=== PATIENT | female | born 1945 | race Caucasian/White ===

== ENCOUNTER 2017-02-26 14:11 | Inpatient (IN) | payer MEDICARE ==
[~2017-02-26] VITALS: Ht 154.9 cm; Wt 48.5 kg
[2017-02-26] VITALS (10 sets, daily range): BP systolic 117–144; BP diastolic 60–81; PULSE 62–88; RESP 14–18; TEMP 97.8–98.1; O2SAT 98–100
[~2017-02-26 14:11] MED LIST: ATOR80TA PO; KLOR20TA6 PO; LEVE500T10 PO; LISI-591 PO; MACR100C PO
--- NOTE | 2017-02-26 14:19 | PD ---
Physical Exam Date Seen by Provider: Feb 26, 2017 Time Seen by Provider: 14:16 Narrative 71-year-old white female patient of Dr. Villagran presents emergency department for evaluation of left-sided chest pain with radiation to her left shoulder. This is been present for the last several weeks. Patient also reports associated hiccups. Patient's having increasing frequency of her pain. Patient currently is pain-free. Patient has a history of non-Hodgkin's lymphoma. Still undergoing treatment. Vital signs reviewed. Awaiting bed placement. Data Data Last Documented VS Vital Signs Date Time Temp Pulse Resp B/P (MAP) Pulse Ox O2 Delivery O2 Flow Rate FiO2 02/26/17 14:14 98.1 77 14 144/68 (93) 99 Orders Orders Electrocardiogram (02/26/17 14:15) [facility] Medical Record Reviewed: No Supervised Visit with YANA: Ryan Enriquez Feb 26, 2017 14:19
--- NOTE | 2017-02-26 14:39 | PD ---
HPI Chief Complaint: Chest Pain Time Seen by Provider: 14:35 Travel History International Travel<30 days: No Contact w/Intl Traveler<30days: No Traveled to known affect area: No History of Present Illness HPI This is a 71-year-old female with history of NHL, COPD, TIA who presents for evaluation of chest pain. She's had intermittent generalized anterior chest pain which sometimes radiates into the left shoulder. This is been waxing and waning for the past few weeks. It seems to be somewhat worse with exertion. Sometimes it occurs spontaneously. She endorses occasional dyspnea as well as hiccups. She denies abdominal pain, nausea or vomiting, cough or congestion, recent travel, calf swelling. She was seen today by coroner Dr. Villagran and reportedly referred here. She is currently symptom-free. She has no other complaints at this time. PFSH Past Medical History Arthritis: Yes Asthma: No Blood Disorders: No Heart Rhythm Problems: Yes (HOLE IN HEART) Cancer: No Cardiovascular Problems: No High Cholesterol: No Chemotherapy: Yes ([id number]) Chest Pain: No Congestive Heart Failure: No COPD: Yes Cerebrovascular Accident: Yes Diabetes: No Diminished Hearing: No Endocrine: No Gastrointestinal Disorders: Yes GERD: No Genitourinary: Yes (BLADDER AND KIDNEY INFECTIONS) Headaches: Yes Hepatitis: No Hiatal Hernia: No Hypertension: Yes Immune Disorder: No Musculoskeletal: Yes (BACK SURGERY) Neurologic: Yes (CVA) Psychiatric: No Reproductive: No Respiratory: Yes (COPD) Integumentary: Yes (HX OF MRSA) Immunizations Current: No Migraines: No Myocardial Infarction: No Seizures: Yes Thyroid Disease: No Ulcer: No Menopausal: Yes Tubal Ligation: Yes (1971) Past Surgical History Abdominal Surgery: Yes (GALLBLADDER) AICD: No Appendectomy: No Cardiac Surgery: No Cholecystectomy: Yes ("") Ear Surgery: No Endocrine Surgery: No Eye Surgery: Yes (BILATERAL) Genitourinary Surgery: No Gynecologic Surgery: Yes (HYSTERECTOMY) Hysterectomy: Yes (1981--PARTIAL) Joint Replacement: No Oral Surgery: No Pacemaker: No Other Surgery: Yes Social History Alcohol Use: No Tobacco Use: No Substance Use: No Allergies-Medications (Allergen,Severity, Reaction): Coded Allergies: No Known Allergies (Verified , 02/26/17) Reported Meds & Prescriptions Reported Meds & Active Scripts Active Review of Systems Except as stated in HPI: all other systems reviewed are Neg Physical Exam Narrative GENERAL: Pleasant well-developed well-nourished female in no acute distress SKIN: Warm and dry. HEAD: Atraumatic. Normocephalic. EYES: Pupils equal and round. No scleral icterus. No injection or drainage. ENT: No nasal bleeding or discharge. Mucous membranes pink and moist. NECK: Trachea midline. No JVD. CARDIOVASCULAR: Regular rate and rhythm. No murmur appreciated. RESPIRATORY: No accessory muscle use. Clear to auscultation. Breath sounds equal bilaterally. No crackles no wheezing or rhonchi GASTROINTESTINAL: Abdomen soft, non-tender, nondistended. Hepatic and splenic margins not palpable. MUSCULOSKELETAL: No obvious deformities. No clubbing. No cyanosis. No edema. NEUROLOGICAL: Awake and alert. No obvious cranial nerve deficits. Motor grossly within normal limits. Normal speech. PSYCHIATRIC: Appropriate mood and affect; insight and judgment normal. Data Data Last Documented VS Vital Signs Date Time Temp Pulse Resp B/P (MAP) Pulse Ox O2 Delivery O2 Flow Rate FiO2 02/26/17 14:38 16 99 Room Air 02/26/17 14:37 70 02/26/17 14:14 98.1 Orders Orders Electrocardiogram (02/26/17 14:15) Electrocardiogram (02/26/17 14:33) Basic Metabolic Panel (Bmp) (02/26/17 14:33) Ckmb (Isoenzyme) Profile (02/26/17 14:33) Complete Blood Count With Diff (02/26/17 14:33) Magnesium (Mg) (02/26/17 14:33) Prothrombin Time / Inr (Pt) (02/26/17 14:33) Act Partial Throm Time (Ptt) (02/26/17 14:33) Troponin I (02/26/17 14:33) Chest, Single Ap (02/26/17 14:33) Ecg Monitoring (02/26/17 14:33) Bilateral Bp Monitoring (02/26/17 14:33) Iv Access Insert/Monitor (02/26/17 14:33) Oximetry (02/26/17 14:33) Oxygen Administration (02/26/17 14:33) Aspirin Chew (Aspirin Chew) (02/26/17 14:45) Sodium Chloride 0.9% Flush (Ns Flush) (02/26/17 14:45) Admit Order (Ed Use Only) (02/26/17 15:32) Labs Laboratory Tests Test 02/26/17 14:38 Prothrombin Time 11.6 SEC Prothromb Time International Ratio 1.0 RATIO Activated Partial Thromboplast Time 22.2 SEC Blood Urea Nitrogen 11 MG/DL Creatinine 0.84 MG/DL Random Glucose 94 MG/DL Calcium Level 8.5 MG/DL Magnesium Level 2.0 MG/DL Sodium Level 141 MEQ/L Potassium Level 4.7 MEQ/L Chloride Level 108 MEQ/L Carbon Dioxide Level 29.4 MEQ/L Anion Gap 4 MEQ/L Estimat Glomerular Filtration Rate 66 ML/MIN MDM Medical Decision Making Medical Screen Exam Complete: Yes Emergency Medical Condition: Yes Medical Record Reviewed: Yes Differential Diagnosis Pleurisy, pericarditis, myocarditis, acute coronary syndrome, pneumothorax, hemothorax, pulmonary embolism, aortic dissection Narrative Course 71-year-old female who has been experiencing intermittent chest pain radiating into the left arm for the past few weeks. She was sent here by coroner Dr. Villagran. Currently she is symptom free. The patient will be given an aspirin. The patient was placed on ECG monitoring pulse oximetry. Plan is for basic lab work, chest x-ray, EKG. I discussed the case with the patient's coroner Dr. Lara reports that the patient is going to be going for cardiac catheterization at 4:30 PM today performed by Dr. Beltran. The patient was admitted to Dr. Lester. Diagnosis Primary Impression: Chest pain Qualified Codes: R07.9 - Chest pain, unspecified Additional Impression: Abnormal EKG Admitting Information Admitting Physician Requests: Oliver Chapman Feb 26, 2017 14:38
[2017-02-26] MEDS ORDERED: ASPIRIN 81 MG CHEW TAB PO ONE (14:45)
[2017-02-26] MEDS ORDERED: SODIUM CHLORIDE 0.9% FLUSH 10 ML FLUSH IVF PRN (14:45)
[2017-02-26 15:18] LABS: PROTHROMBIN TIME - PATIENT 11.6 SEC (9.8-11.6)
[2017-02-26 15:19] LABS: ANION GAP 4 MEQ/L (5-15); APTT (PATIENT) 22.2 SEC (24.3-30.1); BICARBONATE 29.4 MEQ/L (21.0-32.0); BLOOD UREA NITROGEN 11 MG/DL (7-18); CHLORIDE 108 MEQ/L (98-107); GLOMERULAR FILTRATION RATE 66 ML/MIN (>89); POTASSIUM 4.7 MEQ/L (3.5-5.1); SODIUM (NA) 141 MEQ/L (136-145)
--- NOTE | 2017-02-26 15:23 | PD ---
Data Data Last Documented VS Vital Signs Date Time Temp Pulse Resp B/P (MAP) Pulse Ox O2 Delivery O2 Flow Rate FiO2 02/26/17 14:38 16 99 Room Air 02/26/17 14:37 70 02/26/17 14:14 98.1 Orders Orders Electrocardiogram (02/26/17 14:15) Electrocardiogram (02/26/17 14:33) Basic Metabolic Panel (Bmp) (02/26/17 14:33) Ckmb (Isoenzyme) Profile (02/26/17 14:33) Complete Blood Count With Diff (02/26/17 14:33) Magnesium (Mg) (02/26/17 14:33) Prothrombin Time / Inr (Pt) (02/26/17 14:33) Act Partial Throm Time (Ptt) (02/26/17 14:33) Troponin I (02/26/17 14:33) Chest, Single Ap (02/26/17 14:33) Ecg Monitoring (02/26/17 14:33) Bilateral Bp Monitoring (02/26/17 14:33) Iv Access Insert/Monitor (02/26/17 14:33) Oximetry (02/26/17 14:33) Oxygen Administration (02/26/17 14:33) Aspirin Chew (Aspirin Chew) (02/26/17 14:45) Sodium Chloride 0.9% Flush (Ns Flush) (02/26/17 14:45) Labs Laboratory Tests Test 02/26/17 14:38 Prothrombin Time 11.6 SEC Prothromb Time International Ratio 1.0 RATIO Activated Partial Thromboplast Time 22.2 SEC Blood Urea Nitrogen 11 MG/DL Creatinine 0.84 MG/DL Random Glucose 94 MG/DL Calcium Level 8.5 MG/DL Magnesium Level 2.0 MG/DL Sodium Level 141 MEQ/L Potassium Level 4.7 MEQ/L Chloride Level 108 MEQ/L Carbon Dioxide Level 29.4 MEQ/L Anion Gap 4 MEQ/L Estimat Glomerular Filtration Rate 66 ML/MIN MDM Supervised Visit with YANA: Yes Narrative Course The history, exam, and medical decision-making in the associated mid-level provider note were completed with my assistance. I reviewed and agree with the findings presented. I attest that I had a [id number] encounter with the patient on the same day, and personally performed and documented my assessment and findings in the medical record. *My assessment and Findings: 70 year-old woman referred to the emergency department for chest pain. History of CAD, previous stent. She's had an unstable angina-like pattern of chest pain over the past couple weeks. 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 Oliver spoke with Dr. Hull. Patient is scheduled for heart catheter this afternoon. Patient be admitted to medicine. Blair Wade MD Feb 26, 2017 15:23
[2017-02-26] MEDS ORDERED: IOHEXOL 350 MG/ML 100 ML BTL (for Cath Lab) OTHER ONE (15:34)
[2017-02-26] MEDS ORDERED: MIDAZOLAM HCL 2 MG/2 ML VIAL ONE (15:43)
[2017-02-26] MEDS ORDERED: VERAPAMIL HCL 5 MG/2 ML VIAL ONE (15:44)
[2017-02-26] MEDS ORDERED: HEPARIN SODIUM - IV 10,000 UNITS/10 ML VIAL ONE (15:44)
[2017-02-26] MEDS ORDERED: NITROGLYCERIN INJ 5 ML ONE (15:44)
[2017-02-26] MEDS ORDERED: SENNOSIDES 8.6 MG TAB PO PRN (15:45)
[2017-02-26] MEDS ORDERED: SODIUM CHLORID 0.9% 500 ML INJ 500 ML ONE (15:45)
[2017-02-26] MEDS ORDERED: BISACODYL 10 MG SUPP RECTAL PRN (15:45)
[2017-02-26] MEDS ORDERED: ACETAMINOPHEN 325 MG TAB PO PRN (15:45)
[2017-02-26] MEDS ORDERED: NALOXONE HCL 0.4 MG/ML AMP IV PUSH PRN (15:45)
[2017-02-26] MEDS ORDERED: MAGNESIUM HYDROXIDE SUSP 30 ML CUP PO PRN (15:45)
[2017-02-26] MEDS ORDERED: TEMAZEPAM 15 MG CAP PO PRN (15:45)
[2017-02-26] MEDS ORDERED: LACTULOSE SYRUP 20 GM/30 ML CUP PO PRN (15:45)
[2017-02-26] MEDS ORDERED: SODIUM CHLORIDE 0.9% FLUSH 10 ML FLUSH IV FLUSH PRN (15:45)
[2017-02-26] MEDS ORDERED: HEPARIN-NS/PF INJ 1,000 ML ONE (15:45)
[2017-02-26] MEDS ORDERED: ONDANSETRON HCL 4 MG/2 ML VIAL IVP PRN (15:45)
--- NOTE | 2017-02-26 15:46 | RADRPT ---
EXAM DATE/TIME: 02/26/2017 15:13 [place] COMPARISON: No previous studies available for comparison. INDICATIONS : Chest pain. MEDICAL HISTORY : Chronic obstructive pulmonary disease. Hypertension SURGICAL HISTORY : Mott eitan. Infusaport. ENCOUNTER: Initial ACUITY: 1 day PAIN SCORE: 2/10 LOCATION: Bilateral chest FINDINGS: A single view of the chest demonstrates the lungs to be symmetrically aerated without evidence of mas s, infiltrate or effusion. The cardiomediastinal contours are unremarkable. Osseous structures are intact. Scoliotic changes. Jowecv-k-Ugsk catheter with tip in the cavoatrial junction. CONCLUSION: No acute disease. Messi Fajardo MD on February 26, 2017 at 15:39 Board Certified Radiologist. This report was verified electronically.
[2017-02-26] MEDS ORDERED: LIPI80TA PO (15:51)
[2017-02-26] MEDS ORDERED: LEVE500 PO (15:51)
[2017-02-26] MEDS ORDERED: LISI10TA3 PO (15:51)
[2017-02-26] MEDS ORDERED: POTA-163 PO (15:51)
[2017-02-26] MEDS ORDERED: PROC10TA PO (15:51)
[2017-02-26] MEDS ORDERED: TOPR100T PO (15:51)
[2017-02-26] MEDS ORDERED: VITA100064 PO (15:51)
[2017-02-26 15:52] LABS: CREATINE KINASE 185 U/L (26-192)
[2017-02-26] MEDS: SODIUM CHLOR 0.45% 1000 ML INJ 1,000 ML IV SCH (16:00)
[2017-02-26 16:09] LABS: CKMB 2.5 NG/ML (0.5-3.6)
[2017-02-26 16:12] LABS: AUTOMATED NEUTROPHIL # 2.3 TH/MM3 (1.8-7.7); BASOPHIL % 0.8 % (0.0-2.0); EOSINOPHIL # 0.2 TH/MM3 (0-0.4); EOSINOPHIL % 6.2 % (0.0-4.0); HEMATOCRIT 34.3 % (35.0-46.0); LYMPH % 11.2 % (9.0-44.0); LYMPHOCYTE # 0.4 TH/MM3 (1.0-4.8); MEAN CELL VOLUME 97.8 FL (80.0-100.0); MEAN CORPUSCULAR HEMOGLOBIN 32.5 PG (27.0-34.0); MEAN CORPUSCULAR HGB CONC 33.2 % (32.0-36.0); MONO % 10.9 % (0.0-8.0); NEUT % 70.9 % (16.0-70.0); PLATELET COUNT 120 TH/MM3 (150-450); RED BLOOD COUNT 3.51 MIL/MM3 (4.00-5.30); RED CELL DISTRIBUTION WIDTH 13.2 % (11.6-17.2); WHITE BLOOD COUNT 3.2 TH/MM3 (4.0-11.0)
[2017-02-26 16:16] LABS: HEMO FLAGS AUTO DIFF
[2017-02-26] MEDS ORDERED: HEPARIN SODIUM - SQ 10,000 UNITS/ML VIAL SQ SCH (17:00)
[2017-02-26 17:19] LABS: BANDS 8 % (0-6); BASOPHILS 2 % (0-2); EOSINOPHILS 6 % (0-4); NEUTROPHIL # MANUAL DIFF 2.4 TH/MM3 (1.8-7.7); POLYS (SEG NEUTROPHILS) 66 % (16-70); WBC DIFF SAMPLE 100
[2017-02-26 17:20] LABS: OVALOCYTES 1+ (NORMAL); PLATELET ESTIMATE SMEAR LOW (NORMAL); PLATELET MORPHOLOGY NORMAL (NORMAL); SCAN/DIFF FINAL DIFF MANUAL
[2017-02-26 17:21] LABS: KERATOCYTES OCC (NORMAL)
[2017-02-26] MEDS ORDERED: HEPARIN-D5W 25,000 U/250 ML 250 ML ONE (17:48)
--- NOTE | 2017-02-26 18:05 | CATHPROC ---
[facility] HIS Report Study Information Study Number Admission Scheduled Start Study Start [id number] Feb 26 2017 2:11PM 02/26/2017 Feb 26 2017 4:04PM [place] Service Cardiac Catheterization Admit Source Facility Department Emergency department [facility] - Braid Pattern Setter Physician and Clinical Staff Initial Rigo De Guzman Tire Fabricator Anum Correia RN Tire Fabricator Elba Kerr BSRN Recorder Bernabe Ansari RCIS(BS) Scrub Eboni Juarez,RT(R) Procedures Performed Procedure Location (Site) Vessel Name Coronary Angiograms LCA Left Coronary Coronary Angiograms RCA Right Coronary IVUS LEFT MAIN ARTERY-(11 Left Coronary L Heart Cath Wire insertion Radial (right) Radial Art. Equipment Time Remote Mortgage Underwriter Description Size Mfg Part Number Used/Scraped WIRE, BALANCE MIDDLEWEIGHT [id number] 17:02 [employer] 190CM Used 190CM *[id number] *[id number] *[id number] 16:12 [employer] PACK, CCL CUSTOM * Used *[id number] 16:25 [employer] PACK, CCL CUSTOM * Used *[id number] 16:25 [employer] SUPPORT, ARTERIAL ADULT 33175 *[id number] Used [id number] 17:02 [employer]/AVE EBU 3.5 Z2 GUIDE CATHETER FR 6 Used *[id number] BAND, RADIAL COMPRESSION TR [id number] 17:33 [employer] MEDICAL 24CM Used SHORT 24 *[id number] 16:25 [employer] MEDICAL WIRE, EXCHANGE 260CM 3MMJ 260CM Used *[id number] 16:25 NAMIC MANIFOLD, 4 PORT * Used *[id number] 16:12 [employer] OMNIPAQUE, 350 MG, 150ML 150ML [id number] Used [id number] 16:25 BLOCK MEDICAL BLANKET,WARM AIR CCL * Used *[id number] SHEATH, FR6 TRANSRADIAL [id number] 16:27 [employer] MEDICAL FR 6 Used SLENDER 10CM *[id number] CATHETER, [employer] [id number] 17:05 [employer] Used IMAGING *[id number] Equipment Model, Serial, Lot Number and Expiration Data Description Model Number Serial Number Lot Number Expiration Date CATHETER, [employer] [id number] 12-06-2018 IMAGING History: Current Medications Medication Dosage/Unit Route Frequency Last Date/Time Taken ASA Statins (any) History: Allergies Allergy Reaction No Known Allergies History: Risk Factors Family History of Hypertension Dyslipidemia Previous IA Previous Heart Failure Premature CAD Yes Yes No No No Prior Valve Prior PCI Prior CABG Surgery No No No Cerebrovascular Peripheral Artery Chronic Lung On Dialysis Diabetes Disease Disease Disease No Yes Yes Yes Yes History: Stress Tests Stress or Imaging Studies Performed No History: Other Current Smoker No Labs Hgb (g/dl) Hct (%) WBC (l/cumm) Platelets (thousands) 11.60-17.00 35.00-51.00 4.00-11.00 150.00-450.00 11.4 34.3 3.2 120 Glucose (mg/dl) BUN (mg/dl) Creatinine (mg/dl) BUN:Creatinine (1:x) 74.00-106.00 7.00-18.00 0.50-1.30 10.00-20.00 94 11 0.8 13.8 Na (meq/l) K (meq/l) 136.00-145.00 3.50-5.10 141 4.7 INR (PTT:PT) 0.90-1.10 1 Troponin I (ng/ml) CPK (u/l) CPK-MB (ng/ML) 0.02-0.05 26.00-308.00 0.50-3.60 0.99 185 2.5 Medication Medication Total Dose (Bolus/Oral) Medication Total Dosage/Unit FENTANYL 25 mcg HEPARIN 2700 units RADIAL COCKTAIL 5 mL (Bolus) VERSED 0.5 mg Medications (Bolus/Oral) Medication Time Given Dosage/Unit Administered By Reason VERSED 02/26/2017 4:40:00 PM 0.5 mg Rittenour, Elba 0.5 mg VERSED given in lab by Elba Kerr BSRN via Central IV. Ordered by Rigo Beltran. FENTANYL 02/26/2017 4:41:30 PM 25 mcg Rittenour, Elba 25 mcg FENTANYL given in lab by Elba Kerr BSRN via Central IV. Ordered by Rigo Beltran. Ntg 200mcg Verapamil 2.5mg Heparin RADIAL COCKTAIL 02/26/2017 4:43:25 PM 5 mL (Bolus) Usha, Elba 2000U 5 mL (Bolus) RADIAL COCKTAIL given in lab by Elba Kerr BSRN via Radial. Using [Solution Name] . Ordered by Rigo Beltran. Reason: Ntg 200mcg Verapamil 2.5mg Heparin 1800U. HEPARIN 02/26/2017 5:03:09 PM 2700 units Elba Kerr 2700 units HEPARIN given in lab by Elba Kerr BSRN via Central IV. Ordered by Fredy Beltran Medication (Drip) Medication Time Given Dosage/Unit Concentration/Unit Diluent (ml) Solution HEPARIN DRIP 02/26/2017 5:38:41 PM 1000 units/hr 98854 units 250 D5W 1000 units/hr HEPARIN DRIP given in lab by Elba Kerr BSRN via Peripheral IV. Pump/Drip Flow = 10 ml/hr [place] D5[place] [address] units in 250 ml. Ordered by Rigo Beltran. IV Solutions 02/26/2017 4:26:51 PM 0 mL (IV) 500 NaCl .9 Patient arrived on IV Solutions via Central IV. Pump/Drip Flow = 20 ml/hr using NaCl .9. Initial Case Assessment Cardiovascular HR Rhythm NIBP Chest Pain 65 SR 151/77 0 Edema Present Skin color Skin None Normal Warm Dry Circulatory - Right Pulses Dorsalis Pedis Femoral Radial 2 2 2 Scale (0,1,2,3,4,d) Circulatory - Left Pulses Dorsalis Pedis Femoral Radial 2 2 Scale (0,1,2,3,4,d) Circulatory - Lower Extremities Color Lower Right Color Lower Left Normal Normal Neurological State Oriented to time-place- Alert Moves all extremities person Respiration - General Respiration Rate SpO2 (%) (B/min) 14 100 Final Case Assessment Cardiovascular HR Rhythm NIBP Chest Pain 65 SR 151/77 0 Edema Present Skin color Skin None Normal Warm Dry Circulatory - Right Pulses Dorsalis Pedis Femoral Radial 2 2 2 Scale (0,1,2,3,4,d) Circulatory - Left Pulses Dorsalis Pedis Femoral Radial 2 2 Scale (0,1,2,3,4,d) Circulatory - Lower Extremities Color Lower Right Color Lower Left Normal Normal Neurological State Oriented to time-place- Alert Moves all extremities person Respiration - General Respiration Rate SpO2 (%) (B/min) 14 100 Chronological Log Time Study Chronological Log 16:12:20 Patient arrived via Bed. 16:12:21 Patient Name, D.O.B, / Armband Verified By R.N. 16:12:22 Consent signed by the physician and the patient and verified by the Braid Pattern Setter staff. 16:12:23 Pre-op and post- op instructions given; patient acknowledges understanding of instructions. 16:12:25 Verbal Stimulation=2 Physical Stimulation=2 Airway=2 Respiration=2 TOTAL=8. (0=absent, 1=li mited, 2=present) 16:20:00 MD arrived. Vitals capture started with the following parameters, Patient=Adult, Interval=5 min, Initial Pr zsnenl=001 mmHg, 16:23:00 Deflation Rate=5 mmHg, Cuff placed on Left Ankle 16:23:35 HR=67 bpm, HDPA=370/73 mmhg, LtW1=482 %, Resp=17 B/min, Pain=0, Sherley=10, Kumar=2 16:26:41 Patient has been NPO for Less than 6Hrs. 16:26:46 Skin Breakdown- 16:26:48 Patient Warmer Placed on the Table. 16:26:50 A # ~SIZE~ IV was noted in the R Upper Chest. Grade = ~GRADE~ 16:26:51 Patient arrived on IV Solutions via Central IV. Pump/Drip Flow = 20 ml/hr using NaCl .9. 16:26:52 History and physical on the chart or being dictated. Assessment: Initial Case, HR=65 BPM, Rhythm=SR, QWWY=922/77 mmhg, Chest Pain=0, Edema=None, Col or=Normal, Skin = Warm, Dry Right Pulses: Gurdeep Ped=2, Femoral=2, Radial=2 Left Pulses: Gurdeep Ped=2, Femoral=2 16:26:56 Lower Right Extremities: Color=Normal Lower Left Extremities: Color=Normal Neurological: State=Alert, Ox3, NUNEZ Respiration: Resp=14 B/min, MtD3=797 % 16:27:08 Right Radial and groin(s) prepped with 2% chlorhexidine, and with a 3 min. waiting time. 16:28:16 Reference ECG taken 16:28:36 HR=67 bpm, MQDY=469/77 mmhg, ZrY0=461 %, Resp=16 B/min, Pain=0, Sherley=10, Kumar=2 16:33:32 Pressure channel 1 zeroed. 16:33:41 HR=66 bpm, KKZU=172/66 mmhg, SpO2=99.0 %, Resp=14 B/min, Pain=0, Sherley=10, Kumar=2 16:38:36 HR=64 bpm, LRGB=817/66 mmhg, SpO2=99.0 %, Resp=13 B/min, Pain=0, Sherley=10, Kumar=2 16:40:00 0.5 mg VERSED given in lab by Elba Kerr BSRN via Central IV. Ordered by Pepe Beltran. Time Out. Correct patient, correct procedure,correct physician, ,power injector loaded or not l oaded with contrast with 16:40:25 surgical team present. Time Out Concurred by MD, individual staff and MANAGER UROLOGY in procedure 16:40:32 Case Start 16:41:30 25 mcg FENTANYL given in lab by Elba Kerr BSRN via Central IV. Ordered by Rigo Beltran. 16:42:36 Access site was RIGHT Radial Artery. A SHEATH, FR6 TRANSRADIAL SLENDER 10CM FR 6 was advanced into the Radial (right) using the Perc utaneous 16:43:02 technique. 5 mL (Bolus) RADIAL COCKTAIL given in lab by Elba Kerr BSRN via Radial. Using [Solution Name]. Ordered by 16:43:25 Rigo Beltran. Reason: Ntg 200mcg Verapamil 2.5mg Heparin 1800U. 16:43:37 HR=68 bpm, LNNF=344/79 mmhg, SpO2=99.0 %, Resp=13 B/min, Pain=0, Sherley=10, Kumar=2 A JR 4.0 INFINITI CATHETER FR 5 was advanced over a wire. OMNIPAQUE, 350 MG, 150ML 150ML was us ed for 16:44:22 injections. Recorded Pressure: Ao, HR=68, Condition=Condition 1 16:46:22 (Aorta) Ao 104/51/73 Recorded Pressure: LV, HR=67, Condition=Condition 1 16:48:27 (Left Ventricle) LV 109/5/10 Recorded Pressure: LV, Ao, HR=67, Condition=Condition 1 16:48:34 (Left Ventricle) LV 108/5/10, (Aorta) Ao 106/53/75 16:48:40 HR=67 bpm, XGJV=535/63 mmhg, SpO2=97.0 %, Resp=11 B/min, Pain=0, Sherley=10, Kumar=2 16:49:49 The RCA was injected and visualized at various angles. OMNIPAQUE, 350 MG, 150ML 150ML used . After removing the current catheter a JL 3.5 INFINITI CATHETER FR 5 was advanced over a WIRE, E XCHANGE 260CM 16:52:30 3MMJ 260CM. 16:53:31 HR=67 bpm, BBWO=823/64 mmhg, SpO2=97.0 %, Resp=7 B/min, Pain=0, Sherley=10, Kumar=2 16:53:54 The LCA was injected and visualized at various angles. OMNIPAQUE, 350 MG, 150ML 150ML used . 16:58:34 HR=62 bpm, TTKL=919/63 mmhg, SpO2=96.0 %, Resp=11 B/min, Pain=0, Sherley=10, Kumar=2 17:03:09 2700 units HEPARIN given in lab by Elba Kerr BSRN via Central IV. Ordered by Rigo Barnes. 17:03:35 HR=66 bpm, YYSZ=470/62 mmhg, SpO2=98.0 %, Resp=13 B/min 17:08:36 HR=72 bpm, OYVL=933/63 mmhg, SpO2=99.0 %, Resp=16 B/min, Pain=0, Sherley=10, Kumar=2 After removing the current catheter a EBU 3.5 Z2 GUIDE CATHETER FR 6 was advanced over a WIRE, EXCHANGE 17:13:05 260CM 3MMJ 260CM. 17:13:19 A WIRE, BALANCE MIDDLEWEIGHT 190CM 190CM was inserted via Radial (right). 17:13:35 HR=65 bpm, GYLC=003/67 mmhg, SpO2=99.0 %, Resp=12 B/min, Pain=0, Sherley=10, Kumar=2 17:14:19 Interventional wire has crossed the lesion 17:15:21 An CATHETER, [employer] IMAGING was advanced through the lesion. Images saved on to IVUS hard drive 17:16:00 IVUS in progress using CATHETER, [employer] IMAGING 17:18:38 HR=71 bpm, DJRP=860/70 mmhg, ZtI5=452.0 %, Resp=0 B/min, Pain=0, Sherley=10, Kumar=2 17:20:20 IVUS catheter removed 17:23:37 HR=66 bpm, QJFR=285/70 mmhg, SpO2=99.0 %, Resp=10 B/min, Pain=0, Sherley=10, Kumar=2 17:28:41 HR=74 bpm, TPLM=351/71 mmhg, AlA2=384.0 %, Resp=14 B/min, Pain=0, Sherley=10, Kumar=2 17:29:42 Catheter was removed 17:31:55 Case End Assessment: Final Case, HR=65 BPM, Rhythm=SR, OGLM=601/77 mmhg, Chest Pain=0, Edema=None, Color =Normal, Skin = Warm, Dry Right Pulses: Gurdeep Ped=2, Femoral=2, Radial=2 Left Pulses: Gurdeep Ped=2, Femoral=2 17:32:40 Lower Right Extremities: Color=Normal Lower Left Extremities: Color=Normal Neurological: State=Alert, Ox3, NUNEZ Respiration: Resp=14 B/min, TqY7=776 % Radial Compression Device Used. 10 mLs of air placed in BAND, RADIAL COMPRESSION TR SHORT 24 24 CM. Affected 17:32:53 hand 99 % O2 saturation. 17:33:40 HR=75 bpm, UUHB=228/76 mmhg, TwJ8=150.0 %, Resp=6 B/min, Pain=0, Sherley=10, Kumar=2 17:34:14 Sterile dressing applied to site 17:34:15 No case complications noted. 17:34:16 Cine recording checked. 17:34:18 Bedside Report will be given. 17:34:19 Contrast Scanned 17:34:22 A Left Heart Cath was performed. 1000 units/hr HEPARIN DRIP given in lab by Elba Kerr BSRN via Peripheral IV. Pump/Drip Flow = 10 ml/hr 17:38:41 [place] [address] units in 250 ml. Ordered by Rigo Beltran. 17:38:43 HR=69 bpm, ROCF=882/71 mmhg, Resp=17 B/min, Pain=0, Sherley=10, Kumar=2 17:43:40 HR=71 bpm, HTAT=052/77 mmhg, Resp=18 B/min, Pain=0, Sherley=10, Kumar=2 17:46:47 Patient moved to stretcher 17:48:27 Vitals capture stopped. End Study - Contrast Media Used In Study Contrast Total Opened (mL) Total Used (mL) Total Wasted (mL) Omnipaque 60 60 0 End Study - Maximum Contrast Load Max Contrast Load (mL) 278.1 End Study - Radiation Exposure Fluoro Time (minutes) 10.3 End Study - Patient Disposition Complications Transferred To Telemetry Bed
[2017-02-26] MEDS ORDERED: HEPARIN-D5W 25,000 U/250 ML 250 ML IV PRN (18:15)
--- NOTE | 2017-02-26 18:48 | HP.UPD ---
H&P Update Note This is a 71-year-old female with a history of non-Hodgkin's lymphoma , COPD, TIA, "hole in the heart" She was admitted with chest pain with ischemic electrocardiographic changes She had an emergent catheterization showing multivessel coronary disease including significant left main disease Cardio vascular surgery was consulted for coronary bypass surgery Discussed with finisher denture Dr. Beltran Comprehensive history and physical to follow aYron White MD Feb 26, 2017 18:45
[2017-02-26] MEDS ORDERED: RESP: ALBUTEROL 2.5 MG/IPRATROPIUM 0.5 MG NEB (PRN) NEB (19:00)
[2017-02-26] MEDS ORDERED: NITROGLYCERIN 0.4 MG SL 25 TABS/BTL SL PRN (19:00)
--- NOTE | 2017-02-26 19:12 | HHI.HP ---
HPI Service [facility] Primary Care Physician Maxim Chanel MD Admission Diagnosis chest pain, abnormal EKG Diagnoses: Chief Complaint: chest pain Travel History International Travel<30 Days: No Contact w/Intl Traveler <30 Da: No Traveled to Known Affected Are: No History of Present Illness Mrs. Odom is a 71-year-old white female with significant past medical history of non-Hodgkin's B-cell lymphoma currently on maintenance Rituxan, epilepsy, COPD, previous TIAs, arthritis, hyperlipidemia, hypertension. Patient presented to the emergency room with complaints of left-sided chest wall pain that has been ongoing for the last couple weeks, it is waxing and waning. Pain is associated with shortness of breath and increased hiccups. Indicates that the pain increases with activity. She also complains of some tingling to her feet. Patient went to see her cloth folder machine Dr. Villagran who referred her to the hospital for evaluation and cardiac catheterization with Dr. Raygoza. Patient denies any prior history of coronary artery disease. Indicates she has history of a "hole" in her heart. Review of previous medical records shows that patient had a EVA back in 2008 that showed a stretched patent foramen ovale, had a bubble study that was negative. EF at that time was found at 55-60% with overall left ventricular systolic function that was normal. Pt. was evaluated in emergency room, laboratory workup was completed. BMP unremarkable. Troponin was not elevated, 0.99. EKG shows deep anterior precordial T wave inversions. CBC remarkable for pancytopenia, WBC 3.2, platelets 120, hemoglobin 11.4, hematocrit 34.3. Patient was evaluated by Dr. Raygoza, she underwent cardiac catheterization. Cardiac catheterization showed multivessel coronary artery disease. Cardiothoracic consultation has been recommended. Patient has been started on heparin drip. If necessary, IABP has been recommended if patient decompensates. A 2-D echo is currently pending. At This time, patient remains chest pain-free, no shortness of breath. Patient is admitted for further evaluation and treatment. Review of Systems Constitutional: DENIES: Diaphoretic episodes, Fatigue, Fever, Weight gain, Weight loss, Chills, Dizziness, Change in appetite, Night Sweats Endocrine: DENIES: Abnorml menstrual pattern, Heat/cold intolerance, Polydipsia , Polyuria, Polyphagia Eyes: DENIES: Blurred vision, Diplopia, Eye inflammation, Eye pain, Vision loss , Photosensitivity, Double Vision Ears, nose, mouth, throat: DENIES: Tinnitus, Hearing loss, Vertigo, Nasal discharge, Oral lesions, Throat pain, Hoarseness, Ear Pain, Running Nose, Epistaxis, Sinus Pain, Toothache, Odynophagia Respiratory: DENIES: Apneas, Cough, Snoring, Wheezing, Hemoptysis, Sputum production, Shortness of breath Cardiovascular: COMPLAINS OF: Chest pain, Dyspnea on Exertion, DENIES: Palpitations, Syncope, PND, Lower Extremity Edema, Orthopnea, Claudication Gastrointestinal: DENIES: Abdominal pain, Black stools, Bloody stools, Constipation, Diarrhea, Nausea, Vomiting, Difficulty Swallowing, Anorexia Genitourinary: DENIES: Abnormal vaginal bleeding, Dysmenorrhea, Dyspareunia, Sexual dysfunction, Urinary frequency, Urinary incontinence, Urgency, Hematuria , Dysuria, Nocturia, Vaginal discharge Musculoskeletal: DENIES: Joint pain, Muscle aches, Stiffness, Joint Swelling, Back pain, Neck pain Integumentary: DENIES: Abnormal pigmentation, Pruritus, Rash, Nail changes, Breast masses, Breast skin changes, Nipple discharge Hematologic/lymphatic: DENIES: Bruising, Lymphadenopathy Immunologic/allergic: DENIES: Eczema, Urticaria Neurologic: COMPLAINS OF: Paresthesias, DENIES: Abnormal gait, Headache, Localized weakness, Seizures, Speech Problems, Tremor, Poor Balance Psychiatric: DENIES: Anxiety, Confusion, Mood changes, Depression, Hallucinations, Agitation, Suicidal Ideation, Homicidal Ideation, Delusions Other hiccups Past Family Social History Past Medical History COPD Epilepsy Left breast benign nodule TIAs Non-Hodgkin's B-cell lymphoma, follicular lymphoma grade 1-. Has completed 5 cycles of Rituxan and bendamustine June 2016, she is on maintenance Rituxan. Last CT scan did not show any evidence of recurrent disease. Arthritis Heartburn "hole" in the heart, last echo at this facility 2008. EF 55-60%. Had EVA 2008, overall left ventricular systolic function was normal, negative bubble study, no definitive evidence of shunt. There was a stretched patent foramen ovale. Past Surgical History Port placement in 2016 Left lumpectomy Biopsy 2016 Cataract removal 2015 Cholecystectomy 1978 Hysterectomy 1976 Tubal ligation 1972 Reported Medications Reported Meds & Active Scripts Active Reported Lisinopril 10 Mg Tab 10 Mg PO DAILY Keppra (Levetiracetam) 500 Mg Tab 1,000 Mg PO BID Potassium Chloride ER (Potassium Chloride) 20 Meq Tab 20 Meq PO DAILY Vitamin D3 (Cholecalciferol) 1,000 Unit Tab 1,000 Units PO DAILY Prochlorperazine Maleate 10 Mg Tab 10 Mg PO Q6H PRN Lipitor (Atorvastatin Calcium) 80 Mg Tab 80 Mg PO HS Toprol XL (Metoprolol Succinate) 100 Mg Tab 100 Mg PO DAILY Allergies: Coded Allergies: No Known Allergies (Verified , 02/26/17) Active Ordered Medications Inpatient Medications Acetaminophen (Tylenol) 650 mg Q4H PRN PO TEMP > 100.4; Start 02/26/17 at 15:45 Aspirin (Aspirin Chew) 81 mg DAILY CHEW ; Start 02/27/17 at 09:00; Status UNV Atorvastatin Calcium (Lipitor) 80 mg HS PO ; Start 02/26/17 at 21:00; Status UNV Bisacodyl (Dulcolax Supp) 10 mg DAILY PRN RECTAL SEVERE CONSITIPATION; Start at 15:45 Heparin Sodium (Porcine) (Heparin Inj) 2,500 units UNSCH PRN IV APTT 25 TO 39; Start 02/27/17 at 00:15; Status UNV Heparin Sodium/ Dextrose 250 ml @ 5.34 mls/hr TITRATE PRN IV Coagulation management; Start 02/26/17 at 18:15; Status UNV Lactulose (Lactulose Liq) 30 ml DAILY PRN PO SEVERE CONSITIPATION; Start at 15:45 Magnesium Hydroxide (Milk Of Magnesia Liq) 30 ml Q12H PRN PO MILD - MODERATE CONSTIPATION; Start 02/26/17 at 15:45 Metoprolol Tartrate (Lopressor) 12.5 mg Q12HR PO ; Start 02/26/17 at 21:00; Status UNV Naloxone HCl (Narcan Inj) 0.4 mg UNSCH PRN IV PUSH SEE LABEL COMMENTS; Start at 15:45 Ondansetron HCl (Zofran Inj) 4 mg Q6H PRN IVP NAUSEA OR VOMITING; Start at 15:45 Senna/Docusate Sodium (Eleni-Colace) 1 tab BID PO ; Start 02/26/17 at 21:00 Sennosides (Senokot) 17.2 mg Q12H PRN PO MODERATE - SEVERE CONSTIPATION; Start 02/26/17 at 15:45 Sodium Chloride (NS Flush) 2 ml BID IV FLUSH ; Start 02/26/17 at 21:00 Temazepam (Restoril) 15 mg HS PRN PO INSOMNIA; Start 02/26/17 at 15:45 Family History Doesn't know much about her family's past medical history Social History Patient is , lives at home with . Has 4 children, one No alcohol No tobacco No illegal drug use Physical Exam Vital Signs Vital Signs Date Time Temp Pulse Resp B/P (MAP) Pulse Ox O2 Delivery O2 Flow Rate FiO2 02/26/17 15:50 97.8 74 17 117/60 (79) 98 Room Air 02/26/17 14:38 16 99 Room Air 02/26/17 14:38 99 Room Air 02/26/17 14:37 70 16 139/67 (91) 100 Room Air 134/67 (89) 02/26/17 14:35 70 16 99 Room Air 02/26/17 14:14 98.1 77 14 144/68 (93) 99 Physical Exam GENERAL: This is a well-nourished, well-developed patient, in no apparent distress. SKIN: No rashes, ecchymoses or lesions. Cool and dry. HEAD: Atraumatic. Normocephalic. No temporal or scalp tenderness. EYES: Pupils equal round and reactive. Extraocular motions intact. No scleral icterus. No injection or drainage. ENT: Nose without bleeding, purulent drainage or septal hematoma. Throat without erythema, tonsillar hypertrophy or exudate. Uvula midline. Airway patent. NECK: Trachea midline. No JVD or lymphadenopathy. Supple, nontender, no meningeal signs. CARDIOVASCULAR: Regular rate and rhythm without murmurs, gallops, or rubs. RESPIRATORY: Clear to auscultation. Breath sounds equal bilaterally. No wheezes , rales, or rhonchi. CHEST: Port right upper chest wall. GASTROINTESTINAL: Abdomen soft, non-tender, nondistended. No hepato-splenomegaly , or palpable masses. No guarding. MUSCULOSKELETAL: Extremities without clubbing, cyanosis, or edema. Bilateral pedal pulses 2+ bilaterally. No joint tenderness, effusion, or edema noted. No calf tenderness. Negative Homans sign bilaterally. Right wrist with pressure dressing in place. Right hand fingertips with capillary refill less than 3 seconds, skin warm and dry. NEUROLOGICAL: Awake, alert oriented 3. No focal deficit. Laboratory Laboratory Tests Test 02/26/17 14:38 02/26/17 15:40 Prothrombin Time 11.6 Prothromb Time International Ratio 1.0 Activated Partial Thromboplast Time 22.2 Blood Urea Nitrogen 11 Creatinine 0.84 Random Glucose 94 Calcium Level 8.5 Magnesium Level 2.0 Sodium Level 141 Potassium Level 4.7 Chloride Level 108 Carbon Dioxide Level 29.4 Anion Gap 4 Estimat Glomerular Filtration Rate 66 Total Creatine Kinase 185 Creatine Kinase MB 2.5 Troponin I 0.99 White Blood Count 3.2 Red Blood Count 3.51 Hemoglobin 11.4 Hematocrit 34.3 Mean Corpuscular Volume 97.8 Mean Corpuscular Hemoglobin 32.5 Mean Corpuscular Hemoglobin Concent 33.2 Red Cell Distribution Width 13.2 Platelet Count 120 Mean Platelet Volume 7.7 Neutrophils (%) (Auto) 70.9 Lymphocytes (%) (Auto) 11.2 Monocytes (%) (Auto) 10.9 Eosinophils (%) (Auto) 6.2 Basophils (%) (Auto) 0.8 Neutrophils # (Auto) 2.3 Lymphocytes # (Auto) 0.4 Monocytes # (Auto) 0.3 Eosinophils # (Auto) 0.2 Basophils # (Auto) 0.0 CBC Comment AUTO DIFF Differential Total Cells Counted 100 Neutrophils % (Manual) 66 Band Neutrophils % 8 Lymphocytes % 9 Monocytes % 9 Eosinophils % 6 Basophils % 2 Neutrophils # (Manual) 2.4 Differential Comment FINAL DIFF MANUAL Platelet Estimate LOW Platelet Morphology Comment NORMAL Ovalocytes 1+ Keratocytes OCC Result Diagram: 02/26/17 1540 02/26/17 1438 Imaging Last Impressions Chest X-Ray 02/26/17 1433 Signed Impressions: Service Date/Time: Sunday, February 26, 2017 15:13 - CONCLUSION: No acute disease. MD Rohit Elaine VTE Risk Assessment Rohit VTE Risk Assessment: Mod/High Risk (score >= 2) Caprini Risk Assessment Model Point Value = 1 Point Value = 2 Point Value = 3 Point Value = 5 Age 41-60 Minor surgery BMI > 25 kg/m2 Swollen legs Varicose veins or History of unexplained or recurrent spontaneous Oral contraceptives or hormone replacement Sepsis (< 1 month) Serious lung disease, including pneumonia (< 1 month) Abnormal pulmonary function Acute myocardial infarction Congestive heart failure (< 1 month) History of inflammatory bowel disease Medical patient at bed rest Age 61-74 Arthroscopic surgery Major open surgery (> 45 min) Laparoscopic surgery (> 45 min) Malignancy Confined to bed (> 72 hours) Immobilizing plaster cast Central venous access Age >= 75 History of VTE Family history of VTE Factor V Leiden Prothrombin [id number] Lupus anticoagulant Anticardiolipin antibodies Elevated serum homocysteine Heparin-induced thrombocytopenia Other congenital or acquired thrombophilia Stroke (< 1 month) Elective arthroplasty Hip, pelvis, or leg fracture Acute spinal cord injury (< 1 month) Prophylaxis Regimen Total Risk Factor Score Risk Level Prophylaxis Regimen 0-1 Low Early ambulation 2 Moderate Order ONE of the following: *Sequential Compression Device (SCD) *Heparin 5000 units SQ BID 3-4 Higher Order ONE of the following medications: *Heparin 5000 units SQ TID *Enoxaparin/Lovenox 40 mg SQ daily (WT < 150 kg, CrCl > 30 mL/min) *Enoxaparin/Lovenox 30 mg SQ daily (WT < 150 kg, CrCl > 10-29 mL/min) *Enoxaparin/Lovenox 30 mg SQ BID (WT < 150 kg, CrCl > 30 mL/min) AND/OR *Sequential Compression Device (SCD) 5 or more Highest Order ONE of the following medications: *Heparin 5000 units SQ TID (Preferred with Epidurals) *Enoxaparin/Lovenox 40 mg SQ daily (WT < 150 kg, CrCl > 30 mL/min) *Enoxaparin/Lovenox 30 mg SQ daily (WT < 150 kg, CrCl > 10-29 mL/min) *Enoxaparin/Lovenox 30 mg SQ BID (WT < 150 kg, CrCl > 30 mL/min) AND *Sequential Compression Device (SCD) Assessment and Plan Problem List: (1) NSTEMI (non-ST elevated myocardial infarction) ICD Codes: I21.4 - Non-ST elevation (NSTEMI) myocardial infarction Status: Acute (2) CAD (coronary artery disease) ICD Codes: I25.10 - Atherosclerotic heart disease of lime coronary artery without angina pectoris Status: Acute (3) Pancytopenia ICD Codes: D61.818 - Other pancytopenia Status: Chronic (4) Seizure disorder ICD Codes: G40.909 - Epilepsy, unspecified, not intractable, without status epilepticus Status: Chronic (5) Hx TIA/stroke w/o resid ICD Codes: Z86.73 - Personal history of transient ischemic attack (TIA), and cerebral infarction without residual deficits Status: Chronic (6) Hypertension ICD Codes: I10 - Essential (primary) hypertension Status: Chronic (7) Hyperlipidemia ICD Codes: E78.5 - Hyperlipidemia, unspecified Status: Chronic (8) Non-Hodgkin lymphoma ICD Codes: C85.90 - Non-Hodgkin lymphoma, unspecified, unspecified site Status: Chronic Assessment and Plan Admit to Dr. White 71-year-old white female presented to the emergency room with ongoing left- sided chest pain with radiation to the left shoulder associated with hiccups, shortness of breath. Non-STEMI Status post cardiac catheterization 02/26-multivessel disease -Appreciate cardiology input, patient underwent cardiac catheterization. Was found with multivessel disease. Heparin drip recommended as well as cardiothoracic evaluation -2-D echo has been ordered, pending -Continue with aspirin 81 mg by mouth daily, Lipitor 80 mg by mouth daily at bedtime, Toprol-XL 100 mg by mouth daily -If necessary, may need IABP support per cardiology recommendations. -Nitroglycerin sublingual as needed for chest pain Non-Hodgkin's B-cell lymphoma, follicular lymphoma grade 1-. Has completed 5 cycles of Rituxan and bendamustine June 2016, she is on maintenance Rituxan. Patient follows up regularly with Dr. Enriquez Pancytopenia -Monitor CBC Hypertension, stable -Continue with home medications Hyperlipidemia -Continue statins -Lipid profile in the morning History of TIA, no residual -Continue with aspirin History of epilepsy, last seizure June 2016 -Continue Keppra 1000 milligrams by mouth twice a day COPD, stable. -Duo nebs as needed for any wheezing Home medications reviewed, initiated as indicated For DVT prophylaxis, patient already on heparin drip Plan of care has been discussed with the patient and , RN and attending. Further management of the patient will be dependent on the hospital course This patient was seen by myself and Dr. White, this H&P is written on his behalf Physician Certification 2 Midnight Certification Type: Admission for Inpatient Services Order for Inpatient Services The services are ordered in accordance with Medicare regulations or non- Medicare payer requirements, as applicable. In the case of services not specified as inpatient-only, they are appropriately provided as inpatient services in accordance with the 2-midnight benchmark. Estimated LOS (days): 2 2 days is the estimated time the patient will need to remain in the hospital, assuming treatment plan goals are met and no additional complications. Post-Hospital Plan: Not yet determined Problem Qualifiers (1) CAD (coronary artery disease): Qualified Codes: I25.110 - Atherosclerotic heart disease of lime coronary artery with unstable angina pectoris (2) Hypertension: Qualified Codes: I10 - Essential (primary) hypertension (3) Hyperlipidemia: Qualified Codes: E78.5 - Hyperlipidemia, unspecified (4) Non-Hodgkin lymphoma: Qualified Codes: C82.00 - Follicular lymphoma grade I, unspecified site Loreto Murguia Feb 26, 2017 19:12
[2017-02-26 20:23] LABS: HEMATOCRIT 33.9 % (35.0-46.0); MEAN CELL VOLUME 98.5 FL (80.0-100.0); MEAN CORPUSCULAR HEMOGLOBIN 33.4 PG (27.0-34.0); MEAN CORPUSCULAR HGB CONC 33.9 % (32.0-36.0); PLATELET COUNT 105 TH/MM3 (150-450); RED BLOOD COUNT 3.44 MIL/MM3 (4.00-5.30); RED CELL DISTRIBUTION WIDTH 13.3 % (11.6-17.2); REVIEW FLAG FINAL; WHITE BLOOD COUNT 3.3 TH/MM3 (4.0-11.0)
[2017-02-26] MEDS: ATORVASTATIN 80 MG TAB PO SCH (20:54)
[2017-02-26] MEDS: DOCUSATE SODIUM 50 MG/SENNA 8.6 MG TAB PO SCH (20:54)
[2017-02-26] MEDS: levETIRAcetam 500 MG TAB PO SCH (20:54)
[2017-02-26] MEDS: SODIUM CHLORIDE 0.9% FLUSH 10 ML FLUSH IV FLUSH SCH (20:55)
[2017-02-26] MEDS ORDERED: METOPROLOL TARTRATE 25 MG TAB PO SCH (21:00)
[2017-02-26] MEDS ORDERED: ATORVASTATIN 80 MG TAB PO SCH (21:00)
[2017-02-26] MEDS: METOPROLOL TARTRATE 25 MG TAB PO SCH (22:45)
--- NOTE | 2017-02-26 23:27 | MB ---
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 Lara. Dr. Lara called me and said Ms. Odom was in his office having episodes of chest pain which were pressure like in nature that were waxing and waning over the past few weeks. EKG was done and it showed concerning signs of the anterior ischemia. It was felt that she should be seen urgently in the emergency room in consideration of cardiac catheterization. In seeing her she is currently hemodynamically stable but has had episodes on and off of chest pain. PAST MEDICAL HISTORY 1. COPD. 2. Epilepsy. 3. Left breast benign nodule. 4. History of TIA. 5. Non-Hodgkin's B-cell lymphoma, follicular lymphoma grade 1. Dictation ended. Rigo Crandall DO VGP/EO /10:26 PM /11:18 PM
--- NOTE | 2017-02-26 23:41 | EKG ---
Date Performed: 02/26/2017 Time Performed: 14:36:24 PTAGE: 71 years EKG: Sinus rhythm LEFT VENTRICULAR HYPERTROPHY AND ST-T CHANGE ANTERIOR T WAVE CHANGES, MOST LIKELY ISCHEMIC IN NATURE ABNORMAL ECG PREVIOUS TRACING : 06/11/2009 11.22 Compared to the previous tracing, ST/T wave changes are new DOCTOR: Rigo Beltran Interpretating Date/Time 02/26/2017 23:40:29
--- NOTE | 2017-02-26 23:43 | MB ---
cc: RIGO CRANDALL DO DATE OF CONSULTATION February 26, 2017 REASON FOR CONSULTATION Unstable angina with abnormal EKG. HISTORY OF PRESENT ILLNESS Racheal Odom is a pleasant 71-year-old female who presented to [facility] Emergency Room due to chest pain on February 26, 2017. She was seen in the office by my partner, Dr. Jameel Lara, and had episodes of chest pain on and off over the past few weeks. EKG done in the office showed deep T-wave inversions anteriorly concerning for ischemia. Dr. Lara called me and went over the case with me and I agree that the patient should be seen urgently in the emergency room with a consideration of cardiac catheterization. In seeing her in the emergency room she is currently hemodynamically stable without chest pain but has had multiple episodes which have been increasing in nature. PAST MEDICAL HISTORY 1. COPD. 2. Epilepsy. 3. Left breast benign nodule. 4. TIAs. 5. Non-Hodgkin's B-cell lymphoma, follicular, lymphoma grade 1. Has completed five cycles of Rituxan and Bendamustine in June 2016, she is on maintenance Rituxan. 6. Arthritis. 7. Possible PFO although EVA in 2008 was negative by bubble study. PAST SURGICAL HISTORY 1. Poor placement (2015) for her non-Hodgkin's B-cell lymphoma. 2. Left lumpectomy. 3. Cataract removal (2014). 4. Cholecystectomy (1977). 5. Hysterectomy (1975). 6. Tubal ligation (1971). ALLERGIES NO KNOWN DRUG ALLERGIES. MEDICATIONS 1. Lipitor 80 milligrams every night. 2. Toprol XL 100 milligrams daily. 3. Lisinopril 10 milligrams daily. 4. Keppra 1000 milligrams b.i.d. 5. Potassium 20 milliequivalents daily. 6. Prochlorperazine maleate 10 milligrams every 6 hours as needed for nausea. FAMILY HISTORY The patient is unsure of her full family history but denies sudden cardiac . SOCIAL HISTORY The patient lives at home with her . Denies alcohol, tobacco or drug abuse. REVIEW OF SYSTEMS 14-systems were reviewed including osteopathic pertinent positives and negatives above, otherwise negative. PHYSICAL EXAMINATION VITAL SIGNS: Temperature 98.1, heart rate 77, blood pressure 144/68, respirations 14, pulse ox 99% on room air. GENERAL: In general, the patient appears well in no acute distress, alert, awake and oriented x3. HEENT: Extraocular muscles intact. Mucous membranes moist. NECK: Supple. No JVD at 45 degrees. No carotid bruits heard bilaterally. Carotid upstroke is brisk in nature. HEART: Heart is regular rate and rhythm. Positive first and second heart sounds with a 1/6 crescendo-decrescendo murmur to the right sternal border. LUNGS: Clear to auscultation bilaterally. No wheezes, rales or rhonchi. ABDOMEN: Soft, nontender, nondistended, no organomegaly noted. EXTREMITIES: Show no clubbing, cyanosis or edema. Femoral and distal pulses intact bilaterally. NEUROLOGICALLY: No focal deficits. SKIN: Warm, dry and intact. OSTEOPATHIC: No kyphoscoliosis, lordosis or paraspinal tender points. LABORATORY FINDINGS Hemoglobin 11.4, hematocrit 34.3, platelets 120. Potassium 4.7, BUN 11, creatinine 0.84. Troponin 0.99. CARDIOLOGY STUDIES Electrocardiogram (February 26, 2017 at 14:36) sinus rhythm, possible LVH, T-wave inversions noted anteriorly concerning for ischemia. IMPRESSION 1. NSTEMI with chest pain concerning for unstable angina. 2. Pancytopenia. 3. History of seizures. 4. History of TIA without residual. 5. Hypertension. 6. Hyperlipidemia. 7. Non-Hodgkin's lymphoma. RECOMMENDATIONS 1. Mrs. Odom presented with chest pain, elevated troponin and an EKG concerning for anterior ischemia. Because of this she will be taken to the catheterization lab tonight. 2. We will check a 2-D echo to look her overall left ventricular function, cardiac structure and possible valvulopathies. 3. Risks, benefits and alternatives were explained to her and her and they consented as such. 4. Further recommendations will be made after coronary visualization. Thank you for allowing me to see Racheal Odom. If there are any questions please do not hesitate to call. Rigo Crandall DO VGP/EO /10:29 PM /11:24 PM
--- NOTE | 2017-02-26 23:59 | MA ---
cc: RIGO CRANDALL DO DATE: February 26, 2017 PROCEDURE Left heart catheterization, coronary angiogram, moderate sedation 50 minutes, IVUS left main. PREPROCEDURE DIAGNOSIS Unstable angina/NSTEMI, abnormal EKG. POSTPROCEDURE DIAGNOSIS Multivessel coronary artery disease with left main disease (4.0 mm squared by IVUS), NSTEMI. MEDICATIONS 1. Verapamil 2.5 mg. 2. Nitro 200 mcg. 3. Heparin 4500 units 4. Versed 0.5 mg. 5. Fentanyl 25 mcg. CONTRAST USED 60 cc FLUOROSCOPY 10.3 minutes MODERATE SEDATION 50 minutes ESTIMATED BLOOD LOSS 10 cc PROCEDURAL SUMMARY Racheal Odom is a pleasant 71-year-old female who was seen in the office by my partner Dr. Jameel Lara and had chest pain on and off for the past few weeks with an extremely abnormal EKG. Because of this she was recommended to be seen in the emergency room urgently and consideration of cardiac catheterization. Because of the elevated troponins, symptoms and abnormal EKG, it was felt that she needed to undergo cardiac catheterization. Risks, benefits and alternatives were explained to her and she consented as such. She was brought to the lab and prepped in the usual sterile fashion. Right radial artery was accessed using a modified Seldinger technique and placement of a 5-6 [place] sheath. This was easily aspirated and flushed. A JR-4 was advanced over a J-wire to the ascending aorta and across the aortic valve for measurement of left ventricular pressure. This was pulled back across the aortic valve showing no significant gradient of aortic stenosis. JR-4 was used for selective angiography of the right coronary artery. This was exchanged out for a JL-3.5 which was used for selective angiography of the left coronary artery. As there was concern for left main disease it was felt that this needed to be further investigated. The patient was given additional heparin as an anticoagulant. An EBU 3.5 was used to engage the left main. A BMW wire was selectively placed into the left circumflex artery to avoid the extensive disease in the LAD. IVUS catheter was then advanced but only could make it to the mid portion of the left main due to overall disease in the left main and calcification. IVUS recordings were reviewed on pullback showing a left main area of 4.0 mm squared. IVUS catheter and wire were removed. Final shots show no disruption of the coronary anatomy. The guide catheter was removed. Radial band was placed over the arteriotomy site for hemostasis. 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 FINDINGS Left main: Overall small vessel with calcification throughout. Distal portion of the left main appears to be at least 60% stenosed. IVUS showing area of the left main 4.0 millimeter squared. LAD: Proximal to midportion has 99% stenosis. The distal runoff of the LAD has diffuse 80 to 90% disease. It gives off one major diagonal which is overall larger than the LAD itself. Left circumflex: Overall small to moderate size vessel. In the mid portion of the left circumflex, there is a 50% lesion. It gives off two major obtuse marginals with the first one being a high obtuse marginal with 50-60% stenosis in the proximal portion. The second obtuse marginal has a 60% stenosis before having an upper and lower branch. RCA: Moderate size vessel with calcification throughout. There is diffuse 70% disease with an 80% focal lesion in the mid portion. It is a dominant vessel by nature with a PDA that shows mild luminal irregularities. LVEDP: 10. IMPRESSION 1. NSTEMI/unstable angina. 2. Multivessel coronary artery disease with left main disease (4.0 mm squared by IVUS). RECOMMENDATIONS 1. Ms. Odom presented with elevated troponin, episodes of chest pain concerning for coronary insufficiency as well as an abnormal EKG. 2. Overall she has multivessel coronary artery disease with left main disease and will be recommended cardiothoracic surgery. 3. She will be placed on heparin drip as well as aspirin, beta yan and statin therapy. 4. Consideration was made for intraaortic balloon pump placement, but at this time she was hemodynamically stable without chest pain and so this will be held off at this time. If at any time she has chest pain unrelenting to medications, hemodynamic or electrical instability this will be further considered. 5. Will check a 2-D echo to look at her overall left ventricular function, cardiac structure and possible valvulopathies. 6. Further recommendations will be made after reviewed with cardiothoracic surgery. Thank you for allowing me to see Racheal Odom. If there are any questions please do not hesitate to call. Rigo Crandall DO [facility] /10:42 PM /11:42 PM
[2017-02-27] VITALS (30 sets, daily range): BP systolic 113–165; BP diastolic 57–87; PULSE 52–86; RESP 16–18; TEMP 97.3–98.7; O2SAT 96–100
[2017-02-27] MEDS ORDERED: HEPARIN SODIUM - IV 10,000 UNITS/10 ML VIAL IV PRN ×2 (00:15)
[2017-02-27 02:56] LABS: APTT (PATIENT) 58.6 SEC (24.3-30.1)
[2017-02-27] MEDS: SODIUM CHLOR 0.45% 1000 ML INJ 1,000 ML IV SCH ×2 (05:20→18:40)
[2017-02-27 05:49] LABS: AUTOMATED NEUTROPHIL # 2.3 TH/MM3 (1.8-7.7); BASOPHIL % 0.6 % (0.0-2.0); EOSINOPHIL # 0.2 TH/MM3 (0-0.4); EOSINOPHIL % 7.2 % (0.0-4.0); HEMATOCRIT 33.1 % (35.0-46.0); LYMPH % 10.7 % (9.0-44.0); LYMPHOCYTE # 0.4 TH/MM3 (1.0-4.8); MEAN CELL VOLUME 97.6 FL (80.0-100.0); MEAN CORPUSCULAR HEMOGLOBIN 32.6 PG (27.0-34.0); MEAN CORPUSCULAR HGB CONC 33.4 % (32.0-36.0); MONO % 11.7 % (0.0-8.0); NEUT % 69.8 % (16.0-70.0); PLATELET COUNT 107 TH/MM3 (150-450); RED CELL DISTRIBUTION WIDTH 13.4 % (11.6-17.2); WHITE BLOOD COUNT 3.3 TH/MM3 (4.0-11.0)
[2017-02-27 05:50] LABS: HEMO FLAGS AUTO DIFF
[2017-02-27] MEDS: METOPROLOL TARTRATE 25 MG TAB PO SCH ×3 (06:00→22:08)
[2017-02-27 06:33] LABS: BICARBONATE 25.5 MEQ/L (21.0-32.0)
[2017-02-27 06:51] LABS: CALCIUM-PROTEIN CORRECTED 8.6 MG/DL (8.5-10.1); HDL CHOLESTEROL 53.5 MG/DL (40.0-60.0)
[2017-02-27 07:06] LABS: PLATELET ESTIMATE SMEAR LOW (NORMAL); PLATELET MORPHOLOGY NORMAL (NORMAL); SCAN/DIFF AUTO DIFF CONFIRMED
[2017-02-27] MEDS: CHOLECALCIFEROL (VIT D3) 1000 UNIT TAB PO SCH (08:45)
[2017-02-27] MEDS: SODIUM CHLORIDE 0.9% FLUSH 10 ML FLUSH IV FLUSH SCH ×2 (08:45→22:09)
[2017-02-27] MEDS: levETIRAcetam 500 MG TAB PO SCH ×2 (08:45→22:09)
[2017-02-27] MEDS: DOCUSATE SODIUM 50 MG/SENNA 8.6 MG TAB PO SCH ×2 (08:45→21:00)
[2017-02-27] MEDS ORDERED: ASPIRIN 81 MG CHEW TAB CHEW SCH (09:00)
[2017-02-27] MEDS ORDERED: POTASSIUM CHLORIDE 20 MEQ CONTROLLED RELEASE TAB PO SCH (09:00)
[2017-02-27] MEDS ORDERED: LISINOPRIL 10 MG TAB PO SCH (09:00)
[2017-02-27] MEDS ORDERED: METOPROLOL SUCCINATE 50 MG EXTENDED RELEASE TAB PO SCH (09:00)
[2017-02-27] MEDS ORDERED: PNEUMOCOCCAL POLYVALENT INJ 25 MCG/0.5 ML SYR IM ONE (10:00)
[2017-02-27] MEDS ORDERED: INFLUENZA VIRUS VACCINE (QUADRIVALENT) 0.5 ML SYR IM ONE (10:00)
[2017-02-27] MEDS ORDERED: PAPAVERINE INJ 60 MG, NITROGLYCERIN INJ 100 MCG, DILTIAZEM INJ 100 MG in SODIUM CHLORID... IRRIGATION SCH (10:15)
[2017-02-27] MEDS ORDERED: CHLORHEXIDINE GLUCONATE 4% SOLN 120 ML BTL TOPICAL SCH (10:15)
[2017-02-27] MEDS ORDERED: METOPROLOL TARTRATE 25 MG TAB PO SCH (10:15)
[2017-02-27] MEDS ORDERED: CEFAZOLIN INJ 500 MG in SODIUM CHLORIDE 0.9% IRR BTL 500 ML IRRIGATION SCH (10:15)
[2017-02-27] MEDS ORDERED: SODIUM CHLORIDE 0.9% FLUSH 10 ML FLUSH IV FLUSH PRN (10:15)
[2017-02-27] MEDS ORDERED: ceFAZolin 2 GM PREMIX 50 ML IV SCH (10:15)
--- NOTE | 2017-02-27 11:51 | MB ---
cc: DARYL HERNÁNDEZ MD DATE OF CONSULTATION 02/27/2017 DATE OF 1945 REASON FOR CONSULTATION This is a very pleasant 71-year-old patient of Dr. Maxim Chanel primary care and Dr. Lara of cardiology who presented to the emergency room complaining of left-sided chest pain that has been ongoing off and on for the last couple of weeks waxing and waiting. She says it normally occurs with exertion. It does radiate up to her left shoulder. The pain improves with rest after about 15 minutes. She has also been complaining of having some tingling and numbness in her lower extremities that she has had for quite some time which is not new for her. She was referred apparently at Dr. Lara's office when she complained about this and she was told to come into the emergency room. She has no prior history of coronary disease. She did, however, have a EVA back in 2008 where she thought she had a hole in her heart. It did show a stretched patent foramen ovale and had a bubble study which was negative. EF at that time was 55-60%, but overall left ventricular systolic function was normal. During her workup, her troponin initially was 0.99 and then went up to 1.71. She was ruled in for a non-STEMI. Her EKG showed normal sinus rhythm with some LVH, some ST depression in her lateral leads and T-wave inversion in her anterior leads. She underwent cardiac cath the last evening by Dr. Beltran which showed 60% distal portion of the left main stenosed. The IVUS showing an area of left main of 4.0 mm squared. The LAD had a proximal to midportion 99% stenosis, also diffuse 80-90% disease. The midportion of the left circ had a 50% lesion. The two obtuse marginalis, the first one high obtuse with 50-60, second OM is 60%. The RCA had diffuse 70-80% disease. We were consulted to evaluate for coronary artery bypass grafting. PAST MEDICAL HISTORY The patient's history includes: 1. Non-Hodgkin's B-type B-cell lymphoma currently in remission for the last three months on maintenance Rituxan. 2. Epilepsy with her last seizure back in August. 3. COPD 4. Previous TIAs about 10 years ago 5. Arthritis 6. Hyperlipidemia 7. Hypertension PAST SURGICAL HISTORY Surgeries include: 1. Favivp-J-Esfk placement 2016 right upper chest 2. Left breast lumpectomy 2016 which was negative 3. Cataract surgery 4. Cholecystectomy 5. Hysterectomy 6. Tubal ligation 7. She has had back surgery with pins and rods many years ago for scoliosis. ALLERGIES She has no known allergies. MEDICATIONS Her home meds include: 1. Lisinopril 10 p.o. daily 2. Keppra 500 b.i.d. 3. Potassium 4. vitamin D3 5. Lipitor 6. Toprol XL FAMILY HISTORY She does not know much about her past history. SOCIAL HISTORY She is , has three living children. Lives at home with her . She is retired. No tobacco or alcohol. REVIEW OF SYSTEMS GENERAL: No night sweats, fever, heat and cold intolerance. SKIN: No psoriasis, itching or hives. HEENT: No blurred vision or hearing loss. RESPIRATORY: Some mild shortness of breath. CARDIOVASCULAR: As above in the HPI. GASTROINTESTINAL: No diarrhea or vomiting. GENITOURINARY: No burning, frequency, urgency. 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 Also a history of seizure disorder. ENDOCRINE: No history of diabetes and/or hypothyroidism. PHYSICAL EXAM On exam, blood pressure 112/60, heart rate of 56, afebrile. GENERAL: Patient is awake, alert in no acute distress. HEAD: Normocephalic, atraumatic. EYES: Pupils equal and reactive. EARS, NOSE, AND THROAT: Oral mucosa pink and moist. She has her own teeth. She has some broken teeth, but none are loose and there are no appears to be no evidence of gum disease at this time. NECK: Supple. No JVD. HEART: S1-S2, regular rate and rhythm. No audible rubs, murmurs, or gallops. LUNGS: Clear to auscultation. No wheezes, rales or rhonchi. ABDOMEN: Soft and nontender. No masses or organomegaly. EXTREMITIES: No cyanosis, clubbing or edema. She does have +1 pulses in her feet. LABORATORY FINDINGS Shows hemoglobin 11, hematocrit 33, white cell count 3.3, platelet count of 107. Sodium 146, potassium 3.0, BUN of 8 with creatinine of 0.49, troponin as above. Triglycerides 35, cholesterol 79, LDL of 19, INR 1.0. Chest x-ray show was no acute disease. IMPRESSION This is a very pleasant 71-year-old patient who presented with a [id number] [place] with four-vessel disease. At this time, we are awaiting her echocardiogram to evaluate her ejection fraction. Her STS data will be documented in the electronic record after the EF has been obtained. In the meantime, she is maintained on a heparin drip. She is currently pain-free. Procedures, alternatives and risks have been discussed with the patient. She is agreeable to proceed and will proceed for coronary artery bypass grafting x4 in the a.m. In the meantime, she has history of epilepsy. She will need to be continued on her Keppra. She has a history of COPD which we will monitor closely, hyperlipidemia and hypertension. Further planning as per Dr. Daryl Hernández. Dictated by ELKE Francis Daryl CERVANTES /11:03 AM /11:45 AM
--- NOTE | 2017-02-27 12:21 | ECHRPT ---
Indication: CAD/NSTEMI CONCLUSIONS Anterior, apical, anteroseptal, and inferoseptal akinesis. The left ventricular systolic function is mildly reduced with an estimated ejection fraction in the range of 45- 50%. Normal left ventricular size. Wall thickness is normal. Hypokinetic apical cap wall motion. Hypokinetic mid-anterior wall motion. A possible atrial level shunt is demonstrated by color flow Doppler interrogation, clinical correlat ion recommended. Mitral annular calcification is present. Moderate aortic valve regurgitation. Aortic valve sclerosis is present. There is trace tricuspid valve regurgitation. The estimated pulmonary arterial pressure is 21.4 mmHg. Trivial pulmonary valve regurgitation. BP: 113 / 57 HR: 75 Rhythm: Sinus MEASUREMENTS (Male / Female) Normal Values Technical Quality:Fair 2D ECHO LV Diastolic Diameter PLAX 3.6 cm 4.2 - 5.9 / 3.9 - 5.3 cm LV Systolic Diameter PLAX 2.7 cm IVS Diastolic Thickness 1.0 cm 0.6 - 1.0 / 0.6 - 0.9 cm LVPW Diastolic Thickness 1.0 cm 0.6 - 1.0 / 0.6 - 0.9 cm LV Relative Wall Thickness 0.6 LVOT Diameter 1.8 cm LA Systolic Diameter LX 3.4 cm 3.0 - 4.0 / 2.7 - 3.8 cm LV Ejection Fraction MOD 4C 50.8 % LV Cardiac Index MOD 4C 1741.1 cm/minm LV Ejection Fraction 4C AL 51.1 % LV Cardiac Index 4C AL 1823.4 cm/minm M-MODE Aortic Root Diameter MM 3.0 cm AV Cusp Separation MM 1.7 cm DOPPLER AV Peak Velocity 140.0 cm/s AV Peak Gradient 7.8 mmHg AI Peak Velocity 392.5 cm/s AI Peak Gradient 61.6 mmHg AI Pressure Half Time 413.5 ms LVOT Peak Velocity 77.5 cm/s LVOT Peak Gradient 2.4 mmHg AV Area Cont Eq pk 1.4 cm MV Peak Velocity 83.7 cm/s MV Peak Gradient 2.8 mmHg MV Mean Velocity 48.7 cm/s MV Mean Gradient 1.0 mmHg MV Area PHT 3.8 cm Mitral E Point Velocity 62.2 cm/s Mitral A Point Velocity 67.6 cm/s Mitral E to A Ratio 0.9 LV E' Lateral Velocity 4.8 cm/s Mitral E to LV E' Lateral Ratio 13.0 LV E' Septal Velocity 4.3 cm/s Mitral E to LV E' Septal Ratio 14.5 TR Peak Velocity 169.0 cm/s TR Peak Gradient 11.4 mmHg Right Atrial Pressure 10.0 mmHg Pulmonary Artery Systolic Pressu 21.4 mmHg Right Ventricular Systolic Press 21.4 mmHg PV Peak Velocity 72.8 cm/s PV Peak Gradient 2.1 mmHg FINDINGS LEFT VENTRICLE The left ventricular systolic function is mildly reduced with an estimated ejection fraction in the range of 45- 50%. Anterior, apical, anteroseptal, and inferoseptal akinesis. Normal left ventricular size. Wall thickness is normal. Hypokinetic apical cap wall motion. Hypokinetic mid-anterior wall motion. RIGHT VENTRICLE Normal right ventricular size and systolic function. LEFT ATRIUM The left atrial size is normal. RIGHT ATRIUM The right atrial size is normal. ATRIAL SEPTUM A possible atrial level shunt is demonstrated by color flow Doppler interrogation, clinical correlat ion recommended. AORTA The aortic root and proximal ascending aorta are normal in size on limited imaging. MITRAL VALVE Mitral annular calcification is present. AORTIC VALVE Moderate aortic valve regurgitation. Aortic valve sclerosis is present. TRICUSPID VALVE There is trace tricuspid valve regurgitation. The estimated pulmonary arterial pressure is 21.4 mmHg. PULMONARY VALVE Trivial pulmonary valve regurgitation. VESSELS The inferior vena cava is normal in size. PERICARDIUM No pericardial effusion. Blair Harding MD, FACC (Electronically Signed) Final Date:27 February 2017 12:20
[2017-02-27 12:23] LABS: BACTERIA, URINE RARE /hpf; BLOOD, URINE NEG (NEG); COMMENT (UR) CULT NOT INDICATED; CULTURE IF INDICATED CULT NOT INDICATED; GLUCOSE,URINE NEG (NEG); KETONE, URINE NEG (NEG); MUCUS URINE FEW /lpf (OCC); NITRITE,URINE NEG (NEG); PH, URINE 5.5 (5.0-8.5); SQUAMOUS EPITHELIAL CELL URINE 1 /hpf (0-5); URINE COLOR LIGHT-YELLOW (YELLW/STRAW)
[2017-02-27] MEDS ORDERED: POTASSIUM CHLORIDE 25 MEQ EFFERVESCENT TAB PO ONE (12:30)
--- NOTE | 2017-02-27 12:36 | PD.CARD.PN ---
Subjective Subjective Remarks Pt had c/p while using bathroom last night, now chest pain free; plan is for CABG tomorrow. Objective Medications Administered Medications Medications (Trade) Dose Ordered Sig/Yue Route PRN Reason Start Time Stop Time Status Last Admin Dose Admin Sodium Chloride 1,000 ml @ 75 mls/hr [id number] IV 02/26/17 16:00 02/27/17 05:20 Senna/Docusate Sodium (Eleni-Colace) 1 tab BID PO 02/26/17 21:00 02/27/17 08:45 Aspirin (Aspirin Chew) 81 mg DAILY CHEW 02/27/17 09:00 02/27/17 08:44 Atorvastatin Calcium (Lipitor) 80 mg HS PO 02/26/17 21:00 02/26/17 20:54 Cholecalciferol (Vitamin D3) 1,000 units DAILY PO 02/27/17 09:00 02/27/17 08:45 Levetriacetam (Keppra) 1,000 mg BID PO 02/26/17 21:00 02/27/17 08:45 Potassium Chloride (KCl) 20 meq DAILY PO 02/27/17 09:00 02/27/17 08:45 Nitroglycerin (Nitrostat Sl) 0.4 mg Q5M PRN SL CHEST PAIN 02/26/17 19:00 02/26/17 20:59 Metoprolol Tartrate (Lopressor) 25 mg Q8HR PO 02/26/17 22:45 02/27/17 06:00 Vital Signs / I&O Vital Signs Date Time Temp Pulse Resp B/P (MAP) Pulse Ox O2 Delivery O2 Flow Rate FiO2 02/27/17 08:30 97.8 57 18 133/73 (93) 100 02/27/17 07:01 53 02/27/17 06:35 76 02/27/17 05:00 86 02/27/17 04:00 82 02/27/17 03:11 98.7 55 18 113/57 (75) 99 02/27/17 03:00 76 02/27/17 02:00 76 02/27/17 01:00 76 02/27/17 00:00 82 02/26/17 23:54 98.0 62 18 128/63 (84) 100 02/26/17 23:54 75 02/26/17 22:00 88 02/26/17 21:00 84 02/26/17 20:00 80 02/26/17 19:00 84 02/26/17 15:50 97.8 74 17 117/60 (79) 98 Room Air 02/26/17 15:00 97.8 68 17 122/81 (95) 100 02/26/17 14:38 16 99 Room Air 02/26/17 14:38 99 Room Air 02/26/17 14:37 70 16 139/67 (91) 100 Room Air 134/67 (89) 02/26/17 14:35 70 16 99 Room Air 02/26/17 14:14 98.1 77 14 144/68 (93) 99 I/O 02/26/17 02/26/17 02/26/17 02/27/17 02/27/17 02/27/17 07:00 15:00 23:00 07:00 15:00 23:00 Intake Total 600 ml Balance 600 ml Intake Oral 600 ml # Voids 3 # Bowel Movements 1 Physical Exam GENERAL: This is a well-nourished, well-developed patient, in no apparent distress. CARDIOVASCULAR: Regular rate and rhythm without murmurs, gallops, or rubs. RESPIRATORY: Clear to auscultation. Breath sounds equal bilaterally. No wheezes , rales, or rhonchi. GASTROINTESTINAL: Abdomen soft, non-tender, nondistended. Normal active bowel sounds MUSCULOSKELETAL: Extremities without clubbing, cyanosis, or edema. NEURO: Alert & Oriented x4 to person, place, time, situation. Moves all ext x4 Laboratory Laboratory Tests Test 02/26/17 14:38 02/26/17 15:40 02/26/17 19:50 02/27/17 02:30 Prothrombin Time 11.6 SEC Prothromb Time International Ratio 1.0 RATIO Activated Partial Thromboplast Time 22.2 SEC 58.6 SEC Blood Urea Nitrogen 11 MG/DL Creatinine 0.84 MG/DL Random Glucose 94 MG/DL Calcium Level 8.5 MG/DL Magnesium Level 2.0 MG/DL Sodium Level 141 MEQ/L Potassium Level 4.7 MEQ/L Chloride Level 108 MEQ/L Carbon Dioxide Level 29.4 MEQ/L Anion Gap 4 MEQ/L Estimat Glomerular Filtration Rate 66 ML/MIN Total Creatine Kinase 185 U/L 120 U/L 134 U/L Creatine Kinase MB 2.5 NG/ML Troponin I 0.99 NG/ML 1.18 NG/ML 1.71 NG/ML White Blood Count 3.2 TH/MM3 3.3 TH/MM3 Red Blood Count 3.51 MIL/MM3 3.44 MIL/MM3 Hemoglobin 11.4 GM/DL 11.5 GM/DL Hematocrit 34.3 % 33.9 % Mean Corpuscular Volume 97.8 FL 98.5 FL Mean Corpuscular Hemoglobin 32.5 PG 33.4 PG Mean Corpuscular Hemoglobin Concent 33.2 % 33.9 % Red Cell Distribution Width 13.2 % 13.3 % Platelet Count 120 TH/MM3 105 TH/MM3 Mean Platelet Volume 7.7 FL 8.1 FL Neutrophils (%) (Auto) 70.9 % Lymphocytes (%) (Auto) 11.2 % Monocytes (%) (Auto) 10.9 % Eosinophils (%) (Auto) 6.2 % Basophils (%) (Auto) 0.8 % Neutrophils # (Auto) 2.3 TH/MM3 Lymphocytes # (Auto) 0.4 TH/MM3 Monocytes # (Auto) 0.3 TH/MM3 Eosinophils # (Auto) 0.2 TH/MM3 Basophils # (Auto) 0.0 TH/MM3 CBC Comment AUTO DIFF Differential Total Cells Counted 100 Neutrophils % (Manual) 66 % Band Neutrophils % 8 % Lymphocytes % 9 % Monocytes % 9 % Eosinophils % 6 % Basophils % 2 % Neutrophils # (Manual) 2.4 TH/MM3 Differential Comment FINAL DIFF MANUAL Platelet Estimate LOW Platelet Morphology Comment NORMAL Ovalocytes 1+ Keratocytes OCC Test 02/27/17 05:30 02/27/17 08:07 White Blood Count 3.3 TH/MM3 Red Blood Count 3.40 MIL/MM3 Hemoglobin 11.1 GM/DL Hematocrit 33.1 % Mean Corpuscular Volume 97.6 FL Mean Corpuscular Hemoglobin 32.6 PG Mean Corpuscular Hemoglobin Concent 33.4 % Red Cell Distribution Width 13.4 % Platelet Count 107 TH/MM3 Mean Platelet Volume 7.2 FL Neutrophils (%) (Auto) 69.8 % Lymphocytes (%) (Auto) 10.7 % Monocytes (%) (Auto) 11.7 % Eosinophils (%) (Auto) 7.2 % Basophils (%) (Auto) 0.6 % Neutrophils # (Auto) 2.3 TH/MM3 Lymphocytes # (Auto) 0.4 TH/MM3 Monocytes # (Auto) 0.4 TH/MM3 Eosinophils # (Auto) 0.2 TH/MM3 Basophils # (Auto) 0.0 TH/MM3 CBC Comment AUTO DIFF Differential Comment AUTO DIFF CONFIRMED Platelet Estimate LOW Platelet Morphology Comment NORMAL Red Cell Morphology Comment NORMAL Blood Urea Nitrogen 8 MG/DL Creatinine 0.49 MG/DL Random Glucose 83 MG/DL Total Protein 4.9 GM/DL Calcium Level 7.4 MG/DL Sodium Level 146 MEQ/L Potassium Level 3.0 MEQ/L Chloride Level 113 MEQ/L Carbon Dioxide Level 25.5 MEQ/L Anion Gap 8 MEQ/L Estimat Glomerular Filtration Rate 124 ML/MIN Protein Corrected Calcium 8.6 MG/DL Triglycerides Level 35 MG/DL Cholesterol Level 79 MG/DL LDL Cholesterol 19 MG/DL HDL Cholesterol 53.5 MG/DL Cholesterol/HDL Ratio 1.47 RATIO Urine Color LIGHT-YELLOW Urine Turbidity CLEAR Urine pH 5.5 Urine Specific [place] 1.016 Urine Protein NEG mg/dL Urine Glucose (UA) NEG mg/dL Urine Ketones NEG mg/dL Urine Occult Blood NEG Urine Nitrite NEG Urine Bilirubin NEG Urine Urobilinogen LESS THAN 2.0 MG/DL Urine Leukocyte Esterase NEG Urine RBC 1 /hpf Urine WBC 1 /hpf Urine Squamous Epithelial Cells 1 /hpf Urine Bacteria RARE /hpf Urine Mucus FEW /lpf Microscopic Urinalysis Comment CULT NOT INDICATED Imaging Last Impressions Chest X-Ray 02/26/17 1433 Signed Impressions: Service Date/Time: Sunday, February 26, 2017 15:13 - CONCLUSION: No acute disease. Messi Fajardo MD Assessment and Plan Problem List: (1) NSTEMI (non-ST elevated myocardial infarction) ICD Codes: I21.4 - Non-ST elevation (NSTEMI) myocardial infarction Status: Acute Plan: continue heparin ggt and med mgt; see below (2) CAD (coronary artery disease) ICD Codes: I25.10 - Atherosclerotic heart disease of [place] coronary artery without angina pectoris Status: Acute Plan: Multi-vessel CAD; plan for CABG in the AM (3) Angina pectoris ICD Codes: I20.9 - Angina pectoris, unspecified Plan: will start nitro ggt. Assessment and Plan plan is for CABG tomorrow. Problem Qualifiers (1) CAD (coronary artery disease): Qualified Codes: I25.110 - Atherosclerotic heart disease of [place] coronary artery with unstable angina pectoris Pio Lara MD Feb 27, 2017 12:36
--- NOTE | 2017-02-27 12:41 | RADRPT ---
EXAM DATE/TIME: 02/27/2017 11:33 [facility] COMPARISON: No previous studies available for comparison. INDICATIONS : Preop cardiac surgery. MEDICAL HISTORY : CVA. Hypertension. SURGICAL HISTORY : Cholecystectomy. Hysterectomy. Tubal ligation. Back surgery. Non Hodgkins lymphoma. ENCOUNTER: Initial ACUITY: 1 day PAIN SCORE: 0/10 LOCATION: Bilateral leg. GREATER SAPHENOUS VEIN THIGH: PROXIMAL: Right 5 mm Left 6 mm MID: Right 1 mm Left 2 mm DISTAL: Right 1 mm Left 2 mm CALF: PROXIMAL: Right Non-visualized Left 2 mm MID: Right Non-visualized Left Non-visualized DISTAL: Right Non-visualized Left Non-visualized FINDINGS: The venous system of the lower extremities are patent by color Doppler imaging. Measurements of the leg veins (in mm) are listed above. CONCLUSION: 1. Venous mapping as above. 2. Nonvisualization of the greater saphenous below the knee on the right and peripheral to the proxim al below knee greater saphenous on the left. Tab Shearer MD on February 27, 2017 at 12:39 Board Certified Radiologist. This report was verified electronically.
--- NOTE | 2017-02-27 12:42 | RADRPT ---
EXAM DATE/TIME: 02/27/2017 11:34 [facility] COMPARISON: No previous studies available for comparison. INDICATIONS : Preop cardiac surgery. MEDICAL HISTORY : CVA. Hypertension. SURGICAL HISTORY : Cholecystectomy. Hysterectomy. Tubal ligation. Back surgery. Non Hodgkins lymphoma. ENCOUNTER: Initial ACUITY: 1 day PAIN SCORE: 0/10 LOCATION: Bilateral leg. TECHNIQUE: Venous ultrasound of the left and right leg was performed from the inguinal ligament to the proximal calf. Real-time, color Doppler and spectral tracing, compression and augmentation techniques were us ed. FINDINGS: RIGHT LEG: There is normal compressibility of the deep venous system from the inguinal region to the proximal ca lf. No echogenic clot is seen in the lumen of the common femoral, femoral, popliteal, and posterior tibial veins. There is a normal response of the venous system to proximal and distal augmentation an d respiration. LEFT LEG: There is normal compressibility of the deep venous system from the inguinal region to the proximal ca lf. No echogenic clot is seen in the lumen of the common femoral, femoral, popliteal, and posterior tibial veins. There is a normal response of the venous system to proximal and distal augmentation an d respiration. CONCLUSION: No deep venous thrombosis in either lower extremity. Tab Shearer MD on February 27, 2017 at 12:40 Board Certified Radiologist. This report was verified electronically.
--- NOTE | 2017-02-27 12:46 | RADRPT ---
EXAM DATE/TIME: 02/27/2017 12:00 [place] COMPARISON: No previous studies available for comparison. INDICATIONS : Preop cardiac surgery. MEDICAL HISTORY : Hypertension. CVA. SURGICAL HISTORY : Cholecystectomy. Hysterectomy. Tubal ligation. Back surgery. Non Hodgkins lymphoma. ENCOUNTER: Initial ACUITY: 1 day PAIN SCORE: 0/10 LOCATION: Bilateral neck PEAK SYSTOLIC VELOCITIES (cm/sec): ICA/CCA RATIO: Right: 1.5 Left: 1.4 ICA: Right: 72 Left: 79 CCA: Right: 48 Left: 58 ECA: Right: 35 Left: 48 VERTEBRAL: Right: 49 antegrade Left: 85 antegrade Elevated flow velocities and ICA/CCA ratios have been found to correlate with increased degrees of vessel stenosis, calculated as percentage of diameter relative to a normal segment of distal ICA/CCA FINDINGS: RIGHT CAROTID: Calcified plaquing in the carotid bulbs extending up into the bifurcation. The waveforms are within normal limits. LEFT CAROTID: Calcified plaquing in the carotid bulb extending up into the bifurcation. The waveforms are within n ormal limits. VERTEBRAL ARTERIES: Antegrade flow is seen in both vertebral arteries. MISCELLANEOUS: None. CONCLUSION: 1. Calcified plaquing in both carotid bulbs extending up into the bifurcations. 2. However, no sonographic or Doppler findings of a hemodynamically significant stenosis. Antegrade f low in both vertebral arteries. Tab Shearer MD on February 27, 2017 at 12:42 Board Certified Radiologist. This report was verified electronically.
[2017-02-27 13:12] LABS: APTT (PATIENT) 165.5 SEC (24.3-30.1)
[2017-02-27] MEDS ORDERED: NITROGLYCERIN-D5W 50 MG/250 ML 250 ML IV PRN (14:00)
--- NOTE | 2017-02-27 14:10 | PD.CAR.PN ---
CVT Progress Note Subjective/Hospital Course: sts data discussed with pt RISK SCORES About the STS Risk Calculator Procedure: CAB Only Risk of Mortality: 2.34% Morbidity or Mortality: 13.94% Long Length of Stay: 5.119% Short Length of Stay: 36.532% Permanent Stroke: 1.546% Prolonged Ventilation: 10.083% DSW Infection: 0.154% Renal Failure: 0.88% Reoperation: 6.238% Objective: Vital Signs Date Time Temp Pulse Resp B/P (MAP) Pulse Ox O2 Delivery O2 Flow Rate FiO2 02/27/17 13:01 54 02/27/17 12:01 97.7 63 18 148/78 (101) 100 02/27/17 12:00 52 02/27/17 11:00 59 02/27/17 10:00 58 02/27/17 09:00 56 02/27/17 08:30 97.8 57 18 133/73 (93) 100 02/27/17 08:00 68 02/27/17 07:01 53 02/27/17 07:00 53 02/27/17 06:35 76 02/27/17 05:00 86 02/27/17 04:00 82 02/27/17 03:11 98.7 55 18 113/57 (75) 99 02/27/17 03:00 76 02/27/17 02:00 76 02/27/17 01:00 76 02/27/17 00:00 82 02/26/17 23:54 98.0 62 18 128/63 (84) 100 02/26/17 23:54 75 02/26/17 22:00 88 02/26/17 21:00 84 02/26/17 20:00 80 02/26/17 19:00 84 02/26/17 15:50 97.8 74 17 117/60 (79) 98 Room Air 02/26/17 15:00 97.8 68 17 122/81 (95) 100 02/26/17 14:38 16 99 Room Air 02/26/17 14:38 99 Room Air 02/26/17 14:37 70 16 139/67 (91) 100 Room Air 134/67 (89) 02/26/17 14:35 70 16 99 Room Air 02/26/17 14:14 98.1 77 14 144/68 (93) 99 Labs: Laboratory Tests Test 02/27/17 02:30 02/27/17 05:30 02/27/17 08:07 02/27/17 11:00 Activated Partial Thromboplast Time 58.6 SEC (24.3-30.1) Total Creatine Kinase 134 U/L (26-192) Troponin I 1.71 NG/ML (0.02-0.05) White Blood Count 3.3 TH/MM3 (4.0-11.0) Red Blood Count 3.40 MIL/MM3 (4.00-5.30) Hemoglobin 11.1 GM/DL (11.6-15.3) Hematocrit 33.1 % (35.0-46.0) Mean Corpuscular Volume 97.6 FL (80.0-100.0) Mean Corpuscular Hemoglobin 32.6 PG (27.0-34.0) Mean Corpuscular Hemoglobin Concent 33.4 % (32.0-36.0) Red Cell Distribution Width 13.4 % (11.6-17.2) Platelet Count 107 TH/MM3 (150-450) Mean Platelet Volume 7.2 FL (7.0-11.0) Neutrophils (%) (Auto) 69.8 % (16.0-70.0) Lymphocytes (%) (Auto) 10.7 % (9.0-44.0) Monocytes (%) (Auto) 11.7 % (0.0-8.0) Eosinophils (%) (Auto) 7.2 % (0.0-4.0) Basophils (%) (Auto) 0.6 % (0.0-2.0) Neutrophils # (Auto) 2.3 TH/MM3 (1.8-7.7) Lymphocytes # (Auto) 0.4 TH/MM3 (1.0-4.8) Monocytes # (Auto) 0.4 TH/MM3 (0-0.9) Eosinophils # (Auto) 0.2 TH/MM3 (0-0.4) Basophils # (Auto) 0.0 TH/MM3 (0-0.2) CBC Comment AUTO DIFF Differential Comment AUTO DIFF CONFIRMED Platelet Estimate LOW (NORMAL) Platelet Morphology Comment NORMAL (NORMAL) Red Cell Morphology Comment NORMAL (NORMAL) Blood Urea Nitrogen 8 MG/DL (7-18) Creatinine 0.49 MG/DL (0.50-1.00) Random Glucose 83 MG/DL (74-106) Total Protein 4.9 GM/DL (6.4-8.2) Calcium Level 7.4 MG/DL (8.5-10.1) Sodium Level 146 MEQ/L (136-145) Potassium Level 3.0 MEQ/L (3.5-5.1) Chloride Level 113 MEQ/L (98-107) Carbon Dioxide Level 25.5 MEQ/L (21.0-32.0) Anion Gap 8 MEQ/L (5-15) Estimat Glomerular Filtration Rate 124 ML/MIN (>89) Protein Corrected Calcium 8.6 MG/DL (8.5-10.1) Triglycerides Level 35 MG/DL (42-150) Cholesterol Level 79 MG/DL (120-200) LDL Cholesterol 19 MG/DL (0-99) HDL Cholesterol 53.5 MG/DL (40.0-60.0) Cholesterol/HDL Ratio 1.47 RATIO Urine Color LIGHT-YELLOW (YELLW/STRAW) Urine Turbidity CLEAR (CLEAR) Urine pH 5.5 (5.0-8.5) Urine Specific [place] 1.016 (1.002-1.035) Urine Protein NEG mg/dL (NEG-TRACE) Urine Glucose (UA) NEG mg/dL (NEG) Urine Ketones NEG mg/dL (NEG) Urine Occult Blood NEG (NEG) Urine Nitrite NEG (NEG) Urine Bilirubin NEG (NEG) Urine Urobilinogen LESS THAN 2.0 MG/DL (LESS Urine Leukocyte Esterase NEG (NEG) Urine RBC 1 /hpf (0-3) Urine WBC 1 /hpf (0-5) Urine Squamous Epithelial Cells 1 /hpf (0-5) Urine Bacteria RARE /hpf (NONE) Urine Mucus FEW /lpf (OCC) Microscopic Urinalysis Comment CULT NOT INDICATED Test 02/27/17 12:10 Activated Partial Thromboplast Time 165.5 SEC (24.3-30.1) Result Diagram: 02/27/1752902/27/17529 Jessica Trotter Feb 27, 2017 14:10
--- NOTE | 2017-02-27 14:12 | HHI.PR ---
Subjective Subjective Remarks Chest pain last night, was put on nitro drip Short of breath with activity Chest pain-free at this time No fever No pain Asking multiple questions about discharge planning and when she will potentially go home Family at bedside Review of Systems Constitutional Constitutional Remarks 12 point ros completed, negative except as noted above Vitals/Results Vital Signs Vital Signs Date Time Temp Pulse Resp B/P (MAP) Pulse Ox O2 Delivery O2 Flow Rate FiO2 02/27/17 13:01 54 02/27/17 12:01 97.7 63 18 148/78 (101) 100 02/27/17 12:00 52 02/27/17 11:00 59 02/27/17 10:00 58 02/27/17 09:00 56 02/27/17 08:30 97.8 57 18 133/73 (93) 100 02/27/17 08:00 68 02/27/17 07:01 53 02/27/17 07:00 53 02/27/17 06:35 76 02/27/17 05:00 86 02/27/17 04:00 82 02/27/17 03:11 98.7 55 18 113/57 (75) 99 02/27/17 03:00 76 02/27/17 02:00 76 02/27/17 01:00 76 02/27/17 00:00 82 02/26/17 23:54 98.0 62 18 128/63 (84) 100 02/26/17 23:54 75 02/26/17 22:00 88 02/26/17 21:00 84 02/26/17 20:00 80 02/26/17 19:00 84 02/26/17 15:50 97.8 74 17 117/60 (79) 98 Room Air 02/26/17 15:00 97.8 68 17 122/81 (95) 100 02/26/17 14:38 16 99 Room Air 02/26/17 14:38 99 Room Air 02/26/17 14:37 70 16 139/67 (91) 100 Room Air 134/67 (89) 02/26/17 14:35 70 16 99 Room Air 02/26/17 14:14 98.1 77 14 144/68 (93) 99 CBC/BMP: 02/27/17 0530 02/27/17 0530 Lab Results Laboratory Tests Test 02/26/17 14:38 02/26/17 15:40 02/26/17 19:50 02/27/17 02:30 Prothrombin Time 11.6 SEC Prothromb Time International Ratio 1.0 RATIO Activated Partial Thromboplast Time 22.2 SEC 58.6 SEC Blood Urea Nitrogen 11 MG/DL Creatinine 0.84 MG/DL Random Glucose 94 MG/DL Calcium Level 8.5 MG/DL Magnesium Level 2.0 MG/DL Sodium Level 141 MEQ/L Potassium Level 4.7 MEQ/L Chloride Level 108 MEQ/L Carbon Dioxide Level 29.4 MEQ/L Anion Gap 4 MEQ/L Estimat Glomerular Filtration Rate 66 ML/MIN Total Creatine Kinase 185 U/L 120 U/L 134 U/L Creatine Kinase MB 2.5 NG/ML Troponin I 0.99 NG/ML 1.18 NG/ML 1.71 NG/ML White Blood Count 3.2 TH/MM3 3.3 TH/MM3 Red Blood Count 3.51 MIL/MM3 3.44 MIL/MM3 Hemoglobin 11.4 GM/DL 11.5 GM/DL Hematocrit 34.3 % 33.9 % Mean Corpuscular Volume 97.8 FL 98.5 FL Mean Corpuscular Hemoglobin 32.5 PG 33.4 PG Mean Corpuscular Hemoglobin Concent 33.2 % 33.9 % Red Cell Distribution Width 13.2 % 13.3 % Platelet Count 120 TH/MM3 105 TH/MM3 Mean Platelet Volume 7.7 FL 8.1 FL Neutrophils (%) (Auto) 70.9 % Lymphocytes (%) (Auto) 11.2 % Monocytes (%) (Auto) 10.9 % Eosinophils (%) (Auto) 6.2 % Basophils (%) (Auto) 0.8 % Neutrophils # (Auto) 2.3 TH/MM3 Lymphocytes # (Auto) 0.4 TH/MM3 Monocytes # (Auto) 0.3 TH/MM3 Eosinophils # (Auto) 0.2 TH/MM3 Basophils # (Auto) 0.0 TH/MM3 CBC Comment AUTO DIFF Differential Total Cells Counted 100 Neutrophils % (Manual) 66 % Band Neutrophils % 8 % Lymphocytes % 9 % Monocytes % 9 % Eosinophils % 6 % Basophils % 2 % Neutrophils # (Manual) 2.4 TH/MM3 Differential Comment FINAL DIFF MANUAL Platelet Estimate LOW Platelet Morphology Comment NORMAL Ovalocytes 1+ Keratocytes OCC Test 02/27/17 05:30 02/27/17 08:07 9/21/17 11:00 02/27/17 12:10 White Blood Count 3.3 TH/MM3 Red Blood Count 3.40 MIL/MM3 Hemoglobin 11.1 GM/DL Hematocrit 33.1 % Mean Corpuscular Volume 97.6 FL Mean Corpuscular Hemoglobin 32.6 PG Mean Corpuscular Hemoglobin Concent 33.4 % Red Cell Distribution Width 13.4 % Platelet Count 107 TH/MM3 Mean Platelet Volume 7.2 FL Neutrophils (%) (Auto) 69.8 % Lymphocytes (%) (Auto) 10.7 % Monocytes (%) (Auto) 11.7 % Eosinophils (%) (Auto) 7.2 % Basophils (%) (Auto) 0.6 % Neutrophils # (Auto) 2.3 TH/MM3 Lymphocytes # (Auto) 0.4 TH/MM3 Monocytes # (Auto) 0.4 TH/MM3 Eosinophils # (Auto) 0.2 TH/MM3 Basophils # (Auto) 0.0 TH/MM3 CBC Comment AUTO DIFF Differential Comment AUTO DIFF CONFIRMED Platelet Estimate LOW Platelet Morphology Comment NORMAL Red Cell Morphology Comment NORMAL Blood Urea Nitrogen 8 MG/DL Creatinine 0.49 MG/DL Random Glucose 83 MG/DL Total Protein 4.9 GM/DL Calcium Level 7.4 MG/DL Sodium Level 146 MEQ/L Potassium Level 3.0 MEQ/L Chloride Level 113 MEQ/L Carbon Dioxide Level 25.5 MEQ/L Anion Gap 8 MEQ/L Estimat Glomerular Filtration Rate 124 ML/MIN Protein Corrected Calcium 8.6 MG/DL Triglycerides Level 35 MG/DL Cholesterol Level 79 MG/DL LDL Cholesterol 19 MG/DL HDL Cholesterol 53.5 MG/DL Cholesterol/HDL Ratio 1.47 RATIO Urine Color LIGHT-YELLOW Urine Turbidity CLEAR Urine pH 5.5 Urine Specific [place] 1.016 Urine Protein NEG mg/dL Urine Glucose (UA) NEG mg/dL Urine Ketones NEG mg/dL Urine Occult Blood NEG Urine Nitrite NEG Urine Bilirubin NEG Urine Urobilinogen LESS THAN 2.0 MG/DL Urine Leukocyte Esterase NEG Urine RBC 1 /hpf Urine WBC 1 /hpf Urine Squamous Epithelial Cells 1 /hpf Urine Bacteria RARE /hpf Urine Mucus FEW /lpf Microscopic Urinalysis Comment CULT NOT INDICATED Activated Partial Thromboplast Time 165.5 SEC Physical Exam General General Appearance: Well Developed, Well Nourished, No Acute Distress, Comfortable Eyes Eye Exam: Pupils Equal, Pupils Reactive Ears & Nose Ears & Nose Exam: Nasal Mucosa [place] Throat Throat Exam: Oral Mucosa [place] & Moist Neck Neck Exam: Neck Supple, Trachea Midline Pulmonary Resp Exam: Clear Bilaterally Cardiology CV Exam: Regular, Good Perfusion, Murmur Gastrointestinal/Abdomen GI Exam: Soft, Non-Tender, Bowel Sounds Present, Non-Distended Musculoskeletal MS Exam: Joints Intact Integumentary Skin Exam: Warm, Dry Extremeties Extremities Exam: No Edema, Pedal Pulses Palpable Neurologic Neuro Exam: Alert, Awake, Oriented, Speech Clear, Moving All Extremities, No Focal Deficits Psychiatric Psych Exam: Appropriate Responses VTE Prophylaxis VTE Prophylaxis Meds: Heparin Assessment/Plan Problem List: (1) NSTEMI (non-ST elevated myocardial infarction) ICD Codes: I21.4 - Non-ST elevation (NSTEMI) myocardial infarction Status: Acute (2) Hyperlipidemia ICD Codes: E78.5 - Hyperlipidemia, unspecified Status: Chronic (3) CAD (coronary artery disease) ICD Codes: I25.10 - Atherosclerotic heart disease of [place] coronary artery without angina pectoris Status: Acute (4) Pancytopenia ICD Codes: D61.818 - Other pancytopenia Status: Chronic (5) Seizure disorder ICD Codes: G40.909 - Epilepsy, unspecified, not intractable, without status epilepticus Status: Chronic (6) Hypertension ICD Codes: I10 - Essential (primary) hypertension Status: Chronic (7) Hx TIA/stroke w/o resid ICD Codes: Z86.73 - Personal history of transient ischemic attack (TIA), and cerebral infarction without residual deficits Status: Chronic (8) Non-Hodgkin lymphoma ICD Codes: C85.90 - Non-Hodgkin lymphoma, unspecified, unspecified site Status: Chronic (9) Angina pectoris ICD Codes: I20.9 - Angina pectoris, unspecified Assessment/Plan 71-year-old white female presented to the emergency room with ongoing left- sided chest pain with radiation to the left shoulder associated with hiccups, shortness of breath. Non-STEMI Status post cardiac catheterization 02/26-multivessel disease -Appreciate cardiology input, patient underwent cardiac catheterization. Was found with multivessel disease. Continue with heparin drip. -2-D echo done, EF 45-50%. Left ventricular systolic function mildly reduced. Hypokinetic apical Motion, hypokinetic mid anterior wall motion. Possible atrial level shunt demonstrated by color Doppler. Moderate aortic valve regurgitation. Aortic valve sclerosis. Trace tricuspid regurgitation. -Continue with aspirin 81 mg by mouth daily, Lipitor 80 mg by mouth daily at bedtime, Toprol-XL 100 mg by mouth daily -Had chest pain and shortness of breath last night, cardiology has started nitro drip. -Has been evaluated by Dr. Mcnamara, schedule for CABG x 4 in am Carotid disease -carotid US noted, calcified plaquing, no significant stenosis. Non-Hodgkin's B-cell lymphoma, follicular lymphoma grade 1-. Has completed 5 cycles of Rituxan and bendamustine June 2016, she is on maintenance Rituxan. Patient follows up regularly with Dr. Enriquez Pancytopenia -CBC reviewed. -will have Dr. Enriquez evaluate preop. Hypertension, stable -Continue with home medications Hyperlipidemia -Continue statins -Lipid profile results noted. History of TIA, no residual -Continue with aspirin History of epilepsy, last seizure June 2016 -Continue Keppra 1000 milligrams by mouth twice a day COPD, stable. -Duo nebs as needed for any wheezing For DVT prophylaxis, patient already on heparin drip Replace K Labs in am Condition guarded D/W RN D/W Dr. White D/W pt. This patient was seen by myself and Dr. White, this note is written on his behalf Problem Qualifiers (1) Hyperlipidemia: Qualified Codes: E78.5 - Hyperlipidemia, unspecified (2) CAD (coronary artery disease): Qualified Codes: I25.110 - Atherosclerotic heart disease of [place] coronary artery with unstable angina pectoris (3) Hypertension: Qualified Codes: I10 - Essential (primary) hypertension (4) Non-Hodgkin lymphoma: Qualified Codes: C82.00 - Follicular lymphoma grade I, unspecified site Loreto Murguia Feb 27, 2017 14:12
[2017-02-27] MEDS: POTASSIUM CHLORIDE 20 MEQ CONTROLLED RELEASE TAB PO SCH (17:30)
[2017-02-27 17:44] LABS: HEMOGLOBIN A1a 1.3 %; HEMOGLOBIN A1b 0.6 %; HEMOGLOBIN F 1.1 %; HEMOGLOBIN LA1C 1.6 %; HEMOGLOBIN P3 3.4 %
--- NOTE | 2017-02-27 17:47 | PD.CARD.PN ---
Subjective Subjective Remarks Doing well, no current chest pain Last night, did have an episode of chest pain with getting out of bed Objective Medications Current Medications Medications (Trade) Dose Ordered Sig/Yue Route Start Time Stop Time Status Last Admin Sodium Chloride 1,000 ml @ 75 mls/hr [id number] IV 02/26/17 16:00 02/27/17 05:20 (Tylenol) 650 mg Q4H PRN PO 02/26/17 15:45 (Zofran Inj) 4 mg Q6H PRN IVP 02/26/17 15:45 (Restoril) 15 mg HS PRN PO 02/26/17 15:45 (Narcan Inj) 0.4 mg UNSCH PRN IV PUSH 02/26/17 15:45 (Eleni-Colace) 1 tab BID PO 02/26/17 21:00 02/27/17 08:45 (Milk Of Magnesia Liq) 30 ml Q12H PRN PO 02/26/17 15:45 (Senokot) 17.2 mg Q12H PRN PO 02/26/17 15:45 (Dulcolax Supp) 10 mg DAILY PRN RECTAL 02/26/17 15:45 (Lactulose Liq) 30 ml DAILY PRN PO 02/26/17 15:45 (Heparin Inj) 5,000 units UNSCH PRN IV 02/27/17 00:15 (Heparin Inj) 2,500 units UNSCH PRN IV 02/27/17 00:15 Heparin Sodium/ Dextrose 250 ml @ 5 mls/hr TITRATE PRN IV 02/26/17 18:15 (Aspirin Chew) 81 mg DAILY CHEW 02/27/17 09:00 02/27/17 08:44 (Lipitor) 80 mg HS PO 02/26/17 21:00 02/26/17 20:54 (Vitamin D3) 1,000 units DAILY PO 02/27/17 09:00 02/27/17 08:45 (Keppra) 1,000 mg BID PO 02/26/17 21:00 02/27/17 08:45 (Nitrostat Sl) 0.4 mg Q5M PRN SL 02/26/17 19:00 02/26/17 20:59 (Duoneb Neb) 1 ampule Q8HR NEB PRN NEB 02/26/17 19:00 (Lopressor) 25 mg Q8HR PO 02/26/17 22:45 02/27/17 13:46 (NS Flush) 2 ml BID IV FLUSH 02/27/17 21:00 (NS Flush) 2 ml UNSCH PRN IV FLUSH 02/27/17 10:15 Papaverine HCl 60 mg/Nitroglycerin 100 mcg/Diltiazem HCl 100 mg/Sodium Chloride 100 ml @ 0 mls/hr MOBILE ENGINEER IRRIGATION 02/27/17 10:15 03/06/17 10:14 Cefazolin Sodium 500 mg/Sodium Chloride 505 ml @ 0 mls/hr MOBILE ENGINEER IRRIGATION 02/27/17 10:15 03/06/17 10:14 Cefazolin Sodium/ Dextrose 50 ml @ 150 mls/hr MOBILE ENGINEER IV 02/27/17 10:15 03/06/17 10:14 (Lopressor) 12.5 mg MOBILE ENGINEER PO 02/27/17 10:15 03/06/17 10:14 (Hibiclens 4% Top Soln) 1 applic MOBILE ENGINEER TOPICAL 02/27/17 10:15 03/06/17 10:14 Insulin Human Regular 100 units/ Sodium Chloride 101 ml @ 0 mls/hr MOBILE ENGINEER IV 02/27/17 10:15 03/06/17 10:14 Nitroglycerin/ Dextrose 250 ml @ 1.5 mls/hr TITRATE PRN IV 02/27/17 14:00 02/27/17 15:35 (KCl) 40 meq DAILY PO 02/27/17 17:30 Vital Signs / I&O Vital Signs Date Time Temp Pulse Resp B/P (MAP) Pulse Ox O2 Delivery O2 Flow Rate FiO2 02/27/17 16:01 62 02/27/17 15:45 97.6 59 18 128/74 (92) 99 02/27/17 15:35 59 128/74 02/27/17 15:00 58 02/27/17 14:00 56 02/27/17 13:01 54 02/27/17 12:01 97.7 63 18 148/78 (101) 100 02/27/17 12:00 52 02/27/17 11:00 59 02/27/17 10:00 58 02/27/17 09:00 56 02/27/17 08:30 97.8 57 18 133/73 (93) 100 02/27/17 08:00 68 02/27/17 07:01 53 02/27/17 07:00 53 02/27/17 06:35 76 02/27/17 05:00 86 02/27/17 04:00 82 02/27/17 03:11 98.7 55 18 113/57 (75) 99 02/27/17 03:00 76 02/27/17 02:00 76 02/27/17 01:00 76 02/27/17 00:00 82 02/26/17 23:54 98.0 62 18 128/63 (84) 100 02/26/17 23:54 75 02/26/17 22:00 88 02/26/17 21:00 84 02/26/17 20:00 80 02/26/17 19:00 84 I/O 02/26/17 02/26/17 02/26/17 02/27/17 02/27/17 02/27/17 07:00 15:00 23:00 07:00 15:00 23:00 Intake Total 600 ml Balance 600 ml Intake Oral 600 ml # Voids 3 # Bowel Movements 1 Physical Exam GENERAL: NAD, AAOx3 SKIN: Warm and dry. HEAD: Atraumatic. Normocephalic. EYES: Pupils equal and round. No scleral icterus. No injection or drainage. ENT: No nasal bleeding or discharge. Mucous membranes pink and moist. NECK: Trachea midline. No JVD. CARDIOVASCULAR: Regular rate and rhythm. RESPIRATORY: No accessory muscle use. Clear to auscultation. Breath sounds equal bilaterally. GASTROINTESTINAL: Abdomen soft, non-tender, nondistended. Hepatic and splenic margins not palpable. MUSCULOSKELETAL: Extremities without clubbing, cyanosis, or edema. No obvious deformities. Right radial no hematoma, neurovascularly intact distally NEUROLOGICAL: Awake and alert. No obvious cranial nerve deficits. Motor grossly within normal limits. Five out of 5 muscle strength in the arms and legs. Normal speech. PSYCHIATRIC: Appropriate mood and affect; insight and judgment normal. Laboratory Laboratory Tests Test 02/26/17 19:50 02/27/17 02:30 02/27/17 05:30 02/27/17 08:07 White Blood Count 3.3 TH/MM3 3.3 TH/MM3 Red Blood Count 3.44 MIL/MM3 3.40 MIL/MM3 Hemoglobin 11.5 GM/DL 11.1 GM/DL Hematocrit 33.9 % 33.1 % Mean Corpuscular Volume 98.5 FL 97.6 FL Mean Corpuscular Hemoglobin 33.4 PG 32.6 PG Mean Corpuscular Hemoglobin Concent 33.9 % 33.4 % Red Cell Distribution Width 13.3 % 13.4 % Platelet Count 105 TH/MM3 107 TH/MM3 Mean Platelet Volume 8.1 FL 7.2 FL Total Creatine Kinase 120 U/L 134 U/L Troponin I 1.18 NG/ML 1.71 NG/ML Activated Partial Thromboplast Time 58.6 SEC Neutrophils (%) (Auto) 69.8 % Lymphocytes (%) (Auto) 10.7 % Monocytes (%) (Auto) 11.7 % Eosinophils (%) (Auto) 7.2 % Basophils (%) (Auto) 0.6 % Neutrophils # (Auto) 2.3 TH/MM3 Lymphocytes # (Auto) 0.4 TH/MM3 Monocytes # (Auto) 0.4 TH/MM3 Eosinophils # (Auto) 0.2 TH/MM3 Basophils # (Auto) 0.0 TH/MM3 CBC Comment AUTO DIFF Differential Comment AUTO DIFF CONFIRMED Platelet Estimate LOW Platelet Morphology Comment NORMAL Red Cell Morphology Comment NORMAL Blood Urea Nitrogen 8 MG/DL Creatinine 0.49 MG/DL Random Glucose 83 MG/DL Total Protein 4.9 GM/DL Calcium Level 7.4 MG/DL Sodium Level 146 MEQ/L Potassium Level 3.0 MEQ/L Chloride Level 113 MEQ/L Carbon Dioxide Level 25.5 MEQ/L Anion Gap 8 MEQ/L Estimat Glomerular Filtration Rate 124 ML/MIN Protein Corrected Calcium 8.6 MG/DL Triglycerides Level 35 MG/DL Cholesterol Level 79 MG/DL LDL Cholesterol 19 MG/DL HDL Cholesterol 53.5 MG/DL Cholesterol/HDL Ratio 1.47 RATIO Urine Color LIGHT-YELLOW Urine Turbidity CLEAR Urine pH 5.5 Urine Specific [place] 1.016 Urine Protein NEG mg/dL Urine Glucose (UA) NEG mg/dL Urine Ketones NEG mg/dL Urine Occult Blood NEG Urine Nitrite NEG Urine Bilirubin NEG Urine Urobilinogen LESS THAN 2.0 MG/DL Urine Leukocyte Esterase NEG Urine RBC 1 /hpf Urine WBC 1 /hpf Urine Squamous Epithelial Cells 1 /hpf Urine Bacteria RARE /hpf Urine Mucus FEW /lpf Microscopic Urinalysis Comment CULT NOT INDICATED Test 02/27/17 11:00 02/27/17 12:10 9/21/17 16:20 Nasal Screen MRSA (PCR) MRSA NOT DETECTED Activated Partial Thromboplast Time 165.5 SEC Assessment and Plan Problem List: (1) NSTEMI (non-ST elevated myocardial infarction) ICD Codes: I21.4 - Non-ST elevation (NSTEMI) myocardial infarction Status: Acute (2) CAD (coronary artery disease) ICD Codes: I25.10 - Atherosclerotic heart disease of [place] coronary artery without angina pectoris Status: Acute (3) Angina pectoris ICD Codes: I20.9 - Angina pectoris, unspecified (4) Multi-vessel coronary artery stenosis ICD Codes: I25.10 - Atherosclerotic heart disease of [place] coronary artery without angina pectoris Assessment and Plan 1) MVCAD including left main disease 2) Plan for potential CABG tomorrow 3) Con't heparin drip 4) Since CP last night with getting up to the bathroom, will plan for bedrest and nitro drip low dose 5) EF 45%, moderate AR Problem Qualifiers (1) CAD (coronary artery disease): Qualified Codes: I25.110 - Atherosclerotic heart disease of [place] coronary artery with unstable angina pectoris Rigo Beltran DO Feb 27, 2017 17:47
[2017-02-27 19:03] LABS: APTT (PATIENT) 58.3 SEC (24.3-30.1)
[2017-02-27] MEDS: ATORVASTATIN 80 MG TAB PO SCH (22:08)
[2017-02-28] VITALS (18 sets, daily range): BP systolic 86–137; BP diastolic 49–69; PULSE 48–84; RESP 10–18; TEMP 97.5–98.3; O2SAT 97–99
[2017-02-28] MEDS ORDERED: LACTATED RINGER'S 1000 ML IV PRN (05:15)
[2017-02-28] MEDS ORDERED: SODIUM CHLORID 0.9% 500 ML IV PRN (05:15)
[2017-02-28] MEDS ORDERED: METOPROLOL TARTRATE 25 MG TAB PO PRN (05:15)
[2017-02-28] MEDS ORDERED: CHLORHEXIDINE GLUCONATE 2 % 1 PACK (2 CLOTHS) TOPICAL PRN (05:15)
[2017-02-28] MEDS ORDERED: POVIDONE IODINE 5% (ANTISEPSIS KIT) 4 APPLICATIONS EACH NARE PRN (05:15)
[2017-02-28] MEDS: METOPROLOL TARTRATE 25 MG TAB PO SCH ×3 (05:27→22:36)
[2017-02-28] MEDS ORDERED: HEPARIN SODIUM - SQ 10,000 UNITS/ML VIAL ONE (06:31)
[2017-02-28] MEDS ORDERED: VANCOMYCIN HCL 1000 MG VIAL ONE (06:32)
[2017-02-28 06:51] LABS: POTASSIUM 4.6 MEQ/L (3.5-5.1)
[2017-02-28] MEDS ORDERED: CARDIOPLEGIC IRR 2,000 ML ONE (07:06)
[2017-02-28] MEDS ORDERED: POTASSIUM CHLORIDE 20 MEQ/10 ML VIAL ONE (07:06)
[2017-02-28] MEDS ORDERED: BUPIVACAINE LIPOSO PF 1.3% INJ 20 ML, DEXAMETHASONE INJ 4 MG, MORPHINE INJ 8 MG in SODI... IRRIGATION ONE (08:00)
--- NOTE | 2017-02-28 08:01 | MB ---
cc: WILFREDO MATHEW M.D., MAZHAR MD DATE OF CONSULTATION: 02/28/[address] White. REASON FOR CONSULTATION Oncology is consulted to render an opinion regarding patient with a history of lymphoma, admitted with chest pain. HISTORY OF PRESENT ILLNESS The patient is a very pleasant 71-year-old female with a history of non-Hodgkin's B-cell lymphoma currently on maintenance Rituxan, admitted to the hospital with chest pain and shortness of breath. The patient is not a very good historian, but according to the family the patient has been having left-sided chest pain and increased shortness of breath over the last 2-3 weeks. She went to see Dr. Lara and was told to come to the emergency room for cardiac catheterization. Cardiac catheterization showed multivessel coronary disease and the patient is going to have coronary bypass graft surgery today. She is in good spirits. She denies any significant shortness of breath this morning. She denies any headache. Denies nausea, vomiting or abdominal pain. Denies any bone pain. Her last Rituxan was February 20. PAST MEDICAL HISTORY 1. Non-Hodgkin's B-cell lymphoma. 2. Epilepsy. 3. Chronic obstructive pulmonary disease. 4. Transient ischemia attack next. 5. Osteoarthritis next. 6. Hypertension. 7. Hyperlipidemia. 8. Left breast benign nodule. PAST SURGICAL HISTORY 1. Port placement. 2. Left lumpectomy. 3. Cataract surgery. 4. Cholecystectomy. 5. Hysterectomy. 6. Bilateral tubal ligation. 7. Biopsy of lymphoma. FAMILY HISTORY Noncontributory. SOCIAL HISTORY No tobacco use or alcohol use. She lives with her . ALLERGIES No known drug allergies. MEDICATIONS Current medications: 1. Aspirin. 2. Vitamin-D3. 3. Eleni-Colace. 4. Lipitor. 5. Keppra. REVIEW OF SYSTEMS CONSTITUTIONAL: Negative. EYES: Negative. ENT: Negative. CARDIOVASCULAR: As above. RESPIRATORY: As above. GI: Denies nausea, vomiting, diarrhea or abdominal pain. : Denies dysuria or hematuria. MUSCULOSKELETAL: Negative. HEMATOLOGIC: As above. ENDOCRINE: Negative. DERMATOLOGIC: Negative. PSYCHIATRIC: Negative. NEUROLOGIC: Negative. PHYSICAL EXAMINATION VITAL SIGNS: Temperature 97.6, blood pressure 99/55, O2 saturation 98% on room air. GENERAL: She is alert and oriented x3, in no acute distress. HEENT: Atraumatic, normocephalic. Pupils equal, round and reactive to light. Extraocular muscles intact. No scleral icterus. Oropharynx dry mucosa, no lesion, thrush, no mucositis. NECK: No thyromegaly. No palpable masses. LYMPHATIC: No palpable cervical, clavicular, axillary or inguinal lymph nodes. CARDIOVASCULAR: Regular S1, S2. LUNGS: Clear to auscultation anteriorly. ABDOMEN: Soft, nontender. Could not palpate the liver or spleen. EXTREMITIES: No cyanosis, clubbing or edema. No calf tenderness. BACK: No paravertebral tenderness. SKIN: No rash or petechiae. NEUROLOGIC: Nonfocal. LABORATORY DATA Laboratory data reviewed. ASSESSMENT 1. Non-Hodgkin's B-cell lymphoma/follicular lymphoma, grade 1. She had hypermetabolic lymph nodes in the right axillary, inguinal and right pelvic area. She also had significant constitutional symptoms when she first presented. She completed 5 cycles of Rituxan and bendamustine in June 2016. She was then started on maintenance Rituxan. Her last dose of Rituxan was February 20. Recent CT scan did not show any evidence of recurrent disease. There is no oncologic intervention planned during this admission. 2. Pancytopenia. She has mild pancytopenia. Her baseline CBC is in the low normal range. During this hospital stay it was noted her blood count was slightly lower, however, she is not neutropenic. The slight drop in the blood count may be due to recent rituxan. There is no contraindication for her to have the coronary artery bypass graft surgery. Will continue to monitor her CBC. 3. Coronary artery disease. She has been having chest pain on and off for a few weeks. She was noted to have a [id number] myocardial infarction. Cardiac catheterization showed multivessel coronary artery disease. She is scheduled for coronary bypass graft surgery today. 4. History of seizure disorder. No recent recurrence. 5. History of transient ischemic attack. She has no symptoms. Carotid ultrasound did not show any hemodynamically significant stenosis. PLAN 1. Await coronary bypass graft surgery. 2. Monitor her CBC while she is in the hospital. She can have transfusion as needed. Thank you Dr. White for asking me to see this patient. MD JH Joshua /7:22 AM /7:35 AM MTDPrimitivo
[2017-02-28] MEDS: INSULIN REGULAR (IV INFUSION) 100 UNITS in SODIUM CHLORIDE 0.9% INJ 100 ML IV SCH ×2 (09:00→20:33)
[2017-02-28] MEDS: levETIRAcetam 500 MG TAB PO SCH ×3 (09:00→22:36)
[2017-02-28] MEDS: CHOLECALCIFEROL (VIT D3) 1000 UNIT TAB PO SCH (09:00)
[2017-02-28] MEDS: POTASSIUM CHLORIDE 20 MEQ CONTROLLED RELEASE TAB PO SCH (09:00)
[2017-02-28] MEDS: DOCUSATE SODIUM 50 MG/SENNA 8.6 MG TAB PO SCH ×2 (09:00→21:00)
[2017-02-28] MEDS ORDERED: SODIUM CHLOR 0.9% 1000 ML INJ 1,000 ML IV ONE (09:39)
[2017-02-28] MEDS ORDERED: MAGNESIUM SULFATE 1000 MG/2 ML VIAL (PED) IV ONE (09:39)
[2017-02-28] MEDS ORDERED: CALCIUM CHLORIDE 10% SOLN 1 GRAM/10 ML SYR IV ONE (09:39)
[2017-02-28] MEDS ORDERED: LACTATED RINGER'S 1000 ML INJ 1,000 ML IV ONE (09:39)
[2017-02-28] MEDS ORDERED: NORMOSOL R INJ 1,000 ML IV ONE (09:39)
[2017-02-28] MEDS ORDERED: PROTAMINE SULFATE 250 MG/25 ML VIAL IV ONE (09:39)
[2017-02-28] MEDS ORDERED: NITROGLYCERIN 50 MG/DEXTROSE 5% SOLN 250 ML BTL IV ONE (09:39)
[2017-02-28] MEDS ORDERED: HEPARIN SODIUM - IV 10,000 UNITS/10 ML VIAL IV ONE (09:39)
[2017-02-28] MEDS ORDERED: SODIUM CHLORIDE 0.9% 20 ML VIAL IV ONE (09:51)
[2017-02-28] MEDS ORDERED: VECURONIUM BROMIDE 20 MG VIAL IV ONE (09:51)
[2017-02-28] MEDS ORDERED: PROPOFOL 200 MG/20 ML AMP IV ONE (09:51)
[2017-02-28] MEDS ORDERED: ePHEDrine/NS 50 MG/5 ML SYR IV ONE (09:52)
[2017-02-28] MEDS ORDERED: LIDOCAINE HCL 1% PF 5 ML AMPULE OTHER ONE (09:52)
[2017-02-28] MEDS ORDERED: NEOSTIGMINE 3 MG/3 ML SYR IV ONE (09:52)
[2017-02-28] MEDS ORDERED: PHENYLEPHRINE HCL 10 MG/ML VIAL IV ONE (09:52)
[2017-02-28] MEDS ORDERED: GLYCOPYRROLATE 1 MG/5 ML SYRINGE IV PUSH ONE (09:52)
[2017-02-28] MEDS ORDERED: PHENYLEPH/NS 1000 MCG/10 ML SYR IV ONE (09:52)
[2017-02-28] MEDS ORDERED: ePHEDrine/NS 25 MG/5 ML SYR IV ONE (09:52)
[2017-02-28] MEDS ORDERED: ceFAZolin INJ 1,000 MG VIAL ONE (11:53)
[2017-02-28] MEDS ORDERED: SODIUM CHLORIDE 0.9% FLUSH 10 ML FLUSH IV FLUSH SCH (12:15)
[2017-02-28] MEDS ORDERED: RESP: ALBUTEROL 2.5 MG/IPRATROPIUM 0.5 MG NEB (PRN) NEB (12:15)
[2017-02-28] MEDS ORDERED: SODIUM CHLORIDE 0.9% FLUSH 10 ML FLUSH IV FLUSH PRN (12:15)
[2017-02-28] MEDS ORDERED: ONDANSETRON HCL 4 MG/2 ML VIAL IV PUSH PRN (12:15)
[2017-02-28] MEDS ORDERED: DOPamine INJ PREMIX 500 ML IV PRN (12:15)
[2017-02-28] MEDS ORDERED: CLEVIDIPINE INJ 50 ML IV PRN (12:15)
[2017-02-28] MEDS ORDERED: SODIUM BICARBONATE 8.4% SOLN 50 MEQ/50 ML VIAL IV PUSH PRN ×2 (12:15)
[2017-02-28] MEDS ORDERED: CALCIUM CHLORIDE INJ 1 GM in SODIUM CHLORIDE 0.9% INJ 100 ML IV PRN (12:15)
[2017-02-28] MEDS ORDERED: RESP: RACEPINEPHRINE 2.25% 0.5 ML NEB NEB PRN (12:15)
[2017-02-28] MEDS ORDERED: NITROGLYCERIN-D5W 50 MG/250 ML 250 ML IV PRN (12:15)
[2017-02-28] MEDS ORDERED: ACETAMINOPHEN 650 MG SUPP RECTAL PRN (12:15)
[2017-02-28] MEDS ORDERED: POTASSIUM CHLOR 20 MEQ PREMIX 100 ML IV PRN ×2 (12:15)
[2017-02-28] MEDS ORDERED: DEXMEDETOMIDINE INJ 200 MCG in SODIUM CHLORIDE 0.9% INJ 50 ML IV PRN (12:15)
[2017-02-28] MEDS ORDERED: MAGNESIUM SULFATE INJ 2 GM in SODIUM CHLORIDE 0.9% INJ 100 ML IV PRN ×4 (12:15)
[2017-02-28] MEDS ORDERED: ACETAMINOPHEN 325 MG TAB PO PRN (12:15)
[2017-02-28] MEDS ORDERED: METOPROLOL TARTRATE 5 MG/5 ML VIAL IV PUSH PRN (12:15)
[2017-02-28] MEDS ORDERED: Post-op Orders (for Pharmacy) MISC OTHER ONE (12:15)
[2017-02-28] MEDS ORDERED: CALCIUM CHLORIDE 10% 1 GRAM/10 ML VIAL IV PRN (12:15)
[2017-02-28] MEDS ORDERED: MORPHINE SULFATE 4 MG/ML INJ IV PRN (12:15)
[2017-02-28] MEDS ORDERED: PHENYLEPHRINE INJ 40 MG in DEXTROSE 5% IN WATE 500 ML INJ 496 ML IV PRN ×2 (12:15)
[2017-02-28] MEDS ORDERED: DEXTROSE 50% IN WATER 50 ML VIAL(D50) IV PUSH PRN (12:15)
[2017-02-28] MEDS ORDERED: POTASSIUM CHLORIDE 20 MEQ CONTROLLED RELEASE TAB PO PRN ×2 (12:15)
[2017-02-28] MEDS ORDERED: MEPERIDINE HCL 25 MG/ML VIAL IV PRN (12:15)
[2017-02-28] MEDS ORDERED: hydrALAZINE HCL 20 MG/ML VIAL IV PRN (12:15)
[2017-02-28] MEDS: LACTATED RINGER'S 1000 ML INJ 500 ML IV PRN ×2 (13:00→15:08)
[2017-02-28] MEDS ORDERED: fentaNYL CITRATE 1000 MCG/20 ML VIAL ONE (13:11)
[2017-02-28] MEDS ORDERED: MIDAZOLAM HCL 5 MG/5 ML VIAL ONE (13:11)
--- NOTE | 2017-02-28 13:25 | PD.CONS ---
[facility] Service Critical Care Medicine Consult Requested By Dr. Mcnamara Reason for Consult Post Op CABG management Primary Care Physician Maxim Chanel MD History of Present Illness This is a 71-year-old female. Date of admission 02/26/2017. Date of consultation 03/01/2017. Past medical history includes anxiety, seizure disorder last 07/26, history of TIA/CVA with left-sided hemiparesis resolving, non-Hodgkin's lymphoma B cell/follicular type in remission currently on maintenance Rituximab last dose 3 weeks ago, COPD/asthma, gastroesophageal reflux disease, osteoarthritis, hypertension, dyslipidemia left breast mass/ benign. Patient originally presented to [facility] 02/26 with left-sided chest pain. Cardiology was consulted troponin peaked at 1.71. Cardiac catheterization revealed left main distal 60%. IVUS 4 mm, LAD proximal 99%, diagonal 80-90%, left circumflex 50% mid, OM1 50%, OM2 60%, RCA 70% throughout with 80% mid stenosis. Recommended for CABG. Echocardiogram revealed EF 45%. Hypokinesis in the apical and mid anterior regions. Possible atrial shunt. Pulmonary arterial pressures 21.4 mmHg. Today, patient underwent CABG 4. No Intra-Op complications. 2500 crystalloid. 250 Cell Saver. 500 EBL. 1 cc urine output. Patient is currently off Precedex drip and on no further sedation or drips at the present time. Potassium has been replaced due to 3.7. We are asked to evaluate Review of Systems ROS Limitations: Intubated Past Family Social History Allergies: Coded Allergies: No Known Allergies (Verified , 02/26/17) Past Medical History Anxiety disorder Seizure disorder NOS History of TIA with left paresis 10 years ago Non-Hodgkin's lymphoma/B-cell follicular in remission. On maintenance rituximab COPD/asthma Gastroesophageal reflux disease Osteoarthritis Hypertension Dyslipidemia Left breast mass Past Surgical History Right Port-A-Cath 2016 Left breast lumpectomy 2016 Cholecystectomy 1978 Cataract 2015 Hysterectomy 1975 Tubal ligation 1972 Lymph node biopsy Tiera starkey Reported Medications Atorvastatin 80 mg by mouth daily Metoprolol 100 mg by mouth daily Levetiracetam 1000 mg by mouth twice a day Potassium chloride 20 mEq by mouth daily Cholecalciferol 1000 units daily Prochlorperazine 10 mg every 6 hours as needed nausea Active Ordered Medications Reviewed in EMR Family History No documented family history and reviewing records. Patient is currently intubated and unable to provide. She "does not know family history very well". Social History No documentation of tobacco, alcohol or IV drug use Physical Exam Vital Signs Vital Signs Date Time Temp Pulse Resp B/P (MAP) Pulse Ox O2 Delivery O2 Flow Rate FiO2 02/28/17 07:15 54 02/28/17 06:00 50 02/28/17 05:28 49 18 02/28/17 05:00 48 02/28/17 04:00 68 02/28/17 03:00 50 02/28/17 03:00 97.6 57 18 99/55 (70) 98 02/28/17 02:00 52 02/28/17 01:00 54 02/28/17 00:00 56 02/27/17 23:00 97.3 65 16 135/77 (96) 96 02/27/17 23:00 59 02/27/17 22:00 60 02/27/17 21:00 58 02/27/17 20:23 62 165/87 02/27/17 20:19 97.3 62 18 165/87 (113) 98 02/27/17 20:00 60 02/27/17 19:00 63 02/27/17 18:00 59 02/27/17 17:00 54 02/27/17 16:01 62 02/27/17 15:45 97.6 59 18 128/74 (92) 99 02/27/17 15:35 59 128/74 02/27/17 15:00 58 02/27/17 14:00 56 Physical Exam GENERAL: 71-year-old female, critically ill currently orotracheally intubated with OG tube in place SKIN: Warm and dry. HEAD: Atraumatic. Normocephalic. EYES: Pupils equal and round about 2 mm bilaterally and brisk. No scleral icterus. No injection or drainage. ENT: No nasal bleeding or discharge. Mucous membranes pink and moist. NECK: Trachea midline. No JVD. CARDIOVASCULAR: Regular rate and rhythm. S1, S2. No S4. Without murmur RESPIRATORY: Clear to auscultation. Breath sounds equal bilaterally. Patient has mediastinal/left-sided chest tube GASTROINTESTINAL: Abdomen soft, non-tender, scaphoid. Hypoactive bowel sounds MUSCULOSKELETAL: Extremities without significant peripheral edema. No obvious deformities. Left lower extremity wrapped in Alvino bandage NEUROLOGICAL: Arousable on the ventilator. Follows commands and moves all 4 extremity spontaneously. No focal neurological deficits. Laboratory Laboratory Tests Test 02/27/17 18:35 02/28/17 05:51 Activated Partial Thromboplast Time 58.3 Blood Urea Nitrogen 8 Creatinine 0.65 Random Glucose 75 Calcium Level 8.5 Sodium Level 139 Potassium Level 4.6 Chloride Level 110 Carbon Dioxide Level 24.0 Anion Gap 5 Estimat Glomerular Filtration Rate 89 Result Diagram: 02/27/17 0530 02/28/17 0551 Imaging Last Impressions Lower Extremity Ultrasound 02/27/17 0000 Signed Impressions: Service Date/Time: February 11:33 - CONCLUSION: 1. Venous mapping as above. 2. Nonvisualization of the greater saphenous below the knee on the right and peripheral to the proximal below knee greater saphenous on the left. Tab Shearer MD Carotid Artery Ultrasound 02/27/17 0000 Signed Impressions: Service Date/Time: February 12:00 - CONCLUSION: 1. Calcified plaquing in both carotid bulbs extending up into the bifurcations. 2. However, no sonographic or Doppler findings of a hemodynamically significant stenosis. Antegrade flow in both vertebral arteries. Tab Shearer MD Chest X-Ray 02/26/17 1433 Signed Impressions: Service Date/Time: Sunday, February 26, 2017 15:13 - CONCLUSION: No acute disease. Messi Fajardo MD Assessment and Plan Assessment and Plan Neuro/Psych: Seizure disorder NOS History of TIA with left-sided weakness Anxiety disorder NOS Resume levetiracetam 1000 mg twice a day for seizures. Currently on temazepam 15 mill grams at night when necessary insomnia Continue acetaminophen 650 mg by mouth every 4 hours when necessary fever Pain management per CT surgery. Orders currently pending Seizure precautions CV: Postoperative day #0 CABG 4 with left EVH Three-vessel coronary artery disease Hypertension Dyslipidemia Currently on one half normal saline with potassium chloride at 75 cc an hour Currently on metoprolol 25 mg by mouth every 8 hours. Home medications metoprolol 100 mg by mouth daily. Resume atorvastatin 80 mg by mouth daily On aspirin 81 mg by mouth daily Resp: History of asthma/COPD Currently a PSV trial 03/13 at 40%. Attempt to extubate today As needed albuterol/ipratropium aerosols every 8 hours when necessary dyspnea Chest tube -100 cc SS @ -20 cm H2O GI: Gastroesophageal reflux disease GI prophylaxis per CT surgery Eleni-Colace one tablet twice a day for bowel regimen Advance diet post extubation per CT surgery : Landin catheter for accurate I's and O's in a critically ill patient. Remove when clinically indicated Endo: Sliding-scale insulin/insulin drip per CT surgery to maintain strict euglycemia Renal: Creatinine currently within normal limits Monitor urine output Accurate I's and O's Heme: Leukopenia Normocytic anemia Thrombocytopenia History of non-Hodgkin's lymphoma/B-cell follicular type on maintenance rituximab Monitor CBC daily. Follow trends. ID: Monitor for infection Postoperative antibiotics with cefazolin per CT surgery FEN: Replace electrolytes as clinically indicated. On maintenance potassium chloride 20 mEq by mouth daily at home MSK: Osteoarthritis Continue cholecalciferol 1000 units by mouth daily Physical therapy evaluate and treat Access - Utilize left subclavian Cordis with dual-lumen catheter. Patient right Port- A-Cath catheter Prophylaxis - GI -per CT surgery. - DVT - SCD/SHIRLEY hose to right lower extremity. Pharmacological prophylaxis when okay with CT surgery Level II consult Code Status Full code Discussed Condition With ISC RN. Care plan discussed and all questions answered. Aguila Bryant MD Feb 28, 2017 13:25
--- NOTE | 2017-02-28 13:46 | PD.OP ---
cc: Steve Mcnamara MD; Rigo Beltran DO Operative Report Date of Surgery: Feb 28, 2017 Preoperative Diagnosis: Postoperative Diagnosis: Procedure: 1. Urgent Off-pump Coronary Artery Bypass Grafting x 4 with Left Internal Mammary Artery (WARNER) to Diagonal 1 (D1), reverse saphenous vein graft to the Left Anterior Descending (LAD), reverse saphenous vein graft to the RPDA, and reverse saphenous vein graft to the OM1 2. Left Leg Endoscopic Vein [place] 3. Intraoperative Vein Mapping 4. Multi-Level Intercostal Nerve Block. Surgeon: Steve Mcnamara Creative Services Specialist(s): Christiana Ernst Operation and Findings: PREPROCEDURE DIAGNOSES 1. Severe Multi Vessel Coronary Artery Disease. 2. Acute Myocardial Infarction (NSTEMI) 3. Moderate Left Ventricular Dysfunction 4. Breast Cancer POSTPROCEDURE DIAGNOSES Same SURGICAL PROCEDURE 1. Urgent Off-pump Coronary Artery Bypass Grafting x 4 with Left Internal Mammary Artery (WARNER) to Diagonal 1 (D1), reverse saphenous vein graft to the Left Anterior Descending (LAD), reverse saphenous vein graft to the RPDA, and reverse saphenous vein graft to the OM1 2. Left Leg Endoscopic Vein [place] 3. Intraoperative Vein Mapping 4. Multi-Level Intercostal Nerve Block. SURGEON Steve Mcnamara MD DEMAND INSPECTOR TACO Meeks ANESTHESIA General endotracheal LINE APPLIANCE ASSEMBLER JONY Loaiza MD PREPARATION ChloraPrep. COUNTS Needle, sponge, and instrument counts were correct. DRAINS Two 32-[place] mediastinal tubes. COMPLICATIONS None. INDICATIONS FOR PROCEDURE The patient is a 71-year-old presenting with chest pain. Patient was noted to have AMI and multi-vessel coronary artery disease. The patient is being brought to the operating room for surgical revascularization therapy. PROCEDURE Patient was brought to the operating room and placed supine on the OR table. Following the induction of adequate general endotracheal anesthesia and placement of appropriate monitoring devices, intraoperative vein mapping was performed which revealed suitable-caliber conduit in the left thigh with non- usable conduit in the right leg. The patient was then prepped and draped in standard sterile fashion. Next, 2500 units of intravenous heparin was given. The left greater saphenous vein was harvested endoscopically. This appeared to be a useable-caliber conduit. Simultaneously, a median sternotomy was performed and the left internal mammary artery dissected free off the posterior sternal table. The patient was systemically heparinized and anticoagulation monitored by serial ACT measurements. The internal mammary artery had good pulsatile flow in it and was a small-caliber conduit. The pericardium was then divided in the midline, the cradle created and targets analyzed. At this point, all anastomoses were performed in a beating-heart fashion using the Maquet stabilizing system. The left internal mammary artery was anastomosed to the diagonal (1.75 mm) in an end-to-side fashion using 7-0 Prolene. Segment of saphenous vein graft was then anastomosed to the LAD (1.5 mm) in an end-to-side fashion using 7-0 Prolene. The next segment was anastomosed to the OM1 (1.75 mm ) in an end-to-side fashion using a running 7-0 Prolene. The final segment was anastomosed to the RPDA (2 mm) in an end-to-side fashion using 7-0 Prolene. The proximal anastomoses were then constructed to the ascending aorta in a running manner using 6-0 Prolene. All anastomotic sites were inspected and appeared to be hemostatic and patent. Protamine solution was given. Strict hemostasis was assured. The closure was undertaken. 2 chest tubes were placed. The pericardium was reapproximated in the midline. Bilateral intercostal nerve block was performed using Exparel solution. The sternum was approximated using sternal wires. The muscular and fascial layer were then closed in 3 layers. The endoscopic vein harvest site was closed in 2 layers. The patient tolerated the procedure well and was transferred to CVICU in stable condition. Steve Mcnamara MD Feb 28, 2017 13:46
--- NOTE | 2017-02-28 13:55 | PD.ONC.PN ---
Subjective Subjective Remarks Afebrile overnight. Patient sedated, sleeping, just back from surgery. Objective Data Date Time Temp Pulse Resp B/P (MAP) Pulse Ox O2 Delivery O2 Flow Rate FiO2 02/28/17 12:45 99 50 02/28/17 07:15 54 02/28/17 06:00 50 02/28/17 05:28 49 18 02/28/17 05:00 48 02/28/17 04:00 68 02/28/17 03:00 50 02/28/17 03:00 97.6 57 18 99/55 (70) 98 02/28/17 02:00 52 02/28/17 01:00 54 02/28/17 00:00 56 02/27/17 23:00 97.3 65 16 135/77 (96) 96 02/27/17 23:00 59 02/27/17 22:00 60 02/27/17 21:00 58 02/27/17 20:23 62 165/87 02/27/17 20:19 97.3 62 18 165/87 (113) 98 02/27/17 20:00 60 02/27/17 19:00 63 02/27/17 18:00 59 02/27/17 17:00 54 02/27/17 16:01 62 02/27/17 15:45 97.6 59 18 128/74 (92) 99 02/27/17 15:35 59 128/74 02/27/17 15:00 58 02/27/17 14:00 56 02/28/17 02/28/17 02/28/17 07:00 15:00 23:00 Intake Total 1140 ml 2750 ml Output Total 1400 ml Balance 1140 ml 1350 ml Result Diagram: 02/27/17 0530 02/28/17 0551 Laboratory Results Laboratory Tests Test 02/27/17 18:35 02/28/17 05:51 Activated Partial Thromboplast Time 58.3 SEC Blood Urea Nitrogen 8 MG/DL Creatinine 0.65 MG/DL Random Glucose 75 MG/DL Calcium Level 8.5 MG/DL Sodium Level 139 MEQ/L Potassium Level 4.6 MEQ/L Chloride Level 110 MEQ/L Carbon Dioxide Level 24.0 MEQ/L Anion Gap 5 MEQ/L Estimat Glomerular Filtration Rate 89 ML/MIN Administered Medications Medications (Trade) Dose Ordered Sig/Yue Route PRN Reason Start Time Stop Time Status Last Admin Dose Admin Sodium Chloride 1,000 ml @ 75 mls/hr [id number] IV 02/26/17 16:00 02/27/17 18:40 Acetaminophen (Tylenol) 650 mg Q4H PRN PO TEMP > 100.4 02/26/17 15:45 02/27/17 22:08 Senna/Docusate Sodium (Eleni-Colace) 1 tab BID PO 02/26/17 21:00 02/27/17 08:45 Aspirin (Aspirin Chew) 81 mg DAILY CHEW 02/27/17 09:00 02/27/17 08:44 Atorvastatin Calcium (Lipitor) 80 mg HS PO 02/26/17 21:00 02/27/17 22:08 Cholecalciferol (Vitamin D3) 1,000 units DAILY PO 02/27/17 09:00 02/27/17 08:45 Levetriacetam (Keppra) 1,000 mg BID PO 02/26/17 21:00 02/27/17 22:09 Nitroglycerin (Nitrostat Sl) 0.4 mg Q5M PRN SL CHEST PAIN 02/26/17 19:00 02/26/17 20:59 Metoprolol Tartrate (Lopressor) 25 mg Q8HR PO 02/26/17 22:45 02/27/17 22:08 Sodium Chloride (NS Flush) 2 ml BID IV FLUSH 02/27/17 21:00 02/27/17 22:09 Papaverine HCl 60 mg/Nitroglycerin 100 mcg/Diltiazem HCl 100 mg/Sodium Chloride 100 ml @ 0 mls/hr ZINC FURNACE CHARGER IRRIGATION 02/27/17 10:15 03/06/17 10:14 02/28/17 09:18 Cefazolin Sodium 500 mg/Sodium Chloride 505 ml @ 0 mls/hr ZINC FURNACE CHARGER IRRIGATION 02/27/17 10:15 03/06/17 10:14 02/28/17 09:17 Cefazolin Sodium/ Dextrose 50 ml @ 150 mls/hr ZINC FURNACE CHARGER IV 02/27/17 10:15 03/06/17 10:14 02/28/17 08:24 Insulin Human Regular 100 units/ Sodium Chloride 101 ml @ 0 mls/hr ZINC FURNACE CHARGER IV 02/27/17 10:15 03/06/17 10:14 02/28/17 09:00 Nitroglycerin/ Dextrose 250 ml @ 1.5 mls/hr TITRATE PRN IV Chest pain relief 02/27/17 14:00 02/27/17 15:35 Potassium Chloride (KCl) 40 meq DAILY PO 02/27/17 17:30 02/27/17 17:30 Objective Remarks GENERAL: Elderly female supine in bed, sedated. SKIN: Warm and dry. HEAD: Normocephalic. EYES: No injection or drainage. NECK: Supple, trachea midline. CARDIOVASCULAR: +S1/S2 Chest wall: multiple bandages in place, chest wall drains in place. RESPIRATORY: anterior vance clear. GASTROINTESTINAL: Abdomen soft, non-tender, nondistended. EXTREMITIES: No cyanosis. bandage in place, LLE NEUROLOGICAL: sedated. Assessment/Plan Problem List: (1) Non-Hodgkin lymphoma ICD Codes: C85.90 - Non-Hodgkin lymphoma, unspecified, unspecified site Status: Chronic Plan: --Non-Hodgkin's B-cell lymphoma/follicular lymphoma, grade 1. --had hypermetabolic lymph nodes in the right axillary, inguinal and right pelvic area. --also had significant constitutional symptoms when she first presented. --completed 5 cycles of Rituxan and bendamustine in June 2016. was then started on maintenance Rituxan. --last dose of Rituxan was February 20. --Recent CT scan did not show any evidence of recurrent disease. --no oncologic intervention planned during this admission. (2) CAD (coronary artery disease) ICD Codes: I25.10 - Atherosclerotic heart disease of [place] coronary artery without angina pectoris Status: Acute Plan: --per cardiology/CTS --s/p CABG (3) Pancytopenia ICD Codes: D61.818 - Other pancytopenia Status: Chronic Plan: --has mild pancytopenia. --baseline CBC is in the low normal range. --monitor her CBC. Assessment 71y/o female admitted with chest pain, now s/p CABG. Oncology following for h/ o lymphoma. --h/o Non-Hodgkin's B-cell lymphoma. Epilepsy. Chronic obstructive pulmonary disease. Transient ischemia attack. Osteoarthritis Hypertension. Hyperlipidemia. Left breast benign nodule. Plan 1. monitor CBC 2. no oncology intervention during this admission Attending Statement The exam, history, and the medical decision-making described in the above note were completed with the assistance of the mid-level provider. I reviewed and agree with the findings presented. I attest that I had a [id number] encounter with the patient on the same day, and personally performed and documented my assessment and findings in the medical record. See consult note. Problem Qualifiers (1) Non-Hodgkin lymphoma: Qualified Codes: C82.00 - Follicular lymphoma grade I, unspecified site (2) CAD (coronary artery disease): Qualified Codes: I25.110 - Atherosclerotic heart disease of [place] coronary artery with unstable angina pectoris Irma Elmore Feb 28, 2017 13:55 Saeed Enriquez MD Feb 28, 2017 15:07
[2017-02-28] MEDS: DOBUTamine PREMIX DRIP 250 ML IV SCH (14:00)
[2017-02-28 14:06] LABS: AUTOMATED NEUTROPHIL # 3.7 TH/MM3 (1.8-7.7); BASOPHIL % 0.4 % (0.0-2.0); HEMATOCRIT 27.5 % (35.0-46.0); LYMPH % 9.5 % (9.0-44.0); LYMPHOCYTE # 0.4 TH/MM3 (1.0-4.8); MEAN CELL VOLUME 97.6 FL (80.0-100.0); MEAN CORPUSCULAR HEMOGLOBIN 32.7 PG (27.0-34.0); MEAN CORPUSCULAR HGB CONC 33.5 % (32.0-36.0); MONO % 8.1 % (0.0-8.0); PLATELET COUNT 126 TH/MM3 (150-450); RED BLOOD COUNT 2.81 MIL/MM3 (4.00-5.30); RED CELL DISTRIBUTION WIDTH 13.1 % (11.6-17.2); WHITE BLOOD COUNT 4.6 TH/MM3 (4.0-11.0)
[2017-02-28 14:08] LABS: HEMO FLAGS AUTO DIFF
--- NOTE | 2017-02-28 14:27 | RADRPT ---
EXAM DATE/TIME: 02/28/2017 13:24 [facility] COMPARISON: CHEST SINGLE AP, February 26, 2017, 15:13. INDICATIONS : Post op CABG. MEDICAL HISTORY : Hypertension. CVA. SURGICAL HISTORY : Cholecystectomy. Hysterectomy. Tubal ligation. Back surgery. Non Hodgkins lymphoma. ENCOUNTER: Subsequent ACUITY: 3 days PAIN SCORE: Non-responsive. LOCATION: Bilateral chest FINDINGS: A single view of the chest demonstrates postoperative changes with new median sternotomy wires, media stinal drain and a left-sided thoracostomy tube. No pneumothorax. There is a nasogastric tube with th e tip just past the GE junction. Side-port remains in the distal esophagus. Right IJ [id number] ca theter is unchanged in position. Endotracheal tube with tip above the maggie. Left subclavian central venous catheter with the tip projecting over the central venous system. Minimal left basilar consoli dation. Right lung is clear. CONCLUSION: 1. Postoperative changes characteristic of a reported history of CABG. 2. Left-sided thoracostomy tube without pneumothorax. 3. Nasogastric tube is somewhat shallow with the tip just past the GE junction. Side-port is in the d istal esophagus. It should probably be advanced approximately 10 cm. 4. Mild atelectatic changes in the left base. Tab Shearer MD on February 28, 2017 at 14:13 Board Certified Radiologist. This report was verified electronically.
[2017-02-28 14:44] LABS: BANDS 24 % (0-6); METAMYELOCYTES 6 % (0-1); NEUTROPHIL # MANUAL DIFF 4.2 TH/MM3 (1.8-7.7); OVALOCYTES 1+ (NORMAL); PLATELET ESTIMATE SMEAR LOW (NORMAL); POLYS (SEG NEUTROPHILS) 61 % (16-70); WBC DIFF SAMPLE 100
[2017-02-28 14:45] LABS: KERATOCYTES OCC (NORMAL); PLATELET MORPHOLOGY NORMAL (NORMAL); SCAN/DIFF FINAL DIFF MANUAL; TOXIC GRANULATION 2+ (NORMAL)
[2017-02-28] MEDS ORDERED: INSULIN REGULAR (IV INFUSION) 100 UNITS in SODIUM CHLORIDE 0.9% INJ 99 ML IV SCH (15:00)
[2017-02-28] MEDS: ALBUMIN HUMAN 5% 12.5 GM/250 ML BOTTLE IV PRN ×2 (15:01→15:42)
[2017-02-28] MEDS: POTASSIUM CHLOR 20 MEQ PREMIX 100 ML IV PRN (15:49)
[2017-02-28] MEDS: ACETAMINOPHEN 1000 MG/100 ML 100 ML IV SCH ×2 (15:51→21:24)
[2017-02-28] MEDS: KETOROLAC TROMETHAMINE 30 MG/ML (IVP) VIAL IV PUSH PRN (16:30)
--- NOTE | 2017-02-28 16:36 | HHI.PR ---
Subjective Interval History Lethargic, awake, seen postoperatively in the surgical intensive care unit in the presence of her family and her nurse, no specific complaints, able to follow simple commands, able to squeeze with both hands Review of Systems Constitutional Constitutional Remarks 10 systems reviewed and negative, however review of systems is Difficult to obtain with accuracy Vitals/Results Intake & Output 02/28/17 02/28/17 03/01/17 15:00 23:00 07:00 Intake Total 2750 ml 750 ml Output Total 1400 ml Balance 1350 ml 750 ml IV Total 750 ml Autotransfusion 250 ml Other 2500 ml Output Urine Total 900 ml Estimated Blood Loss 500 ml Vital Signs Vital Signs Date Time Temp Pulse Resp B/P (MAP) Pulse Ox O2 Delivery O2 Flow Rate FiO2 02/28/17 16:00 97.5 61 16 128/69 (88) 99 137/54 (81) 02/28/17 16:00 61 02/28/17 15:35 60 76/34 02/28/17 13:43 99 Nasal Cannula 3 02/28/17 12:45 97.6 51 10 86/49 (61) 99 110/55 (73) 02/28/17 12:45 51 02/28/17 12:45 99 50 02/28/17 07:15 54 02/28/17 06:00 50 02/28/17 05:28 49 18 02/28/17 05:00 48 02/28/17 04:00 68 02/28/17 03:00 50 02/28/17 03:00 97.6 57 18 99/55 (70) 98 02/28/17 02:00 52 02/28/17 01:00 54 02/28/17 00:00 56 02/27/17 23:00 97.3 65 16 135/77 (96) 96 02/27/17 23:00 59 02/27/17 22:00 60 02/27/17 21:00 58 02/27/17 20:23 62 165/87 02/27/17 20:19 97.3 62 18 165/87 (113) 98 02/27/17 20:00 60 02/27/17 19:00 63 02/27/17 18:00 59 02/27/17 17:00 54 CBC/BMP: 02/28/17 1400 02/28/17 0551 Lab Results Laboratory Tests Test 02/27/17 18:35 02/28/17 05:51 02/28/17 14:00 Activated Partial Thromboplast Time 58.3 SEC Blood Urea Nitrogen 8 MG/DL Creatinine 0.65 MG/DL Random Glucose 75 MG/DL Calcium Level 8.5 MG/DL Sodium Level 139 MEQ/L Potassium Level 4.6 MEQ/L Chloride Level 110 MEQ/L Carbon Dioxide Level 24.0 MEQ/L Anion Gap 5 MEQ/L Estimat Glomerular Filtration Rate 89 ML/MIN White Blood Count 4.6 TH/MM3 Red Blood Count 2.81 MIL/MM3 Hemoglobin 9.2 GM/DL Hematocrit 27.5 % Mean Corpuscular Volume 97.6 FL Mean Corpuscular Hemoglobin 32.7 PG Mean Corpuscular Hemoglobin Concent 33.5 % Red Cell Distribution Width 13.1 % Platelet Count 126 TH/MM3 Mean Platelet Volume 7.8 FL Neutrophils (%) (Auto) 81.0 % Lymphocytes (%) (Auto) 9.5 % Monocytes (%) (Auto) 8.1 % Eosinophils (%) (Auto) 1.0 % Basophils (%) (Auto) 0.4 % Neutrophils # (Auto) 3.7 TH/MM3 Lymphocytes # (Auto) 0.4 TH/MM3 Monocytes # (Auto) 0.4 TH/MM3 Eosinophils # (Auto) 0.0 TH/MM3 Basophils # (Auto) 0.0 TH/MM3 CBC Comment AUTO DIFF Differential Total Cells Counted 100 Neutrophils % (Manual) 61 % Band Neutrophils % 24 % Lymphocytes % 5 % Monocytes % 4 % Neutrophils # (Manual) 4.2 TH/MM3 Metamyelocytes 6 % Differential Comment FINAL DIFF MANUAL Toxic Granulation 2+ Platelet Estimate LOW Platelet Morphology Comment NORMAL Ovalocytes 1+ Keratocytes OCC Physical Exam General General Appearance: Well Developed, No Acute Distress Eyes Eye Exam: Pupils Equal, Pupils Reactive Ears & Nose Ears & Nose Exam: Nasal Mucosa [place] Throat Throat Exam: Oral Mucosa [place] & Moist Neck Neck Exam: Neck Supple, Trachea Midline Pulmonary Resp Exam: Clear Bilaterally, Decreased Bases, Diminished Breath Sounds Resp Remarks Sternotomy wound and multiple chest units in place Cardiology CV Exam: Regular, Good Perfusion, Murmur Gastrointestinal/Abdomen GI Exam: Soft, Non-Tender, Bowel Sounds Present, Non-Distended Integumentary Skin Exam: Warm, Dry Extremeties Extremities Exam: No Edema, Pedal Pulses Palpable Neurologic Neuro Exam: Awake, No Focal Deficits Psychiatric Psych Exam: Appropriate Responses VTE Prophylaxis VTE Prophylaxis Meds: Heparin Assessment/Plan Problem List: (1) NSTEMI (non-ST elevated myocardial infarction) ICD Codes: I21.4 - Non-ST elevation (NSTEMI) myocardial infarction Status: Acute (2) Hyperlipidemia ICD Codes: E78.5 - Hyperlipidemia, unspecified Status: Chronic (3) CAD (coronary artery disease) ICD Codes: I25.10 - Atherosclerotic heart disease of [place] coronary artery without angina pectoris Status: Acute (4) Pancytopenia ICD Codes: D61.818 - Other pancytopenia Status: Chronic (5) Seizure disorder ICD Codes: G40.909 - Epilepsy, unspecified, not intractable, without status epilepticus Status: Chronic (6) Hypertension ICD Codes: I10 - Essential (primary) hypertension Status: Chronic (7) Hx TIA/stroke w/o resid ICD Codes: Z86.73 - Personal history of transient ischemic attack (TIA), and cerebral infarction without residual deficits Status: Chronic (8) Non-Hodgkin lymphoma ICD Codes: C85.90 - Non-Hodgkin lymphoma, unspecified, unspecified site Status: Chronic (9) Angina pectoris ICD Codes: I20.9 - Angina pectoris, unspecified Assessment/Plan Assessment Non-ST elevation myocardial infarction Ejection fraction 45-50% Multi vessel critical coronary disease Status post CABG 4 on 02/28/17 Bilateral carotid disease, not hemodynamically significant Management Routine post open heart surgery management Pain control DVT prophylaxis Follow electrolytes and replace per protocol Follow hemoglobin and keep above 7.5 Discussed with family Discussed with nurse Problem Qualifiers (1) Hyperlipidemia: Qualified Codes: E78.5 - Hyperlipidemia, unspecified (2) CAD (coronary artery disease): Qualified Codes: I25.110 - Atherosclerotic heart disease of [place] coronary artery with unstable angina pectoris (3) Hypertension: Qualified Codes: I10 - Essential (primary) hypertension (4) Non-Hodgkin lymphoma: Qualified Codes: C82.00 - Follicular lymphoma grade I, unspecified site Yaron White MD Feb 28, 2017 16:36
[2017-02-28] MEDS: RESP: ALBUTEROL 2.5 MG/IPRATROPIUM 0.5 MG NEB (SCH) NEB ×2 (17:00→21:25)
[2017-02-28] MEDS: SODIUM CHLORIDE 0.9% FLUSH 10 ML FLUSH IV FLUSH SCH ×2 (17:42→22:38)
[2017-02-28] MEDS: ATORVASTATIN 80 MG TAB PO SCH ×2 (21:00→22:36)
[2017-02-28] MEDS: SODIUM CHLOR 0.45% 1000 ML INJ 1,000 ML IV SCH (21:20)
[2017-02-28] MEDS: AMIODARONE 200 MG TAB PO SCH (22:36)
--- NOTE | 2017-02-28 23:32 | PD.CARD.PN ---
Subjective Subjective Remarks Patient seen earlier Post-CABG, extubated but lethargic due to anesthesia Able to follow commands Objective Medications Current Medications Medications (Trade) Dose Ordered Sig/Yue Route Start Time Stop Time Status Last Admin Sodium Chloride 1,000 ml @ 75 mls/hr [id number] IV 02/26/17 16:00 02/27/17 18:40 (Zofran Inj) 4 mg Q6H PRN IVP 02/26/17 15:45 (Restoril) 15 mg HS PRN PO 02/26/17 15:45 (Narcan Inj) 0.4 mg UNSCH PRN IV PUSH 02/26/17 15:45 (Eleni-Colace) 1 tab BID PO 02/26/17 21:00 02/27/17 08:45 (Milk Of Magnesia Liq) 30 ml Q12H PRN PO 02/26/17 15:45 (Senokot) 17.2 mg Q12H PRN PO 02/26/17 15:45 (Dulcolax Supp) 10 mg DAILY PRN RECTAL 02/26/17 15:45 (Lactulose Liq) 30 ml DAILY PRN PO 02/26/17 15:45 (Heparin Inj) 5,000 units UNSCH PRN IV 02/27/17 00:15 (Heparin Inj) 2,500 units UNSCH PRN IV 02/27/17 00:15 Heparin Sodium/ Dextrose 250 ml @ 5 mls/hr TITRATE PRN IV 02/26/17 18:15 (Lipitor) 80 mg HS PO 02/26/17 21:00 02/27/17 22:08 (Vitamin D3) 1,000 units DAILY PO 02/27/17 09:00 02/27/17 08:45 (Keppra) 1,000 mg BID PO 02/26/17 21:00 02/27/17 22:09 (Nitrostat Sl) 0.4 mg Q5M PRN SL 02/26/17 19:00 02/26/17 20:59 (Lopressor) 25 mg Q8HR PO 02/26/17 22:45 02/28/17 22:36 (NS Flush) 2 ml BID IV FLUSH 02/27/17 21:00 02/28/17 22:38 (NS Flush) 2 ml UNSCH PRN IV FLUSH 02/27/17 10:15 Papaverine HCl 60 mg/Nitroglycerin 100 mcg/Diltiazem HCl 100 mg/Sodium Chloride 100 ml @ 0 mls/hr CARDBOARD INSERTER IRRIGATION 02/27/17 10:15 03/06/17 10:14 02/28/17 09:18 Cefazolin Sodium 500 mg/Sodium Chloride 505 ml @ 0 mls/hr CARDBOARD INSERTER IRRIGATION 02/27/17 10:15 03/06/17 10:14 02/28/17 09:17 Cefazolin Sodium/ Dextrose 50 ml @ 150 mls/hr CARDBOARD INSERTER IV 02/27/17 10:15 03/06/17 10:14 02/28/17 08:24 (Lopressor) 12.5 mg CARDBOARD INSERTER PO 02/27/17 10:15 03/06/17 10:14 (Hibiclens 4% Top Soln) 1 applic CARDBOARD INSERTER TOPICAL 02/27/17 10:15 03/06/17 10:14 Insulin Human Regular 100 units/ Sodium Chloride 101 ml @ 0 mls/hr CARDBOARD INSERTER IV 02/27/17 10:15 03/06/17 10:14 02/28/17 20:33 (KCl) 40 meq DAILY PO 02/27/17 17:30 02/27/17 17:30 Lactated Ringer's 1,000 ml @ 30 mls/hr Q24H PRN IV 02/28/17 05:15 03/03/17 05:14 Sodium Chloride 500 ml @ 30 mls/hr [id number] PRN IV 02/28/17 05:15 03/03/17 05:14 (Lopressor) 25 mg CARDBOARD INSERTER PRN PO 02/28/17 05:15 03/03/17 05:14 (Betadine 5% Antisepsis Kit) 1 applic CARDBOARD INSERTER PRN EACH NARE 02/28/17 05:15 03/03/17 05:14 (Chlorhexidine 2% Cloth) 3 pack CARDBOARD INSERTER PRN TOPICAL 02/28/17 05:15 03/03/17 05:14 Dexmedetomidine HCl 200 mcg/ Sodium Chloride 52 ml @ 2.36 mls/hr TITRATE PRN IV 02/28/17 12:15 Nitroglycerin/ Dextrose 250 ml @ 1.5 mls/hr TITRATE PRN IV 02/28/17 12:15 Dobutamine HCl/ Dextrose 250 ml @ 6.825 mls/ hr Q24H IV 02/28/17 14:00 Dopamine HCl/ Dextrose 500 ml @ 5.119 mls/ hr TITRATE PRN IV 02/28/17 12:15 Phenylephrine HCl 40 mg/Dextrose 500 ml @ 30 mls/hr TITRATE PRN IV 02/28/17 12:15 02/28/17 15:35 Clevidipine 50 ml @ 2 mls/hr TITRATE PRN IV 02/28/17 12:15 (Albumin 5% Inj) 12.5 gm UNSCH PRN IV 02/28/17 12:15 02/28/17 15:42 Lactated Ringer's 500 ml @ 500 mls/hr Q1H PRN IV 02/28/17 12:14 02/28/17 13:00 (Aspirin Chew) 81 mg DAILY PO 03/01/17 09:00 (Plavix) 75 mg DAILY PO 03/01/17 09:00 (Protonix) 40 mg DAILY@06 PO 03/01/17 06:00 (Cordarone) 200 mg Q12HR PO 02/28/17 21:00 02/28/17 22:36 (Tylenol) 650 mg Q4H PRN PO 02/28/17 12:15 (Tylenol Supp) 650 mg Q4H PRN RECTAL 02/28/17 12:15 Acetaminophen 100 ml @ 400 mls/hr Q6H IV 02/28/17 15:00 03/01/17 09:14 02/28/17 21:24 (Morphine Inj) 1 mg Q10M PRN IV 02/28/17 12:15 (Demerol Inj) 12.5 mg Q4H PRN IV 02/28/17 12:15 ([place] 5-325 Mg) 1 tab Q3H PRN PO 02/28/17 12:15 (Toradol Inj) 15 mg Q6H PRN IV PUSH 02/28/17 12:15 03/02/17 12:14 02/28/17 16:30 (fentaNYL INJ) 25 mcg Q1H PRN IV 02/28/17 12:15 (Apresoline Inj) 10 mg Q4H PRN IV 02/28/17 12:15 (Lopressor Inj) 2.5 mg Q1H PRN IV PUSH 02/28/17 12:15 Potassium Chloride 100 ml @ 50 mls/hr UNSCH PRN IV 02/28/17 12:15 02/28/17 15:49 Potassium Chloride 100 ml @ 50 mls/hr UNSCH PRN IV 02/28/17 12:15 (KCl) 20 meq UNSCH PRN PO 02/28/17 12:15 (KCl) 40 meq UNSCH PRN PO 02/28/17 12:15 Magnesium Sulfate 2 gm/Sodium Chloride 104 ml @ 100 mls/hr UNSCH PRN IV 02/28/17 12:15 Magnesium Sulfate 2 gm/Sodium Chloride 104 ml @ 50 mls/hr UNSCH PRN IV 02/28/17 12:15 Calcium Chloride 1 gm/Sodium Chloride 110 ml @ 100 mls/hr UNSCH PRN IV 02/28/17 12:15 (Calcium Chloride Inj) 0.5 gm UNSCH PRN IV 02/28/17 12:15 Insulin Human Regular 100 units/ Sodium Chloride 100 ml @ 3 mls/hr TITRATE IV 02/28/17 15:00 (D50w (Vial) Inj) 50 ml UNSCH PRN IV PUSH 02/28/17 12:15 (Sodium Bicarbonate 8.4% Inj) 50 meq UNSCH PRN IV PUSH 02/28/17 12:15 (Sodium Bicarbonate 8.4% Inj) 100 meq UNSCH PRN IV PUSH 02/28/17 12:15 (Duoneb Neb) 1 ampule Q6HR NEB NEB 02/28/17 16:00 02/28/17 21:25 (Duoneb Neb) 1 ampule Q2HR NEB PRN NEB 02/28/17 12:15 Cefazolin Sodium 1000 mg/Sodium Chloride 100 ml @ 200 mls/hr Q8H IV 02/28/17 20:00 03/02/17 04:29 02/28/17 20:19 Vital Signs / I&O Vital Signs Date Time Temp Pulse Resp B/P (MAP) Pulse Ox O2 Delivery O2 Flow Rate FiO2 02/28/17 23:00 71 02/28/17 22:37 18 02/28/17 22:00 98.3 02/28/17 21:43 99 Nasal Cannula 2.00 02/28/17 19:00 100 Nasal Cannula 2.00 02/28/17 19:00 97.6 84 16 114/63 (80) 97 129/54 (79) 02/28/17 19:00 63 02/28/17 18:33 97.6 02/28/17 18:00 83 119/49 02/28/17 17:30 75 139/53 02/28/17 17:25 15 02/28/17 16:30 61 137/54 02/28/17 16:00 97.5 61 16 128/69 (88) 99 137/54 (81) 02/28/17 16:00 61 02/28/17 16:00 99 Nasal Cannula 4.00 02/28/17 15:35 60 76/34 02/28/17 13:43 99 Nasal Cannula 3 02/28/17 12:57 97.6 02/28/17 12:45 97.6 51 10 86/49 (61) 99 110/55 (73) 02/28/17 12:45 51 02/28/17 12:45 99 Mechanical Ventilator 50 02/28/17 12:45 50 02/28/17 12:45 99 50 02/28/17 07:15 54 02/28/17 06:00 50 02/28/17 05:28 49 18 02/28/17 05:00 48 02/28/17 04:00 68 02/28/17 03:00 50 02/28/17 03:00 97.6 57 18 99/55 (70) 98 02/28/17 02:00 52 02/28/17 01:00 54 02/28/17 00:00 56 I/O 02/28/17 02/28/17 02/28/17 03/01/17 03/01/17 03/01/17 07:00 15:00 23:00 07:00 15:00 23:00 Intake Total 1140 ml 3500 ml 1150 ml Output Total 1400 ml 1325 ml Balance 1140 ml 2100 ml -175 ml Intake Oral 240 ml 0 ml IV Total 900 ml 750 ml 1150 ml Autotransfusion 250 ml Other 2500 ml Output Urine Total 900 ml 775 ml Stool Total 0 ml Gastric Drainage Total 0 ml Chest Tube Drainage Total 550 ml Estimated Blood Loss 500 ml # Voids 3 # Bowel Movements 0 Physical Exam GENERAL: NAD SKIN: Warm and dry. HEAD: Atraumatic. Normocephalic. EYES: Pupils equal and round. No scleral icterus. No injection or drainage. ENT: No nasal bleeding or discharge. Mucous membranes pink and moist. NECK: Trachea midline. No JVD. CARDIOVASCULAR: Regular rate and rhythm. RESPIRATORY: No accessory muscle use. Decreased breath sounds bilaterally GASTROINTESTINAL: Abdomen soft, non-tender, nondistended. Hepatic and splenic margins not palpable. MUSCULOSKELETAL: Extremities without clubbing, cyanosis, or edema. No obvious deformities. Right radial no hematoma, neurovascularly intact distally NEUROLOGICAL: Following commands, lethargic post-anesthesia Laboratory Laboratory Tests Test 02/28/17 05:51 02/28/17 14:00 Blood Urea Nitrogen 8 MG/DL Creatinine 0.65 MG/DL Random Glucose 75 MG/DL Calcium Level 8.5 MG/DL Sodium Level 139 MEQ/L Potassium Level 4.6 MEQ/L Chloride Level 110 MEQ/L Carbon Dioxide Level 24.0 MEQ/L Anion Gap 5 MEQ/L Estimat Glomerular Filtration Rate 89 ML/MIN White Blood Count 4.6 TH/MM3 Red Blood Count 2.81 MIL/MM3 Hemoglobin 9.2 GM/DL Hematocrit 27.5 % Mean Corpuscular Volume 97.6 FL Mean Corpuscular Hemoglobin 32.7 PG Mean Corpuscular Hemoglobin Concent 33.5 % Red Cell Distribution Width 13.1 % Platelet Count 126 TH/MM3 Mean Platelet Volume 7.8 FL Neutrophils (%) (Auto) 81.0 % Lymphocytes (%) (Auto) 9.5 % Monocytes (%) (Auto) 8.1 % Eosinophils (%) (Auto) 1.0 % Basophils (%) (Auto) 0.4 % Neutrophils # (Auto) 3.7 TH/MM3 Lymphocytes # (Auto) 0.4 TH/MM3 Monocytes # (Auto) 0.4 TH/MM3 Eosinophils # (Auto) 0.0 TH/MM3 Basophils # (Auto) 0.0 TH/MM3 CBC Comment AUTO DIFF Differential Total Cells Counted 100 Neutrophils % (Manual) 61 % Band Neutrophils % 24 % Lymphocytes % 5 % Monocytes % 4 % Neutrophils # (Manual) 4.2 TH/MM3 Metamyelocytes 6 % Differential Comment FINAL DIFF MANUAL Toxic Granulation 2+ Platelet Estimate LOW Platelet Morphology Comment NORMAL Ovalocytes 1+ Keratocytes OCC Assessment and Plan Problem List: (1) NSTEMI (non-ST elevated myocardial infarction) ICD Codes: I21.4 - Non-ST elevation (NSTEMI) myocardial infarction Status: Acute (2) CAD (coronary artery disease) ICD Codes: I25.10 - Atherosclerotic heart disease of [place] coronary artery without angina pectoris Status: Acute (3) Angina pectoris ICD Codes: I20.9 - Angina pectoris, unspecified (4) Multi-vessel coronary artery stenosis ICD Codes: I25.10 - Atherosclerotic heart disease of [place] coronary artery without angina pectoris (5) S/P CABG x 4 ICD Codes: Z95.1 - Presence of aortocoronary bypass graft Assessment and Plan 1) CABGx4 POD #0 WARNER to Diag SVG to LAD SVG to OM SVG to RPDA 2) EF 45%, moderate AR 3) Con't supportive care 4) ASA/Plavix/Statin/BB/Amio 5) Wean Edgar drip as possible Problem Qualifiers (1) CAD (coronary artery disease): Qualified Codes: I25.110 - Atherosclerotic heart disease of [place] coronary artery with unstable angina pectoris Rigo Beltran DO Feb 28, 2017 23:32
[2017-03-01] VITALS (10 sets, daily range): BP systolic 91–140; BP diastolic 40–67; PULSE 61–98; RESP 16–19; TEMP 97.5–99.1; O2SAT 95–99
[2017-03-01] MEDS: KETOROLAC TROMETHAMINE 30 MG/ML (IVP) VIAL IV PUSH PRN ×2 (01:01→15:47)
[2017-03-01 03:14] LABS: HEMATOCRIT 22.8 % (35.0-46.0); MEAN CORPUSCULAR HEMOGLOBIN 32.6 PG (27.0-34.0); MEAN CORPUSCULAR HGB CONC 33.9 % (32.0-36.0); PLATELET COUNT 115 TH/MM3 (150-450); RED BLOOD COUNT 2.37 MIL/MM3 (4.00-5.30); RED CELL DISTRIBUTION WIDTH 13.1 % (11.6-17.2); REVIEW FLAG FINAL; WHITE BLOOD COUNT 4.1 TH/MM3 (4.0-11.0)
[2017-03-01] MEDS ORDERED: CALCIUM CHLORIDE INJ 1 GM in SODIUM CHLORIDE 0.9% INJ 100 ML IV PRN (03:15)
[2017-03-01] MEDS: ACETAMINOPHEN 1000 MG/100 ML 100 ML IV SCH ×2 (03:24→08:43)
[2017-03-01 03:25] LABS: APTT (PATIENT) 30.5 SEC (24.3-30.1); INTERNATIONAL NORMALIZED RATIO 1.1 RATIO; PROTHROMBIN TIME - PATIENT 11.7 SEC (9.8-11.6)
[2017-03-01] MEDS: POTASSIUM CHLOR 20 MEQ PREMIX 100 ML IV PRN (04:01)
[2017-03-01 04:14] LABS: BICARBONATE 26.3 MEQ/L (21.0-32.0); POTASSIUM 4.5 MEQ/L (3.5-5.1)
[2017-03-01] MEDS: RESP: ALBUTEROL 2.5 MG/IPRATROPIUM 0.5 MG NEB (SCH) NEB ×3 (05:30→16:47)
[2017-03-01] MEDS: METOPROLOL TARTRATE 25 MG TAB PO SCH ×3 (06:00→20:25)
--- NOTE | 2017-03-01 06:24 | RADRPT ---
EXAM DATE/TIME: 03/01/2017 05:31 [facility] COMPARISON: CHEST SINGLE AP, February 28, 2017, 13:24. INDICATIONS : Shortness of breath, possible pulmonary disease. MEDICAL HISTORY : Hypertension. Lymphoma. CVA SURGICAL HISTORY : Cholecystectomy. Hysterectomy. Tubal ligation. CABG ENCOUNTER: Subsequent ACUITY: 4 - 6 days PAIN SCORE: Non-responsive. LOCATION: Bilateral chest FINDINGS: Interval extubation. Left chest drainage tube remains projected left apex. No evidence of pneumotho rax. Bilateral central line tips project at the cavoatrial junction. Persistent consolidation media l left lower lung. Unilateral posterior spinal eitan in place. The right lung is clear. CONCLUSION: Persistent left lower lung consolidation. Left chest tube in place; no pneumothorax seen. Giuseppe Lares MD on March 01, 2017 at 6:22 Board Certified Radiologist. This report was verified electronically.
[2017-03-01] MEDS: PANTOPRAZOLE SOD 40 MG DELAYED RELEASE TAB PO SCH (06:25)
--- NOTE | 2017-03-01 07:30 | HHI.CCPN ---
Subjective Remarks/Hospital Course This is a 71-year-old female. Date of admission 02/26/2017. Date of consultation 03/01/2017. Past medical history includes anxiety, seizure disorder last 07/26, history of TIA/CVA with left-sided hemiparesis resolving, non-Hodgkin's lymphoma B cell/follicular type in remission currently on maintenance Rituximab last dose 3 weeks ago, COPD/asthma, gastroesophageal reflux disease, osteoarthritis, hypertension, dyslipidemia left breast mass/ benign. Patient originally presented to [facility] 02/26 with left-sided chest pain. Cardiology was consulted troponin peaked at 1.71. Cardiac catheterization revealed left main distal 60%. IVUS 4 mm, LAD proximal 99%, diagonal 80-90%, left circumflex 50% mid, OM1 50%, OM2 60%, RCA 70% throughout with 80% mid stenosis. Recommended for CABG. Echocardiogram revealed EF 45%. Hypokinesis in the apical and mid anterior regions. Possible atrial shunt. Pulmonary arterial pressures 21.4 mmHg. Today, patient underwent CABG 4. No Intra-Op complications. 2500 crystalloid. 250 Cell Saver. 500 EBL. 1 cc urine output. Patient is currently off Precedex drip and on no further sedation or drips at the present time. Potassium has been replaced due to 3.7. We are asked to evaluate Subjective 03/01: Tmax 99.1. Chest tube -840. Currently on low-dose Edgar-Synephrine overnight. No blood transfusion. Awake alert and following commands. Objective Vital Signs Date Time Temp Pulse Resp B/P (MAP) Pulse Ox O2 Delivery O2 Flow Rate FiO2 03/01/17 06:40 98.3 03/01/17 04:09 16 03/01/17 03:00 83 111/63 (79) 98 119/47 (71) 03/01/17 03:00 Room Air 02/28/17 21:43 2.00 02/28/17 12:45 50 Intake and Output 03/01/17 03/01/17 03/02/17 08:00 16:00 00:00 Intake Total 1394 ml Output Total 1050 ml Balance 344 ml Result Diagram: 03/01/17 0250 03/01/17 0315 Imaging Last Impressions Chest X-Ray 03/01/17 0500 Signed Impressions: Service Date/Time: Wednesday, March 01, 2017 05:31 - CONCLUSION: Persistent left lower lung consolidation. Left chest tube in place; no pneumothorax seen. Giuseppe Laers MD Lower Extremity Ultrasound 02/27/17 0000 Signed Impressions: Service Date/Time: February 11:33 - CONCLUSION: 1. Venous mapping as above. 2. Nonvisualization of the greater saphenous below the knee on the right and peripheral to the proximal below knee greater saphenous on the left. Tab Shearer MD Carotid Artery Ultrasound 02/27/17 0000 Signed Impressions: Service Date/Time: February 12:00 - CONCLUSION: 1. Calcified plaquing in both carotid bulbs extending up into the bifurcations. 2. However, no sonographic or Doppler findings of a hemodynamically significant stenosis. Antegrade flow in both vertebral arteries. Tab Shearer MD Objective Remarks GENERAL: 71-year-old female, resting in bed in no acute distress SKIN: Warm and dry. HEAD: Atraumatic. Normocephalic. EYES: Pupils equal and round about 2 mm bilaterally and brisk. No scleral icterus. No injection or drainage. ENT: No nasal bleeding or discharge. Mucous membranes pink and moist. NECK: Trachea midline. No JVD. CARDIOVASCULAR: Regular rate and rhythm. S1, S2. No S4. Without murmur RESPIRATORY: Clear to auscultation. Breath sounds equal bilaterally. Patient has mediastinal/left-sided chest tube GASTROINTESTINAL: Abdomen soft, non-tender, scaphoid. Hypoactive bowel sounds are by [address] MUSCULOSKELETAL: Extremities without significant peripheral edema. No obvious deformities. Left lower extremity wrapped in Alvino bandage. Dopplerable pulses bilateral lower extremities DP/PT NEUROLOGICAL: Cranial nerves II through XII grossly intact. Strength is equal symmetric. Normal sensation. Urinary Catheter: Yes Assessment to: Remove Vascular Central Line Catheter: Yes Assessment to: Continue Date of Insertion: Feb 28, 2017 Line: Central Venous Catheter Side: Left Location: Subclavian A/P Assessment and Plan Neuro/Psych: Seizure disorder NOS History of TIA with left-sided weakness Anxiety disorder NOS Currently on schedule Ofirmev 1 g IV every 6 hours 4 dosages Continue levetiracetam 1000 mg twice a day for seizures. Currently on temazepam 15 mill grams at night when necessary insomnia Continue acetaminophen 650 mg by mouth every 4 hours when necessary fever Pain management per CT surgery. Currently on acetaminophen/hydrocodone 5/325-1 every 3 hours and morphine 1 mg every 10 minutes when necessary pain Orders currently pending Seizure precautions CV: Postoperative day #1 Urgent Off-pump Coronary Artery Bypass Grafting x 4 with Left Internal Mammary Artery (WARNER) to Diagonal 1 (D1), reverse saphenous vein graft to the Left Anterior Descending (LAD), reverse saphenous vein graft to the RPDA, and reverse saphenous vein graft to the OM1 with left EVH Three-vessel coronary artery disease Hypertension Dyslipidemia Currently on one half normal saline at 75 cc an hour Currently on metoprolol 25 mg by mouth every 8 hours. Home medications metoprolol 100 mg by mouth daily. Resume atorvastatin 80 mg by mouth daily for dyslipidemia On aspirin 81 mg by mouth daily and clopidogrel 75 mg by mouth daily Continue amiodarone 200 mg by mouth twice a day Etiology is following Resp: History of asthma/COPD Nasal cannula to maintain saturations greater than equal to 92% Incentive spirometry while awake Scheduled albuterol/ipratropium aerosols every 6 hours Chest tube -840 cc SS @ -20 cm H2O GI: Gastroesophageal reflux disease GI prophylaxis with pantoprazole Eleni-Colace one tablet twice a day for bowel regimen Advance diet per CT surgery : Landin catheter for accurate I's and O's in a critically ill patient. Remove when clinically indicated Endo: Sliding-scale insulin/insulin drip per CT surgery to maintain strict euglycemia Renal: Creatinine currently within normal limits Monitor urine output Accurate I's and O's Heme: Leukopenia Normocytic anemia Thrombocytopenia History of non-Hodgkin's lymphoma/B-cell follicular type on maintenance rituximab Monitor CBC daily. Follow trends. Hemoglobin currently 7.7 with fluids at 1:15 ID: Monitor for infection Postoperative antibiotics with cefazolin per CT surgery 1 g every 8 hours total of 5 dosages FEN: Replace electrolytes as clinically indicated. On maintenance potassium chloride 20 mEq by mouth daily at home. Currently scheduled for 40 mEq daily MSK: Osteoarthritis Continue cholecalciferol 1000 units by mouth daily Physical therapy evaluate and treat Access - Utilize left subclavian Cordis with dual-lumen catheter. Patient does have right Port-A-Cath catheter Prophylaxis - GI -per CT surgery. - DVT - SCD/SHIRLEY hose to right lower extremity. Pharmacological prophylaxis when okay with CT surgery Level II follow-up Aguila Bryant MD Mar 01, 2017 07:30
[2017-03-01 08:34] LABS: AUTOMATED NEUTROPHIL # 3.4 TH/MM3 (1.8-7.7); BASOPHIL % 0.7 % (0.0-2.0); EOSINOPHIL # 0.2 TH/MM3 (0-0.4); EOSINOPHIL % 3.9 % (0.0-4.0); HEMATOCRIT 24.3 % (35.0-46.0); LYMPHOCYTE # 0.3 TH/MM3 (1.0-4.8); MEAN CELL VOLUME 97.3 FL (80.0-100.0); MEAN CORPUSCULAR HEMOGLOBIN 33.6 PG (27.0-34.0); MEAN CORPUSCULAR HGB CONC 34.5 % (32.0-36.0); MONO % 11.6 % (0.0-8.0); NEUT % 77.8 % (16.0-70.0); PLATELET COUNT 142 TH/MM3 (150-450); RED CELL DISTRIBUTION WIDTH 13.7 % (11.6-17.2); WHITE BLOOD COUNT 4.4 TH/MM3 (4.0-11.0)
[2017-03-01 08:37] LABS: HEMO FLAGS AUTO DIFF
[2017-03-01] MEDS: CLOPIDOGREL 75 MG TAB PO SCH (08:38)
[2017-03-01] MEDS: ASPIRIN 81 MG CHEW TAB PO SCH (08:38)
[2017-03-01] MEDS: CHOLECALCIFEROL (VIT D3) 1000 UNIT TAB PO SCH (08:39)
[2017-03-01] MEDS: POTASSIUM CHLORIDE 20 MEQ CONTROLLED RELEASE TAB PO SCH (08:39)
[2017-03-01] MEDS: AMIODARONE 200 MG TAB PO SCH ×2 (08:42→20:25)
[2017-03-01] MEDS: DOCUSATE SODIUM 50 MG/SENNA 8.6 MG TAB PO SCH ×2 (08:45→20:23)
[2017-03-01] MEDS: levETIRAcetam 500 MG TAB PO SCH ×2 (08:45→20:23)
[2017-03-01] MEDS: SODIUM CHLORIDE 0.9% FLUSH 10 ML FLUSH IV FLUSH SCH ×2 (08:45→20:25)
[2017-03-01] MEDS ORDERED: MULTIVITAMIN INJ 10 ML, THIAMINE INJ 500 MG, FOLIC ACID INJ 1 MG in SODIUM CHLORID 0.9%... IV SCH (09:00)
[2017-03-01] MEDS: SODIUM CHLOR 0.45% 1000 ML INJ 1,000 ML IV SCH (10:40)
--- NOTE | 2017-03-01 10:57 | PD.CAR.PN ---
CVT Progress Note Subjective/Hospital Course: 71 yo presenting with recurrent CP and NSTEMI. 02/28 SURGICAL PROCEDURE 1. Urgent Off-pump Coronary Artery Bypass Grafting x 4 with Left Internal Mammary Artery (WARNER) to Diagonal 1 (D1), reverse saphenous vein graft to the Left Anterior Descending (LAD), reverse saphenous vein graft to the RPDA, and reverse saphenous vein graft to the OM1 2. Left Leg Endoscopic Vein [place] 3. Intraoperative Vein Mapping 4. Multi-Level Intercostal Nerve Block. 03/01 Doing well Extubated and tolerating well Wean Edgar as tolerated Maintain CT to drainage Pulmonary toiletry Objective: Vital Signs Date Time Temp Pulse Resp B/P (MAP) Pulse Ox O2 Delivery O2 Flow Rate FiO2 03/01/17 09:46 99 Nasal Cannula 2.00 03/01/17 07:00 99 Room Air 03/01/17 07:00 88 03/01/17 07:00 97.7 88 18 111/67 (82) 99 116/45 (68) 03/01/17 06:40 98.3 03/01/17 04:09 16 03/01/17 03:00 99.1 83 16 111/63 (79) 98 119/47 (71) 03/01/17 03:00 84 03/01/17 03:00 98 Room Air 03/01/17 02:20 18 03/01/17 02:10 98.3 03/01/17 01:00 80 125/46 02/28/17 23:15 70 108/40 02/28/17 23:00 98.3 73 16 86/52 (63) 97 102/59 (73) 02/28/17 23:00 97 Room Air 02/28/17 23:00 71 02/28/17 23:00 73 102/39 02/28/17 22:00 98.3 02/28/17 22:00 81 129/47 02/28/17 21:43 99 Nasal Cannula 2.00 02/28/17 19:00 100 Nasal Cannula 2.00 02/28/17 19:00 97.6 84 16 114/63 (80) 97 129/54 (79) 02/28/17 19:00 63 02/28/17 18:33 97.6 02/28/17 18:00 83 119/49 02/28/17 17:30 75 139/53 02/28/17 16:30 61 137/54 02/28/17 16:00 97.5 61 16 128/69 (88) 99 137/54 (81) 02/28/17 16:00 61 02/28/17 16:00 99 Nasal Cannula 4.00 02/28/17 15:35 60 76/34 02/28/17 13:43 99 Nasal Cannula 3 02/28/17 12:57 97.6 02/28/17 12:45 97.6 51 10 86/49 (61) 99 110/55 (73) 02/28/17 12:45 51 02/28/17 12:45 99 Mechanical Ventilator 50 02/28/17 12:45 50 02/28/17 12:45 99 50 Labs: Laboratory Tests Test 03/01/17 02:50 03/01/17 03:15 03/01/17 08:00 White Blood Count 4.1 TH/MM3 (4.0-11.0) 4.4 TH/MM3 (4.0-11.0) Red Blood Count 2.37 MIL/MM3 (4.00-5.30) 2.50 MIL/MM3 (4.00-5.30) Hemoglobin 7.7 GM/DL (11.6-15.3) 8.4 GM/DL (11.6-15.3) Hematocrit 22.8 % (35.0-46.0) 24.3 % (35.0-46.0) Mean Corpuscular Volume 96.0 FL (80.0-100.0) 97.3 FL (80.0-100.0) Mean Corpuscular Hemoglobin 32.6 PG (27.0-34.0) 33.6 PG (27.0-34.0) Mean Corpuscular Hemoglobin Concent 33.9 % (32.0-36.0) 34.5 % (32.0-36.0) Red Cell Distribution Width 13.1 % (11.6-17.2) 13.7 % (11.6-17.2) Platelet Count 115 TH/MM3 (150-450) 142 TH/MM3 (150-450) Mean Platelet Volume 7.9 FL (7.0-11.0) 8.5 FL (7.0-11.0) Prothrombin Time 11.7 SEC (9.8-11.6) Prothromb Time International Ratio 1.1 RATIO Activated Partial Thromboplast Time 30.5 SEC (24.3-30.1) Blood Urea Nitrogen 8 MG/DL (7-18) Creatinine 0.55 MG/DL (0.50-1.00) Random Glucose 101 MG/DL (74-106) Calcium Level 8.7 MG/DL (8.5-10.1) Magnesium Level 2.0 MG/DL (1.5-2.5) Sodium Level 137 MEQ/L (136-145) Potassium Level 4.5 MEQ/L (3.5-5.1) Chloride Level 106 MEQ/L (98-107) Carbon Dioxide Level 26.3 MEQ/L (21.0-32.0) Anion Gap 5 MEQ/L (5-15) Estimat Glomerular Filtration Rate 108 ML/MIN (>89) Neutrophils (%) (Auto) 77.8 % (16.0-70.0) Lymphocytes (%) (Auto) 6.0 % (9.0-44.0) Monocytes (%) (Auto) 11.6 % (0.0-8.0) Eosinophils (%) (Auto) 3.9 % (0.0-4.0) Basophils (%) (Auto) 0.7 % (0.0-2.0) Neutrophils # (Auto) 3.4 TH/MM3 (1.8-7.7) Lymphocytes # (Auto) 0.3 TH/MM3 (1.0-4.8) Monocytes # (Auto) 0.5 TH/MM3 (0-0.9) Eosinophils # (Auto) 0.2 TH/MM3 (0-0.4) Basophils # (Auto) 0.0 TH/MM3 (0-0.2) CBC Comment AUTO DIFF Result Diagram: 03/01/17 0800 03/01/17 0315 (1) NSTEMI (non-ST elevated myocardial infarction) (2) CAD (coronary artery disease) (3) Angina pectoris (4) Multi-vessel coronary artery stenosis (5) S/P CABG x 4 Problem Qualifiers (1) CAD (coronary artery disease): Qualified Codes: I25.110 - Atherosclerotic heart disease of [place] coronary artery with unstable angina pectoris Steve Mcnamara MD Mar 01, 2017 10:57
--- NOTE | 2017-03-01 11:16 | PD.ONC.PN ---
Subjective Subjective Remarks Afebrile overnight Patient sitting up in chair at bedside with chest tube in place Per RN, she is still on vasopressors Objective Data Date Time Temp Pulse Resp B/P (MAP) Pulse Ox O2 Delivery O2 Flow Rate FiO2 03/01/17 09:46 99 Nasal Cannula 2.00 03/01/17 07:00 99 Room Air 03/01/17 07:00 88 03/01/17 07:00 97.7 88 18 111/67 (82) 99 116/45 (68) 03/01/17 06:40 98.3 03/01/17 04:09 16 03/01/17 03:00 99.1 83 16 111/63 (79) 98 119/47 (71) 03/01/17 03:00 84 03/01/17 03:00 98 Room Air 03/01/17 02:20 18 03/01/17 02:10 98.3 03/01/17 01:00 80 125/46 02/28/17 23:15 70 108/40 02/28/17 23:00 98.3 73 16 86/52 (63) 97 102/59 (73) 02/28/17 23:00 97 Room Air 02/28/17 23:00 71 02/28/17 23:00 73 102/39 02/28/17 22:00 98.3 02/28/17 22:00 81 129/47 02/28/17 21:43 99 Nasal Cannula 2.00 02/28/17 19:00 100 Nasal Cannula 2.00 02/28/17 19:00 97.6 84 16 114/63 (80) 97 129/54 (79) 02/28/17 19:00 63 02/28/17 18:33 97.6 02/28/17 18:00 83 119/49 02/28/17 17:30 75 139/53 02/28/17 16:30 61 137/54 02/28/17 16:00 97.5 61 16 128/69 (88) 99 137/54 (81) 02/28/17 16:00 61 02/28/17 16:00 99 Nasal Cannula 4.00 02/28/17 15:35 60 76/34 02/28/17 13:43 99 Nasal Cannula 3 02/28/17 12:57 97.6 02/28/17 12:45 97.6 51 10 86/49 (61) 99 110/55 (73) 02/28/17 12:45 51 02/28/17 12:45 99 Mechanical Ventilator 50 02/28/17 12:45 50 02/28/17 12:45 99 50 03/01/17 03/01/17 03/01/17 07:00 15:00 23:00 Intake Total 1394 ml Output Total 1050 ml Balance 344 ml Result Diagram: 03/01/17 0800 03/01/17 0315 Laboratory Results Laboratory Tests Test 02/28/17 14:00 03/01/17 02:50 03/01/17 03:15 03/01/17 08:00 White Blood Count 4.6 TH/MM3 4.1 TH/MM3 4.4 TH/MM3 Red Blood Count 2.81 MIL/MM3 2.37 MIL/MM3 2.50 MIL/MM3 Hemoglobin 9.2 GM/DL 7.7 GM/DL 8.4 GM/DL Hematocrit 27.5 % 22.8 % 24.3 % Mean Corpuscular Volume 97.6 FL 96.0 FL 97.3 FL Mean Corpuscular Hemoglobin 32.7 PG 32.6 PG 33.6 PG Mean Corpuscular Hemoglobin Concent 33.5 % 33.9 % 34.5 % Red Cell Distribution Width 13.1 % 13.1 % 13.7 % Platelet Count 126 TH/MM3 115 TH/MM3 142 TH/MM3 Mean Platelet Volume 7.8 FL 7.9 FL 8.5 FL Neutrophils (%) (Auto) 81.0 % 77.8 % Lymphocytes (%) (Auto) 9.5 % 6.0 % Monocytes (%) (Auto) 8.1 % 11.6 % Eosinophils (%) (Auto) 1.0 % 3.9 % Basophils (%) (Auto) 0.4 % 0.7 % Neutrophils # (Auto) 3.7 TH/MM3 3.4 TH/MM3 Lymphocytes # (Auto) 0.4 TH/MM3 0.3 TH/MM3 Monocytes # (Auto) 0.4 TH/MM3 0.5 TH/MM3 Eosinophils # (Auto) 0.0 TH/MM3 0.2 TH/MM3 Basophils # (Auto) 0.0 TH/MM3 0.0 TH/MM3 CBC Comment AUTO DIFF AUTO DIFF Differential Total Cells Counted 100 Neutrophils % (Manual) 61 % Band Neutrophils % 24 % Lymphocytes % 5 % Monocytes % 4 % Neutrophils # (Manual) 4.2 TH/MM3 Metamyelocytes 6 % Differential Comment FINAL DIFF MANUAL Toxic Granulation 2+ Platelet Estimate LOW Platelet Morphology Comment NORMAL Ovalocytes 1+ Keratocytes OCC Prothrombin Time 11.7 SEC Prothromb Time International Ratio 1.1 RATIO Activated Partial Thromboplast Time 30.5 SEC Blood Urea Nitrogen 8 MG/DL Creatinine 0.55 MG/DL Random Glucose 101 MG/DL Calcium Level 8.7 MG/DL Magnesium Level 2.0 MG/DL Sodium Level 137 MEQ/L Potassium Level 4.5 MEQ/L Chloride Level 106 MEQ/L Carbon Dioxide Level 26.3 MEQ/L Anion Gap 5 MEQ/L Estimat Glomerular Filtration Rate 108 ML/MIN Imaging Studies Last 24 hours Impressions Chest X-Ray 03/01/17 0500 Signed Impressions: Service Date/Time: Wednesday, March 01, 2017 05:31 - CONCLUSION: Persistent left lower lung consolidation. Left chest tube in place; no pneumothorax seen. iGuseppe Lares MD Administered Medications Medications (Trade) Dose Ordered Sig/Yue Route PRN Reason Start Time Stop Time Status Last Admin Dose Admin Sodium Chloride 1,000 ml @ 75 mls/hr [id number] IV 02/26/17 16:00 02/27/17 18:40 Senna/Docusate Sodium (Eleni-Colace) 1 tab BID PO 02/26/17 21:00 03/01/17 08:45 Atorvastatin Calcium (Lipitor) 80 mg HS PO 02/26/17 21:00 02/27/17 22:08 Cholecalciferol (Vitamin D3) 1,000 units DAILY PO 02/27/17 09:00 03/01/17 08:39 Levetriacetam (Keppra) 1,000 mg BID PO 02/26/17 21:00 03/01/17 08:45 Nitroglycerin (Nitrostat Sl) 0.4 mg Q5M PRN SL CHEST PAIN 02/26/17 19:00 02/26/17 20:59 Metoprolol Tartrate (Lopressor) 25 mg Q8HR PO 02/26/17 22:45 02/28/17 22:36 Sodium Chloride (NS Flush) 2 ml BID IV FLUSH 02/27/17 21:00 03/01/17 08:45 Papaverine HCl 60 mg/Nitroglycerin 100 mcg/Diltiazem HCl 100 mg/Sodium Chloride 100 ml @ 0 mls/hr [employer] IRRIGATION 02/27/17 10:15 03/06/17 10:14 02/28/17 09:18 Cefazolin Sodium 500 mg/Sodium Chloride 505 ml @ 0 mls/hr [employer] IRRIGATION 02/27/17 10:15 03/06/17 10:14 02/28/17 09:17 Cefazolin Sodium/ Dextrose 50 ml @ 150 mls/hr [employer]UTE SU[employer] IV 02/27/17 10:15 03/06/17 10:14 02/28/17 08:24 Insulin Human Regular 100 units/ Sodium Chloride 101 ml @ 0 mls/hr [employer] IV 02/27/17 10:15 03/06/17 10:14 02/28/17 20:33 Potassium Chloride (KCl) 40 meq DAILY PO 02/27/17 17:30 03/01/17 08:39 Phenylephrine HCl 40 mg/Dextrose 500 ml @ 30 mls/hr TITRATE PRN IV Maintain MAP > 65 mmHg 02/28/17 12:15 02/28/17 15:35 Albumin Human (Albumin 5% Inj) 12.5 gm UNSCH PRN IV SEE LABEL COMMENTS 02/28/17 12:15 02/28/17 15:42 Lactated Ringer's 500 ml @ 500 mls/hr Q1H PRN IV SEE LABEL COMMENTS 02/28/17 12:14 02/28/17 13:00 Aspirin (Aspirin Chew) 81 mg DAILY PO 03/01/17 09:00 03/01/17 08:38 Clopidogrel Bisulfate (Plavix) 75 mg DAILY PO 03/01/17 09:00 03/01/17 08:38 Pantoprazole Sodium (Protonix) 40 mg DAILY@06 PO 03/01/17 06:00 03/01/17 06:25 Amiodarone HCl (Cordarone) 200 mg Q12HR PO 02/28/17 21:00 02/28/17 22:36 Ketorolac Tromethamine (Toradol Inj) 15 mg Q6H PRN IV PUSH SEE LABEL COMMENTS 02/28/17 12:15 03/02/17 12:14 03/01/17 01:01 Albuterol/ Ipratropium (Duoneb Neb) 1 ampule Q6HR NEB NEB 02/28/17 16:00 03/01/17 09:45 Cefazolin Sodium 1000 mg/Sodium Chloride 100 ml @ 200 mls/hr Q8H IV 02/28/17 20:00 03/02/17 04:29 03/01/17 03:59 Calcium Chloride 1 gm/Sodium Chloride 110 ml @ 110 mls/hr UNSCH PRN IV SEE COMMENTS 03/01/17 03:15 03/01/17 04:10 Objective Remarks GENERAL: Elderly female sitting up in chair at bedside in no acute distress SKIN: Warm and dry. HEAD: Normocephalic. EYES: No injection or drainage. NECK: Supple, trachea midline. CARDIOVASCULAR: +S1/S2 Chest wall: multiple bandages in place, chest wall drains in place. RESPIRATORY: Clear anteriorly. On 2 L nasal cannula. GASTROINTESTINAL: Abdomen soft, non-tender, nondistended. EXTREMITIES: No cyanosis. bandage in place, LLE NEUROLOGICAL: Normal speech. Moving all extremities. No obvious focal deficit. Assessment/Plan Problem List: (1) Non-Hodgkin lymphoma ICD Codes: C85.90 - Non-Hodgkin lymphoma, unspecified, unspecified site Status: Chronic Plan: --Non-Hodgkin's B-cell lymphoma/follicular lymphoma, grade 1. --had hypermetabolic lymph nodes in the right axillary, inguinal and right pelvic area. --also had significant constitutional symptoms when she first presented. --completed 5 cycles of Rituxan and bendamustine in June 2016. was then started on maintenance Rituxan. --last dose of Rituxan was February 20. --Recent CT scan did not show any evidence of recurrent disease. --no oncologic intervention planned during this admission. (2) CAD (coronary artery disease) ICD Codes: I25.10 - Atherosclerotic heart disease of [place] coronary artery without angina pectoris Status: Acute Plan: --per cardiology/CTS --s/p CABG (3) Pancytopenia ICD Codes: D61.818 - Other pancytopenia Status: Chronic Plan: --has mild pancytopenia. --baseline CBC is in the low normal range. --monitor her CBC. Assessment 71y/o female admitted with chest pain, now s/p CABG. Oncology following for h/ o lymphoma. --h/o Non-Hodgkin's B-cell lymphoma. Epilepsy. Chronic obstructive pulmonary disease. Transient ischemia attack. Osteoarthritis Hypertension. Hyperlipidemia. Left breast benign nodule. Plan 1. Thrombocytopenia recovering. 2. Pt doing well so far post-op from bypass. 3.Continue to monitor CBC 4. No oncologic plans this admission. Attending Statement The exam, history, and the medical decision-making described in the above note were completed with the assistance of the mid-level provider. I reviewed and agree with the findings presented. I attest that I had a [id number] encounter with the patient on the same day, and personally performed and documented my assessment and findings in the medical record. Pt seen and examined. Family at bedside. Discussed recovery anemia and thrombocytopenia. Mildly leukopenic because of Rituxan therapy. No infection. Continue to follow. Problem Qualifiers (1) Non-Hodgkin lymphoma: Qualified Codes: C82.00 - Follicular lymphoma grade I, unspecified site (2) CAD (coronary artery disease): Qualified Codes: I25.110 - Atherosclerotic heart disease of [place] coronary artery with unstable angina pectoris Melissa Walker Mar 01, 2017 11:16 Aparna Pollock MD Mar 01, 2017 12:32
--- NOTE | 2017-03-01 11:20 | PD.CARD.PN ---
Subjective Subjective Remarks Pt doing well post CABG, some mild confusion Objective Medications Administered Medications Medications (Trade) Dose Ordered Sig/Yue Route PRN Reason Start Time Stop Time Status Last Admin Dose Admin Sodium Chloride 1,000 ml @ 75 mls/hr [id number] IV 02/26/17 16:00 02/27/17 18:40 Senna/Docusate Sodium (Eleni-Colace) 1 tab BID PO 02/26/17 21:00 03/01/17 08:45 Atorvastatin Calcium (Lipitor) 80 mg HS PO 02/26/17 21:00 02/27/17 22:08 Cholecalciferol (Vitamin D3) 1,000 units DAILY PO 02/27/17 09:00 03/01/17 08:39 Levetriacetam (Keppra) 1,000 mg BID PO 02/26/17 21:00 03/01/17 08:45 Nitroglycerin (Nitrostat Sl) 0.4 mg Q5M PRN SL CHEST PAIN 02/26/17 19:00 02/26/17 20:59 Metoprolol Tartrate (Lopressor) 25 mg Q8HR PO 02/26/17 22:45 02/28/17 22:36 Sodium Chloride (NS Flush) 2 ml BID IV FLUSH 02/27/17 21:00 03/01/17 08:45 Papaverine HCl 60 mg/Nitroglycerin 100 mcg/Diltiazem HCl 100 mg/Sodium Chloride 100 ml @ 0 mls/hr [employer]ASS [employer] IRRIGATION 02/27/17 10:15 03/06/17 10:14 02/28/17 09:18 Cefazolin Sodium 500 mg/Sodium Chloride 505 ml @ 0 mls/hr [employer] IRRIGATION 02/27/17 10:15 03/06/17 10:14 02/28/17 09:17 Cefazolin Sodium/ Dextrose 50 ml @ 150 mls/hr BRASS PLATER IV 02/27/17 10:15 03/06/17 10:14 02/28/17 08:24 Insulin Human Regular 100 units/ Sodium Chloride 101 ml @ 0 mls/hr BRASS PLATER IV 02/27/17 10:15 03/06/17 10:14 02/28/17 20:33 Potassium Chloride (KCl) 40 meq DAILY PO 02/27/17 17:30 03/01/17 08:39 Phenylephrine HCl 40 mg/Dextrose 500 ml @ 30 mls/hr TITRATE PRN IV Maintain MAP > 65 mmHg 02/28/17 12:15 02/28/17 15:35 Albumin Human (Albumin 5% Inj) 12.5 gm UNSCH PRN IV SEE LABEL COMMENTS 02/28/17 12:15 02/28/17 15:42 Lactated Ringer's 500 ml @ 500 mls/hr Q1H PRN IV SEE LABEL COMMENTS 02/28/17 12:14 02/28/17 13:00 Aspirin (Aspirin Chew) 81 mg DAILY PO 03/01/17 09:00 03/01/17 08:38 Clopidogrel Bisulfate (Plavix) 75 mg DAILY PO 03/01/17 09:00 03/01/17 08:38 Pantoprazole Sodium (Protonix) 40 mg DAILY@06 PO 03/01/17 06:00 03/01/17 06:25 Amiodarone HCl (Cordarone) 200 mg Q12HR PO 02/28/17 21:00 02/28/17 22:36 Ketorolac Tromethamine (Toradol Inj) 15 mg Q6H PRN IV PUSH SEE LABEL COMMENTS 02/28/17 12:15 03/02/17 12:14 03/01/17 01:01 Albuterol/ Ipratropium (Duoneb Neb) 1 ampule Q6HR NEB NEB 02/28/17 16:00 03/01/17 09:45 Cefazolin Sodium 1000 mg/Sodium Chloride 100 ml @ 200 mls/hr Q8H IV 02/28/17 20:00 03/02/17 04:29 03/01/17 03:59 Calcium Chloride 1 gm/Sodium Chloride 110 ml @ 110 mls/hr UNSCH PRN IV SEE COMMENTS 03/01/17 03:15 03/01/17 04:10 Vital Signs / I&O Vital Signs Date Time Temp Pulse Resp B/P (MAP) Pulse Ox O2 Delivery O2 Flow Rate FiO2 03/01/17 11:00 98 Room Air 03/01/17 11:00 97.5 86 19 91/50 (64) 98 102/44 (63) 03/01/17 11:00 86 03/01/17 09:46 99 Nasal Cannula 2.00 03/01/17 07:00 99 Room Air 03/01/17 07:00 88 03/01/17 07:00 97.7 88 18 111/67 (82) 99 116/45 (68) 03/01/17 06:40 98.3 03/01/17 04:09 16 03/01/17 03:00 99.1 83 16 111/63 (79) 98 119/47 (71) 03/01/17 03:00 84 03/01/17 03:00 98 Room Air 03/01/17 02:20 18 03/01/17 02:10 98.3 03/01/17 01:00 80 125/46 02/28/17 23:15 70 108/40 02/28/17 23:00 98.3 73 16 86/52 (63) 97 102/59 (73) 02/28/17 23:00 97 Room Air 02/28/17 23:00 71 02/28/17 23:00 73 102/39 02/28/17 22:00 98.3 02/28/17 22:00 81 129/47 02/28/17 21:43 99 Nasal Cannula 2.00 02/28/17 19:00 100 Nasal Cannula 2.00 02/28/17 19:00 97.6 84 16 114/63 (80) 97 129/54 (79) 02/28/17 19:00 63 02/28/17 18:33 97.6 02/28/17 18:00 83 119/49 02/28/17 17:30 75 139/53 02/28/17 16:30 61 137/54 02/28/17 16:00 97.5 61 16 128/69 (88) 99 137/54 (81) 02/28/17 16:00 61 02/28/17 16:00 99 Nasal Cannula 4.00 02/28/17 15:35 60 76/34 02/28/17 13:43 99 Nasal Cannula 3 02/28/17 12:57 97.6 02/28/17 12:45 97.6 51 10 86/49 (61) 99 110/55 (73) 02/28/17 12:45 51 02/28/17 12:45 99 Mechanical Ventilator 50 02/28/17 12:45 50 02/28/17 12:45 99 50 I/O 02/28/17 02/28/17 02/28/17 03/01/17 03/01/17 9/23/17 07:00 15:00 23:00 07:00 15:00 23:00 Intake Total 1140 ml 3500 ml 1150 ml 1394 ml Output Total 1400 ml 1325 ml 1050 ml Balance 1140 ml 2100 ml -175 ml 344 ml Intake Oral 240 ml 0 ml 100 ml IV Total 900 ml 750 ml 1150 ml 1294 ml Autotransfusion 250 ml Other 2500 ml Output Urine Total 900 ml 775 ml 760 ml Stool Total 0 ml Gastric Drainage Total 0 ml Chest Tube Drainage Total 550 ml 290 ml Estimated Blood Loss 500 ml # Voids 3 # Bowel Movements 0 0 Physical Exam GENERAL: This is a well-nourished, well-developed patient, in no apparent distress. CARDIOVASCULAR: Regular rate and rhythm without murmurs, gallops, or rubs. RESPIRATORY: Clear to auscultation. Breath sounds equal bilaterally. No wheezes , rales, or rhonchi. GASTROINTESTINAL: Abdomen soft, non-tender, nondistended. Normal active bowel sounds MUSCULOSKELETAL: Extremities without clubbing, cyanosis, or edema. NEURO: Alert & Oriented x4 to person, place, time, situation. Moves all ext x4 Laboratory Laboratory Tests Test 02/28/17 14:00 03/01/17 02:50 03/01/17 03:15 03/01/17 08:00 White Blood Count 4.6 TH/MM3 4.1 TH/MM3 4.4 TH/MM3 Red Blood Count 2.81 MIL/MM3 2.37 MIL/MM3 2.50 MIL/MM3 Hemoglobin 9.2 GM/DL 7.7 GM/DL 8.4 GM/DL Hematocrit 27.5 % 22.8 % 24.3 % Mean Corpuscular Volume 97.6 FL 96.0 FL 97.3 FL Mean Corpuscular Hemoglobin 32.7 PG 32.6 PG 33.6 PG Mean Corpuscular Hemoglobin Concent 33.5 % 33.9 % 34.5 % Red Cell Distribution Width 13.1 % 13.1 % 13.7 % Platelet Count 126 TH/MM3 115 TH/MM3 142 TH/MM3 Mean Platelet Volume 7.8 FL 7.9 FL 8.5 FL Neutrophils (%) (Auto) 81.0 % 77.8 % Lymphocytes (%) (Auto) 9.5 % 6.0 % Monocytes (%) (Auto) 8.1 % 11.6 % Eosinophils (%) (Auto) 1.0 % 3.9 % Basophils (%) (Auto) 0.4 % 0.7 % Neutrophils # (Auto) 3.7 TH/MM3 3.4 TH/MM3 Lymphocytes # (Auto) 0.4 TH/MM3 0.3 TH/MM3 Monocytes # (Auto) 0.4 TH/MM3 0.5 TH/MM3 Eosinophils # (Auto) 0.0 TH/MM3 0.2 TH/MM3 Basophils # (Auto) 0.0 TH/MM3 0.0 TH/MM3 CBC Comment AUTO DIFF AUTO DIFF Differential Total Cells Counted 100 Neutrophils % (Manual) 61 % Band Neutrophils % 24 % Lymphocytes % 5 % Monocytes % 4 % Neutrophils # (Manual) 4.2 TH/MM3 Metamyelocytes 6 % Differential Comment FINAL DIFF MANUAL Toxic Granulation 2+ Platelet Estimate LOW Platelet Morphology Comment NORMAL Ovalocytes 1+ Keratocytes OCC Prothrombin Time 11.7 SEC Prothromb Time International Ratio 1.1 RATIO Activated Partial Thromboplast Time 30.5 SEC Blood Urea Nitrogen 8 MG/DL Creatinine 0.55 MG/DL Random Glucose 101 MG/DL Calcium Level 8.7 MG/DL Magnesium Level 2.0 MG/DL Sodium Level 137 MEQ/L Potassium Level 4.5 MEQ/L Chloride Level 106 MEQ/L Carbon Dioxide Level 26.3 MEQ/L Anion Gap 5 MEQ/L Estimat Glomerular Filtration Rate 108 ML/MIN Imaging Last Impressions Chest X-Ray 03/01/17 0500 Signed Impressions: Service Date/Time: Wednesday, March 01, 2017 05:31 - CONCLUSION: Persistent left lower lung consolidation. Left chest tube in place; no pneumothorax seen. Giuseppe Lares MD Lower Extremity Ultrasound 02/27/17 0000 Signed Impressions: Service Date/Time: February 11:33 - CONCLUSION: 1. Venous mapping as above. 2. Nonvisualization of the greater saphenous below the knee on the right and peripheral to the proximal below knee greater saphenous on the left. Tab Shearer MD Carotid Artery Ultrasound 02/27/17 0000 Signed Impressions: Service Date/Time: February 12:00 - CONCLUSION: 1. Calcified plaquing in both carotid bulbs extending up into the bifurcations. 2. However, no sonographic or Doppler findings of a hemodynamically significant stenosis. Antegrade flow in both vertebral arteries. Tab Shearer MD Assessment and Plan Problem List: (1) CAD (coronary artery disease) ICD Codes: I25.10 - Atherosclerotic heart disease of [place] coronary artery without angina pectoris Status: Acute Plan: now s/p CABG X 4; continue current mgt and post-op supportive care (2) NSTEMI (non-ST elevated myocardial infarction) ICD Codes: I21.4 - Non-ST elevation (NSTEMI) myocardial infarction Status: Acute (3) Angina pectoris ICD Codes: I20.9 - Angina pectoris, unspecified Plan: resolved post cabg (4) Multi-vessel coronary artery stenosis ICD Codes: I25.10 - Atherosclerotic heart disease of [place] coronary artery without angina pectoris (5) S/P CABG x 4 ICD Codes: Z95.1 - Presence of aortocoronary bypass graft Assessment and Plan Hopefully some of her confusion will clear but there were signs of at least mild dementia preop Problem Qualifiers (1) CAD (coronary artery disease): Qualified Codes: I25.110 - Atherosclerotic heart disease of [place] coronary artery with unstable angina pectoris Pio Lara MD Mar 01, 2017 11:20
--- NOTE | 2017-03-01 11:36 | HHI.PR ---
Subjective Subjective Remarks Sitting up in chair Visiting with and friend Pleasantly confused, does recognize her , but doesn't know where she is, time, or current situation Status post CABG, POD 1 Hand jig hand equal but weakened Review of Systems Constitutional Constitutional Remarks Unable to obtain review of systems, secondary to altered mental status, pleasant mild confusion Vitals/Results Vital Signs Vital Signs Date Time Temp Pulse Resp B/P (MAP) Pulse Ox O2 Delivery O2 Flow Rate FiO2 03/01/17 11:00 98 Room Air 03/01/17 11:00 97.5 86 19 91/50 (64) 98 102/44 (63) 03/01/17 11:00 86 03/01/17 09:46 99 Nasal Cannula 2.00 03/01/17 07:00 99 Room Air 03/01/17 07:00 88 03/01/17 07:00 97.7 88 18 111/67 (82) 99 116/45 (68) 03/01/17 06:40 98.3 03/01/17 04:09 16 03/01/17 03:00 99.1 83 16 111/63 (79) 98 119/47 (71) 03/01/17 03:00 84 03/01/17 03:00 98 Room Air 03/01/17 02:20 18 03/01/17 02:10 98.3 03/01/17 01:00 80 125/46 02/28/17 23:15 70 108/40 02/28/17 23:00 98.3 73 16 86/52 (63) 97 102/59 (73) 02/28/17 23:00 97 Room Air 02/28/17 23:00 71 02/28/17 23:00 73 102/39 02/28/17 22:00 98.3 02/28/17 22:00 81 129/47 02/28/17 21:43 99 Nasal Cannula 2.00 02/28/17 19:00 100 Nasal Cannula 2.00 02/28/17 19:00 97.6 84 16 114/63 (80) 97 129/54 (79) 02/28/17 19:00 63 02/28/17 18:33 97.6 02/28/17 18:00 83 119/49 02/28/17 17:30 75 139/53 9/22/17 16:30 61 137/54 02/28/17 16:00 97.5 61 16 128/69 (88) 99 137/54 (81) 02/28/17 16:00 61 02/28/17 16:00 99 Nasal Cannula 4.00 02/28/17 15:35 60 76/34 02/28/17 13:43 99 Nasal Cannula 3 02/28/17 12:57 97.6 02/28/17 12:45 97.6 51 10 86/49 (61) 99 110/55 (73) 02/28/17 12:45 51 02/28/17 12:45 99 Mechanical Ventilator 50 02/28/17 12:45 50 02/28/17 12:45 99 50 CBC/BMP: 03/01/17 0800 03/01/17 0315 Lab Results Laboratory Tests Test 02/28/17 14:00 03/01/17 02:50 03/01/17 03:15 03/01/17 08:00 White Blood Count 4.6 TH/MM3 4.1 TH/MM3 4.4 TH/MM3 Red Blood Count 2.81 MIL/MM3 2.37 MIL/MM3 2.50 MIL/MM3 Hemoglobin 9.2 GM/DL 7.7 GM/DL 8.4 GM/DL Hematocrit 27.5 % 22.8 % 24.3 % Mean Corpuscular Volume 97.6 FL 96.0 FL 97.3 FL Mean Corpuscular Hemoglobin 32.7 PG 32.6 PG 33.6 PG Mean Corpuscular Hemoglobin Concent 33.5 % 33.9 % 34.5 % Red Cell Distribution Width 13.1 % 13.1 % 13.7 % Platelet Count 126 TH/MM3 115 TH/MM3 142 TH/MM3 Mean Platelet Volume 7.8 FL 7.9 FL 8.5 FL Neutrophils (%) (Auto) 81.0 % 77.8 % Lymphocytes (%) (Auto) 9.5 % 6.0 % Monocytes (%) (Auto) 8.1 % 11.6 % Eosinophils (%) (Auto) 1.0 % 3.9 % Basophils (%) (Auto) 0.4 % 0.7 % Neutrophils # (Auto) 3.7 TH/MM3 3.4 TH/MM3 Lymphocytes # (Auto) 0.4 TH/MM3 0.3 TH/MM3 Monocytes # (Auto) 0.4 TH/MM3 0.5 TH/MM3 Eosinophils # (Auto) 0.0 TH/MM3 0.2 TH/MM3 Basophils # (Auto) 0.0 TH/MM3 0.0 TH/MM3 CBC Comment AUTO DIFF AUTO DIFF Differential Total Cells Counted 100 Neutrophils % (Manual) 61 % Band Neutrophils % 24 % Lymphocytes % 5 % Monocytes % 4 % Neutrophils # (Manual) 4.2 TH/MM3 Metamyelocytes 6 % Differential Comment FINAL DIFF MANUAL Toxic Granulation 2+ Platelet Estimate LOW Platelet Morphology Comment NORMAL Ovalocytes 1+ Keratocytes OCC Prothrombin Time 11.7 SEC Prothromb Time International Ratio 1.1 RATIO Activated Partial Thromboplast Time 30.5 SEC Blood Urea Nitrogen 8 MG/DL Creatinine 0.55 MG/DL Random Glucose 101 MG/DL Calcium Level 8.7 MG/DL Magnesium Level 2.0 MG/DL Sodium Level 137 MEQ/L Potassium Level 4.5 MEQ/L Chloride Level 106 MEQ/L Carbon Dioxide Level 26.3 MEQ/L Anion Gap 5 MEQ/L Estimat Glomerular Filtration Rate 108 ML/MIN Imaging Remarks Last Impressions Chest X-Ray 03/01/17 0500 Signed Impressions: Service Date/Time: Wednesday, March 01, 2017 05:31 - CONCLUSION: Persistent left lower lung consolidation. Left chest tube in place; no pneumothorax seen. Giuseppe Lares MD Lower Extremity Ultrasound 02/27/17 0000 Signed Impressions: Service Date/Time: February 11:33 - CONCLUSION: 1. Venous mapping as above. 2. Nonvisualization of the greater saphenous below the knee on the right and peripheral to the proximal below knee greater saphenous on the left. Tab Shearer MD Carotid Artery Ultrasound 02/27/17 0000 Signed Impressions: Service Date/Time: February 12:00 - CONCLUSION: 1. Calcified plaquing in both carotid bulbs extending up into the bifurcations. 2. However, no sonographic or Doppler findings of a hemodynamically significant stenosis. Antegrade flow in both vertebral arteries. Tab Shearer MD Current Medications Administered Medications Medications (Trade) Dose Ordered Sig/Yue Route PRN Reason Start Time Stop Time Status Last Admin Dose Admin Sodium Chloride 1,000 ml @ 75 mls/hr [id number] IV 02/26/17 16:00 02/27/17 18:40 Senna/Docusate Sodium (Eleni-Colace) 1 tab BID PO 02/26/17 21:00 03/01/17 08:45 Atorvastatin Calcium (Lipitor) 80 mg HS PO 02/26/17 21:00 02/27/17 22:08 Cholecalciferol (Vitamin D3) 1,000 units DAILY PO 02/27/17 09:00 03/01/17 08:39 Levetriacetam (Keppra) 1,000 mg BID PO 02/26/17 21:00 03/01/17 08:45 Nitroglycerin (Nitrostat Sl) 0.4 mg Q5M PRN SL CHEST PAIN 02/26/17 19:00 02/26/17 20:59 Metoprolol Tartrate (Lopressor) 25 mg Q8HR PO 02/26/17 22:45 02/28/17 22:36 Sodium Chloride (NS Flush) 2 ml BID IV FLUSH 02/27/17 21:00 03/01/17 08:45 Papaverine HCl 60 mg/Nitroglycerin 100 mcg/Diltiazem HCl 100 mg/Sodium Chloride 100 ml @ 0 mls/hr HORSE RIDING [employer]ACH OR INSTRUCTOR IRRIGATION 02/27/17 10:15 03/06/17 10:14 02/28/17 09:18 Cefazolin Sodium 500 mg/Sodium Chloride 505 ml @ 0 mls/hr HORSE RIDING COACH OR INSTRUCTOR IRRIGATION 02/27/17 10:15 03/06/17 10:14 02/28/17 09:17 Cefazolin Sodium/ Dextrose 50 ml @ 150 mls/hr HORSE RIDING COACH OR INSTRUCTOR IV 02/27/17 10:15 03/06/17 10:14 02/28/17 08:24 Insulin Human Regular 100 units/ Sodium Chloride 101 ml @ 0 mls/hr HORSE RIDING COACH OR INSTRUCTOR IV 02/27/17 10:15 03/06/17 10:14 02/28/17 20:33 Potassium Chloride (KCl) 40 meq DAILY PO 02/27/17 17:30 03/01/17 08:39 Phenylephrine HCl 40 mg/Dextrose 500 ml @ 30 mls/hr TITRATE PRN IV Maintain MAP > 65 mmHg 02/28/17 12:15 02/28/17 15:35 Albumin Human (Albumin 5% Inj) 12.5 gm UNSCH PRN IV SEE LABEL COMMENTS 02/28/17 12:15 02/28/17 15:42 Lactated Ringer's 500 ml @ 500 mls/hr Q1H PRN IV SEE LABEL COMMENTS 02/28/17 12:14 02/28/17 13:00 Aspirin (Aspirin Chew) 81 mg DAILY PO 03/01/17 09:00 03/01/17 08:38 Clopidogrel Bisulfate (Plavix) 75 mg DAILY PO 03/01/17 09:00 03/01/17 08:38 Pantoprazole Sodium (Protonix) 40 mg DAILY@06 PO 03/01/17 06:00 03/01/17 06:25 Amiodarone HCl (Cordarone) 200 mg Q12HR PO 02/28/17 21:00 02/28/17 22:36 Ketorolac Tromethamine (Toradol Inj) 15 mg Q6H PRN IV PUSH SEE LABEL COMMENTS 02/28/17 12:15 03/02/17 12:14 03/01/17 01:01 Albuterol/ Ipratropium (Duoneb Neb) 1 ampule Q6HR NEB NEB 02/28/17 16:00 03/01/17 09:45 Cefazolin Sodium 1000 mg/Sodium Chloride 100 ml @ 200 mls/hr Q8H IV 02/28/17 20:00 03/02/17 04:29 03/01/17 11:53 Calcium Chloride 1 gm/Sodium Chloride 110 ml @ 110 mls/hr UNSCH PRN IV SEE COMMENTS 03/01/17 03:15 03/01/17 04:10 Physical Exam General General Appearance: No Acute Distress Appearance Remarks Thin borderline frail Eyes Eye Exam: Pupils Equal, Pupils Reactive Ears & Nose Ears & Nose Exam: Nasal Mucosa Hooks (they'll) Throat Throat Exam: Oral Mucosa Hooks & Moist (pale) Neck Neck Exam: Neck Supple, Trachea Midline Pulmonary Resp Exam: Decreased Bases, Diminished Breath Sounds Resp Remarks Diminished left lower lobe, chest tube intact Cardiology CV Exam: Regular, Murmur (grade 1/6 mild,) Chest/Breast Chest/Breast Remarks Left-sided chest tube intact Gastrointestinal/Abdomen GI Exam: Soft, Non-Tender, Bowel Sounds Present, Non-Distended Genitourinary Remarks Voiding on her own Integumentary Skin Exam: Warm, Dry Extremeties Extremities Exam: No Edema, Pedal Pulses Palpable Neurologic Neuro Exam: Awake, Speech Clear (minimal conversation, but understandable), No Focal Deficits Psychiatric Psych Exam: Appropriate Responses VTE Prophylaxis VTE Prophylaxis Meds: Heparin Assessment/Plan Problem List: (1) NSTEMI (non-ST elevated myocardial infarction) ICD Codes: I21.4 - Non-ST elevation (NSTEMI) myocardial infarction Status: Acute (2) Hyperlipidemia ICD Codes: E78.5 - Hyperlipidemia, unspecified Status: Chronic (3) CAD (coronary artery disease) ICD Codes: I25.10 - Atherosclerotic heart disease of [place] coronary artery without angina pectoris Status: Acute (4) Pancytopenia ICD Codes: D61.818 - Other pancytopenia Status: Chronic (5) Seizure disorder ICD Codes: G40.909 - Epilepsy, unspecified, not intractable, without status epilepticus Status: Chronic (6) Hypertension ICD Codes: I10 - Essential (primary) hypertension Status: Chronic (7) Hx TIA/stroke w/o resid ICD Codes: Z86.73 - Personal history of transient ischemic attack (TIA), and cerebral infarction without residual deficits Status: Chronic (8) Non-Hodgkin lymphoma ICD Codes: C85.90 - Non-Hodgkin lymphoma, unspecified, unspecified site Status: Chronic (9) Angina pectoris ICD Codes: I20.9 - Angina pectoris, unspecified Assessment/Plan Non-STEMI on admission to the hospital Anemia, status post CABG blood loss, possible acute on chronic, tinea monitor CABG x 4, POD 1, left chest tube intact, patient sitting up in chair family present Mild pleasant confusion, encourage family to re-orient her to place and time and situation. Does recognize her Comorbidities of hyperlipidemia, hypertension, COPD, TIA 2-D echo EF 45-50%, Plavix , aspirin Carotid disease no significant stenosis Mild hypotension this morning requiring Edgar-Synephrine drip, appreciate multimedia producer monitor Non-Hodgkin's B-cell lymphoma, on maintenance Rituxan. Patient follows up regularly with Dr. Enriquez History of epilepsy, last seizure June 2016 -Continue Keppra 1000 milligrams by mouth twice a day Dementia, probable mild underlying disease, continue to reorient, nonhostile For DVT prophylaxis, patient on heparin drip Continue medical management monitoring, Discussed with nurse Discussed with Dr. White, seen on his behalf Discussed with patient, and her family Problem Qualifiers (1) Hyperlipidemia: Qualified Codes: E78.5 - Hyperlipidemia, unspecified (2) CAD (coronary artery disease): Qualified Codes: I25.110 - Atherosclerotic heart disease of [place] coronary artery with unstable angina pectoris (3) Hypertension: Qualified Codes: I10 - Essential (primary) hypertension (4) Non-Hodgkin lymphoma: Qualified Codes: C82.00 - Follicular lymphoma grade I, unspecified site Sofia Schwarz Mar 01, 2017 11:36
[2017-03-01 13:23] LABS: BANDS 34 % (0-6); EOSINOPHILS 5 % (0-4); NEUTROPHIL # MANUAL DIFF 3.5 TH/MM3 (1.8-7.7); OVALOCYTES 1+ (NORMAL); PLATELET ESTIMATE SMEAR NORMAL (NORMAL); PLATELET MORPHOLOGY NORMAL (NORMAL); POLYS (SEG NEUTROPHILS) 45 % (16-70); TOXIC GRANULATION 2+ (NORMAL); WBC DIFF SAMPLE 100
[2017-03-01 13:23] LABS: HEMATOCRIT 23.1 % (35.0-46.0); MEAN CORPUSCULAR HEMOGLOBIN 33.3 PG (27.0-34.0); MEAN CORPUSCULAR HGB CONC 34.4 % (32.0-36.0); PLATELET COUNT 144 TH/MM3 (150-450); RED BLOOD COUNT 2.39 MIL/MM3 (4.00-5.30); RED CELL DISTRIBUTION WIDTH 13.6 % (11.6-17.2); REVIEW FLAG FINAL; WHITE BLOOD COUNT 4.6 TH/MM3 (4.0-11.0)
[2017-03-01 13:24] LABS: SCAN/DIFF FINAL DIFF MANUAL
[2017-03-01] MEDS: DOBUTamine PREMIX DRIP 250 ML IV SCH (13:40)
[2017-03-01] MEDS: ACETAMINOPHEN/HYDROcodone 325 MG/5 MG TAB PO PRN ×2 (15:45→18:31)
--- NOTE | 2017-03-01 17:36 | EKG ---
Date Performed: 03/01/2017 Time Performed: 07:06:58 PTAGE: 71 years EKG: Sinus rhythm Diffused ST-T change with ST depression in leads V2 and V3 with T wave inversion in those leads as w ell as AVL. These changes are nonspecific which probable due to ischemia. Since previous tracing 02/08, there is improvement in the marked T wave inversion anteroseptaly. ST depression slightly les s in those leads as well. Clinical correlation is recommended Abnormal ECG PREVIOUS TRACING 02/26/2017 @14.36 DOCTOR: Jonatan Solares Interpretating Date/Time 03/01/2017 17:35:06
[2017-03-01] MEDS: ATORVASTATIN 80 MG TAB PO SCH (20:25)
[2017-03-02] VITALS (7 sets, daily range): BP systolic 83–127; BP diastolic 40–66; PULSE 61–136; RESP 18; TEMP 97.5–98.8; O2SAT 95–99
[2017-03-02] MEDS: RESP: ALBUTEROL 2.5 MG/IPRATROPIUM 0.5 MG NEB (SCH) NEB ×4 (03:24→22:14)
[2017-03-02] MEDS: KETOROLAC TROMETHAMINE 30 MG/ML (IVP) VIAL IV PUSH PRN (03:36)
[2017-03-02] MEDS ORDERED: AMIODARONE INJ 450 MG in D5W (EXCEL BAG) INJ 241 ML IV SCH (03:45)
[2017-03-02] MEDS ORDERED: AMIODARONE 150 MG/D5W 97 ML BOLUS 10 MINUTES IV ONE ×2 (03:45)
[2017-03-02 04:56] LABS: MEAN CELL VOLUME 97.3 FL (80.0-100.0); MEAN CORPUSCULAR HEMOGLOBIN 32.7 PG (27.0-34.0); MEAN CORPUSCULAR HGB CONC 33.6 % (32.0-36.0); PLATELET COUNT 95 TH/MM3 (150-450); RED BLOOD COUNT 2.16 MIL/MM3 (4.00-5.30); RED CELL DISTRIBUTION WIDTH 13.8 % (11.6-17.2); WHITE BLOOD COUNT 2.9 TH/MM3 (4.0-11.0)
[2017-03-02 05:06] LABS: REVIEW FLAG FINAL
[2017-03-02 05:19] LABS: BICARBONATE 25.1 MEQ/L (21.0-32.0); MAGNESIUM 1.8 MG/DL (1.5-2.5); POTASSIUM 4.2 MEQ/L (3.5-5.1)
[2017-03-02] MEDS: METOPROLOL TARTRATE 25 MG TAB PO SCH ×3 (06:00→21:37)
[2017-03-02] MEDS: PANTOPRAZOLE SOD 40 MG DELAYED RELEASE TAB PO SCH (06:00)
[2017-03-02] MEDS: ACETAMINOPHEN/HYDROcodone 325 MG/5 MG TAB PO PRN ×2 (06:27→21:37)
[2017-03-02] MEDS ORDERED: POTASSIUM CHLORIDE 10 MEQ CAP PO ONE (07:00)
[2017-03-02] MEDS: MAGNESIUM SULFATE 1 GM PREMIX 100 ML IV SCH ×3 (07:00→07:37)
--- NOTE | 2017-03-02 07:01 | HHI.CCPN ---
Subjective Remarks/Hospital Course This is a 71-year-old female. Date of admission 02/26/2017. Date of consultation 03/01/2017. Past medical history includes anxiety, seizure disorder last 07/26, history of TIA/CVA with left-sided hemiparesis resolving, non-Hodgkin's lymphoma B cell/follicular type in remission currently on maintenance Rituximab last dose 3 weeks ago, COPD/asthma, gastroesophageal reflux disease, osteoarthritis, hypertension, dyslipidemia left breast mass/ benign. Patient originally presented to [facility] 02/26 with left-sided chest pain. Cardiology was consulted troponin peaked at 1.71. Cardiac catheterization revealed left main distal 60%. IVUS 4 mm, LAD proximal 99%, diagonal 80-90%, left circumflex 50% mid, OM1 50%, OM2 60%, RCA 70% throughout with 80% mid stenosis. Recommended for CABG. Echocardiogram revealed EF 45%. Hypokinesis in the apical and mid anterior regions. Possible atrial shunt. Pulmonary arterial pressures 21.4 mmHg. Today, patient underwent CABG 4. No Intra-Op complications. 2500 crystalloid. 250 Cell Saver. 500 EBL. 1 cc urine output. Patient is currently off Precedex drip and on no further sedation or drips at the present time. Potassium has been replaced due to 3.7. We are asked to evaluate 03/01: Tmax 99.1. Chest tube -840. Currently on low-dose Edgar-Synephrine overnight. No blood transfusion. Awake alert and following commands. Subjective 03/02: Afebrile.. Chest tube -260 ss. Currently on amiodarone drip at 1 mg/mL due to atrial fibrillation currently normal sinus rhythm. Receiving 2 g mag sulfate IV 1 now. Potassium chloride 10 mEq to maintain potassium of 4.[address] surgery's recommendations. No BM Objective Vital Signs Date Time Temp Pulse Resp B/P (MAP) Pulse Ox O2 Delivery O2 Flow Rate FiO2 03/02/17 04:42 18 03/02/17 04:07 158 90/49 03/02/17 03:00 98.0 98 03/02/17 03:00 Room Air 03/01/17 09:46 2.00 02/28/17 12:45 50 Intake and Output 03/02/17 03/02/17 03/03/17 08:00 16:00 00:00 Intake Total 578 ml Output Total 1415 ml Balance -837 ml Result Diagram: 03/02/17 0420 03/02/17 0420 Imaging Last Impressions Chest X-Ray 03/01/17 0500 Signed Impressions: Service Date/Time: Wednesday, March 01, 2017 05:31 - CONCLUSION: Persistent left lower lung consolidation. Left chest tube in place; no pneumothorax seen. Giuseppe Lares MD Lower Extremity Ultrasound 02/27/17 0000 Signed Impressions: Service Date/Time: February 11:33 - CONCLUSION: 1. Venous mapping as above. 2. Nonvisualization of the greater saphenous below the knee on the right and peripheral to the proximal below knee greater saphenous on the left. Tab Shearer MD Carotid Artery Ultrasound 02/27/17 0000 Signed Impressions: Service Date/Time: February 12:00 - CONCLUSION: 1. Calcified plaquing in both carotid bulbs extending up into the bifurcations. 2. However, no sonographic or Doppler findings of a hemodynamically significant stenosis. Antegrade flow in both vertebral arteries. Tab Shearer MD Objective Remarks GENERAL: 71-year-old female, sitting in chair in no acute distress SKIN: Warm and dry. HEAD: Atraumatic. Normocephalic. EYES: Pupils equal and round about 2 mm bilaterally and brisk. No scleral icterus. No injection or drainage. ENT: No nasal bleeding or discharge. Mucous membranes pink and moist. NECK: Trachea midline. No JVD. CARDIOVASCULAR: Regular rate and rhythm. S1, S2. No S4. Without murmur. Mediastinal clean dry and intact RESPIRATORY: Clear to auscultation. Breath sounds equal bilaterally. Patient has mediastinal/left-sided chest tube GASTROINTESTINAL: Abdomen soft, non-tender, scaphoid. Hypoactive bowel sounds present MUSCULOSKELETAL: Extremities without significant peripheral edema. No obvious deformities. Left lower extremity wrapped in Alvino bandage. Dopplerable pulses bilateral lower extremities DP/PT NEUROLOGICAL: Cranial nerves II through XII grossly intact. Strength is equal symmetric. Normal sensation. Urinary Catheter: No Assessment to: Continue Vascular Central Line Catheter: Yes Assessment to: Continue Date of Insertion: Feb 28, 2017 Line: Central Venous Catheter Side: Left Location: Subclavian A/P Assessment and Plan Neuro/Psych: Seizure disorder NOS History of TIA with left-sided weakness Anxiety disorder NOS Continue levetiracetam 1000 mg twice a day for seizures. Currently on temazepam 15 mill grams at night when necessary insomnia Continue acetaminophen 650 mg by mouth every 4 hours when necessary fever Pain management per CT surgery. Currently on acetaminophen/hydrocodone 5/325-1 every 3 hours and morphine 1 mg every 10 minutes when necessary pain Orders currently pending Seizure precautions CV: Postoperative day #2 Urgent Off-pump Coronary Artery Bypass Grafting x 4 with Left Internal Mammary Artery (WARNER) to Diagonal 1 (D1), reverse saphenous vein graft to the Left Anterior Descending (LAD), reverse saphenous vein graft to the RPDA, and reverse saphenous vein graft to the OM1 with left EVH Three-vessel coronary artery disease Hypertension Dyslipidemia Currently on metoprolol 25 mg by mouth every 8 hours. Home medications metoprolol 100 mg by mouth daily. Resume atorvastatin 80 mg by mouth daily for dyslipidemia On aspirin 81 mg by mouth daily and clopidogrel 75 mg by mouth daily Currently on amiodarone drip at 1 mg per minute for the next [address] surgery. Electrolyte replacement Previously on amiodarone 200 mg by mouth twice a day Etiology is following Resp: History of asthma/COPD Nasal cannula to maintain saturations greater than equal to 92% Incentive spirometry while awake Scheduled albuterol/ipratropium aerosols every 6 hours Chest tube -260 cc SS @ -20 cm H2O GI: Gastroesophageal reflux disease GI prophylaxis with pantoprazole Eleni-Colace one tablet twice a day for bowel regimen Advance diet per CT surgery : Landin catheter can be removed Endo: Sliding-scale insulin/insulin drip per CT surgery to maintain strict euglycemia Renal: Creatinine currently within normal limits Monitor urine output Accurate I's and O's Heme: Leukopenia Normocytic anemia Thrombocytopenia History of non-Hodgkin's lymphoma/B-cell follicular type on maintenance rituximab Monitor CBC daily. Follow trends. Hemoglobin currently 7.1. Transfuse if less than 7.0 ID: Monitor for infection Postoperative antibiotics with cefazolin per CT surgery 1 g every 8 hours total of 5 dosages has been completed FEN: Replace electrolytes as clinically indicated. On maintenance potassium chloride 20 mEq by mouth daily at home. Currently scheduled for 40 mEq by mouth daily MSK: Osteoarthritis Continue cholecalciferol 1000 units by mouth daily Physical therapy evaluate and treat Access - Utilize left subclavian Cordis with dual-lumen catheter. Patient does have right Port-A-Cath catheter Prophylaxis - GI -pantoprazole - DVT - SCD/SHIRLEY hose to right lower extremity. Pharmacological prophylaxis when okay with CT surgery Level II follow-up Aguila Bryant MD Mar 02, 2017 07:00
[2017-03-02] MEDS: levETIRAcetam 500 MG TAB PO SCH ×2 (08:42→21:37)
[2017-03-02] MEDS: AMIODARONE 200 MG TAB PO SCH ×2 (08:42→21:36)
[2017-03-02] MEDS: CHOLECALCIFEROL (VIT D3) 1000 UNIT TAB PO SCH (08:42)
[2017-03-02] MEDS: SODIUM CHLORIDE 0.9% FLUSH 10 ML FLUSH IV FLUSH SCH ×2 (08:42→21:38)
[2017-03-02] MEDS: ASPIRIN 81 MG CHEW TAB PO SCH (08:43)
[2017-03-02] MEDS: POTASSIUM CHLORIDE 20 MEQ CONTROLLED RELEASE TAB PO SCH (08:43)
[2017-03-02] MEDS: CLOPIDOGREL 75 MG TAB PO SCH (08:43)
[2017-03-02] MEDS: DOCUSATE SODIUM 50 MG/SENNA 8.6 MG TAB PO SCH ×2 (08:44→21:37)
--- NOTE | 2017-03-02 09:26 | PD.CARD.PN ---
Subjective Subjective Remarks Doing well, no complaints, had several hours of rapid afib o/n, now sinus rhytm Objective Medications Administered Medications Medications (Trade) Dose Ordered Sig/Yue Route PRN Reason Start Time Stop Time Status Last Admin Dose Admin Sodium Chloride 1,000 ml @ 75 mls/hr [id number] IV 02/26/17 16:00 02/27/17 18:40 Senna/Docusate Sodium ([place]len[place]-Colace) 1 tab BID PO 02/26/17 21:00 03/02/17 08:44 Atorvastatin Calcium (Lipitor) 80 mg HS PO 02/26/17 21:00 03/01/17 20:25 Cholecalciferol (Vitamin D3) 1,000 units DAILY PO 02/27/17 09:00 03/02/17 08:42 Levetriacetam (Keppra) 1,000 mg BID PO 02/26/17 21:00 03/02/17 08:42 Nitroglycerin (Nitrostat Sl) 0.4 mg Q5M PRN SL CHEST PAIN 02/26/17 19:00 02/26/17 20:59 Metoprolol Tartrate (Lopressor) 25 mg Q8HR PO 02/26/17 22:45 03/01/17 20:25 Sodium Chloride (NS Flush) 2 ml BID IV FLUSH 02/27/17 21:00 03/02/17 08:42 Papaverine HCl 60 mg/Nitroglycerin 100 mcg/Diltiazem HCl 100 mg/Sodium Chloride 100 ml @ 0 mls/hr DIRECTOR EPIDEMIOLOGY IRRIGATION 02/27/17 10:15 03/06/17 10:14 02/28/17 09:18 Cefazolin Sodium 500 mg/Sodium Chloride 505 ml @ 0 mls/hr DIRECTOR EPIDEMIOLOGY IRRIGATION 02/27/17 10:15 03/06/17 10:14 02/28/17 09:17 Cefazolin Sodium/ Dextrose 50 ml @ 150 mls/hr DIRECTOR EPIDEMIOLOGY IV 02/27/17 10:15 03/06/17 10:14 02/28/17 08:24 Insulin Human Regular 100 units/ Sodium Chloride 101 ml @ 0 mls/hr DIRECTOR EPIDEMIOLOGY IV 02/27/17 10:15 03/06/17 10:14 02/28/17 20:33 Potassium Chloride (KCl) 40 meq DAILY PO 02/27/17 17:30 03/02/17 08:43 Phenylephrine HCl 40 mg/Dextrose 500 ml @ 30 mls/hr TITRATE PRN IV Maintain MAP > 65 mmHg 02/28/17 12:15 02/28/17 15:35 Albumin Human (Albumin 5% Inj) 12.5 gm UNSCH PRN IV SEE LABEL COMMENTS 02/28/17 12:15 02/28/17 15:42 Lactated Ringer's 500 ml @ 500 mls/hr Q1H PRN IV SEE LABEL COMMENTS 02/28/17 12:14 02/28/17 13:00 Aspirin (Aspirin Chew) 81 mg DAILY PO 03/01/17 09:00 03/01/17 08:38 Clopidogrel Bisulfate (Plavix) 75 mg DAILY PO 03/01/17 09:00 03/02/17 08:43 Pantoprazole Sodium (Protonix) 40 mg DAILY@06 PO 03/01/17 06:00 03/02/17 06:00 Amiodarone HCl (Cordarone) 200 mg Q12HR PO 02/28/17 21:00 03/02/17 08:42 Acetaminophen/ Hydrocodone Bitart ([place] 5-325 Mg) 1 tab Q3H PRN PO PAIN SCALE 1 TO 5 02/28/17 12:15 03/02/17 06:27 Ketorolac Tromethamine (Toradol Inj) 15 mg Q6H PRN IV PUSH SEE LABEL COMMENTS 02/28/17 12:15 03/02/17 12:14 03/02/17 03:36 Albuterol/ Ipratropium (Duoneb Neb) 1 ampule Q6HR NEB NEB 02/28/17 16:00 03/02/17 03:24 Calcium Chloride 1 gm/Sodium Chloride 110 ml @ 110 mls/hr UNSCH PRN IV SEE COMMENTS 03/01/17 03:15 03/01/17 04:10 Amiodarone HCl 450 mg/Dextrose 250 ml @ 33.33 mls/ hr Q7H31M IV 03/02/17 03:45 03/02/17 04:07 Vital Signs / I&O Vital Signs Date Time Temp Pulse Resp B/P (MAP) Pulse Ox O2 Delivery O2 Flow Rate FiO2 03/02/17 07:39 61 03/02/17 07:39 98.3 61 18 90/54 (66) 96 Arterial Line 03/02/17 07:38 96 Room Air 03/02/17 07:17 18 03/02/17 04:42 18 03/02/17 04:07 158 90/49 03/02/17 03:52 155 120/45 03/02/17 03:00 98.0 136 18 102/58 (73) 98 123/40 (67) 03/02/17 03:00 98 Room Air 03/02/17 03:00 122 03/01/17 23:00 95 Room Air 03/01/17 23:00 98.4 97 18 96/54 (68) 95 105/40 (61) 03/01/17 23:00 89 03/01/17 19:00 98.5 97 18 109/60 (76) 95 140/53 (82) 03/01/17 19:00 98 03/01/17 19:00 95 Room Air 03/01/17 15:11 98 Room Air 03/01/17 15:10 61 03/01/17 15:09 97.8 84 19 103/62 (76) 96 114/45 (68) 03/01/17 11:00 98 Room Air 03/01/17 11:00 97.5 86 19 91/50 (64) 98 102/44 (63) 03/01/17 11:00 86 03/01/17 09:46 99 Nasal Cannula 2.00 I/O 03/01/17 03/01/17 03/01/17 03/02/17 03/02/17 03/02/17 07:00 15:00 23:00 07:00 15:00 23:00 Intake Total 1394 ml 200 ml 500 ml 940 ml 200 ml Output Total 1050 ml 470 ml 1415 ml Balance 344 ml 200 ml 30 ml -475 ml 200 ml Intake Oral 100 ml 400 ml 220 ml IV Total 1294 ml 200 ml 100 ml 720 ml 200 ml Output Urine Total 760 ml 350 ml 1275 ml Chest Tube Drainage Total 290 ml 120 ml 140 ml # Voids 1 # Bowel Movements 0 0 0 Physical Exam GENERAL: This is a well-nourished, well-developed patient, in no apparent distress. CARDIOVASCULAR: Regular rate and rhythm without murmurs, gallops, or rubs. RESPIRATORY: Clear to auscultation. Breath sounds equal bilaterally. No wheezes , rales, or rhonchi. GASTROINTESTINAL: Abdomen soft, non-tender, nondistended. Normal active bowel sounds MUSCULOSKELETAL: Extremities without clubbing, cyanosis, or edema. NEURO: Alert & Oriented x4 to person, place, time, situation. Moves all ext x4 Laboratory Laboratory Tests Test 03/01/17 13:00 03/02/17 04:20 White Blood Count 4.6 TH/MM3 2.9 TH/MM3 Red Blood Count 2.39 MIL/MM3 2.16 MIL/MM3 Hemoglobin 8.0 GM/DL 7.1 GM/DL Hematocrit 23.1 % 21.0 % Mean Corpuscular Volume 97.0 FL 97.3 FL Mean Corpuscular Hemoglobin 33.3 PG 32.7 PG Mean Corpuscular Hemoglobin Concent 34.4 % 33.6 % Red Cell Distribution Width 13.6 % 13.8 % Platelet Count 144 TH/MM3 95 TH/MM3 Mean Platelet Volume 7.9 FL 8.4 FL Blood Urea Nitrogen 13 MG/DL Creatinine 0.70 MG/DL Random Glucose 125 MG/DL Calcium Level 8.1 MG/DL Magnesium Level 1.8 MG/DL Sodium Level 134 MEQ/L Potassium Level 4.2 MEQ/L Chloride Level 103 MEQ/L Carbon Dioxide Level 25.1 MEQ/L Anion Gap 6 MEQ/L Estimat Glomerular Filtration Rate 82 ML/MIN Imaging Last Impressions Chest X-Ray 03/01/17 0500 Signed Impressions: Service Date/Time: Wednesday, March 01, 2017 05:31 - CONCLUSION: Persistent left lower lung consolidation. Left chest tube in place; no pneumothorax seen. Giuseppe Lares MD Lower Extremity Ultrasound 02/27/17 0000 Signed Impressions: Service Date/Time: February 11:33 - CONCLUSION: 1. Venous mapping as above. 2. Nonvisualization of the greater saphenous below the knee on the right and peripheral to the proximal below knee greater saphenous on the left. Tab Shearer MD Carotid Artery Ultrasound 02/27/17 0000 Signed Impressions: Service Date/Time: February 12:00 - CONCLUSION: 1. Calcified plaquing in both carotid bulbs extending up into the bifurcations. 2. However, no sonographic or Doppler findings of a hemodynamically significant stenosis. Antegrade flow in both vertebral arteries. Tab Shearer MD Assessment and Plan Problem List: (1) CAD (coronary artery disease) ICD Codes: I25.10 - Atherosclerotic heart disease of [place] coronary artery without angina pectoris Status: Acute Plan: now s/p CABG X 4; continue current mgt and post-op supportive care (2) NSTEMI (non-ST elevated myocardial infarction) ICD Codes: I21.4 - Non-ST elevation (NSTEMI) myocardial infarction Status: Acute (3) Angina pectoris ICD Codes: I20.9 - Angina pectoris, unspecified Plan: resolved post cabg (4) Multi-vessel coronary artery stenosis ICD Codes: I25.10 - Atherosclerotic heart disease of [place] coronary artery without angina pectoris (5) S/P CABG x 4 ICD Codes: Z95.1 - Presence of aortocoronary bypass graft (6) Postoperative atrial fibrillation ICD Codes: I97.89 - Other postprocedural complications and disorders of the circulatory system, not elsewhere classified; I48.91 - Unspecified atrial fibrillation Plan: back in sr; now on PO amio Assessment and Plan Hopefully some of her confusion will clear but there were signs of at least mild dementia preop Continue current post-op mgt. Problem Qualifiers (1) CAD (coronary artery disease): Qualified Codes: I25.110 - Atherosclerotic heart disease of [place] coronary artery with unstable angina pectoris Pio Lara MD Mar 02, 2017 09:26
--- NOTE | 2017-03-02 09:37 | PD.CAR.PN ---
CVT Progress Note Subjective/Hospital Course: 71 yo presenting with recurrent CP and NSTEMI. 02/28 SURGICAL PROCEDURE 1. Urgent Off-pump Coronary Artery Bypass Grafting x 4 with Left Internal Mammary Artery (WARNER) to Diagonal 1 (D1), reverse saphenous vein graft to the Left Anterior Descending (LAD), reverse saphenous vein graft to the RPDA, and reverse saphenous vein graft to the OM1 2. Left Leg Endoscopic Vein [place] 3. Intraoperative Vein Mapping 4. Multi-Level Intercostal Nerve Block. 03/01 Doing well Extubated and tolerating well Wean Edgar as tolerated Maintain CT to drainage Pulmonary toiletry 03/[address] Transfer telemetry Ambulate Objective: Vital Signs Date Time Temp Pulse Resp B/P (MAP) Pulse Ox O2 Delivery O2 Flow Rate FiO2 03/02/17 07:39 61 03/02/17 07:39 98.3 61 18 90/54 (66) 96 Arterial Line 03/02/17 07:38 96 Room Air 03/02/17 07:17 18 03/02/17 04:42 18 03/02/17 04:07 158 90/49 03/02/17 03:52 155 120/45 03/02/17 03:00 98.0 136 18 102/58 (73) 98 123/40 (67) 03/02/17 03:00 98 Room Air 03/02/17 03:00 122 03/01/17 23:00 95 Room Air 03/01/17 23:00 98.4 97 18 96/54 (68) 95 105/40 (61) 03/01/17 23:00 89 03/01/17 19:00 98.5 97 18 109/60 (76) 95 140/53 (82) 03/01/17 19:00 98 03/01/17 19:00 95 Room Air 03/01/17 15:11 98 Room Air 03/01/17 15:10 61 03/01/17 15:09 97.8 84 19 103/62 (76) 96 114/45 (68) 03/01/17 11:00 98 Room Air 03/01/17 11:00 97.5 86 19 91/50 (64) 98 102/44 (63) 03/01/17 11:00 86 03/01/17 09:46 99 Nasal Cannula 2.00 Labs: Laboratory Tests Test 03/02/17 04:20 White Blood Count 2.9 TH/MM3 (4.0-11.0) Red Blood Count 2.16 MIL/MM3 (4.00-5.30) Hemoglobin 7.1 GM/DL (11.6-15.3) Hematocrit 21.0 % (35.0-46.0) Mean Corpuscular Volume 97.3 FL (80.0-100.0) Mean Corpuscular Hemoglobin 32.7 PG (27.0-34.0) Mean Corpuscular Hemoglobin Concent 33.6 % (32.0-36.0) Red Cell Distribution Width 13.8 % (11.6-17.2) Platelet Count 95 TH/MM3 (150-450) Mean Platelet Volume 8.4 FL (7.0-11.0) Blood Urea Nitrogen 13 MG/DL (7-18) Creatinine 0.70 MG/DL (0.50-1.00) Random Glucose 125 MG/DL (74-106) Calcium Level 8.1 MG/DL (8.5-10.1) Magnesium Level 1.8 MG/DL (1.5-2.5) Sodium Level 134 MEQ/L (136-145) Potassium Level 4.2 MEQ/L (3.5-5.1) Chloride Level 103 MEQ/L (98-107) Carbon Dioxide Level 25.1 MEQ/L (21.0-32.0) Anion Gap 6 MEQ/L (5-15) Estimat Glomerular Filtration Rate 82 ML/MIN (>89) Result Diagram: 03/02/1741903/02/170 (1) CAD (coronary artery disease) Plan: now s/p CABG X 4; continue current mgt and post-op supportive care (2) NSTEMI (non-ST elevated myocardial infarction) (3) Angina pectoris Plan: resolved post cabg (4) Multi-vessel coronary artery stenosis (5) S/P CABG x 4 (6) Postoperative atrial fibrillation Plan: back in sr; now on PO amio Problem Qualifiers (1) CAD (coronary artery disease): Qualified Codes: I25.110 - Atherosclerotic heart disease of [place] coronary artery with unstable angina pectoris Steve Mcnamara MD Mar 02, 2017 09:37
[2017-03-02] MEDS: SODIUM CHLOR 0.45% 1000 ML INJ 1,000 ML IV SCH ×2 (12:56)
--- NOTE | 2017-03-02 14:45 | HHI.PR ---
Subjective Subjective Remarks Resting in the bed, opens eyes to verbal stimuli Glad to get chest tube out states it feels much better Afebrile BP borderline low, Tanesha-Synephrine drip off Lopressor dose be inhaled and or decreased No family here for now Review of Systems Constitutional Constitutional Remarks ROS reviewed answering simple question, denies any current chest pain or shortness of breath Neurologic Neurologic: Lightheaded (occasional) Vitals/Results Intake & Output 03/02/17 03/02/17 03/03/17 15:00 23:00 07:00 Intake Total 200 ml Balance 200 ml IV Total 200 ml Vital Signs Vital Signs Date Time Temp Pulse Resp B/P (MAP) Pulse Ox O2 Delivery O2 Flow Rate FiO2 03/02/17 11:07 98.3 61 18 83/56 (65) 99 03/02/17 11:06 78 03/02/17 11:05 99 Room Air 03/02/17 07:39 61 03/02/17 07:39 98.3 61 18 90/54 (66) 96 Arterial Line 03/02/17 07:38 96 Room Air 03/02/17 07:17 18 03/02/17 04:42 18 03/02/17 04:07 158 90/49 03/02/17 03:52 155 120/45 03/02/17 03:00 98.0 136 18 102/58 (73) 98 123/40 (67) 03/02/17 03:00 98 Room Air 03/02/17 03:00 122 03/01/17 23:00 95 Room Air 03/01/17 23:00 98.4 97 18 96/54 (68) 95 105/40 (61) 03/01/17 23:00 89 03/01/17 19:00 98.5 97 18 109/60 (76) 95 140/53 (82) 03/01/17 19:00 98 03/01/17 19:00 95 Room Air 03/01/17 15:11 98 Room Air 03/01/17 15:10 61 03/01/17 15:09 97.8 84 19 103/62 (76) 96 114/45 (68) CBC/BMP: 03/02/17 0420 03/02/17 0420 Lab Results Laboratory Tests Test 03/02/17 04:20 White Blood Count 2.9 TH/MM3 Red Blood Count 2.16 MIL/MM3 Hemoglobin 7.1 GM/DL Hematocrit 21.0 % Mean Corpuscular Volume 97.3 FL Mean Corpuscular Hemoglobin 32.7 PG Mean Corpuscular Hemoglobin Concent 33.6 % Red Cell Distribution Width 13.8 % Platelet Count 95 TH/MM3 Mean Platelet Volume 8.4 FL Blood Urea Nitrogen 13 MG/DL Creatinine 0.70 MG/DL Random Glucose 125 MG/DL Calcium Level 8.1 MG/DL Magnesium Level 1.8 MG/DL Sodium Level 134 MEQ/L Potassium Level 4.2 MEQ/L Chloride Level 103 MEQ/L Carbon Dioxide Level 25.1 MEQ/L Anion Gap 6 MEQ/L Estimat Glomerular Filtration Rate 82 ML/MIN Imaging Remarks Last Impressions Chest X-Ray 03/01/17 0500 Signed Impressions: Service Date/Time: Wednesday, March 01, 2017 05:31 - CONCLUSION: Persistent left lower lung consolidation. Left chest tube in place; no pneumothorax seen. Giuseppe Lares MD Lower Extremity Ultrasound 02/27/17 0000 Signed Impressions: Service Date/Time: February 11:33 - CONCLUSION: 1. Venous mapping as above. 2. Nonvisualization of the greater saphenous below the knee on the right and peripheral to the proximal below knee greater saphenous on the left. Tab Shearer MD Carotid Artery Ultrasound 02/27/17 0000 Signed Impressions: Service Date/Time: February 12:00 - CONCLUSION: 1. Calcified plaquing in both carotid bulbs extending up into the bifurcations. 2. However, no sonographic or Doppler findings of a hemodynamically significant stenosis. Antegrade flow in both vertebral arteries. Tab Shearer MD Current Medications Administered Medications Medications (Trade) Dose Ordered Sig/Yue Route PRN Reason Start Time Stop Time Status Last Admin Dose Admin Sodium Chloride 1,000 ml @ 75 mls/hr [id number] IV 02/26/17 16:00 02/27/17 18:40 Senna/Docusate Sodium (Eleni-Colace) 1 tab BID PO 02/26/17 21:00 03/02/17 08:44 Atorvastatin Calcium (Lipitor) 80 mg HS PO 02/26/17 21:00 03/01/17 20:25 Cholecalciferol (Vitamin D3) 1,000 units DAILY PO 02/27/17 09:00 03/02/17 08:42 Levetriacetam (Keppra) 1,000 mg BID PO 02/26/17 21:00 03/02/17 08:42 Nitroglycerin (Nitrostat Sl) 0.4 mg Q5M PRN SL CHEST PAIN 02/26/17 19:00 02/26/17 20:59 Sodium Chloride (NS Flush) 2 ml BID IV FLUSH 02/27/17 21:00 03/02/17 08:42 Cefazolin Sodium/ Dextrose 50 ml @ 150 mls/hr COMPREHENSIVE OPHTHALMOLOGIST IV 02/27/17 10:15 03/06/17 10:14 02/28/17 08:24 Potassium Chloride (KCl) 40 meq DAILY PO 02/27/17 17:30 03/02/17 08:43 Phenylephrine HCl 40 mg/Dextrose 500 ml @ 30 mls/hr TITRATE PRN IV Maintain MAP > 65 mmHg 02/28/17 12:15 02/28/17 15:35 Albumin Human (Albumin 5% Inj) 12.5 gm UNSCH PRN IV SEE LABEL COMMENTS 02/28/17 12:15 02/28/17 15:42 Aspirin (Aspirin Chew) 81 mg DAILY PO 03/01/17 09:00 03/01/17 08:38 Clopidogrel Bisulfate (Plavix) 75 mg DAILY PO 03/01/17 09:00 03/02/17 08:43 Pantoprazole Sodium (Protonix) 40 mg DAILY@06 PO 03/01/17 06:00 03/02/17 06:00 Acetaminophen/ Hydrocodone Bitart ([place] 5-325 Mg) 1 tab Q3H PRN PO PAIN SCALE 1 TO 5 02/28/17 12:15 03/02/17 06:27 Albuterol/ Ipratropium (Duoneb Neb) 1 ampule Q6HR NEB NEB 02/28/17 16:00 03/02/17 11:02 Calcium Chloride 1 gm/Sodium Chloride 110 ml @ 110 mls/hr UNSCH PRN IV SEE COMMENTS 03/01/17 03:15 03/01/17 04:10 Physical Exam General General Appearance: No Acute Distress Appearance Remarks Thin borderline frail Eyes Eye Exam: Pupils Equal, Pupils Reactive Ears & Nose Ears & Nose Exam: Nasal Mucosa [place] (they'll) Throat Throat Exam: Oral Mucosa [place] & Moist (pale) Neck Neck Exam: Neck Supple, Trachea Midline Pulmonary Resp Exam: Decreased Bases, Diminished Breath Sounds Resp Remarks Diminished left lower lobe mild improvement, chest tube DC'd today Cardiology CV Exam: Regular, Murmur (grade 1/6 mild,) Chest/Breast Chest/Breast Remarks Left-sided chest tube intact Gastrointestinal/Abdomen GI Exam: Soft, Non-Tender, Bowel Sounds Present, Non-Distended Genitourinary Remarks Voiding on her own Integumentary Skin Exam: Warm, Dry Skin Remarks Turgor thin Extremeties Extremities Exam: No Edema, Pedal Pulses Palpable Neurologic Neuro Exam: Awake, Speech Clear (minimal conversation, but understandable), No Focal Deficits Psychiatric Psych Exam: Appropriate Responses VTE Prophylaxis VTE Prophylaxis Meds: Heparin Assessment/Plan Problem List: (1) NSTEMI (non-ST elevated myocardial infarction) ICD Codes: I21.4 - Non-ST elevation (NSTEMI) myocardial infarction Status: Acute (2) Hyperlipidemia ICD Codes: E78.5 - Hyperlipidemia, unspecified Status: Chronic (3) CAD (coronary artery disease) ICD Codes: I25.10 - Atherosclerotic heart disease of [place] coronary artery without angina pectoris Status: Acute (4) Pancytopenia ICD Codes: D61.818 - Other pancytopenia Status: Chronic (5) Seizure disorder ICD Codes: G40.909 - Epilepsy, unspecified, not intractable, without status epilepticus Status: Chronic (6) Hypertension ICD Codes: I10 - Essential (primary) hypertension Status: Chronic (7) Hx TIA/stroke w/o resid ICD Codes: Z86.73 - Personal history of transient ischemic attack (TIA), and cerebral infarction without residual deficits Status: Chronic (8) Non-Hodgkin lymphoma ICD Codes: C85.90 - Non-Hodgkin lymphoma, unspecified, unspecified site Status: Chronic (9) Angina pectoris ICD Codes: I20.9 - Angina pectoris, unspecified Assessment/Plan Non-STEMI on admission to the hospital Anemia, status post CABG blood loss, possible acute on chronic CABG x 4, POD 2, left chest tube remove, occlusive dressing clean dry and intact , pearly resting in the bed dozing but responds to verbal stimuli Mild pleasant confusion is resolving, patient understands that she is on the hospital and that she has had heart surgery. Asking appropriate questions. Comorbidities of hyperlipidemia, hypertension, COPD, TIA 2-D echo EF 45-50%, Plavix , aspirin Carotid disease no significant stenosis Mild hypotension, tanesha-drip DC'd, Lopressor dose held, dose decreased, patient having some mild symptoms of lightheadedness at times, activity is sitting up slowly before standing Receiving IV calcium chloride today History of Non-Hodgkin's B-cell lymphoma, on maintenance Rituxan. Patient follows up regularly with Dr. Enriquez History of epilepsy, last seizure June 2016 -Continue Keppra 1000 milligrams by mouth twice a day Dementia, probable mild underlying disease, much more alert and responsive today , altered mental status seems to be resolving For DVT prophylaxis Transition out of intensive care planned for tomorrow, telemetry Discussed with nurse Discussed with Dr. White, seen on his behalf Discussed with patient, Problem Qualifiers (1) Hyperlipidemia: Qualified Codes: E78.5 - Hyperlipidemia, unspecified (2) CAD (coronary artery disease): Qualified Codes: I25.110 - Atherosclerotic heart disease of [place] coronary artery with unstable angina pectoris (3) Hypertension: Qualified Codes: I10 - Essential (primary) hypertension (4) Non-Hodgkin lymphoma: Qualified Codes: C82.00 - Follicular lymphoma grade I, unspecified site Sofia Schwarz Mar 02, 2017 14:45
[2017-03-02] MEDS: ATORVASTATIN 80 MG TAB PO SCH (21:37)
[2017-03-03] VITALS (26 sets, daily range): BP systolic 102–148; BP diastolic 55–71; PULSE 68–97; RESP 16–19; TEMP 97.7–98.5; O2SAT 92–100
[2017-03-03] MEDS: SODIUM CHLOR 0.45% 1000 ML INJ 1,000 ML IV SCH (01:25)
[2017-03-03 05:21] LABS: MEAN CELL VOLUME 97.1 FL (80.0-100.0); PLATELET COUNT 97 TH/MM3 (150-450); RED BLOOD COUNT 1.95 MIL/MM3 (4.00-5.30); WHITE BLOOD COUNT 2.8 TH/MM3 (4.0-11.0)
[2017-03-03 05:28] LABS: REVIEW FLAG FINAL
[2017-03-03 05:31] LABS: HEMATOCRIT 18.9 % (35.0-46.0)
[2017-03-03] MEDS: RESP: ALBUTEROL 2.5 MG/IPRATROPIUM 0.5 MG NEB (SCH) NEB ×3 (05:33→22:00)
[2017-03-03 05:46] LABS: MAGNESIUM 2.2 MG/DL (1.5-2.5); POTASSIUM 4.3 MEQ/L (3.5-5.1)
[2017-03-03] MEDS: PANTOPRAZOLE SOD 40 MG DELAYED RELEASE TAB PO SCH (06:10)
[2017-03-03] MEDS: ACETAMINOPHEN/HYDROcodone 325 MG/5 MG TAB PO PRN ×2 (06:11→10:15)
[2017-03-03] MEDS ORDERED: FUROSEMIDE 20 MG/2 ML VIAL IV PUSH SCH (08:00)
--- NOTE | 2017-03-03 08:21 | PD.CARD.PN ---
Subjective Subjective Remarks Pt doing better, chest tubes out, SR; no complaints. Objective Medications Administered Medications Medications (Trade) Dose Ordered Sig/Yue Route PRN Reason Start Time Stop Time Status Last Admin Dose Admin Sodium Chloride 1,000 ml @ 75 mls/hr [id number] IV 02/26/17 16:00 02/27/17 18:40 Senna/Docusate Sodium (Eleni-Colace) 1 tab BID PO 02/26/17 21:00 03/02/17 21:37 Atorvastatin Calcium (Lipitor) 80 mg HS PO 02/26/17 21:00 03/02/17 21:37 Cholecalciferol (Vitamin D3) 1,000 units DAILY PO 02/27/17 09:00 03/02/17 08:42 Levetriacetam (Keppra) 1,000 mg BID PO 02/26/17 21:00 03/02/17 21:37 Nitroglycerin (Nitrostat Sl) 0.4 mg Q5M PRN SL CHEST PAIN 02/26/17 19:00 02/26/17 20:59 Sodium Chloride (NS Flush) 2 ml BID IV FLUSH 02/27/17 21:00 03/02/17 21:38 Cefazolin Sodium/ Dextrose 50 ml @ 150 mls/hr MANAGER BILINGUAL IV 02/27/17 10:15 03/06/17 10:14 02/28/17 08:24 Potassium Chloride (KCl) 40 meq DAILY PO 02/27/17 17:30 03/02/17 08:43 Phenylephrine HCl 40 mg/Dextrose 500 ml @ 30 mls/hr TITRATE PRN IV Maintain MAP > 65 mmHg 02/28/17 12:15 02/28/17 15:35 Albumin Human (Albumin 5% Inj) 12.5 gm UNSCH PRN IV SEE LABEL COMMENTS 02/28/17 12:15 02/28/17 15:42 Aspirin (Aspirin Chew) 81 mg DAILY PO 03/01/17 09:00 03/01/17 08:38 Clopidogrel Bisulfate (Plavix) 75 mg DAILY PO 03/01/17 09:00 03/02/17 08:43 Pantoprazole Sodium (Protonix) 40 mg DAILY@06 PO 03/01/17 06:00 03/03/17 06:10 Acetaminophen/ Hydrocodone Bitart ([place] 5-325 Mg) 1 tab Q3H PRN PO PAIN SCALE 1 TO 5 02/28/17 12:15 03/03/17 06:11 Albuterol/ Ipratropium (Duoneb Neb) 1 ampule Q6HR NEB NEB 02/28/17 16:00 03/03/17 05:33 Calcium Chloride 1 gm/Sodium Chloride 110 ml @ 110 mls/hr UNSCH PRN IV SEE COMMENTS 03/01/17 03:15 03/01/17 04:10 Metoprolol Tartrate (Lopressor) 12.5 mg BID PO 03/02/17 10:30 03/02/17 21:37 Amiodarone HCl (Cordarone) 400 mg Q12HR PO 03/02/17 21:00 03/02/17 21:36 Vital Signs / I&O Vital Signs Date Time Temp Pulse Resp B/P (MAP) Pulse Ox O2 Delivery O2 Flow Rate FiO2 03/03/17 08:00 Room Air 03/03/17 08:00 98.4 86 18 116/56 (76) 95 03/03/17 07:00 86 03/03/17 06:52 98.1 89 16 106/55 95 03/03/17 03:00 98.4 95 18 113/58 (76) 96 03/03/17 03:00 95 Room Air 03/03/17 03:00 97 03/02/17 23:00 99 Room Air 03/02/17 23:00 98.8 104 18 107/49 (68) 99 03/02/17 23:00 104 03/02/17 22:15 21 03/02/17 22:13 16 03/02/17 19:00 97.5 95 18 127/66 (86) 95 03/02/17 19:00 96 03/02/17 19:00 95 Room Air 03/02/17 15:05 78 03/02/17 15:05 97.7 78 18 94/60 (71) 99 03/02/17 15:05 99 Room Air 03/02/17 11:07 98.3 61 18 83/56 (65) 99 03/02/17 11:06 78 03/02/17 11:05 99 Room Air I/O 03/02/17 03/02/17 03/02/17 03/03/17 03/03/17 03/03/17 07:00 15:00 23:00 07:00 15:00 23:00 Intake Total 940 ml 200 ml 500 ml 242 ml Output Total 1415 ml 1100 ml 800 ml Balance -475 ml 200 ml -600 ml -558 ml Intake Oral 220 ml 500 ml 240 ml IV Total 720 ml 200 ml Blood Product IV Normal Saline Flush 2 ml Output Urine Total 1275 ml 1100 ml 800 ml Chest Tube Drainage Total 140 ml # Voids 3 # Bowel Movements 0 0 0 Physical Exam GENERAL: This is a well-nourished, well-developed patient, in no apparent distress. CARDIOVASCULAR: Regular rate and rhythm without murmurs, gallops, or rubs. RESPIRATORY: Clear to auscultation. Breath sounds equal bilaterally. No wheezes , rales, or rhonchi. GASTROINTESTINAL: Abdomen soft, non-tender, nondistended. Normal active bowel sounds MUSCULOSKELETAL: Extremities without clubbing, cyanosis, or edema. NEURO: Alert & Oriented x4 to person, place, time, situation. Moves all ext x4 Laboratory Laboratory Tests Test 03/03/17 05:00 White Blood Count 2.8 TH/MM3 Red Blood Count 1.95 MIL/MM3 Hemoglobin 6.4 GM/DL Hematocrit 18.9 % Mean Corpuscular Volume 97.1 FL Mean Corpuscular Hemoglobin 33.0 PG Mean Corpuscular Hemoglobin Concent 34.0 % Red Cell Distribution Width 14.0 % Platelet Count 97 TH/MM3 Mean Platelet Volume 7.6 FL Blood Urea Nitrogen 10 MG/DL Creatinine 0.69 MG/DL Random Glucose 95 MG/DL Calcium Level 8.0 MG/DL Magnesium Level 2.2 MG/DL Sodium Level 140 MEQ/L Potassium Level 4.3 MEQ/L Chloride Level 108 MEQ/L Carbon Dioxide Level 27.0 MEQ/L Anion Gap 5 MEQ/L Estimat Glomerular Filtration Rate 83 ML/MIN Imaging Last Impressions Chest X-Ray 03/01/17 0500 Signed Impressions: Service Date/Time: Wednesday, March 01, 2017 05:31 - CONCLUSION: Persistent left lower lung consolidation. Left chest tube in place; no pneumothorax seen. Giuseppe Lares MD Lower Extremity Ultrasound 02/27/17 0000 Signed Impressions: Service Date/Time: February 11:33 - CONCLUSION: 1. Venous mapping as above. 2. Nonvisualization of the greater saphenous below the knee on the right and peripheral to the proximal below knee greater saphenous on the left. Tab Shearer MD Carotid Artery Ultrasound 02/27/17 0000 Signed Impressions: Service Date/Time: February 12:00 - CONCLUSION: 1. Calcified plaquing in both carotid bulbs extending up into the bifurcations. 2. However, no sonographic or Doppler findings of a hemodynamically significant stenosis. Antegrade flow in both vertebral arteries. Tab Shearer MD Assessment and Plan Problem List: (1) CAD (coronary artery disease) ICD Codes: I25.10 - Atherosclerotic heart disease of [place] coronary artery without angina pectoris Status: Acute Plan: now s/p CABG X 4; continue current mgt and post-op supportive care (2) NSTEMI (non-ST elevated myocardial infarction) ICD Codes: I21.4 - Non-ST elevation (NSTEMI) myocardial infarction Status: Acute (3) Angina pectoris ICD Codes: I20.9 - Angina pectoris, unspecified Plan: resolved post cabg (4) Multi-vessel coronary artery stenosis ICD Codes: I25.10 - Atherosclerotic heart disease of [place] coronary artery without angina pectoris (5) S/P CABG x 4 ICD Codes: Z95.1 - Presence of aortocoronary bypass graft (6) Postoperative atrial fibrillation ICD Codes: I97.89 - Other postprocedural complications and disorders of the circulatory system, not elsewhere classified; I48.91 - Unspecified atrial fibrillation Plan: back in sr; now on PO amio; will perform outpatient monitoring to ensure continued SR Assessment and Plan Mentation seems more clear this AM, apparently transferring out of CVICU today Problem Qualifiers (1) CAD (coronary artery disease): Qualified Codes: I25.110 - Atherosclerotic heart disease of [place] coronary artery with unstable angina pectoris Pio Lara MD Mar 03, 2017 08:20
[2017-03-03] MEDS: DOCUSATE SODIUM 50 MG/SENNA 8.6 MG TAB PO SCH ×2 (08:33→21:32)
[2017-03-03] MEDS: CHOLECALCIFEROL (VIT D3) 1000 UNIT TAB PO SCH (08:33)
[2017-03-03] MEDS: AMIODARONE 200 MG TAB PO SCH ×2 (08:33→21:31)
[2017-03-03] MEDS: levETIRAcetam 500 MG TAB PO SCH ×2 (08:33→21:37)
[2017-03-03] MEDS: CLOPIDOGREL 75 MG TAB PO SCH (08:33)
[2017-03-03] MEDS: POTASSIUM CHLORIDE 20 MEQ CONTROLLED RELEASE TAB PO SCH (08:34)
[2017-03-03] MEDS: METOPROLOL TARTRATE 25 MG TAB PO SCH ×2 (08:34→21:32)
[2017-03-03] MEDS: SODIUM CHLORIDE 0.9% FLUSH 10 ML FLUSH IV FLUSH SCH ×2 (08:34→21:40)
[2017-03-03] MEDS: ASPIRIN 81 MG CHEW TAB PO SCH (08:51)
--- NOTE | 2017-03-03 11:49 | HHI.CCPN ---
Subjective Remarks/Hospital Course This is a 71-year-old female. Date of admission 02/26/2017. Date of consultation 03/01/2017. Past medical history includes anxiety, seizure disorder last 07/26, history of TIA/CVA with left-sided hemiparesis resolving, non-Hodgkin's lymphoma B cell/follicular type in remission currently on maintenance Rituximab last dose 3 weeks ago, COPD/asthma, gastroesophageal reflux disease, osteoarthritis, hypertension, dyslipidemia left breast mass/ benign. Patient originally presented to [facility] 02/26 with left-sided chest pain. Cardiology was consulted troponin peaked at 1.71. Cardiac catheterization revealed left main distal 60%. IVUS 4 mm, LAD proximal 99%, diagonal 80-90%, left circumflex 50% mid, OM1 50%, OM2 60%, RCA 70% throughout with 80% mid stenosis. Recommended for CABG. Echocardiogram revealed EF 45%. Hypokinesis in the apical and mid anterior regions. Possible atrial shunt. Pulmonary arterial pressures 21.4 mmHg. Today, patient underwent CABG 4. No Intra-Op complications. 2500 crystalloid. 250 Cell Saver. 500 EBL. 1 cc urine output. Patient is currently off Precedex drip and on no further sedation or drips at the present time. Potassium has been replaced due to 3.7. We are asked to evaluate 03/01: Tmax 99.1. Chest tube -840. Currently on low-dose Edgar-Synephrine overnight. No blood transfusion. Awake alert and following commands. Subjective 03/02: Afebrile.. Chest tube -260 ss. Currently on amiodarone drip at 1 mg/mL due to atrial fibrillation currently normal sinus rhythm. Receiving 2 g mag sulfate IV 1 now. Potassium chloride 10 mEq to maintain potassium of 4.[address] surgery's recommendations. No BM 03/03 No events overnight recieving 2units PRBC for Hgb 6.4. On room air oxygen. Chest tube is out. Objective Vital Signs Date Time Temp Pulse Resp B/P (MAP) Pulse Ox O2 Delivery O2 Flow Rate FiO2 03/03/17 11:24 100 Room Air 03/03/17 11:20 98.2 68 18 109/58 (75) 03/02/17 22:15 21 03/01/17 09:46 2.00 Intake and Output 9/03/03/17 03/04/17 08:00 16:00 00:00 Intake Total 242 ml 910 ml Output Total 800 ml 1100 ml Balance -558 ml -190 ml Result Diagram: 03/03/17 0500 03/03/17 0500 Other Results Laboratory Tests Test 03/03/17 05:00 White Blood Count 2.8 TH/MM3 Red Blood Count 1.95 MIL/MM3 Hemoglobin 6.4 GM/DL Hematocrit 18.9 % Mean Corpuscular Volume 97.1 FL Mean Corpuscular Hemoglobin 33.0 PG Mean Corpuscular Hemoglobin Concent 34.0 % Red Cell Distribution Width 14.0 % Platelet Count 97 TH/MM3 Mean Platelet Volume 7.6 FL Blood Urea Nitrogen 10 MG/DL Creatinine 0.69 MG/DL Random Glucose 95 MG/DL Calcium Level 8.0 MG/DL Magnesium Level 2.2 MG/DL Sodium Level 140 MEQ/L Potassium Level 4.3 MEQ/L Chloride Level 108 MEQ/L Carbon Dioxide Level 27.0 MEQ/L Anion Gap 5 MEQ/L Estimat Glomerular Filtration Rate 83 ML/MIN Imaging Last Impressions Chest X-Ray 03/01/17 0500 Signed Impressions: Service Date/Time: Wednesday, March 01, 2017 05:31 - CONCLUSION: Persistent left lower lung consolidation. Left chest tube in place; no pneumothorax seen. Giuseppe Lares MD Lower Extremity Ultrasound 02/27/17 0000 Signed Impressions: Service Date/Time: February 11:33 - CONCLUSION: 1. Venous mapping as above. 2. Nonvisualization of the greater saphenous below the knee on the right and peripheral to the proximal below knee greater saphenous on the left. Tab Shearer MD Carotid Artery Ultrasound 02/27/17 0000 Signed Impressions: Service Date/Time: February 12:00 - CONCLUSION: 1. Calcified plaquing in both carotid bulbs extending up into the bifurcations. 2. However, no sonographic or Doppler findings of a hemodynamically significant stenosis. Antegrade flow in both vertebral arteries. Tab Shearer MD Objective Remarks GENERAL: 71-year-old female, sitting in chair in no acute distress SKIN: Warm and dry. HEAD: Atraumatic. Normocephalic. EYES: Pupils equal and round about 2 mm bilaterally and brisk. No scleral icterus. No injection or drainage. ENT: No nasal bleeding or discharge. Mucous membranes pink and moist. NECK: Trachea midline. No JVD. CARDIOVASCULAR: Regular rate and rhythm. S1, S2. No S4. Without murmur. Mediastinal clean dry and intact RESPIRATORY: Clear to auscultation. Breath sounds equal bilaterally. Patient has mediastinal/left-sided chest tube GASTROINTESTINAL: Abdomen soft, non-tender, scaphoid. Hypoactive bowel sounds present MUSCULOSKELETAL: Extremities without significant peripheral edema. No obvious deformities. Left lower extremity wrapped in Alvino bandage. Dopplerable pulses bilateral lower extremities DP/PT NEUROLOGICAL: Cranial nerves II through XII grossly intact. Strength is equal symmetric. Normal sensation. Date of Insertion: Feb 28, 2017 Line: Central Venous Catheter Side: Left Location: Subclavian A/P Assessment and Plan Neuro/Psych: Seizure disorder NOS History of TIA with left-sided weakness Anxiety disorder NOS Continue levetiracetam 1000 mg twice a day for seizures. Currently on temazepam 15 mill grams at night when necessary insomnia Continue acetaminophen 650 mg by mouth every 4 hours when necessary fever Pain management per CT surgery. Currently on acetaminophen/hydrocodone 5/325-1 every 3 hours and morphine 1 mg every 10 minutes when necessary pain Orders currently pending Seizure precautions CV: Postoperative day #2 Urgent Off-pump Coronary Artery Bypass Grafting x 4 with Left Internal Mammary Artery (WARNER) to Diagonal 1 (D1), reverse saphenous vein graft to the Left Anterior Descending (LAD), reverse saphenous vein graft to the RPDA, and reverse saphenous vein graft to the OM1 with left EVH Three-vessel coronary artery disease Hypertension Dyslipidemia Currently on metoprolol 12.5 mg BID, Amiodarone 400mg Q12 Resume atorvastatin 80 mg by mouth daily for dyslipidemia On aspirin 81 mg by mouth daily and clopidogrel 75 mg by mouth daily Resp: History of asthma/COPD Oxygen PRN keep sat > 92% Incentive spirometry while awake Scheduled albuterol/ipratropium aerosols every 6 hours GI: Gastroesophageal reflux disease GI prophylaxis with pantoprazole Eleni-Colace one tablet twice a day for bowel regimen Advance diet if ok with CTS : Monitor renal function, electrolytes replacement per protocol. Endo: SSI if needed for glycemic control. Heme: Leukopenia Normocytic anemia Thrombocytopenia History of non-Hodgkin's lymphoma/B-cell follicular type on maintenance rituximab Monitor CBC daily. For transfusion 2units PRBC ID: Monitor for infection Postoperative antibiotics with cefazolin per CT surgery 1 g every 8 hours total of 5 dosages has been completed MSK: Osteoarthritis Continue cholecalciferol 1000 units by mouth daily Physical therapy evaluate and treat Access - Utilize left subclavian Cordis with dual-lumen catheter. Patient does have right Port-A-Cath catheter Prophylaxis - GI -pantoprazole - DVT - SCD/SHIRLEY hose to right lower extremity. Pharmacological prophylaxis when okay with CT surgery Will sign off. [facility] hospitalist is following for medical management. Level II Janusz Elise MD Mar 03, 2017 11:49
--- NOTE | 2017-03-03 12:21 | PD.CAR.PN ---
CVT Progress Note Subjective/Hospital Course: 71 yo presenting with recurrent CP and NSTEMI. EF 45-50% PMH: Non Hodgkins B-cell type Lymphoma , last chemo Jun 2016/ on Rituxan therapy , COPD, hx TIA 02/28 SURGICAL PROCEDURE 1. Urgent Off-pump Coronary Artery Bypass Grafting x 4 with Left Internal Mammary Artery (WARNER) to Diagonal 1 (D1), reverse saphenous vein graft to the Left Anterior Descending (LAD), reverse saphenous vein graft to the RPDA, and reverse saphenous vein graft to the OM1 2. Left Leg Endoscopic Vein [place] 3. Intraoperative Vein Mapping 4. Multi-Level Intercostal Nerve Block. 03/01 Doing well Extubated and tolerating well Wean Edgar as tolerated Maintain CT to drainage Pulmonary toiletry 03/[address] Transfer telemetry Ambulate 03/03 HGB 6.4/ for 2 units PRBC today BP stable on low dose BB statin ASA, amiodarone no further Afib/ will monitor continue PT/ OOB will need cvc line dc later today after blood infused Objective: GENERAL: SKIN: Warm and dry. prevena dressing to chest / incision left EVH site intact and well approximated , chest binder in place HEAD: Normocephalic. EYES: No scleral icterus. No injection or drainage. NECK: Supple, trachea midline. No JVD or lymphadenopathy. CARDIOVASCULAR: Regular rate and rhythm without murmurs, gallops, or rubs. RESPIRATORY: Breath sounds equal bilaterally. No accessory muscle use diminished in bases . GASTROINTESTINAL: Abdomen soft, non-tender, nondistended. MUSCULOSKELETAL: No cyanosis, mild edema. BACK: Nontender without obvious deformity. No CVA tenderness. Vital Signs Date Time Temp Pulse Resp B/P (MAP) Pulse Ox O2 Delivery O2 Flow Rate FiO2 03/03/17 11:24 100 Room Air 03/03/17 11:20 98.2 68 18 109/58 (75) 100 03/03/17 11:17 98.2 68 16 109/58 100 03/03/17 11:12 70 103/59 98 03/03/17 11:07 97.8 69 18 102/58 97 03/03/17 11:00 86 03/03/17 10:55 97.7 72 18 112/62 (79) 100 03/03/17 08:00 Room Air 03/03/17 08:00 98.4 86 18 116/56 (76) 95 03/03/17 07:00 86 03/03/17 06:52 98.1 89 16 106/55 95 03/03/17 03:00 98.4 95 18 113/58 (76) 96 03/03/17 03:00 95 Room Air 03/03/17 03:00 97 03/02/17 23:00 99 Room Air 03/02/17 23:00 98.8 104 18 107/49 (68) 99 03/02/17 23:00 104 03/02/17 22:15 21 03/02/17 22:13 16 03/02/17 19:00 97.5 95 18 127/66 (86) 95 03/02/17 19:00 96 03/02/17 19:00 95 Room Air 03/02/17 15:05 78 03/02/17 15:05 97.7 78 18 94/60 (71) 99 03/02/17 15:05 99 Room Air Labs: Laboratory Tests Test 03/03/17 05:00 White Blood Count 2.8 TH/MM3 (4.0-11.0) Red Blood Count 1.95 MIL/MM3 (4.00-5.30) Hemoglobin 6.4 GM/DL (11.6-15.3) Hematocrit 18.9 % (35.0-46.0) Mean Corpuscular Volume 97.1 FL (80.0-100.0) Mean Corpuscular Hemoglobin 33.0 PG (27.0-34.0) Mean Corpuscular Hemoglobin Concent 34.0 % (32.0-36.0) Red Cell Distribution Width 14.0 % (11.6-17.2) Platelet Count 97 TH/MM3 (150-450) Mean Platelet Volume 7.6 FL (7.0-11.0) Blood Urea Nitrogen 10 MG/DL (7-18) Creatinine 0.69 MG/DL (0.50-1.00) Random Glucose 95 MG/DL (74-106) Calcium Level 8.0 MG/DL (8.5-10.1) Magnesium Level 2.2 MG/DL (1.5-2.5) Sodium Level 140 MEQ/L (136-145) Potassium Level 4.3 MEQ/L (3.5-5.1) Chloride Level 108 MEQ/L (98-107) Carbon Dioxide Level 27.0 MEQ/L (21.0-32.0) Anion Gap 5 MEQ/L (5-15) Estimat Glomerular Filtration Rate 83 ML/MIN (>89) Result Diagram: 03/03/17 0500 03/03/17 0500 Telemetry: NSR (1) S/P CABG x 4 Plan: ASA, statin , BB , plavix pulm toileting nebs ezpap, remove chest binder OOB ambulate (2) CAD (coronary artery disease) Plan: now s/p CABG X 4; continue current mgt and post-op supportive care (3) NSTEMI (non-ST elevated myocardial infarction) (4) Postoperative atrial fibrillation Plan: back in sr; now on PO amio; (5) Non-Hodgkin lymphoma Plan: oncology following (6) Pancytopenia Plan: HGB 6.4 for 2 units PRBC today leukopenia 2/2 rituxan Problem Qualifiers (1) CAD (coronary artery disease): Qualified Codes: I25.110 - Atherosclerotic heart disease of [place] coronary artery with unstable angina pectoris (2) Non-Hodgkin lymphoma: Qualified Codes: C82.00 - Follicular lymphoma grade I, unspecified site Jessica Trotter Mar 03, 2017 12:21
--- NOTE | 2017-03-03 13:39 | HHI.PR ---
Subjective Subjective Remarks Glad to transition to private room Resting in the bed, arouses easily, does where she ist, hat she has had surgery Altered mental status is resolving Receiving packed RBCs Weakened, denies any chest pain Episode of A. fib with RVR yesterday, now on amiodarone PO Review of Systems Constitutional Constitutional Remarks ROS reviewed answering simple question, denies any current chest pain or shortness of breath Pulmonary Respiratory: Coughing (encouraged to turn cough deep breathe, cardiac heart pale at her chest) Cardiology CV Remarks Secured dressing on incision line with small drainage tube GI/Abdomen GI/Abdominal Exam: Constipation (M OM today if no results may need something stronger) Musculoskeletal MS: Weakness, Stiffness Integumentary Skin: Wounds (CABG) Neurologic Neurologic: Lightheaded (occasional) Psychiatric Psychiatric: Normal Mood Vitals/Results Intake & Output 03/03/17 03/03/17 03/04/17 15:00 23:00 07:00 Intake Total 1170 ml Output Total 1100 ml Balance 70 ml Intake Oral 480 ml Packed Cells 650 ml Blood Product IV Normal Saline Flush 40 ml Output Urine Total 1100 ml # Bowel Movements 0 Vital Signs Vital Signs Date Time Temp Pulse Resp B/P (MAP) Pulse Ox O2 Delivery O2 Flow Rate FiO2 03/03/17 12:15 77 16 118/67 92 03/03/17 12:00 76 03/03/17 12:00 72 119/63 99 03/03/17 11:45 73 18 114/60 96 03/03/17 11:30 68 16 108/59 98 03/03/17 11:24 100 Room Air 03/03/17 11:20 98.2 68 18 109/58 (75) 100 03/03/17 11:17 98.2 68 16 109/58 100 03/03/17 11:12 70 103/59 98 03/03/17 11:07 97.8 69 18 102/58 97 03/03/17 11:00 86 03/03/17 10:55 97.7 72 18 112/62 (79) 100 03/03/17 08:00 Room Air 03/03/17 08:00 98.4 86 18 116/56 (76) 95 03/03/17 07:00 86 03/03/17 06:52 98.1 89 16 106/55 95 03/03/17 03:00 98.4 95 18 113/58 (76) 96 03/03/17 03:00 95 Room Air 03/03/17 03:00 97 03/02/17 23:00 99 Room Air 03/02/17 23:00 98.8 104 18 107/49 (68) 99 03/02/17 23:00 104 03/02/17 22:15 21 03/02/17 22:13 16 03/02/17 19:00 97.5 95 18 127/66 (86) 95 03/02/17 19:00 96 03/02/17 19:00 95 Room Air 03/02/17 15:05 78 03/02/17 15:05 97.7 78 18 94/60 (71) 99 03/02/17 15:05 99 Room Air CBC/BMP: 03/03/17 0500 03/03/17 0500 Lab Results Laboratory Tests Test 03/03/17 05:00 White Blood Count 2.8 TH/MM3 Red Blood Count 1.95 MIL/MM3 Hemoglobin 6.4 GM/DL Hematocrit 18.9 % Mean Corpuscular Volume 97.1 FL Mean Corpuscular Hemoglobin 33.0 PG Mean Corpuscular Hemoglobin Concent 34.0 % Red Cell Distribution Width 14.0 % Platelet Count 97 TH/MM3 Mean Platelet Volume 7.6 FL Blood Urea Nitrogen 10 MG/DL Creatinine 0.69 MG/DL Random Glucose 95 MG/DL Calcium Level 8.0 MG/DL Magnesium Level 2.2 MG/DL Sodium Level 140 MEQ/L Potassium Level 4.3 MEQ/L Chloride Level 108 MEQ/L Carbon Dioxide Level 27.0 MEQ/L Anion Gap 5 MEQ/L Estimat Glomerular Filtration Rate 83 ML/MIN Imaging Remarks Last Impressions Chest X-Ray 03/01/17 0500 Signed Impressions: Service Date/Time: Wednesday, March 01, 2017 05:31 - CONCLUSION: Persistent left lower lung consolidation. Left chest tube in place; no pneumothorax seen. Giuseppe Lares MD Lower Extremity Ultrasound 02/27/17 0000 Signed Impressions: Service Date/Time: February 11:33 - CONCLUSION: 1. Venous mapping as above. 2. Nonvisualization of the greater saphenous below the knee on the right and peripheral to the proximal below knee greater saphenous on the left. Tab Shearer MD Carotid Artery Ultrasound 02/27/17 0000 Signed Impressions: Service Date/Time: February 12:00 - CONCLUSION: 1. Calcified plaquing in both carotid bulbs extending up into the bifurcations. 2. However, no sonographic or Doppler findings of a hemodynamically significant stenosis. Antegrade flow in both vertebral arteries. Tab Shearer MD Current Medications Administered Medications Medications (Trade) Dose Ordered Sig/Yue Route PRN Reason Start Time Stop Time Status Last Admin Dose Admin Senna/Docusate Sodium (Eleni-Colace) 1 tab BID PO 02/26/17 21:00 03/03/17 08:33 Magnesium Hydroxide (Milk Of Magnteagan Liq) 30 ml Q12H PRN PO MILD - MODERATE CONSTIPATION 02/26/17 15:45 03/03/17 10:00 Atorvastatin Calcium (Lipitor) 80 mg HS PO 02/26/17 21:00 03/02/17 21:37 Cholecalciferol (Vitamin D3) 1,000 units DAILY PO 02/27/17 09:00 03/03/17 08:33 Levetriacetam (Keppra) 1,000 mg BID PO 02/26/17 21:00 03/03/17 08:33 Sodium Chloride (NS Flush) 2 ml BID IV FLUSH 02/27/17 21:00 03/03/17 08:34 Aspirin (Aspirin Chew) 81 mg DAILY PO 03/01/17 09:00 03/01/17 08:38 Clopidogrel Bisulfate (Plavix) 75 mg DAILY PO 03/01/17 09:00 03/03/17 08:33 Pantoprazole Sodium (Protonix) 40 mg DAILY@06 PO 03/01/17 06:00 03/03/17 06:10 Acetaminophen/ Hydrocodone Bitart ([place] 5-325 Mg) 1 tab Q3H PRN PO PAIN SCALE 1 TO 5 02/28/17 12:15 03/03/17 10:15 Albuterol/ Ipratropium (Duoneb Neb) 1 ampule Q6HR NEB NEB 02/28/17 16:00 03/03/17 05:33 Metoprolol Tartrate (Lopressor) 12.5 mg BID PO 03/02/17 10:30 03/03/17 08:34 Amiodarone HCl (Cordarone) 400 mg Q12HR PO 03/02/17 21:00 03/03/17 08:33 Physical Exam General General Appearance: No Acute Distress, Pale Appearance Remarks Thin borderline frail Eyes Eye Exam: Pupils Equal, Pupils Reactive Ears & Nose Ears & Nose Exam: Nasal Mucosa Melvin (they'll) Throat Throat Exam: Oral Mucosa [place] & Moist (pale) Neck Neck Exam: Neck Supple, Trachea Midline Pulmonary Resp Exam: Decreased Bases, Diminished Breath Sounds Resp Remarks Mild diminished breath sounds, left greater than right Cardiology CV Exam: Regular, Arrhythmia (A. fib with RVR on 924, controlled now with by mouth amiodarone), Murmur (grade 1/6 mild,) Chest/Breast Chest/Breast Remarks Left-sided chest tube intact Gastrointestinal/Abdomen GI Exam: Soft, Non-Tender, Bowel Sounds Present, Non-Distended Genitourinary Remarks Voiding on her own Integumentary Skin Exam: Warm, Dry Skin Remarks Turgor thin Extremeties Extremities Exam: No Edema, Pedal Pulses Palpable Neurologic Neuro Exam: Awake, Speech Clear (minimal conversation, but understandable), No Focal Deficits Psychiatric Psych Exam: Appropriate Responses VTE Prophylaxis VTE Prophylaxis Meds: Heparin Assessment/Plan Problem List: (1) NSTEMI (non-ST elevated myocardial infarction) ICD Codes: I21.4 - Non-ST elevation (NSTEMI) myocardial infarction Status: Acute (2) Hyperlipidemia ICD Codes: E78.5 - Hyperlipidemia, unspecified Status: Chronic (3) CAD (coronary artery disease) ICD Codes: I25.10 - Atherosclerotic heart disease of [place] coronary artery without angina pectoris Status: Acute (4) Pancytopenia ICD Codes: D61.818 - Other pancytopenia Status: Chronic (5) Seizure disorder ICD Codes: G40.909 - Epilepsy, unspecified, not intractable, without status epilepticus Status: Chronic (6) Hypertension ICD Codes: I10 - Essential (primary) hypertension Status: Chronic (7) Hx TIA/stroke w/o resid ICD Codes: Z86.73 - Personal history of transient ischemic attack (TIA), and cerebral infarction without residual deficits Status: Chronic (8) Non-Hodgkin lymphoma ICD Codes: C85.90 - Non-Hodgkin lymphoma, unspecified, unspecified site Status: Chronic (9) Angina pectoris ICD Codes: I20.9 - Angina pectoris, unspecified Assessment/Plan Non-STEMI on admission to the hospital Anemia, status post CABG blood loss, possible acute on chronic CABG x 4, POD 2, left chest tube remove, occlusive dressing clean dry and intact , pearly resting in the bed dozing but responds to verbal stimuli Mild pleasant confusion is resolving, patient understands that she is on the hospital and that she has had heart surgery. Asking appropriate questions. Comorbidities of hyperlipidemia, hypertension, COPD, TIA 2-D echo EF 45-50%, Plavix , aspirin, statin, by mouth amiodarone Carotid disease no significant stenosis Mild hypotension, tanesha-drip DC'd, Lopressor dose held, dose decreased, patient having some mild symptoms of lightheadedness at times, activity is sitting up slowly before standing Episode of A. fib with RVR on 03-02, heart rate stabilized with by mouth amiodarone, monitor but no further atrial fib for now, hemoglobin 6.4 per a.m. labs, receiving 2 units packed RBCs Transition to private room stepdown unit today, telemetry, out of bed with physical therapy , History of Non-Hodgkin's B-cell lymphoma, on maintenance Rituxan. Patient follows up regularly with Dr. 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 White, seen on his behalf Discussed with patient, Problem Qualifiers (1) Hyperlipidemia: Qualified Codes: E78.5 - Hyperlipidemia, unspecified (2) CAD (coronary artery disease): Qualified Codes: I25.110 - Atherosclerotic heart disease of [place] coronary artery with unstable angina pectoris (3) Hypertension: Qualified Codes: I10 - Essential (primary) hypertension (4) Non-Hodgkin lymphoma: Qualified Codes: C82.00 - Follicular lymphoma grade I, unspecified site Sofia Schwarz Mar 03, 2017 13:39
--- NOTE | 2017-03-03 14:04 | PD.ONC.PN ---
Subjective Subjective Remarks Afebrile overnight. Patient resting in room. No complaints. Received 2 units pRBC this morning without difficulty. Objective Data Date Time Temp Pulse Resp B/P (MAP) Pulse Ox O2 Delivery O2 Flow Rate FiO2 03/03/17 13:00 81 03/03/17 12:15 77 16 118/67 92 03/03/17 12:00 76 03/03/17 12:00 72 119/63 99 03/03/17 11:45 73 18 114/60 96 03/03/17 11:30 68 16 108/59 98 03/03/17 11:24 100 Room Air 03/03/17 11:20 98.2 68 18 109/58 (75) 100 03/03/17 11:17 98.2 68 16 109/58 100 03/03/17 11:12 70 103/59 98 03/03/17 11:07 97.8 69 18 102/58 97 03/03/17 11:00 86 03/03/17 10:55 97.7 72 18 112/62 (79) 100 03/03/17 08:00 Room Air 03/03/17 08:00 98.4 86 18 116/56 (76) 95 03/03/17 07:00 86 03/03/17 06:52 98.1 89 16 106/55 95 03/03/17 03:00 98.4 95 18 113/58 (76) 96 03/03/17 03:00 95 Room Air 03/03/17 03:00 97 03/02/17 23:00 99 Room Air 03/02/17 23:00 98.8 104 18 107/49 (68) 99 03/02/17 23:00 104 03/02/17 22:15 21 03/02/17 22:13 16 03/02/17 19:00 97.5 95 18 127/66 (86) 95 03/02/17 19:00 96 03/02/17 19:00 95 Room Air 03/02/17 15:05 78 03/02/17 15:05 97.7 78 18 94/60 (71) 99 03/02/17 15:05 99 Room Air 03/03/17 03/03/17 03/03/17 07:00 15:00 23:00 Intake Total 242 ml 1170 ml Output Total 800 ml 1100 ml Balance -558 ml 70 ml Result Diagram: 03/03/17 0500 03/03/17 0500 Laboratory Results Laboratory Tests Test 03/03/17 05:00 White Blood Count 2.8 TH/MM3 Red Blood Count 1.95 MIL/MM3 Hemoglobin 6.4 GM/DL Hematocrit 18.9 % Mean Corpuscular Volume 97.1 FL Mean Corpuscular Hemoglobin 33.0 PG Mean Corpuscular Hemoglobin Concent 34.0 % Red Cell Distribution Width 14.0 % Platelet Count 97 TH/MM3 Mean Platelet Volume 7.6 FL Blood Urea Nitrogen 10 MG/DL Creatinine 0.69 MG/DL Random Glucose 95 MG/DL Calcium Level 8.0 MG/DL Magnesium Level 2.2 MG/DL Sodium Level 140 MEQ/L Potassium Level 4.3 MEQ/L Chloride Level 108 MEQ/L Carbon Dioxide Level 27.0 MEQ/L Anion Gap 5 MEQ/L Estimat Glomerular Filtration Rate 83 ML/MIN Administered Medications Medications (Trade) Dose Ordered Sig/Yue Route PRN Reason Start Time Stop Time Status Last Admin Dose Admin Senna/Docusate Sodium (Eleni-Colace) 1 tab BID PO 02/26/17 21:00 03/03/17 08:33 Magnesium Hydroxide (Milk Of Fidencio Liclemente) 30 ml Q12H PRN PO MILD - MODERATE CONSTIPATION 02/26/17 15:45 03/03/17 10:00 Atorvastatin Calcium (Lipitor) 80 mg HS PO 02/26/17 21:00 03/02/17 21:37 Cholecalciferol (Vitamin D3) 1,000 units DAILY PO 02/27/17 09:00 03/03/17 08:33 Levetriacetam (Keppra) 1,000 mg BID PO 02/26/17 21:00 03/03/17 08:33 Sodium Chloride (NS Flush) 2 ml BID IV FLUSH 02/27/17 21:00 03/03/17 08:34 Aspirin (Aspirin Chew) 81 mg DAILY PO 03/01/17 09:00 03/01/17 08:38 Clopidogrel Bisulfate (Plavix) 75 mg DAILY PO 03/01/17 09:00 03/03/17 08:33 Pantoprazole Sodium (Protonix) 40 mg DAILY@06 PO 03/01/17 06:00 03/03/17 06:10 Acetaminophen/ Hydrocodone Bitart ([place] 5-325 Mg) 1 tab Q3H PRN PO PAIN SCALE 1 TO 5 02/28/17 12:15 03/03/17 10:15 Albuterol/ Ipratropium (Duoneb Neb) 1 ampule Q6HR NEB NEB 02/28/17 16:00 03/03/17 05:33 Metoprolol Tartrate (Lopressor) 12.5 mg BID PO 03/02/17 10:30 03/03/17 08:34 Amiodarone HCl (Cordarone) 400 mg Q12HR PO 03/02/17 21:00 03/03/17 08:33 Objective Remarks GENERAL: Elderly female upright in chair next to bed in [facility]. SKIN: Warm and dry. chest wall bandage in place. HEAD: Normocephalic. EYES: No injection or drainage. NECK: Supple, trachea midline. CARDIOVASCULAR: +S1/S2 RESPIRATORY: Breath sounds equal bilaterally. No accessory muscle use. GASTROINTESTINAL: Abdomen soft, non-tender, nondistended. EXTREMITIES: No cyanosis NEUROLOGICAL: awake and alert, normal speech. moving all extremities. Assessment/Plan Problem List: (1) Non-Hodgkin lymphoma ICD Codes: C85.90 - Non-Hodgkin lymphoma, unspecified, unspecified site Status: Chronic Plan: --Non-Hodgkin's B-cell lymphoma/follicular lymphoma, grade 1. --had hypermetabolic lymph nodes in the right axillary, inguinal and right pelvic area. --also had significant constitutional symptoms when she first presented. --completed 5 cycles of Rituxan and bendamustine in June 2016. was then started on maintenance Rituxan. --last dose of Rituxan was February 20. --Recent CT scan did not show any evidence of recurrent disease. --no oncologic intervention planned during this admission. (2) CAD (coronary artery disease) ICD Codes: I25.10 - Atherosclerotic heart disease of [place] coronary artery without angina pectoris Status: Acute Plan: --per cardiology/CTS --s/p CABG (3) Pancytopenia ICD Codes: D61.818 - Other pancytopenia Status: Chronic Plan: --has mild pancytopenia. --baseline CBC is in the low normal range. --monitor her CBC. Assessment 71y/o female admitted with chest pain, now s/p CABG. Oncology following for h/ o lymphoma. --h/o Non-Hodgkin's B-cell lymphoma. Epilepsy. Chronic obstructive pulmonary disease. Transient ischemia attack. Osteoarthritis Hypertension. Hyperlipidemia. Left breast benign nodule. Plan 1. monitor CBC 2. agree with 2 units pRBC this AM Attending Statement The exam, history, and the medical decision-making described in the above note were completed with the assistance of the mid-level provider. I reviewed and agree with the findings presented. I attest that I had a [id number] encounter with the patient on the same day, and personally performed and documented my assessment and findings in the medical record. Feels weak. Drop in blood counts due to the surgery and consumptive process. Continue transfusion prn. Problem Qualifiers (1) Non-Hodgkin lymphoma: Qualified Codes: C82.00 - Follicular lymphoma grade I, unspecified site (2) CAD (coronary artery disease): Qualified Codes: I25.110 - Atherosclerotic heart disease of [place] coronary artery with unstable angina pectoris Irma Elmore Mar 03, 2017 14:04 Saeed Enriquez MD Mar 03, 2017 17:18
[2017-03-03 15:13] LABS: HEMATOCRIT 30.1 % (35.0-46.0); REVIEW FLAG FINAL
[2017-03-03] MEDS ORDERED: RESP: ALBUTEROL 2.5 MG/IPRATROPIUM 0.5 MG NEB (SCH) ONE (15:45)
[2017-03-03] MEDS ORDERED: AMIODARONE 200 MG TAB ONE (21:07)
[2017-03-03] MEDS ORDERED: ATORVASTATIN 80 MG TAB ONE (21:13)
[2017-03-03] MEDS ORDERED: METOPROLOL TARTRATE 25 MG TAB ONE (21:14)
[2017-03-03] MEDS ORDERED: DOCUSATE SODIUM 50 MG/SENNA 8.6 MG TAB ONE (21:14)
[2017-03-03] MEDS: ATORVASTATIN 80 MG TAB PO SCH (21:30)
[2017-03-04] VITALS (29 sets, daily range): BP systolic 103–155; BP diastolic 55–74; PULSE 62–93; RESP 16–19; TEMP 97.5–98.7; O2SAT 96–100
[2017-03-04] MEDS ORDERED: ACETAMINOPHEN/HYDROcodone 325 MG/5 MG TAB ONE (00:01)
[2017-03-04] MEDS: ACETAMINOPHEN/HYDROcodone 325 MG/5 MG TAB PO PRN ×3 (00:02→19:33)
[2017-03-04] MEDS: RESP: ALBUTEROL 2.5 MG/IPRATROPIUM 0.5 MG NEB (SCH) NEB ×3 (04:13→15:25)
[2017-03-04] MEDS: PANTOPRAZOLE SOD 40 MG DELAYED RELEASE TAB PO SCH (06:00)
[2017-03-04 06:09] LABS: HEMATOCRIT 28.9 % (35.0-46.0); MEAN CELL VOLUME 93.7 FL (80.0-100.0); MEAN CORPUSCULAR HEMOGLOBIN 33.2 PG (27.0-34.0); MEAN CORPUSCULAR HGB CONC 35.4 % (32.0-36.0); PLATELET COUNT 118 TH/MM3 (150-450); RED BLOOD COUNT 3.08 MIL/MM3 (4.00-5.30); RED CELL DISTRIBUTION WIDTH 15.1 % (11.6-17.2); REVIEW FLAG FINAL; WHITE BLOOD COUNT 4.1 TH/MM3 (4.0-11.0)
[2017-03-04] MEDS ORDERED: PANTOPRAZOLE SOD 40 MG DELAYED RELEASE TAB PO ONE (06:32)
[2017-03-04] MEDS: CHOLECALCIFEROL (VIT D3) 1000 UNIT TAB PO SCH (08:48)
[2017-03-04] MEDS: levETIRAcetam 500 MG TAB PO SCH ×2 (08:48→21:44)
[2017-03-04] MEDS: ASPIRIN 81 MG CHEW TAB PO SCH (08:49)
[2017-03-04] MEDS: METOPROLOL TARTRATE 25 MG TAB PO SCH ×2 (08:51→21:44)
[2017-03-04] MEDS: DOCUSATE SODIUM 50 MG/SENNA 8.6 MG TAB PO SCH ×2 (08:51→21:44)
[2017-03-04] MEDS: CLOPIDOGREL 75 MG TAB PO SCH (08:51)
[2017-03-04] MEDS: AMIODARONE 200 MG TAB PO SCH ×2 (08:51→21:44)
[2017-03-04] MEDS: SODIUM CHLORIDE 0.9% FLUSH 10 ML FLUSH IV FLUSH SCH ×2 (08:51→21:45)
--- NOTE | 2017-03-04 10:30 | HHI.PR ---
Subjective Subjective Remarks took a shower feels okay no sob no afib had bm yesterday no fever Review of Systems Constitutional Constitutional Remarks 12 point ros completed, negative except as noted above, unreliable Pulmonary Respiratory: Coughing (encouraged to turn cough deep breathe, cardiac heart pale at her chest) GI/Abdomen GI/Abdominal Exam: Constipation (M OM today if no results may need something stronger) Musculoskeletal MS: Weakness, Stiffness Integumentary Skin: Wounds (CABG) Neurologic Neurologic: Lightheaded (occasional) Psychiatric Psychiatric: Normal Mood Vitals/Results Vital Signs Vital Signs Date Time Temp Pulse Resp B/P (MAP) Pulse Ox O2 Delivery O2 Flow Rate FiO2 03/04/17 10:00 72 03/04/17 09:00 66 03/04/17 08:00 80 03/04/17 07:30 98 Room Air 03/04/17 07:30 98.2 76 16 139/71 (93) 98 03/04/17 07:00 71 03/04/17 06:04 77 03/04/17 05:13 77 03/04/17 04:16 99 03/04/17 04:00 75 03/04/17 03:26 98.7 75 18 139/67 (91) 96 03/04/17 03:03 96 Room Air 03/04/17 03:03 74 03/04/17 02:00 76 03/04/17 01:02 75 03/04/17 00:00 74 03/04/17 00:00 98.7 74 19 155/74 (101) 96 03/03/17 23:06 96 Room Air 03/03/17 23:00 82 03/03/17 22:00 84 03/03/17 21:00 82 03/03/17 20:00 96 Room Air 03/03/17 20:00 80 03/03/17 20:00 98.5 80 19 148/71 (96) 96 03/03/17 19:00 80 03/03/17 18:00 82 03/03/17 17:00 84 03/03/17 16:00 80 03/03/17 15:13 99 Room Air 03/03/17 15:09 97.7 77 18 138/65 (89) 99 03/03/17 15:00 80 03/03/17 14:00 73 03/03/17 13:00 81 03/03/17 12:15 77 16 118/67 92 03/03/17 12:00 76 03/03/17 12:00 72 119/63 99 03/03/17 11:45 73 18 114/60 96 03/03/17 11:30 68 16 108/59 98 03/03/17 11:24 100 Room Air 03/03/17 11:20 98.2 68 18 109/58 (75) 100 03/03/17 11:17 98.2 68 16 109/58 100 03/03/17 11:12 70 103/59 98 03/03/17 11:07 97.8 69 18 102/58 97 03/03/17 11:00 86 03/03/17 10:55 97.7 72 18 112/62 (79) 100 CBC/BMP: 03/04/17 0547 03/03/17 0500 Lab Results Laboratory Tests Test 03/03/17 14:55 03/04/17 05:47 Hemoglobin 10.4 GM/DL 10.2 GM/DL Hematocrit 30.1 % 28.9 % White Blood Count 4.1 TH/MM3 Red Blood Count 3.08 MIL/MM3 Mean Corpuscular Volume 93.7 FL Mean Corpuscular Hemoglobin 33.2 PG Mean Corpuscular Hemoglobin Concent 35.4 % Red Cell Distribution Width 15.1 % Platelet Count 118 TH/MM3 Mean Platelet Volume 8.0 FL Physical Exam General General Appearance: Well Developed, No Acute Distress, Pale Eyes Eye Exam: Pupils Equal, Pupils Reactive Ears & Nose Ears & Nose Exam: Nasal Mucosa [place] Throat Throat Exam: Oral Mucosa [place] & Moist Neck Neck Exam: Neck Supple, Trachea Midline Pulmonary Resp Exam: Decreased Bases, Diminished Breath Sounds Cardiology CV Exam: Regular, Murmur (grade 1/6 mild,) Chest/Breast Chest/Breast Remarks midsternum dressing intact Gastrointestinal/Abdomen GI Exam: Soft, Non-Tender, Bowel Sounds Present, Non-Distended Musculoskeletal MS Exam: Joints Intact Integumentary Skin Exam: Warm, Dry Extremeties Extremities Exam: No Edema, Pedal Pulses Palpable Neurologic Neuro Exam: Alert, Awake, Oriented, Speech Clear, Moving All Extremities, No Focal Deficits Psychiatric Psych Exam: Appropriate Responses VTE Prophylaxis VTE Prophylaxis Device: SCDs, TEDs Assessment/Plan Problem List: (1) NSTEMI (non-ST elevated myocardial infarction) ICD Codes: I21.4 - Non-ST elevation (NSTEMI) myocardial infarction Status: Acute (2) Hyperlipidemia ICD Codes: E78.5 - Hyperlipidemia, unspecified Status: Chronic (3) CAD (coronary artery disease) ICD Codes: I25.10 - Atherosclerotic heart disease of [place] coronary artery without angina pectoris Status: Acute (4) Pancytopenia ICD Codes: D61.818 - Other pancytopenia Status: Chronic (5) Seizure disorder ICD Codes: G40.909 - Epilepsy, unspecified, not intractable, without status epilepticus Status: Chronic (6) Hypertension ICD Codes: I10 - Essential (primary) hypertension Status: Chronic (7) Hx TIA/stroke w/o resid ICD Codes: Z86.73 - Personal history of transient ischemic attack (TIA), and cerebral infarction without residual deficits Status: Chronic (8) Non-Hodgkin lymphoma ICD Codes: C85.90 - Non-Hodgkin lymphoma, unspecified, unspecified site Status: Chronic (9) Angina pectoris ICD Codes: I20.9 - Angina pectoris, unspecified Assessment/Plan 71-year-old white female presented to the emergency room with ongoing left- sided chest pain with radiation to the left shoulder associated with hiccups, shortness of breath. Non-STEMI Status post cardiac catheterization 02/26-multivessel disease Status post 02/28 Urgent Off-pump Coronary Artery Bypass Grafting x 4 with Left Internal Mammary Artery (WARNER) to Diagonal 1 (D1), reverse saphenous vein graft to the Left Anterior Descending (LAD), reverse saphenous vein graft to the RPDA , and reverse saphenous vein graft to the OM1/ Left Leg Endoscopic Vein [place]/ Intraoperative Vein Mapping/ Multi-Level Intercostal Nerve Block. -Appreciate cardiology input, patient underwent cardiac catheterization. Was found with multivessel disease. -cardiology and cardiothoracic input appreciated. -2-D echo done, EF 45-50%. Left ventricular systolic function mildly reduced. Hypokinetic apical Motion, hypokinetic mid anterior wall motion. Possible atrial level shunt demonstrated by color Doppler. Moderate aortic valve regurgitation. Aortic valve sclerosis. Trace tricuspid regurgitation. -Continue with aspirin 81 mg by mouth daily, Lipitor 80 mg by mouth daily at bedtime, Toprol-XL 100 mg by mouth daily -HH stable, s/p PRBC x 2, Hgb 10 -continue with post op cabg care, doing well. Afib episode post CABG, 03/02, now resolved -continue Amiodarone -card following, needs to f/u as OP for continued monitoring Carotid disease -carotid US noted, calcified plaquing, no significant stenosis. Non-Hodgkin's B-cell lymphoma, follicular lymphoma grade 1-. Has completed 5 cycles of Rituxan and bendamustine June 2016, she is on maintenance Rituxan. Patient follows up regularly with Dr. Enriquez Pancytopenia -Dr. Enriquez following -CBC stable Hypertension, stable -Continue with home medications Hyperlipidemia -Continue statins -Lipid profile results noted. History of TIA, no residual -Continue with aspirin History of epilepsy, last seizure June 2016 -Continue Keppra 1000 milligrams by mouth twice a day COPD, stable. -Duo nebs as needed for any wheezing Continue with bowel regimen Reorient frequently, had some disorientation, but continues to improve PT daily, inc. activity IS q 2 CM for dc planning, to SNF when ok by CV team. Pt. doing well, currently in [facility]. Afebrile, pain well controlled Labs reviewed, stable D/W RN D/W Dr. White D/W pt. This patient was seen by myself and Dr. Whiet, this note is written on his behalf Problem Qualifiers (1) Hyperlipidemia: Qualified Codes: E78.5 - Hyperlipidemia, unspecified (2) CAD (coronary artery disease): Qualified Codes: I25.110 - Atherosclerotic heart disease of [place] coronary artery with unstable angina pectoris (3) Hypertension: Qualified Codes: I10 - Essential (primary) hypertension (4) Non-Hodgkin lymphoma: Qualified Codes: C82.00 - Follicular lymphoma grade I, unspecified site Loreto Murguia Mar 04, 2017 10:29
[2017-03-04] MEDS ORDERED: LISI-519 PO (10:49)
[2017-03-04] MEDS ORDERED: ASPI81CH25 PO (10:49)
[2017-03-04] MEDS ORDERED: HYDR-3516 PO (10:49)
[2017-03-04] MEDS ORDERED: AMIO200T PO ×2 (10:49→10:52)
[2017-03-04] MEDS ORDERED: PLAV75TA29 PO (10:49)
[2017-03-04] MEDS ORDERED: SENN1TAB PO (10:49)
[2017-03-04] MEDS ORDERED: METO25TA3 PO (10:49)
--- NOTE | 2017-03-04 11:38 | PD.ONC.PN ---
Subjective Subjective Remarks Afebrile overnight. patient resting in bed in nad. Very fatigued after activities this morning, showering, walking around floor. Objective Data Date Time Temp Pulse Resp B/P (MAP) Pulse Ox O2 Delivery O2 Flow Rate FiO2 03/04/17 11:31 97.5 62 16 103/55 (71) 98 03/04/17 10:00 72 03/04/17 09:00 66 03/04/17 08:00 80 03/04/17 07:30 98 Room Air 03/04/17 07:30 98.2 76 16 139/71 (93) 98 03/04/17 07:00 71 03/04/17 06:04 77 03/04/17 05:13 77 03/04/17 04:16 99 03/04/17 04:00 75 03/04/17 03:26 98.7 75 18 139/67 (91) 96 03/04/17 03:03 96 Room Air 03/04/17 03:03 74 03/04/17 02:00 76 03/04/17 01:02 75 03/04/17 00:00 74 03/04/17 00:00 98.7 74 19 155/74 (101) 96 03/03/17 23:06 96 Room Air 03/03/17 23:00 82 03/03/17 22:00 84 03/03/17 21:00 82 03/03/17 20:00 96 Room Air 03/03/17 20:00 80 03/03/17 20:00 98.5 80 19 148/71 (96) 96 03/03/17 19:00 80 03/03/17 18:00 82 03/03/17 17:00 84 03/03/17 16:00 80 03/03/17 15:13 99 Room Air 03/03/17 15:09 97.7 77 18 138/65 (89) 99 03/03/17 15:00 80 03/03/17 14:00 73 03/03/17 13:00 81 03/03/17 12:15 77 16 118/67 92 03/03/17 12:00 76 03/03/17 12:00 72 119/63 99 03/03/17 11:45 73 18 114/60 96 03/04/17 03/04/17 03/04/17 07:00 15:00 23:00 Intake Total 480 ml Output Total 700 ml Balance -220 ml Result Diagram: 03/04/17 0547 03/03/17 0500 Laboratory Results Laboratory Tests Test 03/03/17 14:55 03/04/17 05:47 Hemoglobin 10.4 GM/DL 10.2 GM/DL Hematocrit 30.1 % 28.9 % White Blood Count 4.1 TH/MM3 Red Blood Count 3.08 MIL/MM3 Mean Corpuscular Volume 93.7 FL Mean Corpuscular Hemoglobin 33.2 PG Mean Corpuscular Hemoglobin Concent 35.4 % Red Cell Distribution Width 15.1 % Platelet Count 118 TH/MM3 Mean Platelet Volume 8.0 FL Administered Medications Medications (Trade) Dose Ordered Sig/Yue Route PRN Reason Start Time Stop Time Status Last Admin Dose Admin Senna/Docusate Sodium (Eleni-Colace) 1 tab BID PO 02/26/17 21:00 03/04/17 08:51 Magnesium Hydroxide (Milk Of Fidencio Liclemente) 30 ml Q12H PRN PO MILD - MODERATE CONSTIPATION 02/26/17 15:45 03/03/17 10:00 Atorvastatin Calcium (Lipitor) 80 mg HS PO 02/26/17 21:00 03/03/17 21:30 Cholecalciferol (Vitamin D3) 1,000 units DAILY PO 02/27/17 09:00 03/04/17 08:48 Levetriacetam (Keppra) 1,000 mg BID PO 02/26/17 21:00 03/04/17 08:48 Sodium Chloride (NS Flush) 2 ml BID IV FLUSH 02/27/17 21:00 03/04/17 08:51 Aspirin (Aspirin Chew) 81 mg DAILY PO 03/01/17 09:00 03/04/17 08:49 Clopidogrel Bisulfate (Plavix) 75 mg DAILY PO 03/01/17 09:00 03/04/17 08:51 Pantoprazole Sodium (Protonix) 40 mg DAILY@06 PO 03/01/17 06:00 03/04/17 06:00 Acetaminophen/ Hydrocodone Bitart ([place] 5-325 Mg) 1 tab Q3H PRN PO PAIN SCALE 1 TO 5 02/28/17 12:15 03/04/17 08:53 Albuterol/ Ipratropium (Duoneb Neb) 1 ampule Q6HR NEB NEB 02/28/17 16:00 03/04/17 04:13 Metoprolol Tartrate (Lopressor) 12.5 mg BID PO 03/02/17 10:30 03/04/17 08:51 Amiodarone HCl (Cordarone) 400 mg Q12HR PO 03/02/17 21:00 03/04/17 08:51 Objective Remarks GENERAL: Elderly female lying in bed in nad. SKIN: Warm and dry. wound vac, chest wall. HEAD: Normocephalic. EYES: No injection or drainage. NECK: Supple, trachea midline. CARDIOVASCULAR: +S1/S2 RESPIRATORY: Breath sounds equal bilaterally. No accessory muscle use. GASTROINTESTINAL: Abdomen soft, non-tender, nondistended. EXTREMITIES: No cyanosis NEUROLOGICAL: awake and alert but fatigued. normal speech. Assessment/Plan Problem List: (1) Non-Hodgkin lymphoma ICD Codes: C85.90 - Non-Hodgkin lymphoma, unspecified, unspecified site Status: Chronic Plan: --Non-Hodgkin's B-cell lymphoma/follicular lymphoma, grade 1. --had hypermetabolic lymph nodes in the right axillary, inguinal and right pelvic area. --also had significant constitutional symptoms when she first presented. --completed 5 cycles of Rituxan and bendamustine in June 2016. was then started on maintenance Rituxan. --last dose of Rituxan was February 20. --Recent CT scan did not show any evidence of recurrent disease. --no oncologic intervention planned during this admission. (2) CAD (coronary artery disease) ICD Codes: I25.10 - Atherosclerotic heart disease of [place] coronary artery without angina pectoris Status: Acute Plan: --per cardiology/CTS --s/p CABG (3) Pancytopenia ICD Codes: D61.818 - Other pancytopenia Status: Chronic Plan: --has mild pancytopenia. --baseline CBC is in the low normal range. --monitor her CBC. Assessment 71y/o female admitted with chest pain, now s/p CABG. Oncology following for h/ o lymphoma. --h/o Non-Hodgkin's B-cell lymphoma. Epilepsy. Chronic obstructive pulmonary disease. Transient ischemia attack. Osteoarthritis Hypertension. Hyperlipidemia. Left breast benign nodule. Plan 1. monitor CBC 2. no transfusion needed at present 3. once discharged, follow up in clinic. Attending Statement The exam, history, and the medical decision-making described in the above note were completed with the assistance of the mid-level provider. I reviewed and agree with the findings presented. I attest that I had a [id number] encounter with the patient on the same day, and personally performed and documented my assessment and findings in the medical record. Hgb trended up with transfusion. No bleeding noted. Platelet trending up. Continue to monitor. Problem Qualifiers (1) Non-Hodgkin lymphoma: Qualified Codes: C82.00 - Follicular lymphoma grade I, unspecified site (2) CAD (coronary artery disease): Qualified Codes: I25.110 - Atherosclerotic heart disease of [place] coronary artery with unstable angina pectoris Irma Elmore Mar 04, 2017 11:38 Saeed Enriquez MD Mar 04, 2017 17:14
--- NOTE | 2017-03-04 14:44 | PD.CARD.PN ---
Subjective Subjective Remarks Feeling much better, will be going to rehab today or tomorrow Objective Medications Administered Medications Medications (Trade) Dose Ordered Sig/Yue Route PRN Reason Start Time Stop Time Status Last Admin Dose Admin Senna/Docusate Sodium (Eleni-Colace) 1 tab BID PO 02/26/17 21:00 03/04/17 08:51 Magnesium Hydroxide (Milk Of Magnteagan Liq) 30 ml Q12H PRN PO MILD - MODERATE CONSTIPATION 02/26/17 15:45 03/03/17 10:00 Atorvastatin Calcium (Lipitor) 80 mg HS PO 02/26/17 21:00 03/03/17 21:30 Cholecalciferol (Vitamin D3) 1,000 units DAILY PO 02/27/17 09:00 03/04/17 08:48 Levetriacetam (Keppra) 1,000 mg BID PO 02/26/17 21:00 03/04/17 08:48 Sodium Chloride (NS Flush) 2 ml BID IV FLUSH 02/27/17 21:00 03/04/17 08:51 Aspirin (Aspirin Chew) 81 mg DAILY PO 03/01/17 09:00 03/04/17 08:49 Clopidogrel Bisulfate (Plavix) 75 mg DAILY PO 03/01/17 09:00 03/04/17 08:51 Pantoprazole Sodium (Protonix) 40 mg DAILY@06 PO 03/01/17 06:00 03/04/17 06:00 Acetaminophen/ Hydrocodone Bitart ([place] 5-325 Mg) 1 tab Q3H PRN PO PAIN SCALE 1 TO 5 02/28/17 12:15 03/04/17 08:53 Albuterol/ Ipratropium (Duoneb Neb) 1 ampule Q6HR NEB NEB 02/28/17 16:00 03/04/17 04:13 Metoprolol Tartrate (Lopressor) 12.5 mg BID PO 03/02/17 10:30 03/04/17 08:51 Amiodarone HCl (Cordarone) 400 mg Q12HR PO 03/02/17 21:00 03/04/17 08:51 Vital Signs / I&O Vital Signs Date Time Temp Pulse Resp B/P (MAP) Pulse Ox O2 Delivery O2 Flow Rate FiO2 03/04/17 14:00 65 03/04/17 13:00 68 03/04/17 12:00 73 03/04/17 11:42 98 Room Air 03/04/17 11:31 97.5 62 16 103/55 (71) 98 03/04/17 11:00 66 03/04/17 10:00 72 03/04/17 09:00 66 03/04/17 08:00 80 03/04/17 07:30 98 Room Air 03/04/17 07:30 98.2 76 16 139/71 (93) 98 03/04/17 07:00 71 03/04/17 06:04 77 03/04/17 05:13 77 03/04/17 04:16 99 03/04/17 04:00 75 03/04/17 03:26 98.7 75 18 139/67 (91) 96 03/04/17 03:03 96 Room Air 03/04/17 03:03 74 03/04/17 02:00 76 03/04/17 01:02 75 03/04/17 00:00 74 03/04/17 00:00 98.7 74 19 155/74 (101) 96 03/03/17 23:06 96 Room Air 03/03/17 23:00 82 03/03/17 22:00 84 03/03/17 21:00 82 03/03/17 20:00 96 Room Air 03/03/17 20:00 80 03/03/17 20:00 98.5 80 19 148/71 (96) 96 03/03/17 19:00 80 03/03/17 18:00 82 03/03/17 17:00 84 03/03/17 16:00 80 03/03/17 15:13 99 Room Air 03/03/17 15:09 97.7 77 18 138/65 (89) 99 03/03/17 15:00 80 I/O 03/03/17 03/03/17 03/03/17 03/04/17 03/04/17 03/04/17 07:00 15:00 23:00 07:00 15:00 23:00 Intake Total 242 ml 1170 ml 840 ml 480 ml Output Total 800 ml 1100 ml 700 ml Balance -558 ml 70 ml 840 ml -220 ml Intake Oral 240 ml 480 ml 840 ml 480 ml Packed Cells 650 ml Blood Product IV Normal Saline Flush 2 ml 40 ml Output Urine Total 800 ml 1100 ml 700 ml # Voids 3 # Bowel Movements 0 0 1 Physical Exam GENERAL: This is a well-nourished, well-developed patient, in no apparent distress. CARDIOVASCULAR: Regular rate and rhythm without murmurs, gallops, or rubs. RESPIRATORY: Clear to auscultation. Breath sounds equal bilaterally. No wheezes , rales, or rhonchi. GASTROINTESTINAL: Abdomen soft, non-tender, nondistended. Normal active bowel sounds MUSCULOSKELETAL: Extremities without clubbing, cyanosis, or edema. NEURO: Alert & Oriented x4 to person, place, time, situation. Moves all ext x4 Laboratory Laboratory Tests Test 03/03/17 14:55 03/04/17 05:47 Hemoglobin 10.4 GM/DL 10.2 GM/DL Hematocrit 30.1 % 28.9 % White Blood Count 4.1 TH/MM3 Red Blood Count 3.08 MIL/MM3 Mean Corpuscular Volume 93.7 FL Mean Corpuscular Hemoglobin 33.2 PG Mean Corpuscular Hemoglobin Concent 35.4 % Red Cell Distribution Width 15.1 % Platelet Count 118 TH/MM3 Mean Platelet Volume 8.0 FL Imaging Last Impressions Chest X-Ray 03/01/17 0500 Signed Impressions: Service Date/Time: Wednesday, March 01, 2017 05:31 - CONCLUSION: Persistent left lower lung consolidation. Left chest tube in place; no pneumothorax seen. Giuseppe Lares MD Lower Extremity Ultrasound 02/27/17 0000 Signed Impressions: Service Date/Time: February 11:33 - CONCLUSION: 1. Venous mapping as above. 2. Nonvisualization of the greater saphenous below the knee on the right and peripheral to the proximal below knee greater saphenous on the left. Tab Shearer MD Carotid Artery Ultrasound 02/27/17 0000 Signed Impressions: Service Date/Time: February 12:00 - CONCLUSION: 1. Calcified plaquing in both carotid bulbs extending up into the bifurcations. 2. However, no sonographic or Doppler findings of a hemodynamically significant stenosis. Antegrade flow in both vertebral arteries. Tab Shearer MD Assessment and Plan Problem List: (1) S/P CABG x 4 ICD Codes: Z95.1 - Presence of aortocoronary bypass graft Plan: continue med mgt. (2) CAD (coronary artery disease) ICD Codes: I25.10 - Atherosclerotic heart disease of [place] coronary artery without angina pectoris Status: Acute Plan: now s/p CABG X 4; continue current mgt and post-op supportive care (3) NSTEMI (non-ST elevated myocardial infarction) ICD Codes: I21.4 - Non-ST elevation (NSTEMI) myocardial infarction Status: Acute (4) Postoperative atrial fibrillation ICD Codes: I97.89 - Other postprocedural complications and disorders of the circulatory system, not elsewhere classified; I48.91 - Unspecified atrial fibrillation Plan: back in sr; now on PO amio; (5) Non-Hodgkin lymphoma ICD Codes: C85.90 - Non-Hodgkin lymphoma, unspecified, unspecified site Status: Chronic (6) Pancytopenia ICD Codes: D61.818 - Other pancytopenia Status: Chronic Assessment and Plan Mentation seems more clear; getting discharged; will see in my office in 1-2 weeks Problem Qualifiers (1) CAD (coronary artery disease): Qualified Codes: I25.110 - Atherosclerotic heart disease of [place] coronary artery with unstable angina pectoris (2) Non-Hodgkin lymphoma: Qualified Codes: C82.00 - Follicular lymphoma grade I, unspecified site Pio Lara MD Mar 04, 2017 14:44
--- NOTE | 2017-03-04 15:30 | HHI.DS ---
Discharge Summary Admission Date Feb 26, 2017 at 15:34 Discharge Date: Mar 04, 2017 Admitting Diagnosis chest pain, abnormal EKG (1) NSTEMI (non-ST elevated myocardial infarction) Diagnosis: Principal ICD Codes: I21.4 - Non-ST elevation (NSTEMI) myocardial infarction Status: Acute (2) Hyperlipidemia Diagnosis: Principal ICD Codes: E78.5 - Hyperlipidemia, unspecified Status: Chronic (3) CAD (coronary artery disease) Diagnosis: Principal ICD Codes: I25.10 - Atherosclerotic heart disease of [place] coronary artery without angina pectoris Status: Acute (4) Pancytopenia Diagnosis: Secondary ICD Codes: D61.818 - Other pancytopenia Status: Chronic (5) Seizure disorder Diagnosis: Principal ICD Codes: G40.909 - Epilepsy, unspecified, not intractable, without status epilepticus Status: Chronic (6) Hypertension Diagnosis: Principal ICD Codes: I10 - Essential (primary) hypertension Status: Chronic (7) Hx TIA/stroke w/o resid Diagnosis: Principal ICD Codes: Z86.73 - Personal history of transient ischemic attack (TIA), and cerebral infarction without residual deficits Status: Chronic (8) Non-Hodgkin lymphoma ICD Codes: C85.90 - Non-Hodgkin lymphoma, unspecified, unspecified site Status: Chronic (9) Angina pectoris Diagnosis: Principal ICD Codes: I20.9 - Angina pectoris, unspecified (10) S/P CABG x 4 Diagnosis: Secondary ICD Codes: Z95.1 - Presence of aortocoronary bypass graft Status: Acute Procedures 02/28 1. Urgent Off-pump Coronary Artery Bypass Grafting x 4 with Left Internal Mammary Artery (WARNER) to Diagonal 1 (D1), reverse saphenous vein graft to the Left Anterior Descending (LAD), reverse saphenous vein graft to the RPDA, and reverse saphenous vein graft to the OM1 2. Left Leg Endoscopic Vein [place] 3. Intraoperative Vein Mapping Brief History 71 yo presenting with recurrent CP and NSTEMI. EF 45-50% PMH: Non Hodgkins B-cell type Lymphoma , last chemo Jun 2016/ on Rituxan therapy , COPD, hx TIA 02/28 SURGICAL PROCEDURE 1. Urgent Off-pump Coronary Artery Bypass Grafting x 4 with Left Internal Mammary Artery (WARNER) to Diagonal 1 (D1), reverse saphenous vein graft to the Left Anterior Descending (LAD), reverse saphenous vein graft to the RPDA, and reverse saphenous vein graft to the OM1 2. Left Leg Endoscopic Vein [place] 3. Intraoperative Vein Mapping CBC/BMP: 03/04/17 0547 03/03/17 0500 Significant Findings Laboratory Tests Test 03/02/17 04:20 03/03/17 05:00 03/03/17 14:55 03/04/17 05:47 White Blood Count 2.9 TH/MM3 (4.0-11.0) 2.8 TH/MM3 (4.0-11.0) Red Blood Count 2.16 MIL/MM3 (4.00-5.30) 1.95 MIL/MM3 (4.00-5.30) 3.08 MIL/MM3 (4.00-5.30) Hemoglobin 7.1 GM/DL (11.6-15.3) 6.4 GM/DL (11.6-15.3) 10.4 GM/DL (11.6-15.3) 10.2 GM/DL (11.6-15.3) Hematocrit 21.0 % (35.0-46.0) 18.9 % (35.0-46.0) 30.1 % (35.0-46.0) 28.9 % (35.0-46.0) Platelet Count 95 TH/MM3 (150-450) 97 TH/MM3 (150-450) 118 TH/MM3 (150-450) Random Glucose 125 MG/DL (74-106) Calcium Level 8.1 MG/DL (8.5-10.1) 8.0 MG/DL (8.5-10.1) Sodium Level 134 MEQ/L (136-145) Estimat Glomerular Filtration Rate 82 ML/MIN (>89) 83 ML/MIN (>89) Chloride Level 108 MEQ/L (98-107) Imaging Last Impressions Chest X-Ray 03/01/17 0500 Signed Impressions: Service Date/Time: Wednesday, March 01, 2017 05:31 - CONCLUSION: Persistent left lower lung consolidation. Left chest tube in place; no pneumothorax seen. Giuseppe Lares MD Lower Extremity Ultrasound 02/27/17 0000 Signed Impressions: Service Date/Time: February 11:33 - CONCLUSION: 1. Venous mapping as above. 2. Nonvisualization of the greater saphenous below the knee on the right and peripheral to the proximal below knee greater saphenous on the left. Tab Shearer MD Carotid Artery Ultrasound 02/27/17 0000 Signed Impressions: Service Date/Time: February 12:00 - CONCLUSION: 1. Calcified plaquing in both carotid bulbs extending up into the bifurcations. 2. However, no sonographic or Doppler findings of a hemodynamically significant stenosis. Antegrade flow in both vertebral arteries. Tab Shearer MD PE at Discharge GENERAL: SKIN: Warm and dry. prevena dressing to chest , incision intact to left leg HEAD: Normocephalic. EYES: No scleral icterus. No injection or drainage. NECK: Supple, trachea midline. No JVD or lymphadenopathy. CARDIOVASCULAR: Regular rate and rhythm without murmurs, gallops, or rubs. RESPIRATORY: Breath sounds equal bilaterally. No accessory muscle use. GASTROINTESTINAL: Abdomen soft, non-tender, nondistended. MUSCULOSKELETAL: No cyanosis, or edema. BACK: Nontender without obvious deformity. No CVA tenderness. Hospital Course 1. Urgent Off-pump Coronary Artery Bypass Grafting x 4 with Left Internal Mammary Artery (WARNER) to Diagonal 1 (D1), reverse saphenous vein graft to the Left Anterior Descending (LAD), reverse saphenous vein graft to the RPDA, and reverse saphenous vein graft to the OM1 2. Left Leg Endoscopic Vein [place] 3. Intraoperative Vein Mapping 4. Multi-Level Intercostal Nerve Block. 03/01 Doing well Extubated and tolerating well Wean Edgar as tolerated Maintain CT to drainage Pulmonary toiletry 03/[address] Transfer telemetry Ambulate 03/03 HGB 6.4/ for 2 units PRBC today BP stable on low dose BB statin ASA, amiodarone no further Afib/ will monitor continue PT/ OOB will need cvc line dc later today after blood infused 03/04 HGB stable 10.2 + BM, stable for dc to rehab when bed available will need f/u with Dr Saeed Enriquez continue po amiodarone x 14 days, no further afib on room air Pt Condition on Discharge: Good Discharge Disposition: Discharge to SNF Discharge Instructions DIET: Follow Instructions for: Heart Healthy Diet Activities you can perform: Full Weight Bearing, Shower Only-No Bath Activities to avoid: Strenuous Activity, Driving Additional Activity Instructio: no lifting > 8lbs or gallon of milk Follow up Referrals: Cardiology with Pio Lara MD Oncology with Saeed Enriquez MD [place] [facility] [address] [facility] PCP Follow-up with Maxim Chanel MD Surgical with Jessica Trotter New Medications: Amiodarone (Amiodarone) 200 Mg Tab 200 MG PO BID for Regulate Heart Beat, #28 TAB 0 Refills Lisinopril (Lisinopril) 5 Mg Tab 5 MG PO DAILY for Blood Pressure Management, #30 TAB 3 Refills Aspirin (Aspirin Low Strength) 81 Mg Chew 81 MG PO DAILY for Blood Clot Prevention, #100 EA 2 Refills Clopidogrel (Plavix) 75 Mg Tab 75 MG PO DAILY for Blood Clot Prevention, #30 TAB 3 Refills Hydrocodone-Acetaminophen (Hydrocodone-Acetaminophen) 5-325 mg Tab 1 TAB PO Q6HR PRN for PAIN SCALE 1 TO 5, #30 TAB 0 Refills Metoprolol Tartrate (Metoprolol Tartrate) 25 Mg Tab 25 MG PO BID for Blood Pressure Management, #60 TAB 3 Refills Hold SBP<100 HR<60 Sennosides-Docusate Sodium (Senna Plus 8.6-50 mg) 8.6 Mg-50 Mg Tab 1 TAB PO BID for Constipation, #60 TAB 0 Refills Continued Medications: Atorvastatin (Lipitor) 80 Mg Tab 80 MG PO HS for Cholesterol Management, #30 TAB 0 Refills Cholecalciferol (Vitamin D3) 1,000 Unit Tab 1000 UNITS PO DAILY for Nutritional Supplement, #1 BOTTLE 0 Refills Levetiracetam (Keppra) 500 Mg Tab 1000 MG PO BID for Control Seizures, #60 TAB 0 Refills Discontinued Medications: Lisinopril (Lisinopril) 10 Mg Tab 10 MG PO DAILY, #30 TAB 0 Refills Metoprolol Succinate ER 24 HR (Toprol XL) 100 Mg Tab 100 MG PO DAILY, #30 TAB 0 Refills Potassium Chloride ER (Potassium Chloride ER) 20 Meq Tab 20 MEQ PO DAILY for Electrolyte Replacement, #30 TAB 0 Refills Prochlorperazine Maleate (Prochlorperazine Maleate) 10 Mg Tab 10 MG PO Q6H PRN for NAUSEA OR VOMITING, TAB 0 Refills Jessica Trotter Mar 04, 2017 15:30
[2017-03-04] MEDS: ATORVASTATIN 80 MG TAB PO SCH (21:44)
[2017-03-05] VITALS (20 sets, daily range): BP systolic 118–155; BP diastolic 60–78; PULSE 62–80; RESP 16–18; TEMP 97.7–98.4; O2SAT 94–99
[2017-03-05] MEDS: PANTOPRAZOLE SOD 40 MG DELAYED RELEASE TAB PO SCH (06:00)
[2017-03-05 06:05] LABS: MEAN CORPUSCULAR HEMOGLOBIN 32.6 PG (27.0-34.0); MEAN CORPUSCULAR HGB CONC 34.3 % (32.0-36.0); PLATELET COUNT 160 TH/MM3 (150-450); RED BLOOD COUNT 3.37 MIL/MM3 (4.00-5.30); RED CELL DISTRIBUTION WIDTH 14.7 % (11.6-17.2); REVIEW FLAG FINAL
[2017-03-05 06:31] LABS: BICARBONATE 27.9 MEQ/L (21.0-32.0); POTASSIUM 3.9 MEQ/L (3.5-5.1)
[2017-03-05] MEDS: SODIUM CHLORIDE 0.9% FLUSH 10 ML FLUSH IV FLUSH SCH (09:00)
[2017-03-05] MEDS: DOCUSATE SODIUM 50 MG/SENNA 8.6 MG TAB PO SCH (09:00)
[2017-03-05] MEDS: ASPIRIN 81 MG CHEW TAB PO SCH (09:03)
[2017-03-05] MEDS: levETIRAcetam 500 MG TAB PO SCH (09:03)
[2017-03-05] MEDS: METOPROLOL TARTRATE 25 MG TAB PO SCH (09:04)
[2017-03-05] MEDS: AMIODARONE 200 MG TAB PO SCH (09:04)
[2017-03-05] MEDS: CHOLECALCIFEROL (VIT D3) 1000 UNIT TAB PO SCH (09:04)
[2017-03-05] MEDS: CLOPIDOGREL 75 MG TAB PO SCH (09:04)
--- NOTE | 2017-03-05 12:02 | PD.CAR.PN ---
CVT Progress Note Subjective/Hospital Course: 71 yo presenting with recurrent CP and NSTEMI. EF 45-50% PMH: Non Hodgkins B-cell type Lymphoma , last chemo Jun 2016/ on Rituxan therapy , COPD, hx TIA 02/28 SURGICAL PROCEDURE 1. Urgent Off-pump Coronary Artery Bypass Grafting x 4 with Left Internal Mammary Artery (WARNER) to Diagonal 1 (D1), reverse saphenous vein graft to the Left Anterior Descending (LAD), reverse saphenous vein graft to the RPDA, and reverse saphenous vein graft to the OM1 2. Left Leg Endoscopic Vein [place] 3. Intraoperative Vein Mapping 4. Multi-Level Intercostal Nerve Block. 03/01 Doing well Extubated and tolerating well Wean Edgar as tolerated Maintain CT to drainage Pulmonary toiletry 03/[address] Transfer telemetry Ambulate 03/03 HGB 6.4/ for 2 units PRBC today BP stable on low dose BB statin ASA, amiodarone no further Afib/ will monitor continue PT/ OOB will need cvc line dc later today after blood infused 03/05 waiting on SNF bed placement then ok to transfer on room air, remains in NSR continue amiodarone x 2 weeks continue ASA, plavix statin , BB Objective: GENERAL: SKIN: Warm and dry. prevena dressing to chest , incision intact Left EVH site planner: Normocephalic. EYES: No scleral icterus. No injection or drainage. NECK: Supple, trachea midline. No JVD or lymphadenopathy. CARDIOVASCULAR: Regular rate and rhythm without murmurs, gallops, or rubs. RESPIRATORY: Breath sounds equal bilaterally. No accessory muscle use. GASTROINTESTINAL: Abdomen soft, non-tender, nondistended. MUSCULOSKELETAL: No cyanosis, or edema. BACK: Nontender without obvious deformity. No CVA tenderness. Vital Signs Date Time Temp Pulse Resp B/P (MAP) Pulse Ox O2 Delivery O2 Flow Rate FiO2 03/05/17 09:00 72 03/05/17 08:05 Room Air 03/05/17 08:00 68 03/05/17 08:00 98.2 66 18 155/75 (101) 94 03/05/17 07:00 67 03/05/17 06:00 70 03/05/17 05:00 70 03/05/17 04:24 97.8 66 16 136/69 (91) 98 03/05/17 04:24 98 Room Air 03/05/17 04:00 66 03/05/17 03:00 67 03/05/17 02:00 67 03/05/17 01:00 66 03/05/17 00:00 98 Room Air 03/05/17 00:00 98.4 70 16 136/75 (95) 97 03/05/17 00:00 66 03/04/17 23:00 70 03/04/17 22:00 78 03/04/17 21:00 78 03/04/17 20:00 84 03/04/17 20:00 96 Room Air 03/04/17 20:00 98.0 93 18 135/62 (86) 96 03/04/17 19:00 80 03/04/17 18:00 80 03/04/17 17:00 70 03/04/17 16:00 73 03/04/17 15:40 100 Room Air 03/04/17 15:37 98.0 69 16 145/71 (95) 100 03/04/17 15:00 69 03/04/17 14:00 65 03/04/17 13:00 68 03/04/17 12:00 71 Labs: Laboratory Tests Test 03/05/17 05:25 White Blood Count 5.0 TH/MM3 (4.0-11.0) Red Blood Count 3.37 MIL/MM3 (4.00-5.30) Hemoglobin 11.0 GM/DL (11.6-15.3) Hematocrit 32.0 % (35.0-46.0) Mean Corpuscular Volume 95.0 FL (80.0-100.0) Mean Corpuscular Hemoglobin 32.6 PG (27.0-34.0) Mean Corpuscular Hemoglobin Concent 34.3 % (32.0-36.0) Red Cell Distribution Width 14.7 % (11.6-17.2) Platelet Count 160 TH/MM3 (150-450) Mean Platelet Volume 7.8 FL (7.0-11.0) Blood Urea Nitrogen 10 MG/DL (7-18) Creatinine 0.66 MG/DL (0.50-1.00) Random Glucose 84 MG/DL (74-106) Calcium Level 8.3 MG/DL (8.5-10.1) Sodium Level 140 MEQ/L (136-145) Potassium Level 3.9 MEQ/L (3.5-5.1) Chloride Level 105 MEQ/L (98-107) Carbon Dioxide Level 27.9 MEQ/L (21.0-32.0) Anion Gap 7 MEQ/L (5-15) Estimat Glomerular Filtration Rate 88 ML/MIN (>89) Result Diagram: 03/05/1752403/05/17524 Telemetry: NSR (1) S/P CABG x 4 Plan: continue med mgt. (2) CAD (coronary artery disease) Plan: now s/p CABG X 4; continue current mgt and post-op supportive care (3) NSTEMI (non-ST elevated myocardial infarction) (4) Postoperative atrial fibrillation Plan: remains in NSR continue PO amiodarone (5) Non-Hodgkin lymphoma Plan: will need f/u with Dr Saeed Enriquez (6) Pancytopenia Plan: stable Problem Qualifiers (1) CAD (coronary artery disease): Qualified Codes: I25.110 - Atherosclerotic heart disease of [place] coronary artery with unstable angina pectoris (2) Non-Hodgkin lymphoma: Qualified Codes: C82.00 - Follicular lymphoma grade I, unspecified site Jessica Trotter Mar 05, 2017 12:02
--- NOTE | 2017-03-05 12:52 | HHI.PR ---
Subjective Subjective Remarks awakes to voice, oriented x 3 doesn't want to eat much, poor appetite no cp no sob surgical pain stable no afib on tele, SR Review of Systems Constitutional Constitutional Remarks 12 point ros completed, negative except as noted above, unreliable Pulmonary Respiratory: Coughing (encouraged to turn cough deep breathe, cardiac heart pale at her chest) GI/Abdomen GI/Abdominal Exam: Constipation (M OM today if no results may need something stronger) Musculoskeletal MS: Weakness, Stiffness Integumentary Skin: Wounds (CABG) Neurologic Neurologic: Lightheaded (occasional) Psychiatric Psychiatric: Normal Mood Vitals/Results Vital Signs Vital Signs Date Time Temp Pulse Resp B/P (MAP) Pulse Ox O2 Delivery O2 Flow Rate FiO2 03/05/17 11:45 98 Room Air 03/05/17 11:45 98.1 70 18 121/60 (80) 98 03/05/17 09:00 72 03/05/17 08:05 Room Air 03/05/17 08:00 68 03/05/17 08:00 98.2 66 18 155/75 (101) 94 03/05/17 07:00 67 03/05/17 06:00 70 03/05/17 05:00 70 03/05/17 04:24 97.8 66 16 136/69 (91) 98 03/05/17 04:24 98 Room Air 03/05/17 04:00 66 03/05/17 03:00 67 03/05/17 02:00 67 03/05/17 01:00 66 03/05/17 00:00 98 Room Air 03/05/17 00:00 98.4 70 16 136/75 (95) 97 03/05/17 00:00 66 03/04/17 23:00 70 03/04/17 22:00 78 03/04/17 21:00 78 03/04/17 20:00 84 03/04/17 20:00 96 Room Air 03/04/17 20:00 98.0 93 18 135/62 (86) 96 03/04/17 19:00 80 03/04/17 18:00 80 03/04/17 17:00 70 03/04/17 16:00 73 03/04/17 15:40 100 Room Air 03/04/17 15:37 98.0 69 16 145/71 (95) 100 03/04/17 15:00 69 03/04/17 14:00 65 03/04/17 13:00 68 CBC/BMP: 03/05/17 0525 03/05/17 0525 Lab Results Laboratory Tests Test 03/05/17 05:25 White Blood Count 5.0 TH/MM3 Red Blood Count 3.37 MIL/MM3 Hemoglobin 11.0 GM/DL Hematocrit 32.0 % Mean Corpuscular Volume 95.0 FL Mean Corpuscular Hemoglobin 32.6 PG Mean Corpuscular Hemoglobin Concent 34.3 % Red Cell Distribution Width 14.7 % Platelet Count 160 TH/MM3 Mean Platelet Volume 7.8 FL Blood Urea Nitrogen 10 MG/DL Creatinine 0.66 MG/DL Random Glucose 84 MG/DL Calcium Level 8.3 MG/DL Sodium Level 140 MEQ/L Potassium Level 3.9 MEQ/L Chloride Level 105 MEQ/L Carbon Dioxide Level 27.9 MEQ/L Anion Gap 7 MEQ/L Estimat Glomerular Filtration Rate 88 ML/MIN Physical Exam General General Appearance: Well Developed, No Acute Distress, Pale Eyes Eye Exam: Pupils Equal, Pupils Reactive Ears & Nose Ears & Nose Exam: Nasal Mucosa [place] Throat Throat Exam: Oral Mucosa [place] & Moist Neck Neck Exam: Neck Supple, Trachea Midline Pulmonary Resp Exam: Decreased Bases, Diminished Breath Sounds Cardiology CV Exam: Regular, Murmur (grade 1/6 mild,) Chest/Breast Chest/Breast Remarks midsternum dressing intact Gastrointestinal/Abdomen GI Exam: Soft, Non-Tender, Bowel Sounds Present, Non-Distended Musculoskeletal MS Exam: Joints Intact Integumentary Skin Exam: Warm, Dry Extremeties Extremities Exam: No Edema, Pedal Pulses Palpable Neurologic Neuro Exam: Alert, Awake, Oriented, Speech Clear, Moving All Extremities, No Focal Deficits Psychiatric Psych Exam: Appropriate Responses VTE Prophylaxis VTE Prophylaxis Device: SCDs, TEDs Assessment/Plan Problem List: (1) NSTEMI (non-ST elevated myocardial infarction) ICD Codes: I21.4 - Non-ST elevation (NSTEMI) myocardial infarction Status: Acute (2) Hyperlipidemia ICD Codes: E78.5 - Hyperlipidemia, unspecified Status: Chronic (3) CAD (coronary artery disease) ICD Codes: I25.10 - Atherosclerotic heart disease of [place] coronary artery without angina pectoris Status: Acute (4) Pancytopenia ICD Codes: D61.818 - Other pancytopenia Status: Chronic (5) Seizure disorder ICD Codes: G40.909 - Epilepsy, unspecified, not intractable, without status epilepticus Status: Chronic (6) Hypertension ICD Codes: I10 - Essential (primary) hypertension Status: Chronic (7) Hx TIA/stroke w/o resid ICD Codes: Z86.73 - Personal history of transient ischemic attack (TIA), and cerebral infarction without residual deficits Status: Chronic (8) Non-Hodgkin lymphoma ICD Codes: C85.90 - Non-Hodgkin lymphoma, unspecified, unspecified site Status: Chronic (9) Angina pectoris ICD Codes: I20.9 - Angina pectoris, unspecified (10) S/P CABG x 4 ICD Codes: Z95.1 - Presence of aortocoronary bypass graft Status: Acute Assessment/Plan 71-year-old white female presented to the emergency room with ongoing left- sided chest pain with radiation to the left shoulder associated with hiccups, shortness of breath. Non-STEMI Status post cardiac catheterization 02/26-multivessel disease Status post 02/28 Urgent Off-pump Coronary Artery Bypass Grafting x 4 with Left Internal Mammary Artery (WARNER) to Diagonal 1 (D1), reverse saphenous vein graft to the Left Anterior Descending (LAD), reverse saphenous vein graft to the RPDA , and reverse saphenous vein graft to the OM1/ Left Leg Endoscopic Vein [place]/ Intraoperative Vein Mapping/ Multi-Level Intercostal Nerve Block. -Appreciate cardiology input, patient underwent cardiac catheterization. Was found with multivessel disease. -cardiology and cardiothoracic input appreciated. -2-D echo done, EF 45-50%. Left ventricular systolic function mildly reduced. Hypokinetic apical Motion, hypokinetic mid anterior wall motion. Possible atrial level shunt demonstrated by color Doppler. Moderate aortic valve regurgitation. Aortic valve sclerosis. Trace tricuspid regurgitation. -Continue with aspirin 81 mg by mouth daily, Lipitor 80 mg by mouth daily at bedtime, Toprol-XL 100 mg by mouth daily -HH stable, s/p PRBC x 2, Hgb 10 -continue with post op cabg care, doing well. Afib episode post CABG, 03/02, now resolved -continue Amiodarone, now at 200 mg PO BID, continue for 2 weeks per recommendations -card following, needs to f/u as OP for continued monitoring Carotid disease -carotid US noted, calcified plaquing, no significant stenosis. Non-Hodgkin's B-cell lymphoma, follicular lymphoma grade 1-. Has completed 5 cycles of Rituxan and bendamustine June 2016, she is on maintenance Rituxan. Patient follows up regularly with Dr. Enriquez Pancytopenia -Dr. Enriquez following -CBC stable Hypertension, stable -Continue with home medications Hyperlipidemia -Continue statins -Lipid profile results noted. History of TIA, no residual -Continue with aspirin History of epilepsy, last seizure June 2016 -Continue Keppra 1000 milligrams by mouth twice a day COPD, stable. -Duo nebs as needed for any wheezing Continue with bowel regimen Reorient frequently, had some disorientation, but continues to improve PT daily, inc. activity IS q 2 CM for dc planning,going to SNF waiting for authorization from insurance clear for dc by CT stable, continue with PT Discharge when arrangements made Diet-heart healthy Activity - as tolerated Wound care-has Provena dressing per CT instructions F/U CT surgery, cardiology D/W RN D/W Dr. White D/W pt. This patient was seen by myself and Dr. White, this note is written on his behalf Problem Qualifiers (1) Hyperlipidemia: Qualified Codes: E78.5 - Hyperlipidemia, unspecified (2) CAD (coronary artery disease): Qualified Codes: I25.110 - Atherosclerotic heart disease of [place] coronary artery with unstable angina pectoris (3) Hypertension: Qualified Codes: I10 - Essential (primary) hypertension (4) Non-Hodgkin lymphoma: Qualified Codes: C82.00 - Follicular lymphoma grade I, unspecified site Loreto Murguia Mar 05, 2017 12:52
--- NOTE | 2017-03-05 13:36 | PD.ONC.PN ---
Subjective Subjective Remarks Afebrile overnight Patient resting in bed in no acute distress She believes she is going home today Objective Data Date Time Temp Pulse Resp B/P (MAP) Pulse Ox O2 Delivery O2 Flow Rate FiO2 03/05/17 11:45 98 Room Air 03/05/17 11:45 98.1 70 18 121/60 (80) 98 03/05/17 09:00 72 03/05/17 08:05 Room Air 03/05/17 08:00 68 03/05/17 08:00 98.2 66 18 155/75 (101) 94 03/05/17 07:00 67 03/05/17 06:00 70 03/05/17 05:00 70 03/05/17 04:24 97.8 66 16 136/69 (91) 98 03/05/17 04:24 98 Room Air 03/05/17 04:00 66 03/05/17 03:00 67 03/05/17 02:00 67 03/05/17 01:00 66 03/05/17 00:00 98 Room Air 03/05/17 00:00 98.4 70 16 136/75 (95) 97 03/05/17 00:00 66 03/04/17 23:00 70 03/04/17 22:00 78 03/04/17 21:00 78 03/04/17 20:00 84 03/04/17 20:00 96 Room Air 03/04/17 20:00 98.0 93 18 135/62 (86) 96 03/04/17 19:00 80 03/04/17 18:00 80 03/04/17 17:00 70 03/04/17 16:00 73 03/04/17 15:40 100 Room Air 03/04/17 15:37 98.0 69 16 145/71 (95) 100 03/04/17 15:00 69 03/04/17 14:00 65 03/05/17 03/05/17 03/05/17 07:00 15:00 23:00 Intake Total 240 ml Output Total 600 ml Balance -360 ml Result Diagram: 03/05/17 0503/05/17 0525 Laboratory Results Laboratory Tests Test 03/05/17 05:25 White Blood Count 5.0 TH/MM3 Red Blood Count 3.37 MIL/MM3 Hemoglobin 11.0 GM/DL Hematocrit 32.0 % Mean Corpuscular Volume 95.0 FL Mean Corpuscular Hemoglobin 32.6 PG Mean Corpuscular Hemoglobin Concent 34.3 % Red Cell Distribution Width 14.7 % Platelet Count 160 TH/MM3 Mean Platelet Volume 7.8 FL Blood Urea Nitrogen 10 MG/DL Creatinine 0.66 MG/DL Random Glucose 84 MG/DL Calcium Level 8.3 MG/DL Sodium Level 140 MEQ/L Potassium Level 3.9 MEQ/L Chloride Level 105 MEQ/L Carbon Dioxide Level 27.9 MEQ/L Anion Gap 7 MEQ/L Estimat Glomerular Filtration Rate 88 ML/MIN Administered Medications Medications (Trade) Dose Ordered Sig/Yue Route PRN Reason Start Time Stop Time Status Last Admin Dose Admin Senna/Docusate Sodium (Eleni-Colace) 1 tab BID PO 02/26/17 21:00 03/04/17 21:44 Magnesium Hydroxide (Milk Of Fidencio Liq) 30 ml Q12H PRN PO MILD - MODERATE CONSTIPATION 02/26/17 15:45 03/03/17 10:00 Atorvastatin Calcium (Lipitor) 80 mg HS PO 02/26/17 21:00 03/04/17 21:44 Cholecalciferol (Vitamin D3) 1,000 units DAILY PO 02/27/17 09:00 03/05/17 09:04 Levetriacetam (Keppra) 1,000 mg BID PO 02/26/17 21:00 03/05/17 09:03 Sodium Chloride (NS Flush) 2 ml BID IV FLUSH 02/27/17 21:00 03/05/17 09:00 Aspirin (Aspirin Chew) 81 mg DAILY PO 03/01/17 09:00 03/05/17 09:03 Clopidogrel Bisulfate (Plavix) 75 mg DAILY PO 03/01/17 09:00 03/05/17 09:04 Pantoprazole Sodium (Protonix) 40 mg DAILY@06 PO 03/01/17 06:00 03/04/17 06:00 Acetaminophen (Tylenol) 650 mg Q4H PRN PO TEMPERATURE > 101 F 02/28/17 12:15 03/05/17 10:02 Acetaminophen/ Hydrocodone Bitart ([place] 5-325 Mg) 1 tab Q3H PRN PO PAIN SCALE 1 TO 5 02/28/17 12:15 03/04/17 19:33 Metoprolol Tartrate (Lopressor) 12.5 mg BID PO 03/02/17 10:30 03/05/17 09:04 Objective Remarks GENERAL: Elderly female lying in bed in no acute distress SKIN: Warm and dry. Large mediastinal dressing in place. HEAD: Normocephalic. EYES: No injection or drainage. NECK: Supple, trachea midline. CARDIOVASCULAR: +S1/S2 RESPIRATORY: Breath sounds equal bilaterally. No accessory muscle use. GASTROINTESTINAL: Abdomen soft, non-tender, nondistended. EXTREMITIES: No cyanosis NEUROLOGICAL: Moving all extremities. Normal speech. No obvious focal deficit. Assessment/Plan Problem List: (1) Non-Hodgkin lymphoma ICD Codes: C85.90 - Non-Hodgkin lymphoma, unspecified, unspecified site Status: Chronic Plan: --Non-Hodgkin's B-cell lymphoma/follicular lymphoma, grade 1. --had hypermetabolic lymph nodes in the right axillary, inguinal and right pelvic area. --also had significant constitutional symptoms when she first presented. --completed 5 cycles of Rituxan and bendamustine in June 2016. was then started on maintenance Rituxan. --last dose of Rituxan was February 20. --Recent CT scan did not show any evidence of recurrent disease. --no oncologic intervention planned during this admission. (2) CAD (coronary artery disease) ICD Codes: I25.10 - Atherosclerotic heart disease of [place] coronary artery without angina pectoris Status: Acute Plan: --per cardiology/CTS --s/p CABG (3) Pancytopenia ICD Codes: D61.818 - Other pancytopenia Status: Chronic Plan: --has mild pancytopenia. --baseline CBC is in the low normal range. --monitor her CBC. Assessment 71y/o female admitted with chest pain, now s/p CABG. Oncology following for h/ o lymphoma. --h/o Non-Hodgkin's B-cell lymphoma. Epilepsy. Chronic obstructive pulmonary disease. Transient ischemia attack. Osteoarthritis Hypertension. Hyperlipidemia. Left breast benign nodule. Plan 1. Patient not having any bleeding; platelets have now normalized 2. Okay for discharge from hematology standpoint 3. Follow-up in clinic once discharged Attending Statement The exam, history, and the medical decision-making described in the above note were completed with the assistance of the mid-level provider. I reviewed and agree with the findings presented. I attest that I had a [id number] encounter with the patient on the same day, and personally performed and documented my assessment and findings in the medical record. No bleeding noted. Blood counts improving. Can be d/c from hematology standpoint. Problem Qualifiers (1) Non-Hodgkin lymphoma: Qualified Codes: C82.00 - Follicular lymphoma grade I, unspecified site (2) CAD (coronary artery disease): Qualified Codes: I25.110 - Atherosclerotic heart disease of [place] coronary artery with unstable angina pectoris Melissa Walker Mar 05, 2017 13:36 Saeed Enriquez MD Mar 05, 2017 15:17
[2017-03-05] MEDS ORDERED: AMIODARONE 200 MG TAB PO SCH (21:00)
== END 2017-03-05 18:06 | DRG 234 ==
LOC: NEPE 14:11 → NEDA 15:33 → OBSVTOIN 15:34 → HCIS 17:16 → HCVR 02-28 12:47 → HCPC 03-03 08:41 → HCVI 03-03 08:44 → HCPC 03-03 10:30
PROVIDERS: ADMIT Thoracic Surgery (Cardiothoracic Vascular Surgery); ATTEND Thoracic Surgery (Cardiothoracic Vascular Surgery)
PROC: B2111ZZ Fluoroscopy of Multiple Coronary Arteries using Low Osmolar Contrast (ICD-10-PCS; 2017-02-26)
PROC: B2151ZZ Fluoroscopy of Left Heart using Low Osmolar Contrast (ICD-10-PCS; 2017-02-26)
PROC: B241ZZ3 Ultrasonography of Multiple Coronary Arteries, Intravascular (ICD-10-PCS; 2017-02-26)
PROC: 4A023N7 Measurement of Cardiac Sampling and Pressure, Left Heart, Percutaneous Approach (ICD-10-PCS; principal; 2017-02-26 17:15)
PROC: 021209W Bypass Coronary Artery, Three Arteries from Aorta with Autologous Venous Tissue, Open Approach (ICD-10-PCS; 2017-02-28)
PROC: 06BQ4ZZ Excision of Left Saphenous Vein, Percutaneous Endoscopic Approach (ICD-10-PCS; 2017-02-28)
PROC: 3E0T3BZ Introduction of Anesthetic Agent into Peripheral Nerves and Plexi, Percutaneous Approach (ICD-10-PCS; 2017-02-28)
PROC: 02100Z9 Bypass Coronary Artery, One Artery from Left Internal Mammary, Open Approach (ICD-10-PCS; 2017-02-28 07:20)
PROC: 30233N1 Transfusion of Nonautologous Red Blood Cells into Peripheral Vein, Percutaneous Approach (ICD-10-PCS; 2017-03-03)
DX: I21.4 Non-ST elevation (NSTEMI) myocardial infarction (principal); D61.818 Other pancytopenia; I69.854 Hemiplegia and hemiparesis following other cerebrovascular disease affecting left non-dominant side; I08.2 Rheumatic disorders of both aortic and tricuspid valves; J44.9 Chronic obstructive pulmonary disease, unspecified; G40.909 Epilepsy, unspecified, not intractable, without status epilepticus; I48.91 Unspecified atrial fibrillation; F03.90 Unspecified dementia, unspecified severity, without behavioral disturbance, psychotic disturbance, mood disturbance, and anxiety; I10 Essential (primary) hypertension; I97.89 Other postprocedural complications and disorders of the circulatory system, not elsewhere classified; E78.5 Hyperlipidemia, unspecified; I25.110 Atherosclerotic heart disease of native coronary artery with unstable angina pectoris; M19.90 Unspecified osteoarthritis, unspecified site; R06.6 Hiccough; R12 Heartburn; Z92.21 Personal history of antineoplastic chemotherapy; F41.9 Anxiety disorder, unspecified; K21.9 Gastro-esophageal reflux disease without esophagitis; G47.00 Insomnia, unspecified; Z85.71 Personal history of Hodgkin lymphoma; K59.00 Constipation, unspecified; Z23 Encounter for immunization
CPT/HCPCS: 36430; 71010; 76937; 80048; 80061; 81001; 82550; 82552; 82948; 83036; 83735; 84155; 84484; 85007; 85014; 85018; 85025; 85027; 85610; 85730; 86850; 86900; 86901; 86920; 87641; 90686; 90732; 92978; 93005; 93306; 93454; 93880; 93970; 93998; 94002; 94010; 94150; 94640; 94664; 96361; 96365; C1753; C1768; C1769; C1887; C1893; C9290; G0378; J0131; J0282; J0690; J1100; J1644; J1817; J1885; J1940; J2250; J2270; J2370; J2440; J2710; J2720; J3010; J3370; J3475; J3480; J7030; J7040; J7060; J7120; P9016; P9045; Q2038; Q9967

== ENCOUNTER 2017-12-19 12:22 | Observation (INO) ==
[2017-12-19] MEDS ORDERED: Sodium Chlor 0.9% Inj 500 ML IV.SIG ONE ×2 (12:50→15:40)
--- NOTE | 2017-12-19 13:04 | ED ---
HPI General Chief Complaint: Syncope Stated Complaint: Cardiac Time Seen by Provider: 12/19/17 12:41 Source: patient Mode of arrival: EMS Limitations: no limitations History of Present Illness HPI narrative: 72-year-old female came to the emergency room with history of sudden onset lightheadedness followed by syncopal episode today at around 11 AM. Patient says that she was not feeling too good. She has been stressed out lately. So she went to her porch and sat down. Soon after she started getting lightheaded. She also felt the urge to go to the bathroom and got up and started walking towards the house. Her lightheadedness worsened and she fell to the ground and after that she thinks she lost consciousness. She tried calling for her who was inside the house who eventually came in and call 911. By the time EMS arrived patient was awake. She says she started experiencing some chest pain midsternal that radiated to her left arm. Patient has history of coronary artery disease. She had a CABG quadruple vessel last year. Patient is not a smoker and does not have diabetes. Patient was slightly hypotensive on route. By the time she arrived in the room blood pressure had stabilized. She had received some fluid on route by EMS. Currently patient says that the pain has disappeared. She was not given aspirin since she cannot take aspirin. Patient is not sure exactly how long she was unconscious before but she said it could not have been more than 2 minutes. MD complaint: loss of consciousness Related Data Home Medications Medication Instructions Recorded Confirmed aspirin [Aspir-81] 81 mg PO DAILY 12/19/17 12/19/17 atorvastatin 80 mg PO DAILY 12/19/17 12/19/17 fluticasone [Flovent Diskus] 2 inh INHALATION BID 12/19/17 12/19/17 hydrochlorothiazide 25 mg PO DAILY 12/19/17 12/19/17 levetiracetam [Keppra] 1,000 mg PO Q12H 12/19/17 12/19/17 lisinopril 20 mg PO DAILY 12/19/17 12/19/17 naproxen 250 mg PO BID 12/19/17 12/19/17 Allergies Allergy/AdvReac Type Severity Reaction Status Date / Time No Known Allergies Allergy Uncoded 02/26/17 14:32 Review of Systems ROS Unobtainable All other systems reviewed negative except as stated in HPI Neurologic Reports syncope PMFSH History History Provided By: Patient Medical History Medical History ASD (atrial septal defect) (Acute) COPD (chronic obstructive pulmonary disease) (Acute) High cholesterol (Acute) Hypertension (Acute) Non-Hodgkin lymphoma (Acute) Scoliosis (Acute) Seizure disorder (Acute) TIA (transient ischemic attack) (Acute) Surgical History Surgical History History of D&C (Acute) History of breast biopsy (Acute) History of hysterectomy (Acute) Hx of cardiac cath (Acute) Hx of cholecystectomy (Acute) Port-A-Cath in place (Acute) Family History Family History Father Heart disease Mother Dementia Social History Social History Substance History: No History of Abuse Second Hand Smoke Exposure: No Smoking Status: Never smoker How Often Do You Have a Drink Containing Alcohol: Never Recent Travel in [facility] within the Last 8 Weeks: No Recent Out of Country Travel within the Last 8 Weeks: No Exam Narrative Exam Narrative: GENERAL: Awake, alert, elderly, anxious, no obvious distress SKIN: Focused skin assessment warm/dry. HEAD: Atraumatic. Normocephalic. EYES: Pupils equal and round. No scleral icterus. No injection or drainage. ENT: No nasal bleeding or discharge. Mucous membranes pink and moist. NECK: Trachea midline. No JVD. CARDIOVASCULAR: Regular rate and rhythm. No murmur appreciated. RESPIRATORY: No accessory muscle use. Clear to auscultation. Breath sounds equal bilaterally. GASTROINTESTINAL: Abdomen soft, non-tender, nondistended. Hepatic and splenic margins not palpable. MUSCULOSKELETAL: No obvious deformities. No clubbing. No cyanosis. No edema. NEUROLOGICAL: Awake and alert. No obvious cranial nerve deficits. Motor grossly within normal limits. Normal speech. PSYCHIATRIC: Appropriate mood and affect; insight and judgment normal. Course Reevaluation(s) Reevaluation #1: Blood test results are mostly back and within acceptable limits. Awaiting for the UA and the CT scan of her head and CTA pulmonary angiogram. Patient has history of lymphoma and hence is at a moderate risk for PE. Patient will eventually require admission at least for observation. Time: 14:26 Initial Documented Vital Signs Pulse Rate 65 12/19/17 13:00 Last Documented Vital Signs Temperature 98 F 12/23/17 04:00 Pulse Rate 59 L 12/23/17 04:00 Respiratory Rate 18 12/23/17 04:00 Blood Pressure 154/75 H 12/23/17 04:00 Pulse Oximetry 99 12/23/17 04:00 Medical Decision Making Lab Data Result diagrams: 12/23/17 05:38 12/23/17 05:38 Lab Results 12/19/17 12/19/17 12/19/17 Range/Units 13:50 13:50 13:50 WBC 5.5 (4.0-11.0) th/mm3 RBC 3.23 L (4.00-5.30) mil/mm3 Hgb 10.6 L (11.6-15.3) gm/dL Hct 31.4 L (35.0-46.0) % MCV 97.3 (80.0-100.0) fL MCH 33.0 (27.0-34.0) pg MCHC 33.9 (32.0-36.0) % RDW 14.4 (11.6-17.2) % Plt Count 150 (150-450) th/mm3 MPV 7.6 (7.0-11.0) fL Prelim Diff (Auto) Slide review pending Neut % (Auto) 79.7 H (16.0-70.0) % Lymph % (Auto) 7.9 L (9.0-44.0) % Baxter % (Auto) 8.3 H (0.0-8.0) % Eos % (Auto) 3.5 (0.0-4.0) % Baso % (Auto) 0.6 (0.0-2.0) % Neut # (Auto) 4.4 (1.8-7.7) th/mm3 Lymph # (Auto) 0.4 L (1.0-4.8) th/mm3 Baxter # (Auto) 0.5 (0.0-0.9) th/mm3 Eos # (Auto) 0.2 (0.0-0.4) th/mm3 Baso # (Auto) 0.0 (0.0-0.2) th/mm3 WBC Differential Manual diff final Seg Neuts % (Manual) 56 (16-70) % Band Neuts % (Manual) 29 H (0-6) % Lymphocytes % (Manual) 4 L (9-44) % Monocytes % (Manual) 8 (0-8) % Eosinophils % (Manual) 2 (0-4) % Basophils % (Manual) (0-2) % Metamyelocytes % (Man) 1 (0-1) % Abs Neuts (Manual) 4.7 (1.8-7.7) th/mm3 Differential Comment . Toxic Granulation 3+ H (None) Platelet Estimate Normal (Normal) Platelet Morphology Normal (Normal) Ovalocytes (None) Acanthocytes (Spur) (None) PT 10.7 (9.8-11.6) sec INR 1.1 Ratio Sodium 144 (136-145) meq/L Potassium 4.0 (3.5-5.1) meq/L Chloride 110 H (98-107) meq/L Carbon Dioxide 23.4 (21.0-32.0) meq/L Anion Gap 11 (5-15) meq/L BUN 20 H (7-18) mg/dL Creatinine 0.94 (0.50-1.00) mg/dL Estimated GFR 58 L (>89) mL/min POC Glucose (68-110) mg/dl Random Glucose 87 (74-106) mg/dL Hemoglobin A1c (4.3-6.0) % Lactic Acid (0.4-2.0) mmol/L Calcium 8.6 (8.5-10.1) mg/dL Phosphorus (2.5-4.9) mg/dL Magnesium (1.5-2.5) mg/dL Total Bilirubin 0.5 (0.2-1.0) mg/dL AST 38 H (15-37) U/L ALT 35 (10-53) U/L Alkaline Phosphatase 109 (45-117) U/L Troponin I Less than 0.02 L (0.02-0.05) ng/mL Total Protein 6.1 L (6.4-8.2) g/dL Albumin 3.6 (3.4-5.0) g/dL Triglycerides (42-150) mg/dL Cholesterol (120-200) mg/dL LDL Cholesterol, Calc (0-99) mg/dL HDL Cholesterol (40.0-60.0) mg/dL Cholesterol/HDL Ratio Ratio TSH (0.358-3.740) uIU/mL Free T4 (0.76-1.46) ng/dL Urine Color (Yellw/Straw) Urine Clarity (Clear) Urine pH (5.0-8.5) Ur Specific [place] (1.002-1.035) Urine Protein (Neg-Trace) mg/dL Urine Glucose (UA) (Negative) mg/dL Urine Ketones (Negative) mg/dL Urine Occult Blood (Negative) Urine Nitrate (Negative) Urine Bilirubin (Negative) Urine Urobilinogen (Less than 2) mg/dL Ur Leukocyte Esterase (Negative) Urine WBC (0-5) /hpf Ur Squamous Epith Cells (0-5) /hpf Hyaline Casts (0-3) /lpf Stl C.difficile Tox PCR (Negative) St C. diff Tox Epid 027 (Negative) 12/19/17 12/19/17 12/20/17 Range/Units 15:52 16:20 01:50 WBC 4.6 (4.0-11.0) th/mm3 RBC 3.09 L (4.00-5.30) mil/mm3 Hgb 10.4 L (11.6-15.3) gm/dL Hct 30.5 L (35.0-46.0) % MCV 98.4 (80.0-100.0) fL MCH 33.4 (27.0-34.0) pg MCHC 34.0 (32.0-36.0) % RDW 14.1 (11.6-17.2) % Plt Count 126 L (150-450) th/mm3 MPV 7.6 (7.0-11.0) fL Prelim Diff (Auto) Slide review pending Neut % (Auto) 77.7 H (16.0-70.0) % Lymph % (Auto) 8.6 L (9.0-44.0) % Baxter % (Auto) 8.0 (0.0-8.0) % Eos % (Auto) 5.3 H (0.0-4.0) % Baso % (Auto) 0.4 (0.0-2.0) % Neut # (Auto) 3.6 (1.8-7.7) th/mm3 Lymph # (Auto) 0.4 L (1.0-4.8) th/mm3 Baxter # (Auto) 0.4 (0.0-0.9) th/mm3 Eos # (Auto) 0.2 (0.0-0.4) th/mm3 Baso # (Auto) 0.0 (0.0-0.2) th/mm3 WBC Differential Manual diff final Seg Neuts % (Manual) 82 H (16-70) % Band Neuts % (Manual) 3 (0-6) % Lymphocytes % (Manual) 8 L (9-44) % Monocytes % (Manual) 5 (0-8) % Eosinophils % (Manual) 1 (0-4) % Basophils % (Manual) 1 (0-2) % Metamyelocytes % (Man) (0-1) % Abs Neuts (Manual) 3.9 (1.8-7.7) th/mm3 Differential Comment . Toxic Granulation 2+ H (None) Platelet Estimate Low L (Normal) Platelet Morphology Normal (Normal) Ovalocytes 1+ H (None) Acanthocytes (Spur) Occ H (None) PT (9.8-11.6) sec INR Ratio Sodium (136-145) meq/L Potassium (3.5-5.1) meq/L Chloride (98-107) meq/L Carbon Dioxide (21.0-32.0) meq/L Anion Gap (5-15) meq/L BUN (7-18) mg/dL Creatinine (0.50-1.00) mg/dL Estimated GFR (>89) mL/min POC Glucose (68-110) mg/dl Random Glucose (74-106) mg/dL Hemoglobin A1c (4.3-6.0) % Lactic Acid 0.5 (0.4-2.0) mmol/L Calcium (8.5-10.1) mg/dL Phosphorus (2.5-4.9) mg/dL Magnesium (1.5-2.5) mg/dL Total Bilirubin (0.2-1.0) mg/dL AST (15-37) U/L ALT (10-53) U/L Alkaline Phosphatase (45-117) U/L Troponin I (0.02-0.05) ng/mL Total Protein (6.4-8.2) g/dL Albumin (3.4-5.0) g/dL Triglycerides (42-150) mg/dL Cholesterol (120-200) mg/dL LDL Cholesterol, Calc (0-99) mg/dL HDL Cholesterol (40.0-60.0) mg/dL Cholesterol/HDL Ratio Ratio TSH (0.358-3.740) uIU/mL Free T4 (0.76-1.46) ng/dL Urine Color Yellow (Yellw/Straw) Urine Clarity Hazy H (Clear) Urine pH 5.0 (5.0-8.5) Ur Specific [place] 1.010 (1.002-1.035) Urine Protein Negative (Neg-Trace) mg/dL Urine Glucose (UA) Negative (Negative) mg/dL Urine Ketones Negative (Negative) mg/dL Urine Occult Blood Negative (Negative) Urine Nitrate Negative (Negative) Urine Bilirubin Negative (Negative) Urine Urobilinogen Less than 2 (Less than 2) mg/dL Ur Leukocyte Esterase Small H (Negative) Urine WBC 2 (0-5) /hpf Ur Squamous Epith Cells 4 (0-5) /hpf Hyaline Casts 4 (0-3) /lpf Stl C.difficile Tox PCR (Negative) St C. diff Tox Epid 027 (Negative) 12/20/17 12/20/17 12/20/17 Range/Units 01:50 01:50 01:50 WBC (4.0-11.0) th/mm3 RBC (4.00-5.30) mil/mm3 Hgb (11.6-15.3) gm/dL Hct (35.0-46.0) % MCV (80.0-100.0) fL MCH (27.0-34.0) pg MCHC (32.0-36.0) % RDW (11.6-17.2) % Plt Count (150-450) th/mm3 MPV (7.0-11.0) fL Prelim Diff (Auto) Neut % (Auto) (16.0-70.0) % Lymph % (Auto) (9.0-44.0) % Baxter % (Auto) (0.0-8.0) % Eos % (Auto) (0.0-4.0) % Baso % (Auto) (0.0-2.0) % Neut # (Auto) (1.8-7.7) th/mm3 Lymph # (Auto) (1.0-4.8) th/mm3 Baxter # (Auto) (0.0-0.9) th/mm3 Eos # (Auto) (0.0-0.4) th/mm3 Baso # (Auto) (0.0-0.2) th/mm3 WBC Differential Seg Neuts % (Manual) (16-70) % Band Neuts % (Manual) (0-6) % Lymphocytes % (Manual) (9-44) % Monocytes % (Manual) (0-8) % Eosinophils % (Manual) (0-4) % Basophils % (Manual) (0-2) % Metamyelocytes % (Man) (0-1) % Abs Neuts (Manual) (1.8-7.7) th/mm3 Differential Comment Toxic Granulation (None) Platelet Estimate (Normal) Platelet Morphology (Normal) Ovalocytes (None) Acanthocytes (Spur) (None) PT (9.8-11.6) sec INR Ratio Sodium 148 H (136-145) meq/L Potassium 3.7 (3.5-5.1) meq/L Chloride 114 H (98-107) meq/L Carbon Dioxide 23.6 (21.0-32.0) meq/L Anion Gap 10 (5-15) meq/L BUN 13 (7-18) mg/dL Creatinine 0.79 (0.50-1.00) mg/dL Estimated GFR 71 L (>89) mL/min POC Glucose (68-110) mg/dl Random Glucose 99 (74-106) mg/dL Hemoglobin A1c 4.8 (4.3-6.0) % Lactic Acid (0.4-2.0) mmol/L Calcium 8.7 (8.5-10.1) mg/dL Phosphorus (2.5-4.9) mg/dL Magnesium (1.5-2.5) mg/dL Total Bilirubin (0.2-1.0) mg/dL AST (15-37) U/L ALT (10-53) U/L Alkaline Phosphatase (45-117) U/L Troponin I Less than 0.02 L (0.02-0.05) ng/mL Total Protein (6.4-8.2) g/dL Albumin (3.4-5.0) g/dL Triglycerides 33 L (42-150) mg/dL Cholesterol 88 L (120-200) mg/dL LDL Cholesterol, Calc 22 (0-99) mg/dL HDL Cholesterol 59.8 (40.0-60.0) mg/dL Cholesterol/HDL Ratio 1.47 Ratio TSH (0.358-3.740) uIU/mL Free T4 (0.76-1.46) ng/dL Urine Color (Yellw/Straw) Urine Clarity (Clear) Urine pH (5.0-8.5) Ur Specific [place] (1.002-1.035) Urine Protein (Neg-Trace) mg/dL Urine Glucose (UA) (Negative) mg/dL Urine Ketones (Negative) mg/dL Urine Occult Blood (Negative) Urine Nitrate (Negative) Urine Bilirubin (Negative) Urine Urobilinogen (Less than 2) mg/dL Ur Leukocyte Esterase (Negative) Urine WBC (0-5) /hpf Ur Squamous Epith Cells (0-5) /hpf Hyaline Casts (0-3) /lpf Stl C.difficile Tox PCR (Negative) St C. diff Tox Epid 027 (Negative) 12/20/17 12/20/17 12/20/17 Range/Units 07:39 08:31 11:38 WBC (4.0-11.0) th/mm3 RBC (4.00-5.30) mil/mm3 Hgb (11.6-15.3) gm/dL Hct (35.0-46.0) % MCV (80.0-100.0) fL MCH (27.0-34.0) pg MCHC (32.0-36.0) % RDW (11.6-17.2) % Plt Count (150-450) th/mm3 MPV (7.0-11.0) fL Prelim Diff (Auto) Neut % (Auto) (16.0-70.0) % Lymph % (Auto) (9.0-44.0) % Baxter % (Auto) (0.0-8.0) % Eos % (Auto) (0.0-4.0) % Baso % (Auto) (0.0-2.0) % Neut # (Auto) (1.8-7.7) th/mm3 Lymph # (Auto) (1.0-4.8) th/mm3 Baxter # (Auto) (0.0-0.9) th/mm3 Eos # (Auto) (0.0-0.4) th/mm3 Baso # (Auto) (0.0-0.2) th/mm3 WBC Differential Seg Neuts % (Manual) (16-70) % Band Neuts % (Manual) (0-6) % Lymphocytes % (Manual) (9-44) % Monocytes % (Manual) (0-8) % Eosinophils % (Manual) (0-4) % Basophils % (Manual) (0-2) % Metamyelocytes % (Man) (0-1) % Abs Neuts (Manual) (1.8-7.7) th/mm3 Differential Comment Toxic Granulation (None) Platelet Estimate (Normal) Platelet Morphology (Normal) Ovalocytes (None) Acanthocytes (Spur) (None) PT (9.8-11.6) sec INR Ratio Sodium (136-145) meq/L Potassium (3.5-5.1) meq/L Chloride (98-107) meq/L Carbon Dioxide (21.0-32.0) meq/L Anion Gap (5-15) meq/L BUN (7-18) mg/dL Creatinine (0.50-1.00) mg/dL Estimated GFR (>89) mL/min POC Glucose 90 114 H (68-110) mg/dl Random Glucose (74-106) mg/dL Hemoglobin A1c (4.3-6.0) % Lactic Acid (0.4-2.0) mmol/L Calcium (8.5-10.1) mg/dL Phosphorus (2.5-4.9) mg/dL Magnesium (1.5-2.5) mg/dL Total Bilirubin (0.2-1.0) mg/dL AST (15-37) U/L ALT (10-53) U/L Alkaline Phosphatase (45-117) U/L Troponin I Less than 0.02 L (0.02-0.05) ng/mL Total Protein (6.4-8.2) g/dL Albumin (3.4-5.0) g/dL Triglycerides (42-150) mg/dL Cholesterol (120-200) mg/dL LDL Cholesterol, Calc (0-99) mg/dL HDL Cholesterol (40.0-60.0) mg/dL Cholesterol/HDL Ratio Ratio TSH (0.358-3.740) uIU/mL Free T4 (0.76-1.46) ng/dL Urine Color (Yellw/Straw) Urine Clarity (Clear) Urine pH (5.0-8.5) Ur Specific [place] (1.002-1.035) Urine Protein (Neg-Trace) mg/dL Urine Glucose (UA) (Negative) mg/dL Urine Ketones (Negative) mg/dL Urine Occult Blood (Negative) Urine Nitrate (Negative) Urine Bilirubin (Negative) Urine Urobilinogen (Less than 2) mg/dL Ur Leukocyte Esterase (Negative) Urine WBC (0-5) /hpf Ur Squamous Epith Cells (0-5) /hpf Hyaline Casts (0-3) /lpf Stl C.difficile Tox PCR (Negative) St C. diff Tox Epid 027 (Negative) 12/20/17 12/21/17 12/21/17 Range/Units 18:32 03:59 07:00 WBC 4.4 (4.0-11.0) th/mm3 RBC 3.09 L (4.00-5.30) mil/mm3 Hgb 10.4 L (11.6-15.3) gm/dL Hct 30.4 L (35.0-46.0) % MCV 98.3 (80.0-100.0) fL MCH 33.6 (27.0-34.0) pg MCHC 34.2 (32.0-36.0) % RDW 14.3 (11.6-17.2) % Plt Count 123 L (150-450) th/mm3 MPV 7.7 (7.0-11.0) fL Prelim Diff (Auto) Neut % (Auto) 73.0 H (16.0-70.0) % Lymph % (Auto) 10.8 (9.0-44.0) % Baxter % (Auto) 7.1 (0.0-8.0) % Eos % (Auto) 8.9 H (0.0-4.0) % Baso % (Auto) 0.2 (0.0-2.0) % Neut # (Auto) 3.2 (1.8-7.7) th/mm3 Lymph # (Auto) 0.5 L (1.0-4.8) th/mm3 Baxter # (Auto) 0.3 (0.0-0.9) th/mm3 Eos # (Auto) 0.4 (0.0-0.4) th/mm3 Baso # (Auto) 0.0 (0.0-0.2) th/mm3 WBC Differential . Seg Neuts % (Manual) (16-70) % Band Neuts % (Manual) (0-6) % Lymphocytes % (Manual) (9-44) % Monocytes % (Manual) (0-8) % Eosinophils % (Manual) (0-4) % Basophils % (Manual) (0-2) % Metamyelocytes % (Man) (0-1) % Abs Neuts (Manual) (1.8-7.7) th/mm3 Differential Comment Auto diff final Toxic Granulation (None) Platelet Estimate (Normal) Platelet Morphology (Normal) Ovalocytes (None) Acanthocytes (Spur) (None) PT (9.8-11.6) sec INR Ratio Sodium (136-145) meq/L Potassium (3.5-5.1) meq/L Chloride (98-107) meq/L Carbon Dioxide (21.0-32.0) meq/L Anion Gap (5-15) meq/L BUN (7-18) mg/dL Creatinine (0.50-1.00) mg/dL Estimated GFR (>89) mL/min POC Glucose 78 109 (68-110) mg/dl Random Glucose (74-106) mg/dL Hemoglobin A1c (4.3-6.0) % Lactic Acid (0.4-2.0) mmol/L Calcium (8.5-10.1) mg/dL Phosphorus (2.5-4.9) mg/dL Magnesium (1.5-2.5) mg/dL Total Bilirubin (0.2-1.0) mg/dL AST (15-37) U/L ALT (10-53) U/L Alkaline Phosphatase (45-117) U/L Troponin I (0.02-0.05) ng/mL Total Protein (6.4-8.2) g/dL Albumin (3.4-5.0) g/dL Triglycerides (42-150) mg/dL Cholesterol (120-200) mg/dL LDL Cholesterol, Calc (0-99) mg/dL HDL Cholesterol (40.0-60.0) mg/dL Cholesterol/HDL Ratio Ratio TSH (0.358-3.740) uIU/mL Free T4 (0.76-1.46) ng/dL Urine Color (Yellw/Straw) Urine Clarity (Clear) Urine pH (5.0-8.5) Ur Specific [place] (1.002-1.035) Urine Protein (Neg-Trace) mg/dL Urine Glucose (UA) (Negative) mg/dL Urine Ketones (Negative) mg/dL Urine Occult Blood (Negative) Urine Nitrate (Negative) Urine Bilirubin (Negative) Urine Urobilinogen (Less than 2) mg/dL Ur Leukocyte Esterase (Negative) Urine WBC (0-5) /hpf Ur Squamous Epith Cells (0-5) /hpf Hyaline Casts (0-3) /lpf Stl C.difficile Tox PCR (Negative) St C. diff Tox Epid 027 (Negative) 12/21/17 12/21/17 12/21/17 Range/Units 07:00 07:33 10:36 WBC (4.0-11.0) th/mm3 RBC (4.00-5.30) mil/mm3 Hgb (11.6-15.3) gm/dL Hct (35.0-46.0) % MCV (80.0-100.0) fL MCH (27.0-34.0) pg MCHC (32.0-36.0) % RDW (11.6-17.2) % Plt Count (150-450) th/mm3 MPV (7.0-11.0) fL Prelim Diff (Auto) Neut % (Auto) (16.0-70.0) % Lymph % (Auto) (9.0-44.0) % [place] % (Auto) (0.0-8.0) % Eos % (Auto) (0.0-4.0) % Baso % (Auto) (0.0-2.0) % Neut # (Auto) (1.8-7.7) th/mm3 Lymph # (Auto) (1.0-4.8) th/mm3 Baxter # (Auto) (0.0-0.9) th/mm3 Eos # (Auto) (0.0-0.4) th/mm3 Baso # (Auto) (0.0-0.2) th/mm3 WBC Differential Seg Neuts % (Manual) (16-70) % Band Neuts % (Manual) (0-6) % Lymphocytes % (Manual) (9-44) % Monocytes % (Manual) (0-8) % Eosinophils % (Manual) (0-4) % Basophils % (Manual) (0-2) % Metamyelocytes % (Man) (0-1) % Abs Neuts (Manual) (1.8-7.7) th/mm3 Differential Comment Toxic Granulation (None) Platelet Estimate (Normal) Platelet Morphology (Normal) Ovalocytes (None) Acanthocytes (Spur) (None) PT (9.8-11.6) sec INR Ratio Sodium 147 H (136-145) meq/L Potassium 4.1 (3.5-5.1) meq/L Chloride 113 H (98-107) meq/L Carbon Dioxide 25.1 (21.0-32.0) meq/L Anion Gap 9 (5-15) meq/L BUN 9 (7-18) mg/dL Creatinine 0.65 (0.50-1.00) mg/dL Estimated GFR 89 (>89) mL/min POC Glucose 89 (68-110) mg/dl Random Glucose 91 (74-106) mg/dL Hemoglobin A1c (4.3-6.0) % Lactic Acid (0.4-2.0) mmol/L Calcium 8.9 (8.5-10.1) mg/dL Phosphorus (2.5-4.9) mg/dL Magnesium (1.5-2.5) mg/dL Total Bilirubin 0.4 (0.2-1.0) mg/dL AST 28 (15-37) U/L ALT 30 (10-53) U/L Alkaline Phosphatase 97 (45-117) U/L Troponin I (0.02-0.05) ng/mL Total Protein 5.5 L D (6.4-8.2) g/dL Albumin 2.9 L D (3.4-5.0) g/dL Triglycerides (42-150) mg/dL Cholesterol (120-200) mg/dL LDL Cholesterol, Calc (0-99) mg/dL HDL Cholesterol (40.0-60.0) mg/dL Cholesterol/HDL Ratio Ratio TSH (0.358-3.740) uIU/mL Free T4 (0.76-1.46) ng/dL Urine Color (Yellw/Straw) Urine Clarity (Clear) Urine pH (5.0-8.5) Ur Specific [place] (1.002-1.035) Urine Protein (Neg-Trace) mg/dL Urine Glucose (UA) (Negative) mg/dL Urine Ketones (Negative) mg/dL Urine Occult Blood (Negative) Urine Nitrate (Negative) Urine Bilirubin (Negative) Urine Urobilinogen (Less than 2) mg/dL Ur Leukocyte Esterase (Negative) Urine WBC (0-5) /hpf Ur Squamous Epith Cells (0-5) /hpf Hyaline Casts (0-3) /lpf Stl C.difficile Tox PCR Negative (Negative) St C. diff Tox Epid 027 Negative (Negative) 12/21/17 12/21/17 12/21/17 Range/Units 11:39 15:41 21:01 WBC (4.0-11.0) th/mm3 RBC (4.00-5.30) mil/mm3 Hgb (11.6-15.3) gm/dL Hct (35.0-46.0) % MCV (80.0-100.0) fL MCH (27.0-34.0) pg MCHC (32.0-36.0) % RDW (11.6-17.2) % Plt Count (150-450) th/mm3 MPV (7.0-11.0) fL Prelim Diff (Auto) Neut % (Auto) (16.0-70.0) % Lymph % (Auto) (9.0-44.0) % [place] % (Auto) (0.0-8.0) % Eos % (Auto) (0.0-4.0) % Baso % (Auto) (0.0-2.0) % Neut # (Auto) (1.8-7.7) th/mm3 Lymph # (Auto) (1.0-4.8) th/mm3 Baxter # (Auto) (0.0-0.9) th/mm3 Eos # (Auto) (0.0-0.4) th/mm3 Baso # (Auto) (0.0-0.2) th/mm3 WBC Differential Seg Neuts % (Manual) (16-70) % Band Neuts % (Manual) (0-6) % Lymphocytes % (Manual) (9-44) % Monocytes % (Manual) (0-8) % Eosinophils % (Manual) (0-4) % Basophils % (Manual) (0-2) % Metamyelocytes % (Man) (0-1) % Abs Neuts (Manual) (1.8-7.7) th/mm3 Differential Comment Toxic Granulation (None) Platelet Estimate (Normal) Platelet Morphology (Normal) Ovalocytes (None) Acanthocytes (Spur) (None) PT (9.8-11.6) sec INR Ratio Sodium (136-145) meq/L Potassium (3.5-5.1) meq/L Chloride (98-107) meq/L Carbon Dioxide (21.0-32.0) meq/L Anion Gap (5-15) meq/L BUN (7-18) mg/dL Creatinine (0.50-1.00) mg/dL Estimated GFR (>89) mL/min POC Glucose 77 115 H 192 H (68-110) mg/dl Random Glucose (74-106) mg/dL Hemoglobin A1c (4.3-6.0) % Lactic Acid (0.4-2.0) mmol/L Calcium (8.5-10.1) mg/dL Phosphorus (2.5-4.9) mg/dL Magnesium (1.5-2.5) mg/dL Total Bilirubin (0.2-1.0) mg/dL AST (15-37) U/L ALT (10-53) U/L Alkaline Phosphatase (45-117) U/L Troponin I (0.02-0.05) ng/mL Total Protein (6.4-8.2) g/dL Albumin (3.4-5.0) g/dL Triglycerides (42-150) mg/dL Cholesterol (120-200) mg/dL LDL Cholesterol, Calc (0-99) mg/dL HDL Cholesterol (40.0-60.0) mg/dL Cholesterol/HDL Ratio Ratio TSH (0.358-3.740) uIU/mL Free T4 (0.76-1.46) ng/dL Urine Color (Yellw/Straw) Urine Clarity (Clear) Urine pH (5.0-8.5) Ur Specific [place] (1.002-1.035) Urine Protein (Neg-Trace) mg/dL Urine Glucose (UA) (Negative) mg/dL Urine Ketones (Negative) mg/dL Urine Occult Blood (Negative) Urine Nitrate (Negative) Urine Bilirubin (Negative) Urine Urobilinogen (Less than 2) mg/dL Ur Leukocyte Esterase (Negative) Urine WBC (0-5) /hpf Ur Squamous Epith Cells (0-5) /hpf Hyaline Casts (0-3) /lpf Stl C.difficile Tox PCR (Negative) St C. diff Tox Epid 027 (Negative) 12/22/17 12/22/17 12/22/17 Range/Units 06:37 06:37 07:59 WBC 4.3 (4.0-11.0) th/mm3 RBC 3.00 L (4.00-5.30) mil/mm3 Hgb 9.9 L (11.6-15.3) gm/dL Hct 29.2 L (35.0-46.0) % MCV 97.3 (80.0-100.0) fL MCH 33.2 (27.0-34.0) pg MCHC 34.1 (32.0-36.0) % RDW 14.3 (11.6-17.2) % Plt Count 114 L (150-450) th/mm3 MPV 8.0 (7.0-11.0) fL Prelim Diff (Auto) Slide review pending Neut % (Auto) 73.5 H (16.0-70.0) % Lymph % (Auto) 9.6 (9.0-44.0) % Baxter % (Auto) 7.1 (0.0-8.0) % Eos % (Auto) 9.4 H (0.0-4.0) % Baso % (Auto) 0.4 (0.0-2.0) % Neut # (Auto) 3.2 (1.8-7.7) th/mm3 Lymph # (Auto) 0.4 L (1.0-4.8) th/mm3 Baxter # (Auto) 0.3 (0.0-0.9) th/mm3 Eos # (Auto) 0.4 (0.0-0.4) th/mm3 Baso # (Auto) 0.0 (0.0-0.2) th/mm3 WBC Differential Manual diff final Seg Neuts % (Manual) 70 (16-70) % Band Neuts % (Manual) 6 (0-6) % Lymphocytes % (Manual) 11 (9-44) % Monocytes % (Manual) 5 (0-8) % Eosinophils % (Manual) 8 H (0-4) % Basophils % (Manual) (0-2) % Metamyelocytes % (Man) (0-1) % Abs Neuts (Manual) 3.3 (1.8-7.7) th/mm3 Differential Comment . Toxic Granulation (None) Platelet Estimate Low L (Normal) Platelet Morphology Normal (Normal) Ovalocytes 1+ H (None) Acanthocytes (Spur) (None) PT (9.8-11.6) sec INR Ratio Sodium 147 H (136-145) meq/L Potassium 4.0 (3.5-5.1) meq/L Chloride 114 H (98-107) meq/L Carbon Dioxide 26.0 (21.0-32.0) meq/L Anion Gap 7 (5-15) meq/L BUN 11 (7-18) mg/dL Creatinine 0.69 (0.50-1.00) mg/dL Estimated GFR 83 L (>89) mL/min POC Glucose 85 (68-110) mg/dl Random Glucose 92 (74-106) mg/dL Hemoglobin A1c (4.3-6.0) % Lactic Acid (0.4-2.0) mmol/L Calcium 8.0 L D (8.5-10.1) mg/dL Phosphorus (2.5-4.9) mg/dL Magnesium (1.5-2.5) mg/dL Total Bilirubin 0.3 (0.2-1.0) mg/dL AST 24 (15-37) U/L ALT 31 (10-53) U/L Alkaline Phosphatase 99 (45-117) U/L Troponin I (0.02-0.05) ng/mL Total Protein 5.3 L (6.4-8.2) g/dL Albumin 2.8 L (3.4-5.0) g/dL Triglycerides (42-150) mg/dL Cholesterol (120-200) mg/dL LDL Cholesterol, Calc (0-99) mg/dL HDL Cholesterol (40.0-60.0) mg/dL Cholesterol/HDL Ratio Ratio TSH (0.358-3.740) uIU/mL Free T4 (0.76-1.46) ng/dL Urine Color (Yellw/Straw) Urine Clarity (Clear) Urine pH (5.0-8.5) Ur Specific [place] (1.002-1.035) Urine Protein (Neg-Trace) mg/dL Urine Glucose (UA) (Negative) mg/dL Urine Ketones (Negative) mg/dL Urine Occult Blood (Negative) Urine Nitrate (Negative) Urine Bilirubin (Negative) Urine Urobilinogen (Less than 2) mg/dL Ur Leukocyte Esterase (Negative) Urine WBC (0-5) /hpf Ur Squamous Epith Cells (0-5) /hpf Hyaline Casts (0-3) /lpf Stl C.difficile Tox PCR (Negative) St C. diff Tox Epid 027 (Negative) 12/22/17 12/22/17 12/22/17 Range/Units 11:13 17:13 21:22 WBC (4.0-11.0) th/mm3 RBC (4.00-5.30) mil/mm3 Hgb (11.6-15.3) gm/dL Hct (35.0-46.0) % MCV (80.0-100.0) fL MCH (27.0-34.0) pg MCHC (32.0-36.0) % RDW (11.6-17.2) % Plt Count (150-450) th/mm3 MPV (7.0-11.0) fL Prelim Diff (Auto) Neut % (Auto) (16.0-70.0) % Lymph % (Auto) (9.0-44.0) % Baxter % (Auto) (0.0-8.0) % Eos % (Auto) (0.0-4.0) % Baso % (Auto) (0.0-2.0) % Neut # (Auto) (1.8-7.7) th/mm3 Lymph # (Auto) (1.0-4.8) th/mm3 Baxter # (Auto) (0.0-0.9) th/mm3 Eos # (Auto) (0.0-0.4) th/mm3 Baso # (Auto) (0.0-0.2) th/mm3 WBC Differential Seg Neuts % (Manual) (16-70) % Band Neuts % (Manual) (0-6) % Lymphocytes % (Manual) (9-44) % Monocytes % (Manual) (0-8) % Eosinophils % (Manual) (0-4) % Basophils % (Manual) (0-2) % Metamyelocytes % (Man) (0-1) % Abs Neuts (Manual) (1.8-7.7) th/mm3 Differential Comment Toxic Granulation (None) Platelet Estimate (Normal) Platelet Morphology (Normal) Ovalocytes (None) Acanthocytes (Spur) (None) PT (9.8-11.6) sec INR Ratio Sodium (136-145) meq/L Potassium (3.5-5.1) meq/L Chloride (98-107) meq/L Carbon Dioxide (21.0-32.0) meq/L Anion Gap (5-15) meq/L BUN (7-18) mg/dL Creatinine (0.50-1.00) mg/dL Estimated GFR (>89) mL/min POC Glucose 80 116 H 110 (68-110) mg/dl Random Glucose (74-106) mg/dL Hemoglobin A1c (4.3-6.0) % Lactic Acid (0.4-2.0) mmol/L Calcium (8.5-10.1) mg/dL Phosphorus (2.5-4.9) mg/dL Magnesium (1.5-2.5) mg/dL Total Bilirubin (0.2-1.0) mg/dL AST (15-37) U/L ALT (10-53) U/L Alkaline Phosphatase (45-117) U/L Troponin I (0.02-0.05) ng/mL Total Protein (6.4-8.2) g/dL Albumin (3.4-5.0) g/dL Triglycerides (42-150) mg/dL Cholesterol (120-200) mg/dL LDL Cholesterol, Calc (0-99) mg/dL HDL Cholesterol (40.0-60.0) mg/dL Cholesterol/HDL Ratio Ratio TSH (0.358-3.740) uIU/mL Free T4 (0.76-1.46) ng/dL Urine Color (Yellw/Straw) Urine Clarity (Clear) Urine pH (5.0-8.5) Ur Specific [place] (1.002-1.035) Urine Protein (Neg-Trace) mg/dL Urine Glucose (UA) (Negative) mg/dL Urine Ketones (Negative) mg/dL Urine Occult Blood (Negative) Urine Nitrate (Negative) Urine Bilirubin (Negative) Urine Urobilinogen (Less than 2) mg/dL Ur Leukocyte Esterase (Negative) Urine WBC (0-5) /hpf Ur Squamous Epith Cells (0-5) /hpf Hyaline Casts (0-3) /lpf Stl C.difficile Tox PCR (Negative) St C. diff Tox Epid 027 (Negative) 12/23/17 12/23/17 12/23/17 Range/Units 05:38 05:38 08:11 WBC 4.6 (4.0-11.0) th/mm3 RBC 2.93 L (4.00-5.30) mil/mm3 Hgb 9.9 L (11.6-15.3) gm/dL Hct 28.7 L (35.0-46.0) % MCV 98.1 (80.0-100.0) fL MCH 34.0 (27.0-34.0) pg MCHC 34.6 (32.0-36.0) % RDW 13.9 (11.6-17.2) % Plt Count 109 L (150-450) th/mm3 MPV 8.4 (7.0-11.0) fL Prelim Diff (Auto) Neut % (Auto) 73.8 H (16.0-70.0) % Lymph % (Auto) 9.6 (9.0-44.0) % Baxter % (Auto) 7.6 (0.0-8.0) % Eos % (Auto) 8.6 H (0.0-4.0) % Baso % (Auto) 0.4 (0.0-2.0) % Neut # (Auto) 3.4 (1.8-7.7) th/mm3 Lymph # (Auto) 0.4 L (1.0-4.8) th/mm3 Baxter # (Auto) 0.4 (0.0-0.9) th/mm3 Eos # (Auto) 0.4 (0.0-0.4) th/mm3 Baso # (Auto) 0.0 (0.0-0.2) th/mm3 WBC Differential . Seg Neuts % (Manual) (16-70) % Band Neuts % (Manual) (0-6) % Lymphocytes % (Manual) (9-44) % Monocytes % (Manual) (0-8) % Eosinophils % (Manual) (0-4) % Basophils % (Manual) (0-2) % Metamyelocytes % (Man) (0-1) % Abs Neuts (Manual) (1.8-7.7) th/mm3 Differential Comment Auto diff final Toxic Granulation (None) Platelet Estimate (Normal) Platelet Morphology (Normal) Ovalocytes (None) Acanthocytes (Spur) (None) PT (9.8-11.6) sec INR Ratio Sodium 145 (136-145) meq/L Potassium 4.2 (3.5-5.1) meq/L Chloride 111 H (98-107) meq/L Carbon Dioxide 25.1 (21.0-32.0) meq/L Anion Gap 9 (5-15) meq/L BUN 13 (7-18) mg/dL Creatinine 0.73 (0.50-1.00) mg/dL Estimated GFR 78 L (>89) mL/min POC Glucose 93 (68-110) mg/dl Random Glucose 90 (74-106) mg/dL Hemoglobin A1c (4.3-6.0) % Lactic Acid (0.4-2.0) mmol/L Calcium 8.7 (8.5-10.1) mg/dL Phosphorus 3.4 (2.5-4.9) mg/dL Magnesium 1.9 (1.5-2.5) mg/dL Total Bilirubin 0.3 (0.2-1.0) mg/dL AST 27 (15-37) U/L ALT 30 (10-53) U/L Alkaline Phosphatase 110 (45-117) U/L Troponin I (0.02-0.05) ng/mL Total Protein 5.3 L (6.4-8.2) g/dL Albumin 2.8 L (3.4-5.0) g/dL Triglycerides (42-150) mg/dL Cholesterol (120-200) mg/dL LDL Cholesterol, Calc (0-99) mg/dL HDL Cholesterol (40.0-60.0) mg/dL Cholesterol/HDL Ratio Ratio TSH 1.620 (0.358-3.740) uIU/mL Free T4 1.03 (0.76-1.46) ng/dL Urine Color (Yellw/Straw) Urine Clarity (Clear) Urine pH (5.0-8.5) Ur Specific [place] (1.002-1.035) Urine Protein (Neg-Trace) mg/dL Urine Glucose (UA) (Negative) mg/dL Urine Ketones (Negative) mg/dL Urine Occult Blood (Negative) Urine Nitrate (Negative) Urine Bilirubin (Negative) Urine Urobilinogen (Less than 2) mg/dL Ur Leukocyte Esterase (Negative) Urine WBC (0-5) /hpf Ur Squamous Epith Cells (0-5) /hpf Hyaline Casts (0-3) /lpf Stl C.difficile Tox PCR (Negative) St C. diff Tox Epid 027 (Negative) Imaging Data Radiologist's impression: Chest CTA 12/19/17 12:50 CONCLUSION: 1. No pulmonary embolus. 2. Posterior medial left lower lobe atelectasis or consolidation. Chest X-Ray 12/19/17 12:52 CONCLUSION: No evidence of acute cardiopulmonary process. Head CT 12/19/17 14:19 CONCLUSION: 1. Negative for acute process. Carotid Doppler Study 12/20/17 00:00 CONCLUSION: Right Internal Carotid Artery: No evidence of hemodynamically significant lesion with less than 50% stenosis. Left Internal Carotid Artery: No evidence of hemodynamically significant lesion with less than 50% stenosis. Head MRI 12/20/17 00:00 CONCLUSION: 1. Negative exam Head MRA 12/20/17 00:00 CONCLUSION: 1. Negative MRA [place] ([place]) non contrast. ECG Data EKG Prior to Arrival: Yes Attestation: I personally reviewed and interpreted this ECG as follows: Interpretation: Twelve-lead EKG was reviewed by me. Normal sinus rhythm, normal axis, nonspecific ST-T wave changes. Heart rate of 63 bpm. Discharge Plan Discharge Disposition Patient Disposition: 30 Still Patient Physicians Team ED Provider: Theodore Robertson Primary Care Provider: UNKNOWN, Attending Provider: Shin Peguero Other Providers: Iva Conway ; Kevin Conrad ; Messi Delgado Discharge Interventions Interventions: ED Discharge Assessment Last Done: 12/19/17 18:48 Vital Signs Last Done: 12/19/17 15:50 Status ED Status: Left Department Discharge Information Discharge Date/Time: 12/19/17 18:50
--- NOTE | 2017-12-19 13:17 | XR ---
EXAM DATE: 12/19/2017 1:05 PM EDT AGE/SEX: 72 years / Female INDICATIONS: Syncope and shortness of breath. CLINICAL DATA: This is the patient's initial encounter. Patient reports that signs and symptoms have been present for 1 day and indicates a pain score of 0/10. MEDICAL/SURGICAL HISTORY: Transient ischemic attack. Seizure. Myocardial infarction. CABG. COMPARISON: [facility] – [place]ING[place], 03/01/2017. . FINDINGS: Lungs are clear without evidence of acute airspace disease or congestion. Mediastinal structures are stable. There is evidence of previous median sternotomy. Right-sided Pahvrv-k-Oors and thoracic Mott eitan are in stable position. CONCLUSION: No evidence of acute cardiopulmonary process. Electronically signed by: Tam Silva MD 12/19/2017 1:16 PM EDT
[2017-12-19 14:02] LABS: Baso % (Auto) 0.6 % (0.0-2.0); Eos # (Auto) 0.2 th/mm3 (0.0-0.4); Eos % (Auto) 3.5 % (0.0-4.0); Hematocrit 31.4 % (35.0-46.0); Hemoglobin 10.6 gm/dL (11.6-15.3); Lymph # (Auto) 0.4 th/mm3 (1.0-4.8); Lymph % (Auto) 7.9 % (9.0-44.0); Mean Corpuscular HGB Conc 33.9 % (32.0-36.0); Mean Corpuscular Volume 97.3 fL (80.0-100.0); Mean Platelet Volume 7.6 fL (7.0-11.0); Mono # (Auto) 0.5 th/mm3 (0.0-0.9); Mono % (Auto) 8.3 % (0.0-8.0); Neut # (Auto) 4.4 th/mm3 (1.8-7.7); Neut % (Auto) 79.7 % (16.0-70.0); Platelet Count 150 th/mm3 (150-450); Red Blood Count 3.23 mil/mm3 (4.00-5.30); Red Cell Distribution Width 14.4 % (11.6-17.2); White Blood Count 5.5 th/mm3 (4.0-11.0)
[2017-12-19 14:15] LABS: INR 1.1 Ratio; Prothrombin Time 10.7 sec (9.8-11.6)
[2017-12-19 14:17] LABS: Alanine Aminotransferase 35 U/L (10-53); Albumin 3.6 g/dL (3.4-5.0); Anion Gap 11 meq/L (5-15); Aspartate Aminotransferase 38 U/L (15-37); Blood Urea Nitrogen 20 mg/dL (7-18); Calcium 8.6 mg/dL (8.5-10.1); Carbon Dioxide 23.4 meq/L (21.0-32.0); Chloride 110 meq/L (98-107); Glomerular Filtration Rate 58 mL/min (>89); Glucose,Random 87 mg/dL (74-106); Sodium 144 meq/L (136-145)
[2017-12-19 14:21] LABS: Alkaline Phosphatase 109 U/L (45-117); Total Protein 6.1 g/dL (6.4-8.2)
[2017-12-19 14:50] LABS: Eosinophils 2 % (0-4); Lymphocytes 4 % (9-44); Metamyelocytes 1 % (0-1); Monocytes 8 % (0-8)
[2017-12-19 14:51] LABS: Platelet Estimate Normal (Normal); Platelet Morphology Normal (Normal); Toxic Granulation 3+
[2017-12-19] MEDS ORDERED: Vancomycin Inj 1 GM/200 ML PIGGYBACK IV.SIG ONE (15:40)
[2017-12-19] MEDS ORDERED: Piperacil/Tazo 4.5 GM Premix 4.5 GM/100 ML BAG IV.SIG ONE (15:40)
[2017-12-19 16:17] LABS: Bilirubin,Urine Negative (Negative); Clarity,Urine Hazy (Clear); Color,Urine Yellow (Yellw/Straw); Glucose,Urine (UA) Negative (Negative); Hyaline Casts,Urine 4 /lpf (0-3); Leukocyte Esterase,Urine Small (Negative); Nitrite,Urine Negative (Negative); Squamous Epithelial Cell,Urine 4 /hpf (0-5)
--- NOTE | 2017-12-19 16:43 | CT ---
EXAM DATE: 12/19/2017 4:41 PM EDT AGE/SEX: 72 years / Female INDICATIONS: Possible pulmonary embolism. Syncope and chest today. CLINICAL DATA: This is the patient's initial encounter. Patient reports that signs and symptoms have been present for 1 day and indicates a pain score of 6/10. MEDICAL/SURGICAL HISTORY: Chronic obstructive pulmonary disease. Cardiovascular disease. Hyperten raman. Non-Hodgkin's lymphoma and seizures. Cholecystectomy. CABG. Cardiac catheter. RADIATION DOSE: 35.95 CTDI (mGy) COMPARISON: [facility] – [place], [place] BRAIN W/O CONTRAST, 03/16/2016. . TECHNIQUE: CT of the head without contrast. Using automated exposure control and adjustment of the mA and/or kV according to patient size, radiation dose was kept as low as reasonably achievable to ob tain optimal diagnostic quality images. DICOM format image data is available electronically for revi ew and comparison. FINDINGS: Cerebrum: The ventricles are normal for age. No evidence of midline shift, mass lesion, hemorrhage or acute infarction. No extraaxial fluid collections are seen. Posterior Fossa: The cerebellum and brainstem are intact. The 4th ventricle is midline. The cerebe llopontine angle is unremarkable. Extracranial: The visualized portion of the orbits is intact. Skull: The calvaria is intact. No evidence of skull fracture. CONCLUSION: 1. Negative for acute process. Electronically signed by: Shin Prasad MD 12/19/2017 4:42 PM EDT
[2017-12-19] MEDS ORDERED: Bisacodyl 10 MG Supp RECTAL PRN ×2 (17:40→18:56)
--- NOTE | 2017-12-19 18:09 | CT ---
EXAM DATE: 12/19/2017 5:53 PM EDT AGE/SEX: 72 years / Female INDICATIONS: Possible pulmonary embolism, along with syncope and chest pain today. CLINICAL DATA: This is the patient's initial encounter. Patient reports that signs and symptoms have been present for 1 day and indicates a pain score of 6/10. MEDICAL/SURGICAL HISTORY: Chronic obstructive pulmonary disease. Hypertension. Cardiovascular dis ease. Seizures. Non-Hodgkin's lymphoma. Cholecystectomy. CABG. Cardiac catheter. RADIATION DOSE: 9.42 CTDI (mGy) COMPARISON: [facility], CT CHEST W/ CONTRAST, 12/08/2017. . TECHNIQUE: Volumetric scanning was performed using a multi-row detector CT scanner during bolus infu raman of 71 ml Omnipaque 350 (iohexol) nonionic water-soluble contrast as a single exam dose. The dale a was post processed with a variety of visualization algorithms including full volume maximum intensi ty projection and sliding thin slab reformation. Using automated exposure control and adjustment of t he mA and/or kV according to patient size, radiation dose was kept as low as reasonably achievable to obtain optimal diagnostic quality images. DICOM format image data is available electronically for r eview and comparison. FINDINGS: Pulmonary Arteries: No filling defects are seen in the pulmonary arteries out to the subsegmental ve ssels. The left and right pulmonary arteries are normal in diameter. Lung: There is increased density at the posterior medial left lung base likely related to atelectasi s or consolidation. Effusion: None. Mediastinum: No evidence of mediastinal or hilar adenopathy. The patient is status post sternotomy. Other: The axilla is unremarkable. There is a right-sided [id number] in place. There is a dextros coliosis of the thoracic spine. The patient is a surgical eitan seen through the thoracic spine. CONCLUSION: 1. No pulmonary embolus. 2. Posterior medial left lower lobe atelectasis or consolidation. Electronically signed by: Олег Lambert MD 12/19/2017 6:08 PM EDT
[2017-12-19] MEDS ORDERED: Acetaminophen 325 MG Tablet PO PRN (18:56)
[2017-12-19] MEDS ORDERED: Temazepam 15 MG Capsule PO PRN (18:56)
[2017-12-19] MEDS ORDERED: Sod Chloride 0.9% Inj 1,000 ML IV.CONT SCH (20:00)
[2017-12-19] MEDS: Budesonide-Formoterol 80/4.5 MCG 6.9 GM Inhaler INH SCH (20:18)
[2017-12-19] MEDS: levETIRAcetam 500 MG Tablet PO SCH (20:22)
[2017-12-19] MEDS: Senna/Docusate Sodium 8.6/50 MG Tablet PO SCH (20:22)
--- NOTE | 2017-12-19 22:11 | P.HPIM ---
History of Present Illness Service: [facility] Primary Care Physician: Dr. Chanel Chief Complaint: Syncope, chest pain, and weakness History of Present Illness: Mrs. Odom is a 72 y/o female with a history of COPD/chronic bronchitis, TIAs , hypertension, hyperlipidemia, dementia, non-Hodgkin's lymphoma, scoliosis, and seizure disorder who presented to the emergency room on 12/19/2017 following a syncopal episode with l generalized weakness worse on the left side followed by chest pain. Patient was brought to the emergency room and was found to have a left lower lobe pneumonia on CT pulmonary angiogram which was negative for pulmonary embolism. She was admitted to the hospitalist service for further evaluation and management. The patient is seen in her hospital room with her daughter at the bedside. She reports a very difficult social situation in which she is caring for her ailing and an 83-year-old woman with dementia. She states she was under a lot of stress yesterday and when out on her porch to sit down. While she was sitting outside, she developed severe dizziness and decided to try to get up and go inside to the cold air. When she got to the front door of her home, she noticed that her vision had gone dark and she began to feel abruptly weak and fell down. She reports brief loss of consciousness but denies hitting her head. She states she began to experience severe left-sided chest pain as she came out of the syncopal episode and stated it radiated down her left arm. Chest pain was accompanied by nausea, diaphoresis, palpitations, and shortness of breath. The patient reports that the chest pain is now gone. She still feels residual weakness in all extremities though continues to state it is worse on the left. She reports some difficulty with speech during the episode. - Diagnosis (1) TIA (transient ischemic attack) (2) Syncope (3) Chest pain Inpatient Certification: I certify that the inpatient services were ordered in accordance with Medicare regulations governing the order. This includes certification that hospital inpatient services are reasonable and necessary and in the case of services not specified as inpatient-only under 42 CFR 419.22(n), that they are appropriately provided as inpatient services in accordance to with the 2-midnight benchmark under 43 CFR 412.3(e) Estimated Total Length of Stay (Days): 3 Plans for Post Hospital Care: Home Review of Systems All other systems reviewed negative except as stated in HPI [facility] - History History Provided By: Patient - Medical History Medical History: Medical History (Last Updated 12/20/17 @ 03:01 by ELKE Shaffer) ASD (atrial septal defect) COPD (chronic obstructive pulmonary disease) High cholesterol Hypertension Non-Hodgkin lymphoma Scoliosis Seizure disorder TIA (transient ischemic attack) - Surgical History Surgical History: Surgical History (Last Updated 12/20/17 @ 03:02 by ELKE Shaffer) History of D&C History of breast biopsy History of hysterectomy Hx of cardiac cath Hx of cholecystectomy Port-A-Cath in place - Family History Family History: Family History (Last Updated 12/20/17 @ 02:58 by ELKE Shaffer) Father Heart disease Mother Dementia - Tobacco History Second Hand Smoke Exposure: No Tobacco Use In Past 30 Days: No Smoking Status: Never smoker - Alcohol History How Often Do You Have a Drink Containing Alcohol: Never - Substance Use History Substance History: No History of Abuse - Travel History Recent Travel in the [place] Within the Last 8 Weeks: No Recent Travel Out of the Country Within the Last 8 Weeks: No - Immunization History Tetanus Immunization: Unsure Medications and Allergies Active Medications: Active Medications Acetaminophen (Tylenol) 650 mg PO Q4H PRN PRN Reason: Temp > 100.4 Al Hydroxide/Mg Hydroxide (Milk Of Magnesia Liq) 30 ml PO Q12H PRN PRN Reason: Mild Constipation Aspirin (Ecotrin) 81 mg PO DAILY CRUZ Atorvastatin Calcium (Lipitor) 80 mg PO DAILY CRUZ Bisacodyl (Dulcolax Supp) 10 mg RECTAL DAILY PRN PRN Reason: SEVERE CONSITIPATION Budesonide/Formoterol Fumarate (Symbicort 80/4.5 Mcg Inh) 2 puff INH BID [facility] Last Admin: 12/19/17 20:18 Dose: 2 puff Sodium Chloride (Ns Inj) 1,000 mls @ 100 mls/hr IV.CONT .Q10H CRUZ Last Admin: 12/19/17 20:19 Dose: 100 mls/hr Azithromycin 500 mg/ Sodium (Chloride) 250 mls @ 250 mls/hr IV.SIG Q24H CRUZ Ceftriaxone Sodium 1,000 mg/ (Sodium Chloride) 100 mls @ 200 mls/hr IV.SIG Q24H CRUZ Lactulose (Lactulose Liq) 30 ml PO DAILY PRN PRN Reason: SEVERE CONSITIPATION Levetiracetam (Keppra) 1,000 mg PO BID [facility] Last Admin: 12/19/17 20:22 Dose: 1,000 mg Lisinopril (Prinivil) 20 mg PO DAILY [facility] Senna/Docusate Sodium (Eleni-Colace) 1 tab PO BID [facility] Last Admin: 12/19/17 20:22 Dose: 1 tab Sennosides (Senokot) 17.2 mg PO Q12H PRN PRN Reason: Moderate Constipation Temazepam (Restoril) 15 mg PO HS PRN PRN Reason: INSOMNIA Last Admin: 12/19/17 20:22 Dose: 15 mg Trimethobenzamide HCl (Tigan Ing) 200 mg IM Q6H PRN PRN Reason: NAUSEA OR VOMITING Allergies Allergy/AdvReac Type Severity Reaction Status Date / Time No Known Allergies Allergy Uncoded 02/26/17 14:32 Home Medications Medication Instructions Recorded Confirmed Type aspirin [Aspir-81] 81 mg PO DAILY 12/19/17 12/19/17 History atorvastatin 80 mg PO DAILY 12/19/17 12/19/17 History fluticasone [Flovent Diskus] 2 inh INHALATION BID 12/19/17 12/19/17 History hydrochlorothiazide 25 mg PO DAILY 12/19/17 12/19/17 History levetiracetam [Keppra] 1,000 mg PO Q12H 12/19/17 12/19/17 History lisinopril 20 mg PO DAILY 12/19/17 12/19/17 History naproxen 250 mg PO BID 12/19/17 12/19/17 History Exam Vital signs: Vital Signs 12/19/17 13:42 12/19/17 15:50 12/19/17 15:54 Temperature 97.7 F 97.7 F Pulse Rate 58 L 75 Respiratory Rate 16 16 Blood Pressure 148/68 H 139/69 Pulse Oximetry 98 100 100 12/19/17 16:01 12/19/17 18:05 12/19/17 18:32 Temperature 97.7 F 97.6 F 98.8 F Pulse Rate 62 58 L 71 Respiratory Rate 18 18 18 Blood Pressure 139/69 145/72 H 116/56 L Pulse Oximetry 100 96 Intake & Output 12/19/17 12/19/17 12/20/17 06:59 18:59 06:59 Weight 111 kg - Constitutional no acute distress, average body habitus - Routine HEENT Exam Head: Present: normocephalic, atraumatic ENT: Present: mucous membranes moist - Routine Neck Exam Absent: JVD, carotid bruit - Routine Respiratory Exam Present: CTA bilaterally. Absent: respiratory distress, wheezes, crackles - Routine Cardiovascular Exam Present: RRR, S1, S2. Absent: murmur, gallop, rubs - Routine Abdominal Exam Present: soft, normoactive bowel sounds. Absent: tenderness, distended - Routine Extremities Exam Absent: edema, calf tenderness - Routine Skin Exam Present: dry, warm - Routine Neurological Exam Present: alert, oriented X3, motor deficit (4/4 generalized muscle strength), normal speech. Absent: hemineglect, facial asymmetry Results - Labs CBC & Chem 7: 12/20/17 01:50 12/20/17 01:50 Labs: Short CBC 12/19/17 Range/Units 13:50 WBC 5.5 (4.0-11.0) th/mm3 Hgb 10.6 L (11.6-15.3) gm/dL Hct 31.4 L (35.0-46.0) % Plt Count 150 (150-450) th/mm3 BMP 12/19/17 13:50 Sodium 144 Potassium 4.0 Chloride 110 H Carbon Dioxide 23.4 BUN 20 H Creatinine 0.94 Calcium 8.6 Cardiac Enzymes 12/19/17 Range/Units 13:50 Troponin I Less than 0.02 L (0.02-0.05) ng/mL Liver Function 12/19/17 Range/Units 13:50 Total Bilirubin 0.5 (0.2-1.0) mg/dL AST 38 H (15-37) U/L ALT 35 (10-53) U/L Alkaline Phosphatase 109 (45-117) U/L Albumin 3.6 (3.4-5.0) g/dL Urine 12/19/17 Range/Units 15:52 Urine Color Yellow (Yellw/Straw) Urine Clarity Hazy H (Clear) Urine pH 5.0 (5.0-8.5) Ur Specific [place] 1.010 (1.002-1.035) Urine Protein Negative (Neg-Trace) mg/dL Urine Glucose (UA) Negative (Negative) mg/dL - Imaging Impressions Chest CTA 12/19/17 12:50 CONCLUSION: 1. No pulmonary embolus. 2. Posterior medial left lower lobe atelectasis or consolidation. Chest X-Ray 12/19/17 12:52 CONCLUSION: No evidence of acute cardiopulmonary process. Head CT 12/19/17 14:19 CONCLUSION: 1. Negative for acute process. Caprini VTE Risk Assessment Caprini VTE Risk Assessment: Moderate/High Risk (score >= 2) Caprini Risk Assessment Model: Point Value = 1 Point Value = 2 Point Value = 3 Point Value = 5 Age 41-60 Minor surgery BMI > 25 kg/m2 Swollen legs Varicose veins or History of unexplained or recurrent spontaneous Oral contraceptives or hormone replacement Sepsis (< 1 month) Serious lung disease, including pneumonia (< 1 month) Abnormal pulmonary function Acute myocardial infarction Congestive heart failure (< 1 month) History of inflammatory bowel disease Medical patient at bed rest Age 61-74 Arthroscopic surgery Major open surgery (> 45 min) Laparoscopic surgery (> 45 min) Malignancy Confined to bed (> 72 hours) Immobilizing plaster cast Central venous access Age >= 75 History of VTE Family history of VTE Factor V Leiden Prothrombin [id number] Lupus anticoagulant Anticardiolipin antibodies Elevated serum homocysteine Heparin-induced thrombocytopenia Other congenital or acquired thrombophilia Stroke (< 1 month) Elective arthroplasty Hip, pelvis, or leg fracture Acute spinal cord injury (< 1 month) Prophylaxis Regimen: Total Risk Factor Score Risk Level Prophylaxis Regimen 0-1 Low Early ambulation 2 Moderate Order ONE of the following: *Sequential Compression Device (SCD) *Heparin 5000 units SQ BID 3-4 Higher Order ONE of the following medications: *Heparin 5000 units SQ TID *Enoxaparin/Lovenox 40 mg SQ daily (WT < 150 kg, CrCl > 30 mL/min) *Enoxaparin/Lovenox 30 mg SQ daily (WT < 150 kg, CrCl > 10-29 mL/min) *Enoxaparin/Lovenox 30 mg SQ BID (WT < 150 kg, CrCl > 30 mL/min) AND/OR *Sequential Compression Device (SCD) 5 or more Highest Order ONE of the following medications: *Heparin 5000 units SQ TID (Preferred with Epidurals) *Enoxaparin/Lovenox 40 mg SQ daily (WT < 150 kg, CrCl > 30 mL/min) *Enoxaparin/Lovenox 30 mg SQ daily (WT < 150 kg, CrCl > 10-29 mL/min) *Enoxaparin/Lovenox 30 mg SQ BID (WT < 150 kg, CrCl > 30 mL/min) AND *Sequential Compression Device (SCD) Assessment and Plan - Assessment (1) TIA (transient ischemic attack) Code(s): G45.9 - Transient cerebral ischemic attack, unspecified Status: Acute (2) Syncope Code(s): R55 - Syncope and collapse Status: Acute (3) Chest pain Code(s): R07.9 - Chest pain, unspecified Status: Acute - Plan Mrs. Odom is a 72 y/o female with a history of COPD/chronic bronchitis, TIAs , hypertension, hyperlipidemia, dementia, non-Hodgkin's lymphoma, scoliosis, and seizure disorder who presented to the emergency room on 12/19/2017 following a syncopal episode with l generalized weakness worse on the left side followed by chest pain. Patient was brought to the emergency room and was found to have a left lower lobe pneumonia on CT pulmonary angiogram which was negative for pulmonary embolism. She was admitted to the hospitalist service for further evaluation and management. Syncope TIA vs CVA vs seizure - consult neurology (sees Dr. Bush as an outpatient) - seizure precautions - resume home Keppra - Ativan PRN seizures - HOB flat x 12 hours - closely monitor neuro checks and VS - check EEG and 2 D echocardiogram - gentle IVF hydration with LR at 75 cc/hr - Consult OT, PT, and CT - case management consult to assist with discharge planning - difficult home situation - Check lipid profile and hemoglobin A1c - MRI and MRA of head - Carotid Doppler ultrasound to evaluate for carotid artery disease Chest pain CAD s/p CABG x 10 February 2017 - obtain serial EKGs - EKGs personally reviewed and no ischemic changes were noted on first two - first two troponins are < 0.02 - continue to follow serial EKGs and troponin measurements - consult cardiology if needed Left lower lobe pneumonia with left shift noted on CBC differential - Antibiotics: IV ceftriaxone and azithromycin - Duo nebulizers every 2 hours as needed for shortness of breath or wheezing - monitor CBC and for fevers Nonhodgkins Lymphoma - on maintenance chemotherapy with Rituxin - last dose last week - blue glove precautions Chronic anxiety - Requesting anxiety lytic - hold off pending neurology evaluation DVT prophylaxis - Heparin 5000 units subq Discussed Condition With: Patient, patient's daughter, charge nurse, and Dr. Mccartney
[2017-12-20 02:12] LABS: Baso % (Auto) 0.4 % (0.0-2.0); Eos # (Auto) 0.2 th/mm3 (0.0-0.4); Eos % (Auto) 5.3 % (0.0-4.0); Hematocrit 30.5 % (35.0-46.0); Hemoglobin 10.4 gm/dL (11.6-15.3); Lymph # (Auto) 0.4 th/mm3 (1.0-4.8); Lymph % (Auto) 8.6 % (9.0-44.0); Mean Corpuscular Hemoglobin 33.4 pg (27.0-34.0); Mean Corpuscular Volume 98.4 fL (80.0-100.0); Mean Platelet Volume 7.6 fL (7.0-11.0); Mono # (Auto) 0.4 th/mm3 (0.0-0.9); Neut # (Auto) 3.6 th/mm3 (1.8-7.7); Neut % (Auto) 77.7 % (16.0-70.0); Platelet Count 126 th/mm3 (150-450); Red Blood Count 3.09 mil/mm3 (4.00-5.30); Red Cell Distribution Width 14.1 % (11.6-17.2); White Blood Count 4.6 th/mm3 (4.0-11.0)
[2017-12-20 02:39] LABS: Calcium 8.7 mg/dL (8.5-10.1); Carbon Dioxide 23.6 meq/L (21.0-32.0); Potassium 3.7 meq/L (3.5-5.1)
[2017-12-20 02:41] LABS: Chol/HDL Ratio 1.47 Ratio; Eosinophils 1 % (0-4); HDL Cholesterol 59.8 mg/dL (40.0-60.0); Lymphocytes 8 % (9-44); Monocytes 5 % (0-8)
[2017-12-20 02:42] LABS: Ovalocytes 1+; Platelet Morphology Normal (Normal); Toxic Granulation 2+
[2017-12-20 02:43] LABS: Acanthocytes Occ
[2017-12-20] MEDS: Heparin - SQ 10,000 UNITS/ML Vial SQ SCH ×3 (07:38→21:16)
--- NOTE | 2017-12-20 08:19 | ECG ---
Date Performed: 12/19/2017 Time Performed: 21:32:49 PTAGE: 72 years EKG: Sinus rhythm NORMAL ECG PREVIOUS TRACING : 12/19/2017 12.51 DOCTOR: Cassidy Leong Interpretating Date/Time 12/20/2017 08:16:47
--- NOTE | 2017-12-20 08:28 | ECG ---
Date Performed: 12/19/2017 Time Performed: 12:51:33 PTAGE: 72 years EKG: Sinus rhythm NORMAL ECG PREVIOUS TRACING : 03/01/2017 07.06 DOCTOR: Cassidy Leong Interpretating Date/Time 12/20/2017 08:22:39
[2017-12-20] MEDS: Azithromycin Inj 500 MG in Sodium Chlor 0.9% Inj 250 ML IV.SIG SCH (08:33)
[2017-12-20] MEDS: levETIRAcetam 500 MG Tablet PO SCH ×2 (08:38→20:40)
[2017-12-20] MEDS: Senna/Docusate Sodium 8.6/50 MG Tablet PO SCH (08:39)
[2017-12-20] MEDS: Lisinopril 20 MG Tablet PO SCH (08:40)
[2017-12-20] MEDS: Budesonide-Formoterol 80/4.5 MCG 6.9 GM Inhaler INH SCH ×2 (08:40→20:41)
--- NOTE | 2017-12-20 10:33 | MR ---
EXAM DATE: 12/20/2017 10:24 AM EDT AGE/SEX: 72 years / Female INDICATIONS: TIA. Generalized weakness. CLINICAL DATA: This is the patient's initial encounter. Patient reports that signs and symptoms have been present for 1 day and indicates a pain score of 0/10. MEDICAL/SURGICAL HISTORY: Chronic obstructive pulmonary disease. Seizures. Non-Hodgkin's lymph wilian. Hypertension. Cholecystectomy. CABG. Hysterectomy. COMPARISON: [facility] – [place], MRA HEAD W/O CONTRAST, 12/20/2017. [facility] [place], CT HEAD W/O CONTRAST, 12/19/2017. . TECHNIQUE: Multiplanar, multisequence examination of the brain was performed without contrast. FINDINGS: The florence-white matter demonstrates normal morphology and signal. No intra-axial or extra-axial fluid collection or mass. No midline shift. Ventricles are normal in size. No evidence of hemorrhage or restricted diffusion. The orbits and sinuses are unremarkable. CONCLUSION: 1. Negative exam Electronically signed by: Jessica Hess MD 12/20/2017 10:31 AM EDT
--- NOTE | 2017-12-20 10:41 | MR ---
EXAM DATE: 12/20/2017 10:24 AM EDT AGE/SEX: 72 years / Female INDICATIONS: TIA. Generalized weakness. CLINICAL DATA: This is the patient's initial encounter. Patient reports that signs and symptoms have been present for 1 day and indicates a pain score of 0/10. MEDICAL/SURGICAL HISTORY: Chronic obstructive pulmonary disease. Seizures. Non-Hodgkin's lymph wilian. Hypertension. CABG. Cholecystectomy. Hysterectomy. COMPARISON: [facility] – [place], MR HEAD W/O CONTRAST, 12/20/2017. [facility] – [place], CT HEAD W/O CONTRAST, 12/19/2017. . TECHNIQUE: 3D [id number] MRA was performed. Source images, multiplanar STS MIP, and 3D volum e MIP reconstructions were reviewed. FINDINGS: There is excellent visualization of the major intracranial arteries out to the second-order branch ve ssels. There is no evidence for aneurysm, vessel truncation or stenosis, and no evidence for vascula r malformation. CONCLUSION: 1. Negative MRA Cow ([place]) non contrast. Electronically signed by: Jessica Hess MD 12/20/2017 10:39 AM EDT
--- NOTE | 2017-12-20 11:12 | MB ---
cc: Iva Conway MD DATE: 12/20/2017 REASON FOR CONSULTATION: Possible stroke, possible seizure. HISTORY OF PRESENT ILLNESS: The patient is a 72-year-old woman with a history of TIAs, hypertension, hyperlipidemia, dementia, non-Hodgkin's lymphoma and seizures, who apparently was sitting on the porch yesterday and when she got up, she became severely dizzy, went inside and fell down, had some brief loss of consciousness. She states everything went black. She denies biting her tongue or losing her urine. She has some chest pain noted. She had a negative CTA of the chest for PE. CT of the brain was unremarkable. She feels weak all over, predominantly in the legs and the right side. Her speech is normal. PAST MEDICAL HISTORY: As stated. PAST SURGICAL HISTORY: D and C, breast biopsy, hysterectomy, cardiac catheterization, cholecystectomy and Port-A-Cath. FAMILY HISTORY: Heart disease and dementia. HOME MEDICATIONS: Keppra 1000 mg twice a day, lisinopril, budesonide and baby aspirin. PHYSICAL EXAMINATION: VITAL SIGNS: Temperature is 98, pulse 56, respiratory rate 18, blood pressure 137/64, satting at 99% on room air. NECK: Supple. I do not appreciate any carotid bruits. HEART: Regular. LUNGS: Clear. NEUROLOGIC: She is awake and alert. Her speech is normal. Pupils reactive. Face is symmetrical. Tongue is midline. Motor mir, she lifts her left arm, but has trouble lifting the right arm. Twisting Frame Changer is weak on the right. She states she has trouble lifting both legs up. DTRs are 1+. Sensory is intact. Toes are downgoing bilaterally. Gait is withheld. LABORATORY DATA: Reviewed. Hemoglobin 10.4; platelets 126,000. Coag panel normal. Chemistries: Sodium 148, GFR 71. Two sets of troponins are negative. Cholesterol 88, LDL 22, HDL 59.8, triglycerides 33. Urine has small leukocyte esterase. Microbiology is pending. IMAGING STUDIES: MRI/MRA unremarkable for any intracranial disease or acute infarct. EEG is still pending. IMPRESSION AND RECOMMENDATIONS: Questionable syncope, etiology questionable seizure. She may have a Jaron's paralysis. Difficult to test at this time. Continue Keppra 1000 mg twice a day. Get a Keppra level. Check an echo and an EEG. Out of bed with physical therapy, speech therapy assessment and further recommendations will be made accordingly. Maintain her on telemetry. MD AMAEDO Joseph/YULIA , 10:47 AM , 11:10 AM
--- NOTE | 2017-12-20 16:43 | US ---
EXAM DATE: 12/20/2017 4:28 PM EDT AGE/SEX: 72 years / Female INDICATIONS: Left sided weakness. CLINICAL DATA: This is the patient's initial encounter. Patient reports that signs and symptoms have been present for 2 days and indicates a pain score of 1/10. MEDICAL/SURGICAL HISTORY: Hypertension. Hypercholesterolemia. Lymphoma. Seizure disorder. A trial Septal Defect. COPD. Hysterectomy. Cholecystectomy. Port-A-Cath placement. Cardiac Catheter ization. D&C. [place] [facility] [place]. . VELOCITY PARAMETERS: ICA/CCA Ratio: Right 1.1 , Left 0.98 ICA: Right 84 cm/sec, Left 90 cm/sec CCA: Right 76 cm/sec, Left 83 cm/sec ECA: Right 76 cm/sec, Left 66 cm/sec Vertebral: Right 55 cm/sec antegrade, Left 92 cm/sec antegrade FINDINGS: Right Carotid: Mild arteriosclerotic plaque is visualized.The waveforms are within normal limits. Left Carotid: Mild arteriosclerotic plaque is visualized. The waveforms are within normal limits. Other: None. CONCLUSION: Right Internal Carotid Artery: No evidence of hemodynamically significant lesion with less than 50% s tenosis. Left Internal Carotid Artery: No evidence of hemodynamically significant lesion with less than 50% st enosis. Electronically signed by: Joce Newell MD 12/20/2017 4:42 PM EDT
--- NOTE | 2017-12-20 16:59 | P.PN ---
Subjective Interval history: 72 years old female- right handed states ff by Dr rivera as OP denies any ehadaches, oriented x w 3- but rambling , difficult to get her to focus to answsers possible syncopal episode complaisn of right sided weakness ? patrick- was noted by friend to bes staring blankly Physical Exam Vital signs: Vital Signs 12/19/17 18:05 12/19/17 18:32 12/19/17 19:15 Temperature 97.6 F 98.8 F Pulse Rate 58 L 71 71 Respiratory Rate 18 18 Blood Pressure 145/72 H 116/56 L Pulse Oximetry 100 96 12/19/17 20:00 12/19/17 22:00 12/20/17 00:00 Temperature 97.6 F 97.6 F Pulse Rate 58 L 65 61 Respiratory Rate 18 18 Blood Pressure 147/66 H 109/53 L Pulse Oximetry 98 93 L 12/20/17 00:09 12/20/17 04:00 12/20/17 07:09 Temperature 97.3 F L Pulse Rate 80 82 60 Respiratory Rate 16 Blood Pressure 132/63 Pulse Oximetry 97 12/20/17 08:00 12/20/17 09:00 12/20/17 12:00 Temperature 98.0 F 97.5 F L Pulse Rate 50 L 56 L 60 Respiratory Rate 18 18 Blood Pressure 137/64 122/61 Pulse Oximetry 99 99 Intake & Output 12/19/17 12/20/17 12/20/17 18:59 06:59 18:59 Intake Total 250 / 250 Balance 250 / 250 Weight 111 kg 54.6 kg Intake: IV 250 / 250 Azithromycin Inj 500 MG In NS 250 / 250 Inj 250 ML @ 250 mls/hr IV.SIG Q24H [facility] Rx#:[id number] Other: Weight On Admission 54.9 kg Narrative: patient is awake and aalert,oriented x 3,speech clear but not directly answering questions.not focused anciteric'pupils equally reactive no facial asymemtry tongue midline, good gag no bruil lungs- clear egular rhythjm abdomenosft, nontender extremities no edema grossly- decrease sensation both LE decrease motor strength both lower extremies - right > L- able to raise both legs bbut just barely gait testing deferred Results - Labs CBC & Chem 7: 12/21/17 07:00 12/21/17 07:00 Laboratory Results - last 24 hr 12/20/17 12/20/17 12/20/17 01:50 01:50 01:50 WBC 4.6 RBC 3.09 L Hgb 10.4 L Hct 30.5 L MCV 98.4 MCH 33.4 MCHC 34.0 RDW 14.1 Plt Count 126 L MPV 7.6 Prelim Diff (Auto) Slide review pending Neut % (Auto) 77.7 H Lymph % (Auto) 8.6 L [place] % (Auto) 8.0 Eos % (Auto) 5.3 H Baso % (Auto) 0.4 Neut # (Auto) 3.6 Lymph # (Auto) 0.4 L [place] # (Auto) 0.4 Eos # (Auto) 0.2 Baso # (Auto) 0.0 WBC Differential Manual diff final Seg Neuts % (Manual) 82 H Band Neuts % (Manual) 3 Lymphocytes % (Manual) 8 L Monocytes % (Manual) 5 Eosinophils % (Manual) 1 Basophils % (Manual) 1 Abs Neuts (Manual) 3.9 Differential Comment . Toxic Granulation 2+ H Platelet Estimate Low L Platelet Morphology Normal Ovalocytes 1+ H Acanthocytes (Spur) Occ H Sodium 148 H Potassium 3.7 Chloride 114 H Carbon Dioxide 23.6 Anion Gap 10 BUN 13 Creatinine 0.79 Estimated GFR 71 L POC Glucose Random Glucose 99 Calcium 8.7 Troponin I Less than 0.02 L Triglycerides 33 L Cholesterol 88 L LDL Cholesterol, Calc 22 HDL Cholesterol 59.8 Cholesterol/HDL Ratio 1.47 12/20/17 12/20/17 12/20/17 07:39 08:31 11:38 WBC RBC Hgb Hct MCV MCH MCHC RDW Plt Count MPV Prelim Diff (Auto) Neut % (Auto) Lymph % (Auto) [place] % (Auto) Eos % (Auto) Baso % (Auto) Neut # (Auto) Lymph # (Auto) [place] # (Auto) Eos # (Auto) Baso # (Auto) WBC Differential Seg Neuts % (Manual) Band Neuts % (Manual) Lymphocytes % (Manual) Monocytes % (Manual) Eosinophils % (Manual) Basophils % (Manual) Abs Neuts (Manual) Differential Comment Toxic Granulation Platelet Estimate Platelet Morphology Ovalocytes Acanthocytes ([place]) Sodium Potassium Chloride Carbon Dioxide Anion Gap BUN Creatinine Estimated GFR POC Glucose 90 114 H Random Glucose Calcium Troponin I Less than 0.02 L Triglycerides Cholesterol LDL Cholesterol, Calc HDL Cholesterol Cholesterol/HDL Ratio Microbiology 12/19/17 16:21 Blood - Peripheral Aerobic Blood Culture - Preliminary No growth in 1 day 12/19/17 16:21 Blood - Peripheral Anaerobic Blood Culture - Preliminary No growth in 1 day 12/19/17 16:15 Blood - Peripheral Aerobic Blood Culture - Preliminary No growth in 1 day 12/19/17 16:15 Blood - Peripheral Anaerobic Blood Culture - Preliminary No growth in 1 day - Imaging Impressions Chest CTA 12/19/17 12:50 CONCLUSION: 1. No pulmonary embolus. 2. Posterior medial left lower lobe atelectasis or consolidation. Carotid Doppler Study 12/20/17 00:00 CONCLUSION: Right Internal Carotid Artery: No evidence of hemodynamically significant lesion with less than 50% stenosis. Left Internal Carotid Artery: No evidence of hemodynamically significant lesion with less than 50% stenosis. Head MRI 12/20/17 00:00 CONCLUSION: 1. Negative exam Head MRA 12/20/17 00:00 CONCLUSION: 1. Negative MRA Cow ([place] [facility] [place]) non contrast. Assessment and Plan - Plan Mrs. Odom is a 72 y/o female with a history of COPD/chronic bronchitis, TIAs , hypertension, hyperlipidemia, dementia, non-Hodgkin's lymphoma, scoliosis, and seizure disorder who presented to the emergency room on 12/19/2017 following a syncopal episode with l generalized weakness worse on the left side followed by chest pain. Patient was brought to the emergency room and was found to have a left lower lobe pneumonia on CT pulmonary angiogram which was negative for pulmonary embolism. She was admitted to the hospitalist service for further evaluation and management. ? psy componenet - states LE weakness right more than left - decrease sensation , feels legs went under her ?syncopal episode - states was noted to stare blankly -hstates hsitory of frequent TIAs in the past history fo SZ last time x mas [place] Syncope TIA vs CVA vs seizure- exam with decrease sensory and motor exam both LE r> l -neurology ff- work up in progress- MRI brain,carotids negative - seizure precautions - continue Keppra - Ativan PRN seizures - HOB flat x 12 hours - closely monitor neuro checks and VS - check EEG pending - Echo pending - gentle IVF hydration with LR at 75 cc/hr - Consult OT, PT, speech therapy- cognitive evaluation - case management consult to assist with discharge planning - difficult home situation - Check lipid profile and hemoglobin A1c - if no improement by tomorrow- get CT of the spines Neurology consulted Chest pain CAD s/p CABG x 10 February 2017 - obtain serial EKGs - EKGs personally reviewed and no ischemic changes , troponins negative - continue to follow serial EKGs and troponin measurements - continue meds - get Lexiscan - CTA negative for PE Chronic diarrhea- per patient- worse specially after getting chemo- had recently Nonhodgkins Lymphoma - on maintenance chemotherapy with Rituxin - last dose last week - blue glove precautions -check stools - continue fluids - check c diff DC senna. DC Lactulose Left lower lobe pneumonia with left shift noted on CBC differential - Antibiotics: IV ceftriaxone and azithromycin - Duo nebulizers every 2 hours as needed for shortness of breath or wheezing - monitor CBC and for fevers Chronic anxiety - Requesting anxiety lytic - hold off pending neurology evaluation - consider psychiatry consult DVT prophylaxis - Heparin 5000 units subq Discussed Condition With: Patient
[2017-12-20] MEDS: KCL 10 mEq/D5W/NaCl 0.45% Inj 1,000 ML IV.CONT SCH (18:24)
--- NOTE | 2017-12-21 07:33 | MG ---
cc: Iva Conway MD EEG NUMBER: [id number] PATIENT INFORMATION: Nurse practitioner Ronel referring, in room 14[address] negative. EEG back in 2008 showed some theta frequency and temporal epileptiform discharges more left temporal region. A 72-year-old woman who felt dizzy. The patient went dark, fell to the ground and had syncope. Has a history of Hodgkin lymphoma, seizure, cardiac catheterization. On heparin, aspirin, Lipitor and azithromycin. DESCRIPTION OF RECORD: The patient has a normal background alpha of 9 Hz, 20 microvolts. Symmetrical background overall. There is an isolated sharp at epoch 46. This is seen bilaterally, not localized to one hemisphere, then it reappears at epoch 50, not continuous but paroxysmal. Photic stimulation elicited a posterior driving response. IMPRESSION: Abnormal electroencephalogram due to some isolated sharps seen. May be potential for epileptogenicity, but no active seizure-like events. Clinical correlation. Iva Conway MD DF/YULIA , 07:19 AM , 07:32 AM
[2017-12-21 07:36] LABS: Baso % (Auto) 0.2 % (0.0-2.0); Eos # (Auto) 0.4 th/mm3 (0.0-0.4); Eos % (Auto) 8.9 % (0.0-4.0); Hematocrit 30.4 % (35.0-46.0); Hemoglobin 10.4 gm/dL (11.6-15.3); Lymph # (Auto) 0.5 th/mm3 (1.0-4.8); Lymph % (Auto) 10.8 % (9.0-44.0); Mean Corpuscular HGB Conc 34.2 % (32.0-36.0); Mean Corpuscular Hemoglobin 33.6 pg (27.0-34.0); Mean Corpuscular Volume 98.3 fL (80.0-100.0); Mean Platelet Volume 7.7 fL (7.0-11.0); Mono # (Auto) 0.3 th/mm3 (0.0-0.9); Mono % (Auto) 7.1 % (0.0-8.0); Neut # (Auto) 3.2 th/mm3 (1.8-7.7); Platelet Count 123 th/mm3 (150-450); Red Blood Count 3.09 mil/mm3 (4.00-5.30); Red Cell Distribution Width 14.3 % (11.6-17.2); White Blood Count 4.4 th/mm3 (4.0-11.0)
[2017-12-21] MEDS: levETIRAcetam 500 MG Tablet PO SCH ×2 (08:01→21:04)
[2017-12-21] MEDS: Lisinopril 20 MG Tablet PO SCH (08:02)
[2017-12-21] MEDS: Azithromycin Inj 500 MG in Sodium Chlor 0.9% Inj 250 ML IV.SIG SCH (08:02)
[2017-12-21] MEDS: Heparin - SQ 10,000 UNITS/ML Vial SQ SCH ×3 (08:04→21:04)
[2017-12-21] MEDS: Budesonide-Formoterol 80/4.5 MCG 6.9 GM Inhaler INH SCH ×2 (08:06→21:03)
[2017-12-21 08:11] LABS: Albumin 2.9 g/dL (3.4-5.0); Anion Gap 9 meq/L (5-15); Blood Urea Nitrogen 9 mg/dL (7-18); Calcium 8.9 mg/dL (8.5-10.1); Carbon Dioxide 25.1 meq/L (21.0-32.0); Chloride 113 meq/L (98-107); Glomerular Filtration Rate 89 mL/min (>89); Glucose,Random 91 mg/dL (74-106); Potassium 4.1 meq/L (3.5-5.1); Sodium 147 meq/L (136-145)
[2017-12-21 08:12] LABS: Alanine Aminotransferase 30 U/L (10-53); Aspartate Aminotransferase 28 U/L (15-37)
[2017-12-21 08:14] LABS: Alkaline Phosphatase 97 U/L (45-117); Total Protein 5.5 g/dL (6.4-8.2)
[2017-12-21 11:37] LABS: Hemoglobin A1c 4.8 % (4.3-6.0)
[2017-12-21] MEDS: KCL 10 mEq/D5W/NaCl 0.45% Inj 1,000 ML IV.CONT SCH ×2 (12:07→22:36)
--- NOTE | 2017-12-21 15:16 | ECHRPT ---
Indication: CONCLUSIONS Normal left ventricular size. Wall thickness is normal. The left ventricular systolic function is low normal with an estimated ejection fraction in the rang e of 50- 55%. Aortic valve sclerosis is present. Mild aortic valve regurgitation. There is trace tricuspid valve regurgitation. BP: / HR: Rhythm: MEASUREMENTS (Male / Female) Normal Values Technical Quality: 2D ECHO LV Diastolic Diameter PLAX 4.1 cm 4.2 - 5.9 / 3.9 - 5.3 cm LV Systolic Diameter PLAX 3.1 cm IVS Diastolic Thickness 0.7 cm 0.6 - 1.0 / 0.6 - 0.9 cm LVPW Diastolic Thickness 0.7 cm 0.6 - 1.0 / 0.6 - 0.9 cm LV Relative Wall Thickness 0.3 RV Internal Dim ED PLAX 1.9 cm LA Systolic Diameter LX 3.8 cm 3.0 - 4.0 / 2.7 - 3.8 cm M-MODE AV Cusp Separation MM 1.4 cm DOPPLER AI Peak Velocity 362.0 cm/s AI Peak Gradient 52.4 mmHg AI Pressure Half Time 638.0 ms Mitral E Point Velocity 102.0 cm/s Mitral A Point Velocity 64.2 cm/s Mitral E to A Ratio 1.6 TR Peak Velocity 270.0 cm/s TR Peak Gradient 29.2 mmHg Right Atrial Pressure 10.0 mmHg Pulmonary Artery Systolic Pressu 39.2 mmHg Right Ventricular Systolic Press 39.2 mmHg FINDINGS LEFT VENTRICLE Normal left ventricular size. Wall thickness is normal. The left ventricular systolic function is low normal with an estimated ejection fraction in the rang e of 50- 55%. RIGHT VENTRICLE Normal right ventricular size and systolic function. LEFT ATRIUM The left atrial size is normal. RIGHT ATRIUM The right atrial size is normal. ATRIAL SEPTUM Normal atrial septal thickness without atrial level shunting by limited color doppler interrogation. AORTA The aortic root and proximal ascending aorta are normal in size on limited imaging. MITRAL VALVE Structurally normal mitral valve. No mitral valve stenosis or regurgitation. AORTIC VALVE Aortic valve sclerosis is present. Mild aortic valve regurgitation. TRICUSPID VALVE There is trace tricuspid valve regurgitation. PULMONARY VALVE No pulmonary valve regurgitation or stenosis. VESSELS The inferior vena cava is normal in size. PERICARDIUM No pericardial effusion. Cassidy eLong MD (Electronically Signed) Final Date:21 December 2017 15:15
--- NOTE | 2017-12-21 17:29 | P.PN ---
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 awake and alert while discussing with them- patient became tearful- states forgetting things a lot, very anxious no nausea or vomiting no ehadaches, abdominal pain experience- frequest dizziness Physical Exam Vital signs: Vital Signs 12/20/17 20:00 12/20/17 20:02 12/20/17 23:09 Temperature 97.8 F Pulse Rate 58 L 68 69 Respiratory Rate 18 Blood Pressure 128/62 Pulse Oximetry 97 12/21/17 00:00 12/21/17 03:45 12/21/17 04:00 Temperature 97.6 F 97.5 F L Pulse Rate 64 62 58 L Respiratory Rate 18 18 Blood Pressure 118/56 L 128/63 Pulse Oximetry 98 97 12/21/17 08:00 12/21/17 09:00 12/21/17 12:00 Temperature 97.4 F L Pulse Rate 64 57 L 68 Respiratory Rate 18 Blood Pressure 162/72 H Pulse Oximetry 100 Intake & Output 12/20/17 12/21/17 12/21/17 18:59 06:59 18:59 Intake Total 250 / 250 120 / 120 1350 / 1350 Output Total 800 / 800 Balance 250 / 250 -680 / -680 1350 / 1350 Weight 54.9 kg Intake: IV 250 / 250 1350 / 1350 D5W/1/2NS + KCL 10 mEq Inj 1, 1000 / 1000 000 ML @ 70 mls/hr IV.CONT . [id number] [facility] Rx#:[id number] Azithromycin Inj 500 MG In NS 250 / 250 250 / 250 Inj 250 ML @ 250 mls/hr IV.SIG Q24H [facility] Rx#:[id number] Rocephin Inj 1,000 MG In NS Inj 100 / 100 100 ML @ 200 mls/hr IV.SIG Q24H [facility] Rx#:[id number] Oral 0 / 0 120 / 120 Output: Urine 800 / 800 Other: # Voids 1 # Bowel Movements 1 Narrative: patient is awake and aalert,oriented x 3,speech clear emotionally labile- crying at one time then giggling and laughing anciteric 'pupils equally reactive no facial asymemtry tongue midline, good gag no bruil lungs- clear regular rhythjm abdomen soft, nontender extremities no edema motor moves all extremities spontaneously - but exam-inconsistent when observed- she can raise and make hands movements spontaneously but when examine- seem limited able to raise both LE spontaneously no edmea, ++ pusles grossly no deficit Results - Labs CBC & Chem 7: 12/21/17 07:00 12/21/17 07:00 Laboratory Results - last 24 hr 12/20/17 12/20/17 12/21/17 01:50 18:32 03:59 WBC RBC Hgb Hct MCV MCH MCHC RDW Plt Count MPV Neut % (Auto) Lymph % (Auto) [place] % (Auto) Eos % (Auto) Baso % (Auto) Neut # (Auto) Lymph # (Auto) [place] # (Auto) Eos # (Auto) Baso # (Auto) WBC Differential Differential Comment Sodium Potassium Chloride Carbon Dioxide Anion Gap BUN Creatinine Estimated GFR POC Glucose 78 109 Random Glucose Hemoglobin A1c 4.8 Calcium Total Bilirubin AST ALT Alkaline Phosphatase Total Protein Albumin Stl C.difficile Tox PCR St C. diff Tox Epid 027 12/21/17 12/21/17 12/21/17 07:00 07:00 07:33 WBC 4.4 RBC 3.09 L Hgb 10.4 L Hct 30.4 L MCV 98.3 MCH 33.6 MCHC 34.2 RDW 14.3 Plt Count 123 L MPV 7.7 Neut % (Auto) 73.0 H Lymph % (Auto) 10.8 [place] % (Auto) 7.1 Eos % (Auto) 8.9 H Baso % (Auto) 0.2 Neut # (Auto) 3.2 Lymph # (Auto) 0.5 L [place] # (Auto) 0.3 Eos # (Auto) 0.4 Baso # (Auto) 0.0 WBC Differential . Differential Comment Auto diff final Sodium 147 H Potassium 4.1 Chloride 113 H Carbon Dioxide 25.1 Anion Gap 9 BUN 9 Creatinine 0.65 Estimated GFR 89 POC Glucose 89 Random Glucose 91 Hemoglobin A1c Calcium 8.9 Total Bilirubin 0.4 AST 28 ALT 30 Alkaline Phosphatase 97 Total Protein 5.5 L D Albumin 2.9 L D Stl C.difficile Tox PCR St C. diff Tox Epid 027 12/21/17 12/21/17 12/21/17 10:36 11:39 15:41 WBC RBC Hgb Hct MCV MCH MCHC RDW Plt Count MPV Neut % (Auto) Lymph % (Auto) [place] % (Auto) Eos % (Auto) Baso % (Auto) Neut # (Auto) Lymph # (Auto) [place] # (Auto) Eos # (Auto) Baso # (Auto) WBC Differential Differential Comment Sodium Potassium Chloride Carbon Dioxide Anion Gap BUN Creatinine Estimated GFR POC Glucose 77 115 H Random Glucose Hemoglobin A1c Calcium Total Bilirubin AST ALT Alkaline Phosphatase Total Protein Albumin Stl C.difficile Tox PCR Negative St C. diff Tox Epid 027 Negative Microbiology 12/19/17 16:21 Blood - Peripheral Aerobic Blood Culture - Preliminary No growth in 2 days 12/19/17 16:21 Blood - Peripheral Anaerobic Blood Culture - Preliminary No growth in 2 days 12/19/17 16:15 Blood - Peripheral Aerobic Blood Culture - Preliminary No growth in 2 days 12/19/17 16:15 Blood - Peripheral Anaerobic Blood Culture - Preliminary No growth in 2 days Assessment and Plan - Plan Mrs. Odom is a 72 y/o female with a history of COPD/chronic bronchitis, TIAs , hypertension, hyperlipidemia, dementia, non-Hodgkin's lymphoma, scoliosis, and seizure disorder who presented to the emergency room on 12/19/2017 following a syncopal episode with l generalized weakness worse on the left side followed by chest pain. Patient was brought to the emergency room and was found to have a left lower lobe pneumonia on CT pulmonary angiogram which was negative for pulmonary embolism. She was admitted to the hospitalist service for further evaluation and management. Generalized weakness - states LE weakness right more than left - decrease sensation , feels legs went under her ?syncopal episode - states was noted to stare blankly -hstates hsitory of frequent TIAs in the past history fo SZ last time x mas [place] - MRI brain negative - ASA daily Syncope TIA vs CVA vs seizure- exam with decrease sensory and motor exam both LE r> l Hx of Sz disorder -neurology ff- work up in progress- MRI brain,carotids negative - EEG- ? possible epileptiform activity - continue Keppra 1 gm bid - Neurology consulted - will defer to them regarding any further additional meds - Ativan PRN seizures - Echo unremarkable - Consult OT, PT, speech therapy- cognitive evaluation - case management consult to assist with discharge planning - difficult home situation - Neurology consulted - get formal PT consult /cognitive and speech therapy Underlying Starting Dementia- Anxious appearing - will get neurospychology consult - patient states increasing forgetfullness- I dont recall anything - emotoinally - started laughing and then became tearful out of maybe frustrated - 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 - had recent chemotherapy - speech/cognitive therapy - start Ativan 0,5 mg po q 8 prn for anxiety Left lower lobe pneumonia with left shift noted on CBC differential - Antibiotics: IV ceftriaxone and azithromycin - Duo nebulizers every 2 hours as needed for shortness of breath or wheezing - monitor CBC and for fevers Chest pain - no complains CAD s/p CABG x 10 February 2017 HYpertension - obtain serial EKGs - EKGs personally reviewed and no ischemic changes , troponins negative - continue to follow serial EKGs and troponin measurements - continue meds- ASA, Lisinorpil, add low dose LOpressor for BP control if needed - Ativan started for anxiety componenet - CTA negative for PE Chronic diarrhea- per patient- worse specially after getting chemo- had recently Nonhodgkins Lymphoma - on maintenance chemotherapy with Rituxin - last dose last week - blue glove precautions - ff by Mina Chase as OP - check c diff- negative - DC senna. DC Lactulose - dietitian consult - poor po sp. after chemo sessions- jsut finished about few days ago Chronic anxiety ? Depression ? starting Dementia - psychiatry consult - start low dose Ativan 0,.5 mg po q 8 prn DVT prophylaxis - Heparin 5000 units subq PT daily Discussed Condition With: Patient and family- daughter and at bedside
[2017-12-21] MEDS ORDERED: LORazepam 0.5 MG Tablet PO PRN (17:40)
[2017-12-22] MEDS: Heparin - SQ 10,000 UNITS/ML Vial SQ SCH ×3 (06:31→21:57)
[2017-12-22 07:12] LABS: Baso % (Auto) 0.4 % (0.0-2.0); Eos # (Auto) 0.4 th/mm3 (0.0-0.4); Eos % (Auto) 9.4 % (0.0-4.0); Hematocrit 29.2 % (35.0-46.0); Hemoglobin 9.9 gm/dL (11.6-15.3); Lymph # (Auto) 0.4 th/mm3 (1.0-4.8); Lymph % (Auto) 9.6 % (9.0-44.0); Mean Corpuscular HGB Conc 34.1 % (32.0-36.0); Mean Corpuscular Hemoglobin 33.2 pg (27.0-34.0); Mean Corpuscular Volume 97.3 fL (80.0-100.0); Mono # (Auto) 0.3 th/mm3 (0.0-0.9); Mono % (Auto) 7.1 % (0.0-8.0); Neut # (Auto) 3.2 th/mm3 (1.8-7.7); Neut % (Auto) 73.5 % (16.0-70.0); Platelet Count 114 th/mm3 (150-450); Red Cell Distribution Width 14.3 % (11.6-17.2); White Blood Count 4.3 th/mm3 (4.0-11.0)
[2017-12-22 07:53] LABS: Alanine Aminotransferase 31 U/L (10-53); Albumin 2.8 g/dL (3.4-5.0); Alkaline Phosphatase 99 U/L (45-117); Anion Gap 7 meq/L (5-15); Aspartate Aminotransferase 24 U/L (15-37); Blood Urea Nitrogen 11 mg/dL (7-18); Chloride 114 meq/L (98-107); Glomerular Filtration Rate 83 mL/min (>89); Glucose,Random 92 mg/dL (74-106); Sodium 147 meq/L (136-145); Total Protein 5.3 g/dL (6.4-8.2)
[2017-12-22 08:43] LABS: Eosinophils 8 % (0-4); Lymphocytes 11 % (9-44); Monocytes 5 % (0-8)
[2017-12-22 08:44] LABS: Ovalocytes 1+; Platelet Morphology Normal (Normal)
[2017-12-22] MEDS: Azithromycin Inj 500 MG in Sodium Chlor 0.9% Inj 250 ML IV.SIG SCH (09:36)
[2017-12-22] MEDS: levETIRAcetam 500 MG Tablet PO SCH ×2 (09:36→21:56)
[2017-12-22] MEDS: Budesonide-Formoterol 80/4.5 MCG 6.9 GM Inhaler INH SCH ×2 (09:37→21:58)
[2017-12-22] MEDS: Lisinopril 20 MG Tablet PO SCH (09:37)
--- NOTE | 2017-12-22 11:23 | P.PN ---
Subjective Interval history: no new events pt is a poor historian not sure if she had a sz may have missed a dose of keppra either had a syncope or sz? Physical Exam Vital signs: Vital Signs 12/21/17 12:00 12/21/17 16:00 12/21/17 19:41 Temperature 97.5 F L 97.9 F Pulse Rate 66 57 L 60 Respiratory Rate 18 18 Blood Pressure 148/70 H 143/65 H Pulse Oximetry 100 98 12/21/17 20:00 12/21/17 23:40 12/22/17 00:00 Temperature 98.4 F 97.7 F Pulse Rate 61 58 L 58 L Respiratory Rate 18 18 Blood Pressure 124/62 102/54 L Pulse Oximetry 98 97 12/22/17 03:59 12/22/17 04:00 12/22/17 08:00 Temperature 97.5 F L 97.4 F L Pulse Rate 55 L 55 L 53 L Respiratory Rate 16 20 Blood Pressure 105/66 127/65 Pulse Oximetry 99 98 Intake & Output 12/21/17 12/22/17 12/22/17 18:59 06:59 18:59 Intake Total 1590 / 1590 100 / 100 Balance 1590 / 1590 100 / 100 Weight 55.2 kg Intake: IV 1350 / 1350 100 / 100 D5W/1/2NS + KCL 10 mEq Inj 1, 1000 / 1000 000 ML @ 70 mls/hr IV.CONT . [id number] [facility] Rx#:[id number] Azithromycin Inj 500 MG In NS 250 / 250 Inj 250 ML @ 250 mls/hr IV.SIG Q24H [facility] Rx#:[id number] Rocephin Inj 1,000 MG In NS Inj 100 / 100 100 / 100 100 ML @ 200 mls/hr IV.SIG Q24H [facility] Rx#:[id number] Oral 240 / 240 Other: # Voids 2 # Bowel Movements 1 Narrative: awake and alert nad perrla eomi motor moves all extremities but feels weak all over. speech hypophonic not slurred. Results - Labs CBC & Chem 7: 12/22/17 06:37 12/22/17 06:37 Laboratory Results - last 24 hr 12/20/17 12/21/17 12/21/17 01:50 10:36 11:39 WBC RBC Hgb Hct MCV MCH MCHC RDW Plt Count MPV Prelim Diff (Auto) Neut % (Auto) Lymph % (Auto) Jennings % (Auto) Eos % (Auto) Baso % (Auto) Neut # (Auto) Lymph # (Auto) Jennings # (Auto) Eos # (Auto) Baso # (Auto) WBC Differential Seg Neuts % (Manual) Band Neuts % (Manual) Lymphocytes % (Manual) Monocytes % (Manual) Eosinophils % (Manual) Abs Neuts (Manual) Differential Comment Platelet Estimate Platelet Morphology Ovalocytes Sodium Potassium Chloride Carbon Dioxide Anion Gap BUN Creatinine Estimated GFR POC Glucose 77 Random Glucose Hemoglobin A1c 4.8 Calcium Total Bilirubin AST ALT Alkaline Phosphatase Total Protein Albumin Stl C.difficile Tox PCR Negative St C. diff Tox Epid 027 Negative 12/21/17 12/21/17 12/22/17 15:41 21:01 06:37 WBC 4.3 RBC 3.00 L Hgb 9.9 L Hct 29.2 L MCV 97.3 MCH 33.2 MCHC 34.1 RDW 14.3 Plt Count 114 L MPV 8.0 Prelim Diff (Auto) Slide review pending Neut % (Auto) 73.5 H Lymph % (Auto) 9.6 Jennings % (Auto) 7.1 Eos % (Auto) 9.4 H Baso % (Auto) 0.4 Neut # (Auto) 3.2 Lymph # (Auto) 0.4 L Jennings # (Auto) 0.3 Eos # (Auto) 0.4 Baso # (Auto) 0.0 WBC Differential Manual diff final Seg Neuts % (Manual) 70 Band Neuts % (Manual) 6 Lymphocytes % (Manual) 11 Monocytes % (Manual) 5 Eosinophils % (Manual) 8 H Abs Neuts (Manual) 3.3 Differential Comment . Platelet Estimate Low L Platelet Morphology Normal Ovalocytes 1+ H Sodium Potassium Chloride Carbon Dioxide Anion Gap BUN Creatinine Estimated GFR POC Glucose 115 H 192 H Random Glucose Hemoglobin A1c Calcium Total Bilirubin AST ALT Alkaline Phosphatase Total Protein Albumin Stl C.difficile Tox PCR St C. diff Tox Epid 027 12/22/17 12/22/17 12/22/17 06:37 07:59 11:13 WBC RBC Hgb Hct MCV MCH MCHC RDW Plt Count MPV Prelim Diff (Auto) Neut % (Auto) Lymph % (Auto) Jennings % (Auto) Eos % (Auto) Baso % (Auto) Neut # (Auto) Lymph # (Auto) Jennings # (Auto) Eos # (Auto) Baso # (Auto) WBC Differential Seg Neuts % (Manual) Band Neuts % (Manual) Lymphocytes % (Manual) Monocytes % (Manual) Eosinophils % (Manual) Abs Neuts (Manual) Differential Comment Platelet Estimate Platelet Morphology Ovalocytes Sodium 147 H Potassium 4.0 Chloride 114 H Carbon Dioxide 26.0 Anion Gap 7 BUN 11 Creatinine 0.69 Estimated GFR 83 L POC Glucose 85 80 Random Glucose 92 Hemoglobin A1c Calcium 8.0 L D Total Bilirubin 0.3 AST 24 ALT 31 Alkaline Phosphatase 99 Total Protein 5.3 L Albumin 2.8 L Stl C.difficile Tox PCR St C. diff Tox Epid 027 Microbiology 12/19/17 16:21 Blood - Peripheral Aerobic Blood Culture - Preliminary No growth in 3 days 12/19/17 16:21 Blood - Peripheral Anaerobic Blood Culture - Preliminary No growth in 3 days 12/19/17 16:15 Blood - Peripheral Aerobic Blood Culture - Preliminary No growth in 3 days 12/19/17 16:15 Blood - Peripheral Anaerobic Blood Culture - Preliminary No growth in 3 days Assessment and Plan - Assessment (1) Seizure Code(s): R56.9 - Unspecified convulsions Status: Acute (2) Syncope Code(s): R55 - Syncope and collapse Status: Acute - Plan cont keppra 1000mg bid level pending repeat eeg today can alway go to keppra 1000mg in amd 1500mg hs w/u reviewed last eeg some occasional sharps repeat study to be done today. mri/a neg.cus <50%b/l.echo ef 50-55%. if repeat eeg abnl can dc on higher dose keppra.
[2017-12-22] MEDS ORDERED: Dextrose 50% in Water 50 ML Vial IV.PUSH PRN (11:54)
--- NOTE | 2017-12-22 12:04 | P.PNIM ---
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 while discussing with them- patient became tearful- states forgetting things a lot, very anxious no nausea or vomiting no ehadaches, abdominal pain experience- frequest dizziness 12-[address] DAVILA OF NEUROLOGY- KEPPRA ADJUSTED BY HER- TO HAVE REPEAT EEG START LOW DOSE SLIDING SCALE COVERAGE CONTINUE PT AND OT LIVES WITH HER WHO WAS JUST IN THE HOSPITAL HIMSELF AM LABS HOPEFULLY TO HOME VS SNF OR [facility] Physical Exam Vital signs: Vital Signs 12/21/17 12:00 12/21/17 16:00 12/21/17 19:41 Temperature 97.5 F L 97.9 F Pulse Rate 66 57 L 60 Respiratory Rate 18 18 Blood Pressure 148/70 H 143/65 H Pulse Oximetry 100 98 12/21/17 20:00 12/21/17 23:40 12/22/17 00:00 Temperature 98.4 F 97.7 F Pulse Rate 61 58 L 58 L Respiratory Rate 18 18 Blood Pressure 124/62 102/54 L Pulse Oximetry 98 97 12/22/17 03:59 12/22/17 04:00 12/22/17 08:00 Temperature 97.5 F L 97.4 F L Pulse Rate 55 L 55 L 53 L Respiratory Rate 16 20 Blood Pressure 105/66 127/65 Pulse Oximetry 99 98 Intake & Output 12/21/17 12/22/17 12/22/17 18:59 06:59 18:59 Intake Total 1590 / 1590 100 / 100 Balance 1590 / 1590 100 / 100 Weight 55.2 kg Intake: IV 1350 / 1350 100 / 100 D5W/1/2NS + KCL 10 mEq Inj 1, 1000 / 1000 000 ML @ 70 mls/hr IV.CONT . [id number] CRUZ Rx#:[id number] Azithromycin Inj 500 MG In NS 250 / 250 Inj 250 ML @ 250 mls/hr IV.SIG Q24H [facility] Rx#:[id number] Rocephin Inj 1,000 MG In NS Inj 100 / 100 100 / 100 100 ML @ 200 mls/hr IV.SIG Q24H [facility] Rx#:[id number] Oral 240 / 240 Other: # Voids 2 # Bowel Movements 1 Narrative: GENERAL: AWAKE AND ALERT AND ORIENTED X3 TALKATIVE AND COOPERATIVE AT THIS TIME SKIN: Warm and dry. HEAD: Atraumatic. Normocephalic. EYES: Pupils equal and round. No scleral icterus. No injection or drainage. WEARS GLASSES ENT: No nasal bleeding or discharge. Mucous membranes pink and moist. NECK: Trachea midline. No JVD. SUPPLE CARDIOVASCULAR: Regular rate and rhythm. S1, S2 NO S3 OR S4 RESPIRATORY: No accessory muscle use. COARSE BREATH SOUNDS BILATERALLY. Breath sounds equal bilaterally. GASTROINTESTINAL: Abdomen soft, non-tender, nondistended. Hepatic and splenic margins not palpable. MUSCULOSKELETAL: Extremities without clubbing, cyanosis, or edema. No obvious deformities. NEUROLOGICAL: Awake and alert. No obvious cranial nerve deficits. Motor grossly within normal limits. 3.5 TO 4 out of 5 muscle strength in the arms and legs. Normal speech. PSYCHIATRIC: Appropriate mood and affect; insight and judgment ABnormal. Results - Labs CBC & Chem 7: 12/22/17 06:37 12/22/17 06:37 Laboratory Results - last 24 hr 12/21/17 12/21/17 12/21/17 10:36 15:41 21:01 WBC RBC Hgb Hct MCV MCH MCHC RDW Plt Count MPV Prelim Diff (Auto) Neut % (Auto) Lymph % (Auto) Bonner % (Auto) Eos % (Auto) Baso % (Auto) Neut # (Auto) Lymph # (Auto) Bonner # (Auto) Eos # (Auto) Baso # (Auto) WBC Differential Seg Neuts % (Manual) Band Neuts % (Manual) Lymphocytes % (Manual) Monocytes % (Manual) Eosinophils % (Manual) Abs Neuts (Manual) Differential Comment Platelet Estimate Platelet Morphology Ovalocytes Sodium Potassium Chloride Carbon Dioxide Anion Gap BUN Creatinine Estimated GFR POC Glucose 115 H 192 H Random Glucose Calcium Total Bilirubin AST ALT Alkaline Phosphatase Total Protein Albumin Stl C.difficile Tox PCR Negative St C. diff Tox Epid 027 Negative 12/22/17 12/22/17 12/22/17 06:37 06:37 07:59 WBC 4.3 RBC 3.00 L Hgb 9.9 L Hct 29.2 L MCV 97.3 MCH 33.2 MCHC 34.1 RDW 14.3 Plt Count 114 L MPV 8.0 Prelim Diff (Auto) Slide review pending Neut % (Auto) 73.5 H Lymph % (Auto) 9.6 Bonner % (Auto) 7.1 Eos % (Auto) 9.4 H Baso % (Auto) 0.4 Neut # (Auto) 3.2 Lymph # (Auto) 0.4 L Bonner # (Auto) 0.3 Eos # (Auto) 0.4 Baso # (Auto) 0.0 WBC Differential Manual diff final Seg Neuts % (Manual) 70 Band Neuts % (Manual) 6 Lymphocytes % (Manual) 11 Monocytes % (Manual) 5 Eosinophils % (Manual) 8 H Abs Neuts (Manual) 3.3 Differential Comment . Platelet Estimate Low L Platelet Morphology Normal Ovalocytes 1+ H Sodium 147 H Potassium 4.0 Chloride 114 H Carbon Dioxide 26.0 Anion Gap 7 BUN 11 Creatinine 0.69 Estimated GFR 83 L POC Glucose 85 Random Glucose 92 Calcium 8.0 L D Total Bilirubin 0.3 AST 24 ALT 31 Alkaline Phosphatase 99 Total Protein 5.3 L Albumin 2.8 L Stl C.difficile Tox PCR St C. diff Tox Epid 027 12/22/17 11:13 WBC RBC Hgb Hct MCV MCH MCHC RDW Plt Count MPV Prelim Diff (Auto) Neut % (Auto) Lymph % (Auto) Bonner % (Auto) Eos % (Auto) Baso % (Auto) Neut # (Auto) Lymph # (Auto) Bonner # (Auto) Eos # (Auto) Baso # (Auto) WBC Differential Seg Neuts % (Manual) Band Neuts % (Manual) Lymphocytes % (Manual) Monocytes % (Manual) Eosinophils % (Manual) Abs Neuts (Manual) Differential Comment Platelet Estimate Platelet Morphology Ovalocytes Sodium Potassium Chloride Carbon Dioxide Anion Gap BUN Creatinine Estimated GFR POC Glucose 80 Random Glucose Calcium Total Bilirubin AST ALT Alkaline Phosphatase Total Protein Albumin Stl C.difficile Tox PCR St C. diff Tox Epid 027 Microbiology 12/19/17 16:21 Blood - Peripheral Aerobic Blood Culture - Preliminary No growth in 3 days 12/19/17 16:21 Blood - Peripheral Anaerobic Blood Culture - Preliminary No growth in 3 days 12/19/17 16:15 Blood - Peripheral Aerobic Blood Culture - Preliminary No growth in 3 days 12/19/17 16:15 Blood - Peripheral Anaerobic Blood Culture - Preliminary No growth in 3 days Assessment and Plan - Plan Mrs. Odom is a 72 y/o female with a history of COPD/chronic bronchitis, TIAs , hypertension, hyperlipidemia, dementia, non-Hodgkin's lymphoma, scoliosis, and seizure disorder who presented to the emergency room on 12/19/2017 following a syncopal episode with l generalized weakness worse on the left side followed by chest pain. Patient was brought to the emergency room and was found to have a left lower lobe pneumonia on CT pulmonary angiogram which was negative for pulmonary embolism. She was admitted to the hospitalist service for further evaluation and management. Generalized weakness - states LE weakness right more than left - decrease sensation , feels legs went under her ?syncopal episode - states was noted to stare blankly -She states history of frequent TIAs in the past history fo SZ last time x mas [place] - MRI brain negative - ASA daily Syncope TIA vs CVA vs seizure- exam with decrease sensory and motor exam both LE r> l Hx of Sz disorder -neurology ff- work up in progress- MRI brain,carotids negative - EEG- ? possible epileptiform activity--NEUROLOGY INCREASED KEPPRA- WANTS REPEAT EEG TODAY - continue Keppra 1 gm bid - Neurology consulted - will defer to them regarding any further additional meds - Ativan PRN seizures - Echo unremarkable - Consult OT, PT, speech therapy- cognitive evaluation - case management consult to assist with discharge planning - difficult home situation - Neurology consulted - get formal PT consult /cognitive and speech therapy Underlying Starting Dementia- Anxious appearing - will get neuropsychology consult - patient states increasing forgetfulness- I don't recall anything - emotionally - started laughing and then became tearful out of maybe frustrated - 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 - had recent chemotherapy - speech/cognitive therapy - start Ativan 0,5 mg po q 8 prn for anxiety Left lower lobe pneumonia with left shift noted on CBC differential - Antibiotics: IV ceftriaxone and azithromycin - Duo nebulizers every 2 hours as needed for shortness of breath or wheezing - monitor CBC and for fevers Chest pain - no complains CAD s/p CABG x 10 February 2017 Hypertension - obtain serial EKGs - EKGs personally reviewed and no ischemic changes , troponins negative - continue to follow serial EKGs and troponin measurements - continue meds- ASA, Lisinopril, add low dose Lopressor for BP control if needed - Ativan started for anxiety component - CTA negative for PE Chronic diarrhea- per patient- worse specially after getting chemo- had recently Non-hodgkins Lymphoma - on maintenance chemotherapy with Rituxan - last dose last week - blue glove precautions - ff by Mina Chase as OP - check c diff- negative - DC senna. DC Lactulose - dietitian consult - poor po sp. after chemo sessions- just finished about few days ago Chronic anxiety ? Depression ? starting Dementia - psychiatry consult - start low dose Ativan 0,.5 mg po q 8 prn DVT prophylaxis - Heparin 5000 units subq NEEDS PT AND OT EVALS PT daily Discussed Condition With: RN AND PT AND CM Discharge Planning: SNF VS [facility]
[2017-12-22] MEDS: Insulin NovoLOG Aspart Correctional Sugar Inj SQ SCH ×3 (12:18→21:57)
--- NOTE | 2017-12-22 15:31 | P.CONPSY ---
Provisional Diagnosis Admission Date: December 19, 2017 17:39 Elrod I.: Adjustment disorder with depressed mood History of Present Illness Service: Psychiatry Consult date: 12/22/17 Requesting Physician: Avery Gracia Reason for Consult: depressed, anxious, ?dementia Primary Care Provider: UNKNOWN Family Provider: Maxim Chanel MD Chief Complaint: Syncope, chest pain, and weakness History of Present Illness: Patient is a 72-year-old woman, , domiciled with and friend, with no formal past psychiatric history, no previous psychiatric diagnoses, no previous hospitalizations, no previous suicide attempt or self interest behavior with a past medical history significant for COPD, chronic bronchitis, TIAs, HTN, HLD, non-Hodgkin's lymphoma, seizure disorder was admitted to the medical service after recent syncope and was found also to have left lower lobe pneumonia, recent chest pain and chronic diarrhea and currently undergoing evaluation of TIA versus CVA versus seizure which patient was noted to be depressed and anxious which psychiatry was consulted for evaluation. Discussion with nursing staff reported the patient has been eating and drinking well, sleeping well, has not noted patient to be crying today is alert and oriented 3. Patient was found lying hospital bed with at bedside noted to be calm and cooperative. Patient reports that she had been feeling down for some time but also recalls having frequent crying spells recently especially after her recent fall and weakness which had brought her to the hospital. Patient reports that she had also been feeling very anxious due to her diagnosis of cancer as well as also recently diagnosed with cancer. Patient states that she had been feeling depressed for months and anxious feeling anxious as well but denies any changes sleep, appetite but noted having decrease in energy and concentration as well as feeling confused at times. Patient reports having had difficulty with memory for the past couple of years being forgetful at times. Patient mentions having had thoughts of not wanting to be alive but states she would never do anything to end her life but has had fleeting thoughts. Patient denies any suicide ideation today, denies any perceptional services or delusions. Patient denies any manic or psychotic symptoms. Rest of psychiatric review of systems negative. Patient this time continues report feeling depressed and anxious but denies any SI, HI, AVH or delusions. Family psychiatric history: Mother wit Alzheimer's no suicides in the family. Substance use history: Denies, Past psychiatric history: No previous psychiatric diagnoses, no previous suicide attempt or self interest behavior, no psychiatric hospitalizations. No outpatient mental health follow-up, no previous psychiatric medication trials. Patient reports being on Aricept started by her neurologist. 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 [facility] - History History Provided By: Patient - Medical History Medical History: Medical History (Last Updated 12/20/17 @ 03:01 by ELKE Shaffer) ASD (atrial septal defect) COPD (chronic obstructive pulmonary disease) High cholesterol Hypertension Non-Hodgkin lymphoma Scoliosis Seizure disorder TIA (transient ischemic attack) - Surgical History Surgical History: Surgical History (Last Updated 12/20/17 @ 03:02 by ELKE Shaffer) History of D&C History of breast biopsy History of hysterectomy Hx of cardiac cath Hx of cholecystectomy Port-A-Cath in place - Family History Family History: Family History (Last Updated 12/20/17 @ 02:58 by ELKE Shaffer) Father Heart disease Mother Dementia - Tobacco History Second Hand Smoke Exposure: No Tobacco Use In Past 30 Days: No Smoking Status: Never smoker - Alcohol History How Often Do You Have a Drink Containing Alcohol: Never - Substance Use History Substance History: No History of Abuse - Travel History Recent Travel in the [place] Within the Last 8 Weeks: No Recent Travel Out of the Country Within the Last 8 Weeks: No - Immunization History Tetanus Immunization: Unsure Hx Influenza Vaccine This Season: No Medications and Allergies Active Medications: Active Medications Acetaminophen (Tylenol) 650 mg PO Q4H PRN PRN Reason: Temp > 100.4 Al Hydroxide/Mg Hydroxide (Milk Of Fidencio Liq) 30 ml PO Q12H PRN PRN Reason: Mild Constipation Albuterol (Duoneb Neb (Prn)) 1 ampul NEB Q2HR NEB PRN PRN Reason: SHORTNESS OF BREATH/WHEEZING Aspirin (Ecotrin) 81 mg PO DAILY [facility] Last Admin: 12/22/17 09:36 Dose: 81 mg Atorvastatin Calcium (Lipitor) 80 mg PO DAILY [facility] Last Admin: 12/22/17 09:37 Dose: 80 mg Bisacodyl (Dulcolax Supp) 10 mg RECTAL DAILY PRN PRN Reason: SEVERE CONSITIPATION Budesonide/Formoterol Fumarate (Symbicort 80/4.5 Mcg Inh) 2 puff INH BID [facility] Last Admin: 12/22/17 09:37 Dose: 2 puff Clonidine HCl (Catapres) 0.1 mg PO Q6H PRN PRN Reason: SYS BP GREATER THAN 170 [facility] Last Admin: 12/21/17 18:42 Dose: 0.1 mg Dextrose (D50w Vial) 50 ml IV.PUSH UNSCH PRN PRN Reason: PER HYPOGLYCEMIA PROTOCOL Glucagon (Glucagon Inj) 1 mg OTHER PRN PRN PRN Reason: for Hypoglycemia Protocol Guaifenesin (Mucinex Er) 600 mg PO BID [facility] Heparin Sodium (Porcine) (Heparin Inj) 5,000 units SQ Q8HR [facility] Last Admin: 12/22/17 06:31 Dose: 5,000 units Azithromycin 500 mg/ Sodium (Chloride) 250 mls @ 250 mls/hr IV.SIG Q24H [facility] Last Admin: 12/22/17 09:36 Dose: 250 mls/hr Ceftriaxone Sodium 1,000 mg/ (Sodium Chloride) 100 mls @ 200 mls/hr IV.SIG Q24H [facility] Last Infusion: 12/21/17 23:30 Dose: Infused Potassium Chloride/Dextrose/Sod Cl (D5w/1/2ns + Kcl 10 Meq Inj) 1,000 mls @ 70 mls/hr IV.CONT .[id number] [facility] Last Admin: 12/21/17 22:36 Dose: 70 mls/hr Insulin Aspart (Novolog Insulin Suppl Scale Inj) 0 unit SQ ACHS [facility]; Protocol Last Admin: 12/22/17 12:18 Dose: Not Given Levetiracetam (Keppra) 1,000 mg PO BID [facility] Last Admin: 12/22/17 09:36 Dose: 1,000 mg Lisinopril (Prinivil) 20 mg PO DAILY [facility] Last Admin: 12/22/17 09:37 Dose: 20 mg Lorazepam (Ativan Inj) 2 mg IV.PUSH Q10M PRN PRN Reason: SEE LABEL COMMENTS Lorazepam (Ativan) 0.5 mg PO Q8H PRN PRN Reason: anxiety Last Admin: 12/21/17 18:43 Dose: 0.5 mg Sennosides (Senokot) 17.2 mg PO Q12H PRN PRN Reason: Moderate Constipation Temazepam (Restoril) 15 mg PO HS PRN PRN Reason: INSOMNIA Last Admin: 12/19/17 20:22 Dose: 15 mg Trimethobenzamide HCl (Tigan Ing) 200 mg IM Q6H PRN PRN Reason: NAUSEA OR VOMITING Allergies Allergy/AdvReac Type Severity Reaction Status Date / Time No Known Allergies Allergy Uncoded 02/26/17 14:32 Home Medications Medication Instructions Recorded Confirmed Type aspirin [Aspir-81] 81 mg PO DAILY 12/19/17 12/19/17 History atorvastatin 80 mg PO DAILY 12/19/17 12/19/17 History fluticasone [Flovent Diskus] 2 inh INHALATION BID 12/19/17 12/19/17 History hydrochlorothiazide 25 mg PO DAILY 12/19/17 12/19/17 History levetiracetam [Keppra] 1,000 mg PO Q12H 12/19/17 12/19/17 History lisinopril 20 mg PO DAILY 12/19/17 12/19/17 History naproxen 250 mg PO BID 12/19/17 12/19/17 History Exam Vital signs: Vital Signs 12/21/17 16:00 12/21/17 19:41 12/21/17 20:00 Temperature 97.9 F 98.4 F Pulse Rate 57 L 60 61 Respiratory Rate 18 18 Blood Pressure 143/65 H 124/62 Pulse Oximetry 98 98 12/21/17 23:40 12/22/17 00:00 12/22/17 03:59 Temperature 97.7 F Pulse Rate 58 L 58 L 55 L Respiratory Rate 18 Blood Pressure 102/54 L Pulse Oximetry 97 12/22/17 04:00 12/22/17 08:00 Temperature 97.5 F L 97.4 F L Pulse Rate 55 L 53 L Respiratory Rate 16 20 Blood Pressure 105/66 127/65 Pulse Oximetry 99 98 Intake & Output 12/21/17 12/22/17 12/22/17 18:59 06:59 18:59 Intake Total 1590 / 1590 100 / 100 Balance 1590 / 1590 100 / 100 Weight 55.2 kg Intake: IV 1350 / 1350 100 / 100 D5W/1/2NS + KCL 10 mEq Inj 1, 1000 / 1000 000 ML @ 70 mls/hr IV.CONT . [id number] [facility] Rx#:[id number] Azithromycin Inj 500 MG In NS 250 / 250 Inj 250 ML @ 250 mls/hr IV.SIG Q24H [facility] Rx#:[id number] Rocephin Inj 1,000 MG In NS Inj 100 / 100 100 / 100 100 ML @ 200 mls/hr IV.SIG Q24H [facility] Rx#:[id number] Oral 240 / 240 Other: # Voids 2 # Bowel Movements 1 Mental Status Examination Appearance: Appropriate Consciousness: Alert Orientation: Person, Place, Date/Time Motor Activity: Normal gait Speech: Other (Slightly low volume) Language: Adequate Fund of Knowledge: Inadequate Attention and Concentration: Adequate Memory: Impaired Mood: Sad, Anxious Affect: Sad, Other (Tearful at times) Thought Process & Associations: Intact, Linear Thought Content: Appropriate Hallucination Type: None Delusion Type: None Suicidal Ideation: No (Plan been having fleeting thoughts of not wanting to be alive) Suicidal Plan: No Suicidal Intention: No Homicidal Ideation: No Homicidal Plan: No Homicidal Intention: No Insight: Fair Judgment: Impulsive Assessment and Plan - Assessment (1) Adjustment disorder with depressed mood Code(s): F43.21 - Adjustment disorder with depressed mood Status: Acute - Plan Plan: Estimated LOS: [] days Patient is a 72-year-old woman with no formal past psychiatric history , currently admitted to the medical service for recent syncope and generalized weakness currently managed for left lower lobe pneumonia, recent chest pain, chronic diarrhea and TIA versus CVA versus seizure disorder which psychiatry was consulted as patient was noted to be depressed and anxious. Patient this time continues with some depressive symptoms along with fleeting thoughts of not wanting to be alive but denies any active thoughts of wanting to end her life. Patient with no history of self-injurious behavior or suicide attempts. Patient likely had a going depressive symptoms secondary to current ongoing medical issues and recent psychosocial stressors. Recommend starting sertraline 25 mg p.o. daily for depression. May continue Lorazepam 0.5 mg every 12 hours as needed for anxiety. Patient will benefit from referral to an outpatient mental health clinic for follow-up and for continuity of care. Patient this time does not require inpatient psychiatric level care. Consult appreciated. Justification for Continued Inpatient Stay: At risk for decompensation at lower level care.
[2017-12-22] MEDS ORDERED: LORazepam 0.5 MG Tablet PO PRN (15:32)
[2017-12-22] MEDS: guaiFENesin 600 MG ER Tablet PO SCH ×2 (16:19→21:57)
--- NOTE | 2017-12-22 16:35 | P.DIET ---
Nutritional Evaluation Type of nutrition evaluation: initial Nutrition consult regarding: Diet Evaluation (Poor PO Intake) Subjective Subjective Comments: Pt states she gets full too quickly while she's eating. States it recently started happening since being in the hospital. C/o N/D often. She also has c/o trouble swallowing and says she has to "double swallow" in order for food to go down. ST has seen pt already. Objective - Diagnosis Syncope, Sepsis, Bandemia - Objective % IBW: 116 (IBW=97#, Ht obtained by pt (")) Body Weight Used for Calculations: IBW Energy Needs - Lower Range (kCal/kg): 28 Energy Needs - Upper Range (kCal/kg): 32 Lower Limit kCal/kg (kCals): 1,235 Upper Limit kCal/kg (kCals): 1,411 Lower Limit Protein Factor (Grams per Kg): 1.2 Upper Limit Protein Factor (Grams per Kg): 1.5 Lower Protein Needs (Protein): 53 Upper Protein Needs (Protein): 66 Dietitian Reviewed in Medical Record: Current diet, Curent medications, Intake & Output, Labs, Medical history Diet Order: Heart Healthy Objective Comments: Meds: Celina MORLEY 12/21 Assessment Assessment: Pt admitted for syncope, sepsis, and bandemia. Pt is at 125% of her IBW. She has NHL and is on chemotherapy. States she has 3 rounds of chemo left. C/o N/D sometimes. C/o difficulty w/ swallowing. Says her appetite is okay, but is decreased from normal. C/o getting full to quickly. Pt agreeable to Ensure supplements for additional nutrition. Continue Heart Healthy diet. ST has seen pt but unsure if it was for swallow. Dietitian following. Recommendations: 1. Continue Heart Healthy diet. 2. Ensure BID. 3. C/o trouble swallowing, but ST saw pt already. Unsure if this was r/t swallow or cognition. Dietitian to Monitor: Lab values, Supplement acceptance, Intake & Output, Diet tolerance, Weight change, PO Intake, Medical course
[2017-12-22] MEDS: KCL 10 mEq/D5W/NaCl 0.45% Inj 1,000 ML IV.CONT SCH (18:53)
[2017-12-22] MEDS: Sertraline 50 MG Tablet PO SCH (18:53)
--- NOTE | 2017-12-22 21:54 | MG ---
cc: Eric Becker MD ELECTROENCEPHALOGRAM RECORD NUMBER: [id number]. DESCRIPTION: Sharp transient, left greater than right, seen epoch 13, phase reversal at T3. Small sharp transient T4, epoch 17. Background showing 7-9 Hz activity, 20-50 microvolts. Bitemporal sharp transients epoch 19. Bitemporal sharp epoch 30. Good EEG variability and reactivity. Myogenic electrical artifact occurring in the left frontal region. Good driving photic stimulation. Single lead EKG showing sinus rhythm. INTERPRETATION: Paroxysmal bitemporal mild sharp activity, could be epileptic focus. No active seizure activity. Otherwise stable, awake electroencephalogram. Clinical correlation. MD LUCIANO Figueroa/RELL , 09:15 PM , 09:53 PM
[2017-12-23] MEDS: Heparin - SQ 10,000 UNITS/ML Vial SQ SCH ×3 (05:31→21:14)
[2017-12-23 06:01] LABS: Baso % (Auto) 0.4 % (0.0-2.0); Eos # (Auto) 0.4 th/mm3 (0.0-0.4); Eos % (Auto) 8.6 % (0.0-4.0); Hematocrit 28.7 % (35.0-46.0); Hemoglobin 9.9 gm/dL (11.6-15.3); Lymph # (Auto) 0.4 th/mm3 (1.0-4.8); Lymph % (Auto) 9.6 % (9.0-44.0); Mean Corpuscular HGB Conc 34.6 % (32.0-36.0); Mean Corpuscular Volume 98.1 fL (80.0-100.0); Mean Platelet Volume 8.4 fL (7.0-11.0); Mono # (Auto) 0.4 th/mm3 (0.0-0.9); Mono % (Auto) 7.6 % (0.0-8.0); Neut # (Auto) 3.4 th/mm3 (1.8-7.7); Neut % (Auto) 73.8 % (16.0-70.0); Platelet Count 109 th/mm3 (150-450); Red Blood Count 2.93 mil/mm3 (4.00-5.30); Red Cell Distribution Width 13.9 % (11.6-17.2); White Blood Count 4.6 th/mm3 (4.0-11.0)
[2017-12-23 06:21] LABS: Alanine Aminotransferase 30 U/L (10-53); Albumin 2.8 g/dL (3.4-5.0); Anion Gap 9 meq/L (5-15); Aspartate Aminotransferase 27 U/L (15-37); Blood Urea Nitrogen 13 mg/dL (7-18); Calcium 8.7 mg/dL (8.5-10.1); Carbon Dioxide 25.1 meq/L (21.0-32.0); Chloride 111 meq/L (98-107); Glomerular Filtration Rate 78 mL/min (>89); Glucose,Random 90 mg/dL (74-106); Magnesium 1.9 mg/dL (1.5-2.5); Phosphorus 3.4 mg/dL (2.5-4.9); Potassium 4.2 meq/L (3.5-5.1); Sodium 145 meq/L (136-145)
[2017-12-23 06:30] LABS: Alkaline Phosphatase 110 U/L (45-117); Free T4 (Free Thyroxine) 1.03 ng/dL (0.76-1.46); Total Protein 5.3 g/dL (6.4-8.2)
[2017-12-23] MEDS: guaiFENesin 600 MG ER Tablet PO SCH ×2 (09:14→21:15)
[2017-12-23] MEDS: Sertraline 50 MG Tablet PO SCH (09:14)
[2017-12-23] MEDS: levETIRAcetam 500 MG Tablet PO SCH ×3 (09:14→21:15)
[2017-12-23] MEDS: Lisinopril 20 MG Tablet PO SCH (09:14)
[2017-12-23] MEDS: Azithromycin Inj 500 MG in Sodium Chlor 0.9% Inj 250 ML IV.SIG SCH (09:15)
[2017-12-23] MEDS: Budesonide-Formoterol 80/4.5 MCG 6.9 GM Inhaler INH SCH ×2 (09:17→21:15)
--- NOTE | 2017-12-23 12:02 | P.PNIM ---
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 while discussing with them- patient became tearful- states forgetting things a lot, very anxious no nausea or vomiting no ehadaches, abdominal pain experience- frequest dizziness 12-[address] DAVILA OF NEUROLOGY- KEPPRA ADJUSTED BY HER- TO HAVE REPEAT EEG START LOW DOSE SLIDING SCALE COVERAGE CONTINUE PT AND OT LIVES WITH HER WHO WAS JUST IN THE HOSPITAL HIMSELF AM LABS HOPEFULLY TO HOME VS SNF OR [facility] 12-23 WILL NEED SNF KEPPRA INCREASED TO 1500[facility] PO BID DW RN AND PT AND CM STATES SHE FEELS WEAK STARTED ON SERTRALINE BY PSYCHIATRY YESTERDAY TO SNF WHEN ACCEPTED Physical Exam Vital signs: Vital Signs 12/22/17 16:00 12/22/17 20:00 12/23/17 00:00 Temperature 97.9 F 97.7 F 98.1 F Pulse Rate 65 62 88 Respiratory Rate 20 18 18 Blood Pressure 148/68 H 137/63 156/71 H Pulse Oximetry 97 98 12/23/17 04:00 12/23/17 08:00 Temperature 98 F 97.8 F Pulse Rate 59 L 57 L Respiratory Rate 18 16 Blood Pressure 154/75 H 152/89 H Pulse Oximetry 99 98 Intake & Output 12/22/17 12/23/17 12/23/17 18:59 06:59 18:59 Intake Total 1600 / 1600 370 / 370 Output Total 300 / 300 Balance 1600 / 1600 70 / 70 Intake: IV 1000 / 1000 250 / 250 D5W/1/2NS + KCL 10 mEq Inj 1, 1000 / 1000 000 ML @ 70 mls/hr IV.CONT . [id number] CRUZ Rx#:[id number] Azithromycin Inj 500 MG In NS 250 / 250 Inj 250 ML @ 250 mls/hr IV.SIG Q24H CRUZ Rx#:[id number] Oral 600 / 600 120 / 120 Output: Urine 300 / 300 Other: # Voids 2 # Bowel Movements 1 Narrative: GENERAL: AWAKE AND ALERT AND ORIENTED X3 TALKATIVE AND COOPERATIVE AT THIS TIME SKIN: Warm and dry. HEAD: Atraumatic. Normocephalic. EYES: Pupils equal and round. No scleral icterus. No injection or drainage. WEARS GLASSES ENT: No nasal bleeding or discharge. Mucous membranes pink and moist. NECK: Trachea midline. No JVD. SUPPLE CARDIOVASCULAR: Regular rate and rhythm. S1, S2 NO S3 OR S4 RESPIRATORY: No accessory muscle use. COARSE BREATH SOUNDS BILATERALLY. Breath sounds equal bilaterally. GASTROINTESTINAL: Abdomen soft, non-tender, nondistended. Hepatic and splenic margins not palpable. MUSCULOSKELETAL: Extremities without clubbing, cyanosis, or edema. No obvious deformities. NEUROLOGICAL: Awake and alert. No obvious cranial nerve deficits. Motor grossly within normal limits. 3.5 TO 4 out of 5 muscle strength in the arms and legs. Normal speech. PSYCHIATRIC: Appropriate mood and affect; insight and judgment ABnormal. Results - Labs CBC & Chem 7: 12/23/17 05:38 12/23/17 05:38 Laboratory Results - last 24 hr 12/22/17 12/22/17 12/23/17 17:13 21:22 05:38 WBC 4.6 RBC 2.93 L Hgb 9.9 L Hct 28.7 L MCV 98.1 MCH 34.0 MCHC 34.6 RDW 13.9 Plt Count 109 L MPV 8.4 Neut % (Auto) 73.8 H Lymph % (Auto) 9.6 [place] % (Auto) 7.6 Eos % (Auto) 8.6 H Baso % (Auto) 0.4 Neut # (Auto) 3.4 Lymph # (Auto) 0.4 L [place] # (Auto) 0.4 Eos # (Auto) 0.4 Baso # (Auto) 0.0 WBC Differential . Differential Comment Auto diff final Sodium Potassium Chloride Carbon Dioxide Anion Gap BUN Creatinine Estimated GFR POC Glucose 116 H 110 Random Glucose Calcium Phosphorus Magnesium Total Bilirubin AST ALT Alkaline Phosphatase Total Protein Albumin TSH Free T4 12/23/17 12/23/17 05:38 08:11 WBC RBC Hgb Hct MCV MCH MCHC RDW Plt Count MPV Neut % (Auto) Lymph % (Auto) [place] % (Auto) Eos % (Auto) Baso % (Auto) Neut # (Auto) Lymph # (Auto) [place] # (Auto) Eos # (Auto) Baso # (Auto) WBC Differential Differential Comment Sodium 145 Potassium 4.2 Chloride 111 H Carbon Dioxide 25.1 Anion Gap 9 BUN 13 Creatinine 0.73 Estimated GFR 78 L POC Glucose 93 Random Glucose 90 Calcium 8.7 Phosphorus 3.4 Magnesium 1.9 Total Bilirubin 0.3 AST 27 ALT 30 Alkaline Phosphatase 110 Total Protein 5.3 L Albumin 2.8 L TSH 1.620 Free T4 1.03 Microbiology 12/19/17 16:21 Blood - Peripheral Aerobic Blood Culture - Preliminary No growth in 4 days 12/19/17 16:21 Blood - Peripheral Anaerobic Blood Culture - Preliminary No growth in 4 days 12/19/17 16:15 Blood - Peripheral Aerobic Blood Culture - Preliminary No growth in 4 days 12/19/17 16:15 Blood - Peripheral Anaerobic Blood Culture - Preliminary No growth in 4 days Assessment and Plan - Plan Mrs. Odom is a 72 y/o female with a history of COPD/chronic bronchitis, TIAs , hypertension, hyperlipidemia, dementia, non-Hodgkin's lymphoma, scoliosis, and seizure disorder who presented to the emergency room on 12/19/2017 following a syncopal episode with l generalized weakness worse on the left side followed by chest pain. Patient was brought to the emergency room and was found to have a left lower lobe pneumonia on CT pulmonary angiogram which was negative for pulmonary embolism. She was admitted to the hospitalist service for further evaluation and management. Generalized weakness - states LE weakness right more than left - decrease sensation , feels legs went under her ?syncopal episode - states was noted to stare blankly -She states history of frequent TIAs in the past history fo SZ last time x mas [place] - MRI brain negative - ASA daily Syncope TIA vs CVA vs seizure- exam with decrease sensory and motor exam both LE r> l Hx of Sz disorder -neurology ff- work up in progress- MRI brain,carotids negative - EEG- ? possible epileptiform activity--NEUROLOGY INCREASED KEPPRA- WANTS REPEAT EEG TODAY - continue Keppra 1 gm bid - Neurology consulted - will defer to them regarding any further additional meds - Ativan PRN seizures - Echo unremarkable - Consult OT, PT, speech therapy- cognitive evaluation - case management consult to assist with discharge planning - difficult home situation - Neurology consulted - get formal PT consult /cognitive and speech therapy Underlying Starting Dementia- Anxious appearing - will get neuropsychology consult - patient states increasing forgetfulness- I don't recall anything - emotionally - started laughing and then became tearful out of maybe frustrated - 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 - had recent chemotherapy - speech/cognitive therapy - start Ativan 0,5 mg po q 8 prn for anxiety Left lower lobe pneumonia with left shift noted on CBC differential - Antibiotics: IV ceftriaxone and azithromycin - Duo nebulizers every 2 hours as needed for shortness of breath or wheezing - monitor CBC and for fevers Chest pain - no complains CAD s/p CABG x 10 February 2017 Hypertension - obtain serial EKGs - EKGs personally reviewed and no ischemic changes , troponins negative - continue to follow serial EKGs and troponin measurements - continue meds- ASA, Lisinopril, add low dose Lopressor for BP control if needed - Ativan started for anxiety component - CTA negative for PE Chronic diarrhea- per patient- worse specially after getting chemo- had recently Non-hodgkins Lymphoma - on maintenance chemotherapy with Rituxan - last dose last week - blue glove precautions - ff by Mina Chase as OP - check c diff- negative - DC senna. DC Lactulose - dietitian consult - poor po sp. after chemo sessions- just finished about few days ago Chronic anxiety ? Depression ? starting Dementia - psychiatry consult - start low dose Ativan 0,.5 mg po q 8 prn STARTED ON SERTRALINE 25 MG PO DAILY DVT prophylaxis - Heparin 5000 units subq NEEDS PT AND OT EVALS PT daily WILL NEED SNF IF ACCEPTED Code Status: FULL CODE Discussed Condition With: RN AND PT AND CM Discharge Planning: SNF VS [facility]
[2017-12-23 13:31] LABS: Hemoglobin A1c 4.6 % (4.3-6.0)
[2017-12-23] MEDS: KCL 10 mEq/D5W/NaCl 0.45% Inj 1,000 ML IV.CONT SCH (13:34)
[2017-12-23] MEDS: Insulin NovoLOG Aspart Correctional Sugar Inj SQ SCH ×3 (17:35→21:15)
--- NOTE | 2017-12-23 19:57 | XR ---
EXAM DATE: 12/23/2017 7:39 PM EDT AGE/SEX: 72 years / Female INDICATIONS: Right shoulder pain post fall. CLINICAL DATA: This is the patient's initial encounter. Patient reports that signs and symptoms have been present for 3 days and indicates a pain score of 6/10. MEDICAL/SURGICAL HISTORY: Chronic obstructive pulmonary disease. Hypertension, Hypercholestero lemia, Lymphoma, Seizure disorder, Atrial Septal Defect. . Cholecystectomy, infusaport. COMPARISON: No prior exams available for comparison. FINDINGS: Diffuse osteopenia. AC joint is in normal alignment. There is normal alignment of the glenoid and hum eral head on the transscapular Y view. No fracture seen. The visualized right upper ribs are intact. CONCLUSION: Negative 2 view examination of the right shoulder. No evidence of dislocation. Electronically signed by: Giuseppe Lares MD 12/23/2017 7:56 PM EDT
[2017-12-23] MEDS ORDERED: Zolpidem Tartrate 5 MG Tablet PO PRN (21:00)
[2017-12-24] MEDS: KCL 10 mEq/D5W/NaCl 0.45% Inj 1,000 ML IV.CONT SCH (06:19)
[2017-12-24 07:09] LABS: Baso % (Auto) 0.6 % (0.0-2.0); Eos # (Auto) 0.4 th/mm3 (0.0-0.4); Eos % (Auto) 10.4 % (0.0-4.0); Hematocrit 28.6 % (35.0-46.0); Hemoglobin 9.8 gm/dL (11.6-15.3); Lymph # (Auto) 0.4 th/mm3 (1.0-4.8); Lymph % (Auto) 10.5 % (9.0-44.0); Mean Corpuscular HGB Conc 34.3 % (32.0-36.0); Mean Corpuscular Hemoglobin 33.6 pg (27.0-34.0); Mean Platelet Volume 8.3 fL (7.0-11.0); Mono # (Auto) 0.3 th/mm3 (0.0-0.9); Mono % (Auto) 8.2 % (0.0-8.0); Neut # (Auto) 2.9 th/mm3 (1.8-7.7); Neut % (Auto) 70.3 % (16.0-70.0); Platelet Count 114 th/mm3 (150-450); Red Blood Count 2.91 mil/mm3 (4.00-5.30); White Blood Count 4.2 th/mm3 (4.0-11.0)
[2017-12-24] MEDS: Heparin - SQ 10,000 UNITS/ML Vial SQ SCH (07:16)
[2017-12-24 07:33] LABS: Albumin 2.8 g/dL (3.4-5.0); Anion Gap 10 meq/L (5-15); Aspartate Aminotransferase 21 U/L (15-37); Blood Urea Nitrogen 9 mg/dL (7-18); Calcium 8.8 mg/dL (8.5-10.1); Carbon Dioxide 25.5 meq/L (21.0-32.0); Chloride 111 meq/L (98-107); Glomerular Filtration Rate 79 mL/min (>89); Glucose,Random 83 mg/dL (74-106); Magnesium 1.9 mg/dL (1.5-2.5); Potassium 3.8 meq/L (3.5-5.1); Sodium 146 meq/L (136-145)
[2017-12-24 07:35] LABS: Alanine Aminotransferase 27 U/L (10-53); Phosphorus 3.6 mg/dL (2.5-4.9)
[2017-12-24 07:37] LABS: Alkaline Phosphatase 100 U/L (45-117); Total Protein 5.4 g/dL (6.4-8.2)
[2017-12-24] MEDS: Lisinopril 20 MG Tablet PO SCH (08:21)
[2017-12-24] MEDS: Sertraline 50 MG Tablet PO SCH (08:21)
[2017-12-24] MEDS: guaiFENesin 600 MG ER Tablet PO SCH (08:22)
[2017-12-24] MEDS: levETIRAcetam 500 MG Tablet PO SCH (08:22)
[2017-12-24] MEDS: Azithromycin Inj 500 MG in Sodium Chlor 0.9% Inj 250 ML IV.SIG SCH (08:22)
[2017-12-24] MEDS: Budesonide-Formoterol 80/4.5 MCG 6.9 GM Inhaler INH SCH (08:28)
[2017-12-24] MEDS: Insulin NovoLOG Aspart Correctional Sugar Inj SQ SCH (08:36)
[2017-12-24 09:15] LABS: Acanthocytes Occ; Eosinophils 8 % (0-4); Lymphocytes 15 % (9-44); Monocytes 3 % (0-8); Ovalocytes 2+; Toxic Granulation 2+
[2017-12-24 09:16] LABS: Platelet Morphology Normal (Normal)
--- NOTE | 2017-12-24 12:35 | P.PNIM ---
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 while discussing with them- patient became tearful- states forgetting things a lot, very anxious no nausea or vomiting no ehadaches, abdominal pain experience- frequest dizziness 12-[address] DAVILA OF NEUROLOGY- KEPPRA ADJUSTED BY HER- TO HAVE REPEAT EEG START LOW DOSE SLIDING SCALE COVERAGE CONTINUE PT AND OT LIVES WITH HER WHO WAS JUST IN THE HOSPITAL HIMSELF AM LABS HOPEFULLY TO HOME VS SNF OR C 12-23 WILL NEED SNF KEPPRA INCREASED TO [facility] PO BID DW RN AND PT AND CM STATES SHE FEELS WEAK STARTED ON SERTRALINE BY PSYCHIATRY YESTERDAY TO SNF WHEN ACCEPTED 12-24 DC TO SNF TODAY NEEDS TO GO TO SNF TO GET STRONGER DW RN AN PT AND CM FEELS VERY WEAK AND WANTS TO GET STRONGER Physical Exam Vital signs: Vital Signs 12/23/17 16:00 12/23/17 20:00 12/24/17 00:00 Temperature 98.1 F 97.9 F 98.0 F Pulse Rate 66 51 L 58 L Respiratory Rate 16 18 18 Blood Pressure 140/66 148/72 H 148/67 H Pulse Oximetry 99 98 98 12/24/17 04:00 12/24/17 08:00 12/24/17 09:00 Temperature 98.1 F 97.9 F Pulse Rate 52 L 58 L 60 Respiratory Rate 16 12 Blood Pressure 152/67 H 117/75 Pulse Oximetry 98 97 Intake & Output 12/23/17 12/24/17 12/24/17 18:59 06:59 18:59 Intake Total 1630 / 1630 1100 / 1100 Balance 1630 / 1630 1100 / 1100 Weight 55.4 kg Intake: IV 1250 / 1250 1100 / 1100 D5W/1/2NS + KCL 10 mEq Inj 1, 1000 / 1000 1000 / 1000 000 ML @ 70 mls/hr IV.CONT . [id number] CRUZ Rx#:[id number] Azithromycin Inj 500 MG In NS 250 / 250 Inj 250 ML @ 250 mls/hr IV.SIG Q24H CRUZ Rx#:[id number] Rocephin Inj 1,000 MG In NS Inj 100 / 100 100 ML @ 200 mls/hr IV.SIG Q24H CRUZ Rx#:[id number] Oral 380 / 380 Other: # Voids 4 Date of Last Bowel Movement 12/23/17 # Bowel Movements 1 Narrative: GENERAL: AWAKE AND ALERT AND ORIENTED X3 TALKATIVE AND COOPERATIVE AT THIS TIME SKIN: Warm and dry. HEAD: Atraumatic. Normocephalic. EYES: Pupils equal and round. No scleral icterus. No injection or drainage. WEARS GLASSES ENT: No nasal bleeding or discharge. Mucous membranes pink and moist. NECK: Trachea midline. No JVD. SUPPLE CARDIOVASCULAR: Regular rate and rhythm. S1, S2 NO S3 OR S4 RESPIRATORY: No accessory muscle use. COARSE BREATH SOUNDS BILATERALLY. Breath sounds equal bilaterally. GASTROINTESTINAL: Abdomen soft, non-tender, nondistended. Hepatic and splenic margins not palpable. MUSCULOSKELETAL: Extremities without clubbing, cyanosis, or edema. No obvious deformities. NEUROLOGICAL: Awake and alert. No obvious cranial nerve deficits. Motor grossly within normal limits. 3.5 TO 4 out of 5 muscle strength in the arms and legs. Normal speech. PSYCHIATRIC: Appropriate mood and affect; insight and judgment ABnormal. Results - Labs CBC & Chem 7: 12/24/17 06:30 12/24/17 06:30 Laboratory Results - last 24 hr 12/20/17 12/23/17 12/23/17 13:06 05:38 16:49 WBC RBC Hgb Hct MCV MCH MCHC RDW Plt Count MPV Prelim Diff (Auto) Neut % (Auto) Lymph % (Auto) [place] % (Auto) Eos % (Auto) Baso % (Auto) Neut # (Auto) Lymph # (Auto) [place] # (Auto) Eos # (Auto) Baso # (Auto) WBC Differential Seg Neuts % (Manual) Band Neuts % (Manual) Lymphocytes % (Manual) Monocytes % (Manual) Eosinophils % (Manual) Abs Neuts (Manual) Differential Comment Toxic Granulation Platelet Estimate Platelet Morphology Ovalocytes Acanthocytes (Spur) Sodium Potassium Chloride Carbon Dioxide Anion Gap BUN Creatinine Estimated GFR POC Glucose 140 H Random Glucose Hemoglobin A1c 4.6 Calcium Phosphorus Magnesium Total Bilirubin AST ALT Alkaline Phosphatase Total Protein Albumin Levetiracetam 49.5 H 12/23/17 12/24/17 12/24/17 21:06 06:30 06:30 WBC 4.2 RBC 2.91 L Hgb 9.8 L Hct 28.6 L MCV 98.0 MCH 33.6 MCHC 34.3 RDW 14.0 Plt Count 114 L MPV 8.3 Prelim Diff (Auto) Slide review pending Neut % (Auto) 70.3 H Lymph % (Auto) 10.5 [place] % (Auto) 8.2 H Eos % (Auto) 10.4 H Baso % (Auto) 0.6 Neut # (Auto) 2.9 Lymph # (Auto) 0.4 L [place] # (Auto) 0.3 Eos # (Auto) 0.4 Baso # (Auto) 0.0 WBC Differential Manual diff final Seg Neuts % (Manual) 54 Band Neuts % (Manual) 20 H Lymphocytes % (Manual) 15 Monocytes % (Manual) 3 Eosinophils % (Manual) 8 H Abs Neuts (Manual) 3.1 Differential Comment . Toxic Granulation 2+ H Platelet Estimate Low L Platelet Morphology Normal Ovalocytes 2+ H Acanthocytes (Spur) Occ H Sodium 146 H Potassium 3.8 Chloride 111 H Carbon Dioxide 25.5 Anion Gap 10 BUN 9 Creatinine 0.72 Estimated GFR 79 L POC Glucose 95 Random Glucose 83 Hemoglobin A1c Calcium 8.8 Phosphorus 3.6 Magnesium 1.9 Total Bilirubin 0.3 AST 21 ALT 27 Alkaline Phosphatase 100 Total Protein 5.4 L Albumin 2.8 L Levetiracetam Microbiology 12/19/17 16:21 Blood - Peripheral Aerobic Blood Culture - Final No growth in 5 days 12/19/17 16:21 Blood - Peripheral Anaerobic Blood Culture - Final No growth in 5 days 12/19/17 16:15 Blood - Peripheral Aerobic Blood Culture - Final No growth in 5 days 12/19/17 16:15 Blood - Peripheral Anaerobic Blood Culture - Final No growth in 5 days - Imaging Impressions Shoulder X-Ray 12/23/17 00:00 CONCLUSION: Negative 2 view examination of the right shoulder. No evidence of dislocation. - Procedures EEGS Assessment and Plan - Plan Mrs. Odom is a 72 y/o female with a history of COPD/chronic bronchitis, TIAs , hypertension, hyperlipidemia, dementia, non-Hodgkin's lymphoma, scoliosis, and seizure disorder who presented to the emergency room on 12/19/2017 following a syncopal episode with l generalized weakness worse on the left side followed by chest pain. Patient was brought to the emergency room and was found to have a left lower lobe pneumonia on CT pulmonary angiogram which was negative for pulmonary embolism. She was admitted to the hospitalist service for further evaluation and management. Generalized weakness - states LE weakness right more than left - decrease sensation , feels legs went under her ?syncopal episode - states was noted to stare blankly -She states history of frequent TIAs in the past history fo SZ last time x mas [place] - MRI brain negative - ASA daily Syncope TIA vs CVA vs seizure- exam with decrease sensory and motor exam both LE r> l Hx of Sz disorder -neurology ff- work up in progress- MRI brain,carotids negative - EEG- ? possible epileptiform activity--NEUROLOGY INCREASED KEPPRA- WANTS REPEAT EEG TODAY - continue Keppra 1 gm bid - Neurology consulted - will defer to them regarding any further additional meds - Ativan PRN seizures - Echo unremarkable - Consult OT, PT, speech therapy- cognitive evaluation - case management consult to assist with discharge planning - difficult home situation - Neurology consulted - get formal PT consult /cognitive and speech therapy Underlying Starting Dementia- Anxious appearing - will get neuropsychology consult - patient states increasing forgetfulness- I don't recall anything - emotionally - started laughing and then became tearful out of maybe frustrated - 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 - had recent chemotherapy - speech/cognitive therapy - start Ativan 0,5 mg po q 8 prn for anxiety Left lower lobe pneumonia with left shift noted on CBC differential - Antibiotics: IV ceftriaxone and azithromycin - Duo nebulizers every 2 hours as needed for shortness of breath or wheezing - monitor CBC and for fevers Chest pain - no complains CAD s/p CABG x 10 February 2017 Hypertension - obtain serial EKGs - EKGs personally reviewed and no ischemic changes , troponins negative - continue to follow serial EKGs and troponin measurements - continue meds- ASA, Lisinopril, add low dose Lopressor for BP control if needed - Ativan started for anxiety component - CTA negative for PE Chronic diarrhea- per patient- worse specially after getting chemo- had recently Non-hodgkins Lymphoma - on maintenance chemotherapy with Rituxan - last dose last week - blue glove precautions - ff by Mina Chase as OP - check c diff- negative - DC senna. DC Lactulose - dietitian consult - poor po sp. after chemo sessions- just finished about few days ago Chronic anxiety ? Depression ? starting Dementia - psychiatry consult - start low dose Ativan 0,.5 mg po q 8 prn STARTED ON SERTRALINE 25 MG PO DAILY DVT prophylaxis - Heparin 5000 units subq NEEDS PT AND OT EVALS PT daily WILL NEED SNF IF ACCEPTED DC TO SNF TODAY Discussed Condition With: RN AND PT AND CM Discharge Planning: DC TO SNF TODAY FOR AGGRESSIVE REHAB
--- NOTE | 2017-12-24 12:57 | P.DS ---
Date of admission: 12/19/17 17:39 Primary care physician: UNKNOWN Attending physician on discharge: Shin Peguero Anticipated date of discharge: 12/24/17 Brief History from admission: Mrs. Odom is a 72 y/o female with a history of COPD/chronic bronchitis, TIAs , hypertension, hyperlipidemia, dementia, non-Hodgkin's lymphoma, scoliosis, and seizure disorder who presented to the emergency room on 12/19/2017 following a syncopal episode with l generalized weakness worse on the left side followed by chest pain. Patient was brought to the emergency room and was found to have a left lower lobe pneumonia on CT pulmonary angiogram which was negative for pulmonary embolism. She was admitted to the hospitalist service for further evaluation and management. The patient is seen in her hospital room with her daughter at the bedside. She reports a very difficult social situation in which she is caring for her ailing and an 83-year-old woman with dementia. She states she was under a lot of stress yesterday and when out on her porch to sit down. While she was sitting outside, she developed severe dizziness and decided to try to get up and go inside to the cold air. When she got to the front door of her home, she noticed that her vision had gone dark and she began to feel abruptly weak and fell down. She reports brief loss of consciousness but denies hitting her head. She states she began to experience severe left-sided chest pain as she came out of the syncopal episode and stated it radiated down her left arm. Chest pain was accompanied by nausea, diaphoresis, palpitations, and shortness of breath. The patient reports that the chest pain is now gone. She still feels residual weakness in all extremities though continues to state it is worse on the left. She reports some difficulty with speech during the episode. DS: Diagnosis - Discharge Diagnosis (1) Adjustment disorder with depressed mood Status: Chronic (2) Chest pain Status: Resolved (3) Seizure Status: Chronic (4) Syncope Status: Resolved (5) TIA (transient ischemic attack) Status: Chronic DS: Medications - Discharge Medications Prescriptions: aspirin [Aspir-81] 81 mg PO DAILY #30 tab atorvastatin 80 mg PO DAILY #30 tab azithromycin 500 mg PO DAILY #5 tab budesonide-formoterol [Symbicort] 2 puff INH BID #1 inh cefuroxime axetil 500 mg PO Q12H #10 tab clonidine HCl [Catapres] 0.1 mg PO Q6H PRN #60 tab PRN Reason: Sys Bp Greater Than 170 Mmhg hydrocodone-acetaminophen 1 tab PO Q6H PRN #12 tab PRN Reason: Pain Scale 6 To 10 ipratropium-albuterol 1 amp NEB Q2HR NEB PRN #180 amp PRN Reason: Shortness Of Breath/Wheezing levetiracetam [Keppra] 1,500 mg PO BID #180 tab lisinopril 20 mg PO DAILY #30 tab lorazepam 0.5 mg PO Q12HR PRN #6 tab PRN Reason: anxiety sertraline [Zoloft] 25 mg PO DAILY #30 tab zolpidem 5 mg PO HS PRN #30 tab PRN Reason: Insomnia DS: Summary Hospital Course: Mrs. Odom is a 72 y/o female with a history of COPD/chronic bronchitis, TIAs , hypertension, hyperlipidemia, dementia, non-Hodgkin's lymphoma, scoliosis, and seizure disorder who presented to the emergency room on 12/19/2017 following a syncopal episode with l generalized weakness worse on the left side followed by chest pain. Patient was brought to the emergency room and was found to have a left lower lobe pneumonia on CT pulmonary angiogram which was negative for pulmonary embolism. She was admitted to the hospitalist service for further evaluation and management. The patient is seen in her hospital room with her daughter at the bedside. She reports a very difficult social situation in which she is caring for her ailing and an 83-year-old woman with dementia. She states she was under a lot of stress yesterday and when out on her porch to sit down. While she was sitting outside, she developed severe dizziness and decided to try to get up and go inside to the cold air. When she got to the front door of her home, she noticed that her vision had gone dark and she began to feel abruptly weak and fell down. She reports brief loss of consciousness but denies hitting her head. She states she began to experience severe left-sided chest pain as she came out of the syncopal episode and stated it radiated down her left arm. Chest pain was accompanied by nausea, diaphoresis, palpitations, and shortness of breath. The patient reports that the chest pain is now gone. She still feels residual weakness in all extremities though continues to state it is worse on the left. She reports some difficulty with speech during the episode. 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 awake and alert while discussing with them- patient became tearful- states forgetting things a lot, very anxious no nausea or vomiting no ehadaches, abdominal pain experience- frequest dizziness 12-[address] DAVILA OF NEUROLOGY- [facility] ADJUSTED BY HER- TO HAVE REPEAT EEG START LOW DOSE SLIDING SCALE COVERAGE CONTINUE PT AND OT LIVES WITH HER WHO WAS JUST IN THE HOSPITAL HIMSELF AM LABS HOPEFULLY TO HOME VS SNF OR C 12-23 WILL NEED SNF [facility] INCREASED TO 1500MG PO BID DW RN AND PT AND CM STATES SHE FEELS WEAK STARTED ON SERTRALINE BY PSYCHIATRY YESTERDAY TO SNF WHEN ACCEPTED 12-24 DC TO SNF TODAY NEEDS TO GO TO SNF TO GET STRONGER DW RN AN PT AND CM FEELS VERY WEAK AND WANTS TO GET STRONGER E-FORCSE CHECKED WILL PRESCRIBE AMBIEN AND LORAZEPAM AND NARCOTIC WRITTEN FOR HYDROCODONE/ACETAMINOPHEN NO NEW RX FOR PAIN MEDICATIONS SINCE JUL 2017 - Time Spent with Patient Total time spent providing and/or coordinating discharge services: Greater than 30 minutes - Quality: VTE Deep Vein Thrombosis/Pulmonary Embolism Present on Admission: No Exam Vital signs: Vital Signs 12/23/17 16:00 12/23/17 20:00 12/24/17 00:00 Temperature 98.1 F 97.9 F 98.0 F Pulse Rate 66 51 L 58 L Respiratory Rate 16 18 18 Blood Pressure 140/66 148/72 H 148/67 H Pulse Oximetry 99 98 98 12/24/17 04:00 12/24/17 08:00 12/24/17 09:00 Temperature 98.1 F 97.9 F Pulse Rate 52 L 58 L 60 Respiratory Rate 16 12 Blood Pressure 152/67 H 117/75 Pulse Oximetry 98 97 Intake & Output 12/23/17 12/24/17 12/24/17 18:59 06:59 18:59 Intake Total 1630 / 1630 1100 / 1100 Balance 1630 / 1630 1100 / 1100 Weight 55.4 kg Intake: IV 1250 / 1250 1100 / 1100 D5W/1/2NS + KCL 10 mEq Inj 1, 1000 / 1000 1000 / 1000 000 ML @ 70 mls/hr IV.CONT . [id number] CRUZ Rx#:[id number] Azithromycin Inj 500 MG In NS 250 / 250 Inj 250 ML @ 250 mls/hr IV.SIG Q24H CRUZ Rx#:[id number] Rocephin Inj 1,000 MG In NS Inj 100 / 100 100 ML @ 200 mls/hr IV.SIG Q24H CRUZ Rx#:[id number] Oral 380 / 380 Other: # Voids 4 Date of Last Bowel Movement 12/23/17 # Bowel Movements 1 Narrative: GENERAL: AWAKE AND ALERT AND ORIENTED X3 TALKATIVE AND COOPERATIVE AT THIS TIME SKIN: Warm and dry. HEAD: Atraumatic. Normocephalic. EYES: Pupils equal and round. No scleral icterus. No injection or drainage. WEARS GLASSES ENT: No nasal bleeding or discharge. Mucous membranes pink and moist. NECK: Trachea midline. No JVD. SUPPLE CARDIOVASCULAR: Regular rate and rhythm. S1, S2 NO S3 OR S4 RESPIRATORY: No accessory muscle use. COARSE BREATH SOUNDS BILATERALLY. Breath sounds equal bilaterally. GASTROINTESTINAL: Abdomen soft, non-tender, nondistended. Hepatic and splenic margins not palpable. MUSCULOSKELETAL: Extremities without clubbing, cyanosis, or edema. No obvious deformities. NEUROLOGICAL: Awake and alert. No obvious cranial nerve deficits. Motor grossly within normal limits. 3.5 TO 4 out of 5 muscle strength in the arms and legs. Normal speech. PSYCHIATRIC: Appropriate mood and affect; insight and judgment ABnormal. Results Procedures completed during hospitalization: EEGS Completed studies during hospitalization: Laboratory Results WBC 4.2 th/mm3 (4.0-11.0) 12/24/17 06:30 RBC 2.91 mil/mm3 (4.00-5.30) L 12/24/17 06:30 Hgb 9.8 gm/dL (11.6-15.3) L 12/24/17 06:30 Hct 28.6 % (35.0-46.0) L 12/24/17 06:30 MCV 98.0 fL (80.0-100.0) 12/24/17 06:30 MCH 33.6 pg (27.0-34.0) 12/24/17 06:30 MCHC 34.3 % (32.0-36.0) 12/24/17 06:30 RDW 14.0 % (11.6-17.2) 12/24/17 06:30 Plt Count 114 th/mm3 (150-450) L 12/24/17 06:30 MPV 8.3 fL (7.0-11.0) 12/24/17 06:30 Prelim Diff (Auto) Slide review pending 12/24/17 06:30 Neut % (Auto) 70.3 % (16.0-70.0) H 12/24/17 06:30 Lymph % (Auto) 10.5 % (9.0-44.0) 12/24/17 06:30 Winkler % (Auto) 8.2 % (0.0-8.0) H 12/24/17 06:30 Eos % (Auto) 10.4 % (0.0-4.0) H 12/24/17 06:30 Baso % (Auto) 0.6 % (0.0-2.0) 12/24/17 06:30 Neut # (Auto) 2.9 th/mm3 (1.8-7.7) 12/24/17 06:30 Lymph # (Auto) 0.4 th/mm3 (1.0-4.8) L 12/24/17 06:30 Winkler # (Auto) 0.3 th/mm3 (0.0-0.9) 12/24/17 06:30 Eos # (Auto) 0.4 th/mm3 (0.0-0.4) 12/24/17 06:30 Baso # (Auto) 0.0 th/mm3 (0.0-0.2) 12/24/17 06:30 WBC Differential Manual diff final 12/24/17 06:30 Seg Neuts % (Manual) 54 % (16-70) 12/24/17 06:30 Band Neuts % (Manual) 20 % (0-6) H 12/24/17 06:30 Lymphocytes % (Manual) 15 % (9-44) 12/24/17 06:30 Monocytes % (Manual) 3 % (0-8) 12/24/17 06:30 Eosinophils % (Manual) 8 % (0-4) H 12/24/17 06:30 Basophils % (Manual) 1 % (0-2) 12/20/17 01:50 Metamyelocytes % (Man) 1 % (0-1) 12/19/17 13:50 Abs Neuts (Manual) 3.1 th/mm3 (1.8-7.7) 12/24/17 06:30 Differential Comment . 12/24/17 06:30 Toxic Granulation 2+ (None) H 12/24/17 06:30 Platelet Estimate Low (Normal) L 12/24/17 06:30 Platelet Morphology Normal (Normal) 12/24/17 06:30 Ovalocytes 2+ (None) H 12/24/17 06:30 Acanthocytes (Spur) Occ (None) H 12/24/17 06:30 PT 10.7 sec (9.8-11.6) 12/19/17 13:50 INR 1.1 Ratio 12/19/17 13:50 Sodium 146 meq/L (136-145) H 12/24/17 06:30 Potassium 3.8 meq/L (3.5-5.1) 12/24/17 06:30 Chloride 111 meq/L (98-107) H 12/24/17 06:30 Carbon Dioxide 25.5 meq/L (21.0-32.0) 12/24/17 06:30 Anion Gap 10 meq/L (5-15) 12/24/17 06:30 BUN 9 mg/dL (7-18) 12/24/17 06:30 Creatinine 0.72 mg/dL (0.50-1.00) 12/24/17 06:30 Estimated GFR 79 mL/min (>89) L 12/24/17 06:30 POC Glucose 95 mg/dl (68-110) 12/23/17 21:06 Random Glucose 83 mg/dL (74-106) 12/24/17 06:30 Hemoglobin A1c 4.6 % (4.3-6.0) 12/23/17 05:38 Lactic Acid 0.5 mmol/L (0.4-2.0) 12/19/17 16:20 Calcium 8.8 mg/dL (8.5-10.1) 12/24/17 06:30 Phosphorus 3.6 mg/dL (2.5-4.9) 12/24/17 06:30 Magnesium 1.9 mg/dL (1.5-2.5) 12/24/17 06:30 Total Bilirubin 0.3 mg/dL (0.2-1.0) 12/24/17 06:30 AST 21 U/L (15-37) 12/24/17 06:30 ALT 27 U/L (10-53) 12/24/17 06:30 Alkaline Phosphatase 100 U/L (45-117) 12/24/17 06:30 Troponin I Less than 0.02 ng/mL (0.02-0.05) L 12/20/17 08:31 Total Protein 5.4 g/dL (6.4-8.2) L 12/24/17 06:30 Albumin 2.8 g/dL (3.4-5.0) L 12/24/17 06:30 Triglycerides 33 mg/dL (42-150) L 12/20/17 01:50 Cholesterol 88 mg/dL (120-200) L 12/20/17 01:50 LDL Cholesterol, Calc 22 mg/dL (0-99) 12/20/17 01:50 HDL Cholesterol 59.8 mg/dL (40.0-60.0) 12/20/17 01:50 Cholesterol/HDL Ratio 1.47 Ratio 12/20/17 01:50 TSH 1.620 uIU/mL (0.358-3.740) 12/23/17 05:38 Free T4 1.03 ng/dL (0.76-1.46) 12/23/17 05:38 Urine Color Yellow (Yellw/Straw) 12/19/17 15:52 Urine Clarity Hazy (Clear) H 12/19/17 15:52 Urine pH 5.0 (5.0-8.5) 12/19/17 15:52 Ur Specific [place] 1.010 (1.002-1.035) 12/19/17 15:52 Urine Protein Negative mg/dL (Neg-Trace) 12/19/17 15:52 Urine Glucose (UA) Negative mg/dL (Negative) 12/19/17 15:52 Urine Ketones Negative mg/dL (Negative) 12/19/17 15:52 Urine Occult Blood Negative (Negative) 12/19/17 15:52 Urine Nitrate Negative (Negative) 12/19/17 15:52 Urine Bilirubin Negative (Negative) 12/19/17 15:52 Urine Urobilinogen Less than 2 mg/dL (Less than 2) 12/19/17 15:52 Ur Leukocyte Esterase Small (Negative) H 12/19/17 15:52 Urine WBC 2 /hpf (0-5) 12/19/17 15:52 Ur Squamous Epith Cells 4 /hpf (0-5) 12/19/17 15:52 Hyaline Casts 4 /lpf (0-3) 12/19/17 15:52 Stl C.difficile Tox PCR Negative (Negative) 12/21/17 10:36 St C. diff Tox Epid 027 Negative (Negative) 12/21/17 10:36 Levetiracetam 49.5 mcg/mL (12.0 - 46.0) H 12/20/17 13:06 Impressions Chest CTA 12/19/17 12:50 CONCLUSION: 1. No pulmonary embolus. 2. Posterior medial left lower lobe atelectasis or consolidation. Chest X-Ray 12/19/17 12:52 CONCLUSION: No evidence of acute cardiopulmonary process. Head CT 12/19/17 14:19 CONCLUSION: 1. Negative for acute process. Carotid Doppler Study 12/20/17 00:00 CONCLUSION: Right Internal Carotid Artery: No evidence of hemodynamically significant lesion with less than 50% stenosis. Left Internal Carotid Artery: No evidence of hemodynamically significant lesion with less than 50% stenosis. Head MRI 12/20/17 00:00 CONCLUSION: 1. Negative exam Head MRA 12/20/17 00:00 CONCLUSION: 1. Negative MRA Cow ([facility]) non contrast. Shoulder X-Ray 12/23/17 00:00 CONCLUSION: Negative 2 view examination of the right shoulder. No evidence of dislocation. Labs on day of discharge: Labs from last 24 hours 12/24/17 12/24/17 12/23/17 06:30 06:30 21:06 WBC 4.2 RBC 2.91 L Hgb 9.8 L Hct 28.6 L MCV 98.0 MCH 33.6 MCHC 34.3 RDW 14.0 Plt Count 114 L MPV 8.3 Prelim Diff (Auto) Slide review pending Neut % (Auto) 70.3 H Lymph % (Auto) 10.5 Winkler % (Auto) 8.2 H Eos % (Auto) 10.4 H Baso % (Auto) 0.6 Neut # (Auto) 2.9 Lymph # (Auto) 0.4 L Winkler # (Auto) 0.3 Eos # (Auto) 0.4 Baso # (Auto) 0.0 WBC Differential Manual diff final Seg Neuts % (Manual) 54 Band Neuts % (Manual) 20 H Lymphocytes % (Manual) 15 Monocytes % (Manual) 3 Eosinophils % (Manual) 8 H Abs Neuts (Manual) 3.1 Differential Comment . Toxic Granulation 2+ H Platelet Estimate Low L Platelet Morphology Normal Ovalocytes 2+ H Acanthocytes (Spur) Occ H Sodium 146 H Potassium 3.8 Chloride 111 H Carbon Dioxide 25.5 Anion Gap 10 BUN 9 Creatinine 0.72 Estimated GFR 79 L POC Glucose 95 Random Glucose 83 Hemoglobin A1c Calcium 8.8 Phosphorus 3.6 Magnesium 1.9 Total Bilirubin 0.3 AST 21 ALT 27 Alkaline Phosphatase 100 Total Protein 5.4 L Albumin 2.8 L Levetiracetam 12/23/17 12/23/17 12/20/17 16:49 05:38 13:06 WBC RBC Hgb Hct MCV MCH MCHC RDW Plt Count MPV Prelim Diff (Auto) Neut % (Auto) Lymph % (Auto) Winkler % (Auto) Eos % (Auto) Baso % (Auto) Neut # (Auto) Lymph # (Auto) Winkler # (Auto) Eos # (Auto) Baso # (Auto) WBC Differential Seg Neuts % (Manual) Band Neuts % (Manual) Lymphocytes % (Manual) Monocytes % (Manual) Eosinophils % (Manual) Abs Neuts (Manual) Differential Comment Toxic Granulation Platelet Estimate Platelet Morphology Ovalocytes Acanthocytes (Spur) Sodium Potassium Chloride Carbon Dioxide Anion Gap BUN Creatinine Estimated GFR POC Glucose 140 H Random Glucose Hemoglobin A1c 4.6 Calcium Phosphorus Magnesium Total Bilirubin AST ALT Alkaline Phosphatase Total Protein Albumin Levetiracetam 49.5 H - Impressions ITS Impressions Chest CTA 12/19/17 12:50 CONCLUSION: 1. No pulmonary embolus. 2. Posterior medial left lower lobe atelectasis or consolidation. Chest X-Ray 12/19/17 12:52 CONCLUSION: No evidence of acute cardiopulmonary process. Head CT 12/19/17 14:19 CONCLUSION: 1. Negative for acute process. Carotid Doppler Study 12/20/17 00:00 CONCLUSION: Right Internal Carotid Artery: No evidence of hemodynamically significant lesion with less than 50% stenosis. Left Internal Carotid Artery: No evidence of hemodynamically significant lesion with less than 50% stenosis. Head MRI 12/20/17 00:00 CONCLUSION: 1. Negative exam Head MRA 12/20/17 00:00 CONCLUSION: 1. Negative MRA Cow ([facility]) non contrast. Shoulder X-Ray 12/23/17 00:00 CONCLUSION: Negative 2 view examination of the right shoulder. No evidence of dislocation. Discharge Plan - Discharge Disposition Patient Disposition: 03 Discharge to SNF - Discharge Condition Condition: Good - Discharge Order Discharge Orders: Discharge Order (Routine); Ordered 12/24/17 Ordered By: Shin Peguero - Discharge Details Anticipated Discharge Date: 12/24/17 Discharge Comment: DC TO SNF - Physicians Team Primary Care Provider: UNKNOWN, Attending Provider: Shin Peguero Other Providers: Iva Davila MD ; Kevin Conrad, PhD ; Messi Delgado MD
[2017-12-24] MEDS ORDERED: Heparin Central Flush 100 UNIT/ML 5 ML Vial IV.FLUSH ONE (14:45)
== END 2017-12-24 15:41 ==
LOC: N04 12:22 → NEPD 12:22 → INTOOBSV 17:39 → NEDA 17:39 → N04 19:02
PROVIDERS: ADMIT Hospitalist; ATTEND Hospitalist

== ENCOUNTER 2018-04-23 11:30 | Observation (INO) ==
--- NOTE | 2018-04-23 12:06 | CT ---
EXAM DATE: 04/23/2018 11:56 AM EST AGE/SEX: 72 years / Female INDICATIONS: Stroke alert. Difficulty speaking. Lower extremity weakness. CLINICAL DATA: This is the patient's initial encounter. Patient reports that signs and symptoms have been present for 1 day and indicates a pain score of 0/10. MEDICAL/SURGICAL HISTORY: Lymphoma. None. RADIATION DOSE: 57.74 CTDI (mGy) [place] [facility] [place]. . TECHNIQUE: CT of the head without contrast. Using automated exposure control and adjustment of the mA and/or kV according to patient size, radiation dose was kept as low as reasonably achievable to ob tain optimal diagnostic quality images. DICOM format image data is available electronically for revi ew and comparison. FINDINGS: Cerebrum: The ventricles are normal for age. No evidence of midline shift, mass lesion, hemorrhage or acute infarction. No extraaxial fluid collections are seen. Posterior Fossa: The cerebellum and brainstem are intact. The 4th ventricle is midline. The cerebe llopontine angle is unremarkable. Extracranial: The visualized portion of the orbits is intact. Skull: The calvaria is intact. No evidence of skull fracture. CONCLUSION: Negative CT Head non contrast. Report was called by Dr. Chambers to Dr. Sabillon at 12:00. Electronically signed by: Jim Chambers MD 04/23/2018 12:04 PM EST
--- NOTE | 2018-04-23 12:22 | CT ---
EXAM DATE: 04/23/2018 12:15 PM EST AGE/SEX: 72 years / Female INDICATIONS: Stroke alert. Difficulty speaking. Lower extremity weakness. CLINICAL DATA: This is the patient's initial encounter. Patient reports that signs and symptoms have been present for 1 day and indicates a pain score of Nonresponsive. MEDICAL/SURGICAL HISTORY: Lymphoma. Transient ischemic attack. Seizures. Hysterectomy. Cholecyst ectomy. RADIATION DOSE: 42.42 CTDI (mGy) ; Combined studies COMPARISON: [facility], CT HEAD W/O CONTRAST, 04/23/2018. . TECHNIQUE: Volumetric scanning was performed using a multi-row detector CT scanner during bolus infu raman of 95 ml Visipaque 320 (iodixanol) nonionic water-soluble contrast as a cumulative dose for mul tiple exams. The data was post processed with a variety of visualization algorithms including full volume maximum intensity projection, multi-planar sliding thin slab reformation, curved planar reform ation, and surface rendering techniques. Using automated exposure control and adjustment of the mA a nd/or kV according to patient size, radiation dose was kept as low as reasonably achievable to obtain optimal diagnostic quality images. DICOM format image data is available electronically for review a nd comparison. FINDINGS: There is excellent visualization of the major intracranial arteries out to the second-order branch ve ssels. There is no evidence for aneurysm, vessel truncation or stenosis, and no evidence for vascula r malformation. CONCLUSION: 1. Brain CTA within normal limits. Report was called by Dr. Chambers to Dr. Barth at 1215. Electronically signed by: Jim Chambers MD 04/23/2018 12:21 PM EST
[2018-04-23 12:31] LABS: Baso % (Auto) 0.8 % (0.0-2.0); Eos # (Auto) 0.3 th/mm3 (0.0-0.4); Eos % (Auto) 5.2 % (0.0-4.0); Hematocrit 32.3 % (35.0-46.0); Lymph # (Auto) 0.6 th/mm3 (1.0-4.8); Lymph % (Auto) 11.2 % (9.0-44.0); Mean Corpuscular HGB Conc 34.2 % (32.0-36.0); Mean Corpuscular Hemoglobin 32.6 pg (27.0-34.0); Mean Corpuscular Volume 95.4 fL (80.0-100.0); Mean Platelet Volume 7.8 fL (7.0-11.0); Mono # (Auto) 0.2 th/mm3 (0.0-0.9); Mono % (Auto) 4.8 % (0.0-8.0); Platelet Count 158 th/mm3 (150-450); Red Blood Count 3.38 mil/mm3 (4.00-5.30); Red Cell Distribution Width 15.4 % (11.6-17.2); White Blood Count 5.1 th/mm3 (4.0-11.0)
--- NOTE | 2018-04-23 12:34 | CT ---
EXAM DATE: 04/23/2018 12:28 PM EST AGE/SEX: 72 years / Female INDICATIONS: Stroke alert. Difficulty speaking. Lower extremity weakness. CLINICAL DATA: This is the patient's initial encounter. Patient reports that signs and symptoms have been present for 1 day and indicates a pain score of Nonresponsive. MEDICAL/SURGICAL HISTORY: Lymphoma. Transient ischemic attack. Chronic obstructive pulmonary dise ase. Hysterectomy. Cholecystectomy. RADIATION DOSE: 42.42 CTDI (mGy) ; Combined studies COMPARISON: No prior exams available for comparison. TECHNIQUE: Volumetric scanning was performed using a multirow detector CT scanner during bolus infus ion of 95 ml Visipaque 320 (iodixanol) nonionic water-soluble contrast as a cumulative dose for mult iple exams. The data was postprocessed with a variety of visualization algorithms including full-vo lume maximum intensity projection, multiplanar sliding thin-slab reformation, curved-planar reformati on, and surface-rendering techniques. Using automated exposure control and adjustment of the mA and/ or kV according to patient size, radiation dose was kept as low as reasonably achievable to obtain op timal diagnostic quality images. DICOM format image data is available electronically for review and comparison. Percent stenosis is calculated using the diameter of the stenotic region over the diameter of the nor mal distal internal carotid artery. FINDINGS: Aortic Arch: There is a three-vessel origin of the great vessels from the aorta. No evidence of ost ial narrowing Right Carotid: The common carotid artery is intact. The carotid bulb has a normal configuration wit hout ulceration or narrowing. The internal carotid artery lumen is smooth without stenosis. The ext ernal carotid artery is intact. Mild calcification at the carotid bulb. Left Carotid: The common carotid artery is intact. The carotid bulb has a normal configuration with out ulceration or narrowing. The internal carotid artery lumen is smooth without stenosis. The exte rnal carotid artery is intact. Mild calcification of the carotid bulb. Vertebrals: Dominant left vertebral artery. No stenotic lesions are seen. CONCLUSION: No evidence of significant carotid stenosis. Electronically signed by: Jim Chambers MD 04/23/2018 12:33 PM EST
--- NOTE | 2018-04-23 12:43 | XR ---
EXAM DATE: 04/23/2018 12:38 PM EST AGE/SEX: 72 years / Female INDICATIONS: Stroke alert. CLINICAL DATA: This is the patient's initial encounter. Patient reports that signs and symptoms have been present for 1 day and indicates a pain score of 0/10. MEDICAL/SURGICAL HISTORY: Chronic obstructive pulmonary disease. Hypercholesterolemia. Hypert ension. ASD, TIA, Non-Hodgkins lymphoma. Myocardial infaction. Cholecystectomy. Hysterectomy. Car diac cath. Jiije-t-mlic. CABG. COMPARISON: [facility] – [place], CHEST 1V SINGLE AP, 12/19/2017. . FINDINGS: Single AP view of the chest. Right-sided Sfetas-l-[id number] in place. Longitudinal thoracic meta llic eitan. The lungs are clear. Cardiomediastinal silhouette within normal limits. Mild chronic blun ting of the left costophrenic sulcus. No evidence of pleural effusion or pneumothorax. CONCLUSION: No acute cardiopulmonary disease identified. Electronically signed by: Jim Chambers MD 04/23/2018 12:42 PM EST
--- NOTE | 2018-04-23 12:43 | ED ---
HPI General Chief Complaint: Stroke Alert Stated Complaint: Neuro symptoms Time Seen by Provider: 04/23/18 11:39 History of Present Illness HPI Narrative: This is a 72-year-old female with history of lymphoma, TIAs, seizure disorder, presents today via EMS as a alert. Patient was at the oncology center receiving chemotherapy when she suddenly went unresponsive. The patient did not pass out. The patient did not have seizure activity. She did tell the paramedics that she had sensory deficits on the right side of her face and the right upper and right lower extremity. There was no associated weakness other than generalized global weakness. There were no focal deficits. The patient is unable to give history. She does follow commands however she is extremely weak. She has no complaints of pain. There is no further history elicited. Time of onset was at 10:15 AM. She is not on blood thinners. She does take Plavix. Related Data Home Medications Medication Instructions Recorded Confirmed clopidogrel [Plavix] 75 mg PO DAILY 04/23/18 04/23/18 hydrochlorothiazide 25 mg PO DAILY 04/23/18 04/23/18 metoprolol succinate 50 mg PO DAILY 04/23/18 04/23/18 Previous Rx's Medication Instructions Recorded acetaminophen 650 mg PO Q4H PRN #30 tab 12/24/17 aspirin [Aspir-81] 81 mg PO DAILY #30 tab 12/24/17 atorvastatin 80 mg PO DAILY #30 tab 12/24/17 bisacodyl [Bisac-Evac] 10 mg FL DAILY PRN ea 12/24/17 budesonide-formoterol [Symbicort] 2 puff INH BID #1 inh 12/24/17 hydrocodone-acetaminophen 1 tab PO Q6H PRN #12 tab 12/24/17 levetiracetam [Keppra] 1,500 mg PO BID #180 tab 12/24/17 lisinopril 20 mg PO DAILY #30 tab 12/24/17 lorazepam 0.5 mg PO Q12HR PRN #6 tab 12/24/17 magnesium hydroxide [Milk of 30 ml PO Q12H PRN ml 12/24/17 Magnesia] sennosides [Senna Lax] 17.2 mg PO Q12H PRN #120 tab 12/24/17 sertraline [Zoloft] 25 mg PO DAILY #30 tab 12/24/17 Allergies Allergy/AdvReac Type Severity Reaction Status Date / Time No Known Allergies Allergy Verified 04/23/18 12:30 Review of Systems ROS Unobtainable ROS Unobtainable: other (Patient extremely weak with global weakness. She has a negative review of systems. Please refer to the HPI for pertinent positives.) ROS: all other systems reviewed are negative [facility] Medical History Medical History Anxiety (Acute) Coronary atherosclerosis of bypass graft (Acute) Dementia (Acute) Sleep apnea (Acute) ASD (atrial septal defect) (Acute) COPD (chronic obstructive pulmonary disease) (Acute) High cholesterol (Acute) Hypertension (Acute) Non-Hodgkin lymphoma (Acute) Scoliosis (Acute) Seizure disorder (Acute) TIA (transient ischemic attack) (Acute) Surgical History Surgical History History of back surgery (Acute) History of D&C (Acute) History of breast biopsy (Acute) History of hysterectomy (Acute) Hx of cardiac cath (Acute) Hx of cholecystectomy (Acute) Port-A-Cath in place (Acute) Family History Family History Father Heart disease Mother Dementia Social History Social History Substance History: No History of Abuse Second Hand Smoke Exposure: No Smoking Status: Never smoker How Often Do You Have a Drink Containing Alcohol: Never Recent Travel in [facility] within the Last 8 Weeks: No Recent Out of Country Travel within the Last 8 Weeks: No Exam Narrative Exam Narrative: GENERAL: Well-developed well-nourished female who is resting comfortably at the bed. She is in no acute distress. SKIN: Focused skin assessment warm/dry. HEAD: Atraumatic. Normocephalic. EYES: Extraocular muscles appeared intact.. No scleral icterus. No injection or drainage. ENT: No nasal bleeding or discharge. Mucous membranes pink and moist. NECK: Trachea midline. Supple. CARDIOVASCULAR: Regular rate and rhythm. No murmur appreciated. RESPIRATORY: No accessory muscle use. Clear to auscultation. Breath sounds equal bilaterally. GASTROINTESTINAL: Abdomen soft, non-tender, nondistended. Hepatic and splenic margins not palpable. MUSCULOSKELETAL: No obvious deformities. No clubbing. No cyanosis. No edema. NEUROLOGICAL: Awake and alert. Very weak appearing. She would follow commands. No obvious cranial nerve deficits. Motor grossly within normal limits. Faint speech. Course Initial Documented Vital Signs Temperature 97.7 F 04/23/18 11:30 Pulse Rate 50 L 04/23/18 11:30 Respiratory Rate 16 04/23/18 11:30 Blood Pressure 213/108 H 04/23/18 11:30 Pulse Oximetry 100 04/23/18 11:30 Last Documented Vital Signs Temperature 97.7 F 04/23/18 11:30 Pulse Rate 54 L 04/23/18 13:34 Respiratory Rate 16 04/23/18 13:34 Blood Pressure 174/72 H 04/23/18 13:34 Pulse Oximetry 100 04/23/18 13:34 Critical Care Time Critical Care Time: Yes Total Critical Care Time: 45 Attestation: Aggregate critical care time was 45 minutes. Time to perform other separately billable procedures was not included in the critical care time. My time did not include minutes spent treating any other patients simultaneously or on activities that did not directly contribute to the patient's treatment. The services I provided to this patient were to treat and/or prevent clinically significant deterioration that could result in: I provided critical care services requiring my management, as noted below: Chart data review, documentation time, medication orders and management, vital sign assessments/reviewing monitor data, ordering and reviewing lab tests, ordering and interpreting/reviewing x-rays and diagnostic studies, care of the patient and discussion of the patient with the admitting physicians. Medical Decision Making MDM Narrative Medical decision making narrative: 72-year-old female presents today as a stroke alert. Patient was receiving chemotherapy when she went on risk. She did not pass out but was not responding to questions. There is no reported seizure activity. The patient had no focal deficits. She reportedly had subjective numbness to her face arm and leg on the right side. This was not elicited on my exam. Neuro exam was also performed via teleradiology by Dr. Marco Barth, on-call neurologist. He agreed with my assessment. CT brain without contrast was negative. CT angiogram showed no evidence of acute findings. At this point, both Dr. Barth and I agreed that TPA was not appropriate at this time. She will be admitted to the hospitalist service. The case was discussed with Dr. Alvarez, on-call hospitalist at [facility]. He will admit the patient to his service. Dr. Barth will follow as a implementation consultant. Medical Screen Exam Complete: Yes Emergency Medical Condition: Yes Differential Diagnosis Differential Diagnosis: TIA versus CVA versus atypical seizure versus metabolic derangement Lab Data Result diagrams: 04/23/18 12:20 Lab Results 04/23/18 04/23/18 04/23/18 Range/Units 11:34 12:20 12:20 CBC w Diff Auto diff final WBC 5.1 (4.0-11.0) th/mm3 RBC 3.38 L (4.00-5.30) mil/mm3 Hgb 11.0 L (11.6-15.3) gm/dL Hct 32.3 L (35.0-46.0) % MCV 95.4 (80.0-100.0) fL MCH 32.6 (27.0-34.0) pg MCHC 34.2 (32.0-36.0) % RDW 15.4 (11.6-17.2) % Plt Count 158 (150-450) th/mm3 MPV 7.8 (7.0-11.0) fL Neut % (Auto) 78.0 H (16.0-70.0) % Lymph % (Auto) 11.2 (9.0-44.0) % Crook % (Auto) 4.8 (0.0-8.0) % Eos % (Auto) 5.2 H (0.0-4.0) % Baso % (Auto) 0.8 (0.0-2.0) % Neut # (Auto) 4.0 (1.8-7.7) th/mm3 Lymph # (Auto) 0.6 L (1.0-4.8) th/mm3 [place]ok # (Auto) 0.2 (0.0-0.9) th/mm3 Eos # (Auto) 0.3 (0.0-0.4) th/mm3 Baso # (Auto) 0.0 (0.0-0.2) th/mm3 WBC Differential . Differential Comment . PT 11.2 (9.8-11.6) sec INR 1.1 Ratio APTT 43.4 H (23.4-31.7) sec Fibrinogen 246 (227-377) mg/dL POC Glucose 74 (68-110) mg/dl Total Creatine Kinase (26-192) U/L Troponin I (0.02-0.05) ng/mL Beta HCG, Quant (0-5) mIU/mL 04/23/18 Range/Units 12:20 CBC w Diff WBC (4.0-11.0) th/mm3 RBC (4.00-5.30) mil/mm3 Hgb (11.6-15.3) gm/dL Hct (35.0-46.0) % MCV (80.0-100.0) fL MCH (27.0-34.0) pg MCHC (32.0-36.0) % RDW (11.6-17.2) % Plt Count (150-450) th/mm3 MPV (7.0-11.0) fL Neut % (Auto) (16.0-70.0) % Lymph % (Auto) (9.0-44.0) % Crook % (Auto) (0.0-8.0) % Eos % (Auto) (0.0-4.0) % Baso % (Auto) (0.0-2.0) % Neut # (Auto) (1.8-7.7) th/mm3 Lymph # (Auto) (1.0-4.8) th/mm3 Crook # (Auto) (0.0-0.9) th/mm3 Eos # (Auto) (0.0-0.4) th/mm3 Baso # (Auto) (0.0-0.2) th/mm3 WBC Differential Differential Comment PT (9.8-11.6) sec INR Ratio APTT (23.4-31.7) sec Fibrinogen (227-377) mg/dL POC Glucose (68-110) mg/dl Total Creatine Kinase 161 (26-192) U/L Troponin I Less than 0.02 L (0.02-0.05) ng/mL Beta HCG, Quant 3 (0-5) mIU/mL Imaging Data Radiologist's impression: Chest X-Ray 04/23/18 11:39 CONCLUSION: No acute cardiopulmonary disease identified. Head CT 04/23/18 11:39 CONCLUSION: Negative CT Head non contrast. Report was called by Dr. Chambers to Dr. Sabillon at 12:00. Head CTA 04/23/18 11:39 CONCLUSION: 1. Brain CTA within normal limits. Report was called by Dr. Chambers to Dr. Barth at 1215. Neck CTA 04/23/18 11:39 CONCLUSION: No evidence of significant carotid stenosis. Discharge Plan Discharge Disposition Patient Disposition: 30 Still Patient Discharge Details Diagnosis: Acute alteration in mental status, Adjustment disorder with depressed mood, History of lymphoma, Hx of seizure disorder Physicians Team ED Provider: Rudi Sabillon Primary Care Provider: Maxim Chanel Attending Provider: Landy Alvarez Other Providers: Iva Conway Status ED Status: Admitted Observation Patient
[2018-04-23 12:57] LABS: Creatine Kinase 161 U/L (26-192)
[2018-04-23 12:58] LABS: Beta HCG,Quantitative 3 mIU/mL (0-5)
[2018-04-23] MEDS: Sod Chloride 0.9% Inj 1,000 ML IV.CONT SCH (12:59)
[2018-04-23 13:33] LABS: Activated Partial Thrombo Time 43.4 sec (23.4-31.7); INR 1.1 Ratio; Prothrombin Time 11.2 sec (9.8-11.6)
--- NOTE | 2018-04-23 13:49 | MB ---
cc: Marco Barth MD, PhD DATE: 04/23/2018 TELE-NEUROLOGIC CONSULTATION HISTORY OF PRESENT ILLNESS: This is a 72-year-old female who has lymphoma, history of seizure and TIA in the past. The patient was at the Oncology Center receiving chemotherapy. The patient became all of a sudden generally weak in all 4 extremities. There is no loss of consciousness. No seizure activity. She felt that she had numbness in the right face, right upper and right lower extremity. No focal deficits. She presented to the ER as a stroke alert. Neurologic exam, this is conducted through the telemedicine system. I was able to visualize the patient in great detail. PHYSICAL EXAMINATION: VITAL SIGNS: Blood pressure was 213/108, pulse is 50, respiratory rate is 16, temperature 97 degrees. HIGHER CORTICAL FUNCTION: The patient was mildly lethargic, but was responsive to questions. She was able to tell me her name, although it was hypophonic. She was able to repeat simple phrases. On assessing cranial nerve function, there was no facial asymmetry. The extraocular movements were full bilaterally. On motor exam, she was able to lift both upper and lower extremities very slowly off the bed to a slight degree; however, there is no asymmetry identified. Sensory exam of the present time was normal. RADIOGRAPHIC STUDIES: CT brain within normal limits. CT angiogram of the brain as well as the neck are within normal limits. LABORATORY DATA: Glucose 74. IMPRESSION: The patient presents with generalized weakness and lethargy. She has no focal deficits on exam at this time to strongly indicate a stroke. CT brain and CTA of the brain were both within normal limits. Given this, I recommended against giving TPA. There is no evidence of any large vessel occlusion to warrant intervention. RECOMMENDATIONS: I recommended inpatient admission with neurology consultation to evaluate the patient further including MRI of the brain. Marco Barth MD, PhD NAKIA/rudolph , 01:31 PM , 01:39 PM
--- NOTE | 2018-04-23 13:53 | P.HPIM ---
History of Present Illness Primary Care Physician: Maxim Chanel MD History of Present Illness: This patient is a 72-year-old female with a diagnosis of non-Hodgkin's lymphoma. She also has a history of TIAs, seizure disorder. The patient was brought in from the oncology center while she was receiving chemotherapy today. As per documentation the patient went unresponsive however did not lose consciousness. She does have a history of seizure disorder however no seizure- like activity was noted. The patient did have numbness on both sides of her face which is worse on the right as well as bilateral upper and lower extremity numbness and weakness. A stroke alert was called and the patient was sent to our emergency department for evaluation. The patient denies any chest pain, no shortness of breath, no abdominal pain, no diarrhea, no fevers or chills. Past medical history non-Hodgkin's lymphoma diagnosed 2-1/2 years ago, the patient follows up with Dr. Salas, hypertension, history of TIAs, coronary artery disease status post four-vessel CABG Past surgical history CABG Family history noncontributory Social history patient denies any history of tobacco, alcohol, or drug use. Review of Systems All other systems reviewed negative except as stated in HPI PMFSH - History History Provided By: Patient, Family Member, Bellman / EMT - Medical History Medical History: Medical History (Last Updated 04/23/18 @ 13:31 by Bradley Landin RN) Coronary atherosclerosis of bypass graft ASD (atrial septal defect) COPD (chronic obstructive pulmonary disease) High cholesterol Hypertension Non-Hodgkin lymphoma Scoliosis Seizure disorder TIA (transient ischemic attack) - Surgical History Surgical History: Surgical History (Last Reviewed 12/23/17 @ 14:25 by Lowell Germain) History of D&C History of breast biopsy History of hysterectomy Hx of cardiac cath Hx of cholecystectomy Port-A-Cath in place - Family History Family History: Family History (Last Updated 12/20/17 @ 02:58 by ELKE Shaffer) Father Heart disease Mother Dementia - Tobacco History Second Hand Smoke Exposure: No Tobacco Use In Past 30 Days: No Smoking Status: Never smoker - Alcohol History How Often Do You Have a Drink Containing Alcohol: Never - Substance Use History Substance History: No History of Abuse - Travel History Recent Travel in the [place] Within the Last 8 Weeks: No Recent Travel Out of the Country Within the Last 8 Weeks: No - Immunization History Tetanus Immunization: >5 Years Medications and Allergies Active Medications: Active Medications Aspirin (Aspirin Supp) 300 mg RECTAL DAILY [facility] Sodium Chloride (Ns Inj) 1,000 mls @ 70 mls/hr IV.CONT .[id number] [facility] Last Admin: 04/23/18 12:59 Dose: 70 mls/hr Allergies Allergy/AdvReac Type Severity Reaction Status Date / Time No Known Allergies Allergy Verified 04/23/18 12:30 Exam Vital signs: Vital Signs 04/23/18 11:30 04/23/18 11:35 04/23/18 12:35 Temperature 97.7 F Pulse Rate 50 L 52 L 49 L Respiratory Rate 16 16 Blood Pressure 213/108 H 186/83 H Pulse Oximetry 100 100 99 Intake & Output 04/22/18 04/23/18 04/23/18 18:59 06:59 18:59 Weight 53.5 kg Narrative: General patient is lying down flat in bed. She is awake and answering my questions appropriately. HEENT extraocular movements are intact, clear oropharyngeal mucosa, no JVD Cardiovascular S1-S2 audible, RRR, no murmurs rubs or gallops Respiratory clear to auscultation bilaterally Abdomen soft, nontender, nondistended, normal bowel sounds Extremities no edema 2+ distal pulses in bilateral upper and lower extremities Neuro patient complains of numbness of her face bilaterally, she is also is experiencing numbness of bilateral upper and lower extremities. Sensation is diminished in all 4 of her extremities. She also has weakness 3 out of 5 strength in bilateral upper and lower extremities. Cerebellar signs are difficult to assess given the patient's current condition. No facial droop noted on my physical examination. Patient is slow to speak however he is appropriate when asked questions. Results - Labs CBC & Chem 7: 04/23/18 12:20 Labs: Short CBC 04/23/18 Range/Units 12:20 WBC 5.1 (4.0-11.0) th/mm3 Hgb 11.0 L (11.6-15.3) gm/dL Hct 32.3 L (35.0-46.0) % Plt Count 158 (150-450) th/mm3 Cardiac Enzymes 04/23/18 Range/Units 12:20 Total Creatine Kinase 161 (26-192) U/L Troponin I Less than 0.02 L (0.02-0.05) ng/mL - Imaging Impressions Chest X-Ray 04/23/18 11:39 CONCLUSION: No acute cardiopulmonary disease identified. Head CT 04/23/18 11:39 CONCLUSION: Negative CT Head non contrast. Report was called by Dr. Chambers to Dr. Sabillon at 12:00. Head CTA 04/23/18 11:39 CONCLUSION: 1. Brain CTA within normal limits. Report was called by Dr. Chambers to Dr. Barth at 1215. Neck CTA 04/23/18 11:39 CONCLUSION: No evidence of significant carotid stenosis. Caprini VTE Risk Assessment Caprini VTE Risk Assessment: Moderate/High Risk (score >= 2) Caprini Risk Assessment Model: Point Value = 1 Point Value = 2 Point Value = 3 Point Value = 5 Age 41-60 Minor surgery BMI > 25 kg/m2 Swollen legs Varicose veins or History of unexplained or recurrent spontaneous Oral contraceptives or hormone replacement Sepsis (< 1 month) Serious lung disease, including pneumonia (< 1 month) Abnormal pulmonary function Acute myocardial infarction Congestive heart failure (< 1 month) History of inflammatory bowel disease Medical patient at bed rest Age 61-74 Arthroscopic surgery Major open surgery (> 45 min) Laparoscopic surgery (> 45 min) Malignancy Confined to bed (> 72 hours) Immobilizing plaster cast Central venous access Age >= 75 History of VTE Family history of VTE Factor V Leiden Prothrombin [id number] Lupus anticoagulant Anticardiolipin antibodies Elevated serum homocysteine Heparin-induced thrombocytopenia Other congenital or acquired thrombophilia Stroke (< 1 month) Elective arthroplasty Hip, pelvis, or leg fracture Acute spinal cord injury (< 1 month) Prophylaxis Regimen: Total Risk Factor Score Risk Level Prophylaxis Regimen 0-1 Low Early ambulation 2 Moderate Order ONE of the following: *Sequential Compression Device (SCD) *Heparin 5000 units SQ BID 3-4 Higher Order ONE of the following medications: *Heparin 5000 units SQ TID *Enoxaparin/Lovenox 40 mg SQ daily (WT < 150 kg, CrCl > 30 mL/min) *Enoxaparin/Lovenox 30 mg SQ daily (WT < 150 kg, CrCl > 10-29 mL/min) *Enoxaparin/Lovenox 30 mg SQ BID (WT < 150 kg, CrCl > 30 mL/min) AND/OR *Sequential Compression Device (SCD) 5 or more Highest Order ONE of the following medications: *Heparin 5000 units SQ TID (Preferred with Epidurals) *Enoxaparin/Lovenox 40 mg SQ daily (WT < 150 kg, CrCl > 30 mL/min) *Enoxaparin/Lovenox 30 mg SQ daily (WT < 150 kg, CrCl > 10-29 mL/min) *Enoxaparin/Lovenox 30 mg SQ BID (WT < 150 kg, CrCl > 30 mL/min) AND *Sequential Compression Device (SCD) Assessment and Plan - Plan This patient is a 72-year-old female with a diagnosis of non-Hodgkin's lymphoma. She also has a history of TIAs, seizure disorder. The patient was brought in from the oncology center while she was receiving chemotherapy today. As per documentation the patient went unresponsive however did not lose consciousness. She does have a history of seizure disorder however no seizure- like activity was noted. The patient did have numbness on both sides of her face which is worse on the right as well as bilateral upper and lower extremity numbness and weakness. A stroke alert was called and the patient was sent to our emergency department for evaluation. 1. Bilateral upper and lower extremity weakness concern for acute ischemic CVA. The patient presents with the findings mentioned above. On my physical examination the patient does have weakness of bilateral upper and lower extremities. Sensation is also diminished in all 4 of her extremities and she says that her face feels numb bilaterally. The patient has a diagnosis of non-Hodgkin's lymphoma and was receiving chemotherapy today. The symptoms could possibly be related to chemotherapy. CT scan of the head is negative, CTA of the head and neck is negative for any acute findings. Neurology evaluated the patient and did not recommend TPA as this is likely not a ischemic CVA. She will be given aspirin per rectal. We will keep the patient n.p.o., speech and swallow evaluation ordered. Follow-up 2D echocardiogram. We will follow up with recommendations from neurology. Patient may need an MRI. Physical therapy to evaluate the patient. 2. Seizure disorder Continue Keppra IV BID. Patient is npo. 3. Non-Hodgkin's lymphoma Patient can continue to follow-up with Dr. Salas after she is stabilized and discharged. 4. Hypertension We will allow for permissive hypertension for today. We will follow-up with recommendations from the neurologist. 5. History of TIAs Patient is currently n.p.o., aspirin per rectal started. Patient awaiting speech and swallow evaluation. Lovenox for DVT prophylax.
[2018-04-23 14:04] LABS: Potassium 3.7 meq/L (3.5-5.1)
[2018-04-23 14:05] LABS: Calcium 8.5 mg/dL (8.5-10.1)
[2018-04-23 14:06] LABS: Carbon Dioxide 26.8 meq/L (21.0-32.0)
[2018-04-23] MEDS: Aspirin 300 MG Supp RECTAL SCH (14:20)
[2018-04-23] MEDS: Dextrose 5%/NaCl 0.9% Inj 1,000 ML IV.CONT SCH ×2 (14:20→22:40)
[2018-04-23 14:22] LABS: Bilirubin,Urine Negative (Negative); Clarity,Urine Clear (Clear); Color,Urine Yellow (Yellw/Straw); Glucose,Urine (UA) Negative (Negative); Leukocyte Esterase,Urine Negative (Negative); Nitrite,Urine Negative (Negative); Specific Gravity,Urine Less/Equal 1.005 (1.002-1.035); Urobilinogen,Urine 0.2 mg/dL (Less than 2)
[2018-04-23 14:29] LABS: Collection Time,Urine 1405 hours
[2018-04-23 14:31] LABS: Cannabinoid Screen,Urine Neg (Neg); Cocaine Screen,Urine Neg (Neg)
[2018-04-23 14:36] LABS: Opiate Screen,Urine Neg (Neg)
[2018-04-23 14:40] LABS: Amphetamine Screen,Urine Neg (Neg); Barbiturate Screen,Urine Neg (Neg)
[2018-04-23] MEDS: levETIRAcetam 1000mg/100mL Inj 100 ML IV.SIG SCH (15:22)
--- NOTE | 2018-04-23 19:37 | MB ---
cc: Iva Conway MD DATE: 04/23/2018 REASON FOR CONSULTATION: She was initially a stroke alert, seen by neurology. HISTORY OF PRESENT ILLNESS: This is a 72-year-old woman with history of Non-Hodgkin lymphoma, TIA, seizure disorder, brought from the Oncology Center. While she was receiving chemo today was unresponsive, but no seizure-like activity noted such as shaking. No generalized tonic event, but she could have had a complex partial event. She stated that she had some numbness in her face, bilaterally upper extremity numbness and weakness. PAST MEDICAL HISTORY: He has a history as stated, lymphoma diagnosed 2-1/[address] Hussein. History of hypertension, TIA, heart disease, 4-vessel bypass, and seizures. SOCIAL HISTORY: He does not smoke, drink or use drugs. FAMILY HISTORY: Noncontributory. PAST SURGICAL HISTORY: D and C, breast biopsy, hysterectomy, cardiac catheterization, cholecystectomy, and a Port-A-Cath. HOME MEDICINES: Please refer to her MAR. PHYSICAL EXAMINATION: VITAL SIGNS: Temperature 96.4, pulse 52, respiratory rate 16, blood pressure currently 144/62. However, her heart rate was between 45-52 currently. NECK: Supple. No appreciable bruits. HEART: Regular. NEUROLOGIC: She is awake and alert, hypophonic. Pupils reactive. Face is symmetrical. Speech is intact. Tongue midline. MOTOR: She can lift everything. She is just diffusely weak all over. I do not see anything significant as far as a drift or leg lag. DTRs are 2+. Toes downgoing. Cerebellar intact. Sensory is normal. Gait is withheld. She had a CT of the brain that was unremarkable. CTA carotids and [place] both are normal. IMPRESSION: Possible seizure. Racheal's weakness may have been due to medication such as chemo. PLAN: I would recommend just getting an MRI for completion. We will get an EEG. She is on Keppra 500 mg every 12 hours, continue that. That can be switched to p.o. Out of bed with PT. I would put her on a baby aspirin if no contraindication, and I believe an echo is on order. If her workup is unremarkable, anticipate she can be discharged tomorrow. MD Gavin Joseph , 06:57 PM , 07:04 PM
[2018-04-24] MEDS: levETIRAcetam 1000mg/100mL Inj 100 ML IV.SIG SCH (02:30)
[2018-04-24] MEDS: Dextrose 5%/NaCl 0.9% Inj 1,000 ML IV.CONT SCH ×2 (02:31→13:28)
[2018-04-24] MEDS: Sod Chloride 0.9% Inj 1,000 ML IV.CONT SCH (02:32)
[2018-04-24 07:09] LABS: Baso # (Auto) 0.1 th/mm3 (0.0-0.2); Baso % (Auto) 1.4 % (0.0-2.0); Eos # (Auto) 0.2 th/mm3 (0.0-0.4); Eos % (Auto) 3.2 % (0.0-4.0); Hematocrit 29.2 % (35.0-46.0); Hemoglobin 10.2 gm/dL (11.6-15.3); Lymph # (Auto) 0.7 th/mm3 (1.0-4.8); Mean Corpuscular Hemoglobin 33.7 pg (27.0-34.0); Mean Corpuscular Volume 96.3 fL (80.0-100.0); Mean Platelet Volume 8.7 fL (7.0-11.0); Mono # (Auto) 0.4 th/mm3 (0.0-0.9); Neut # (Auto) 4.5 th/mm3 (1.8-7.7); Neut % (Auto) 76.4 % (16.0-70.0); Platelet Count 132 th/mm3 (150-450); Red Blood Count 3.03 mil/mm3 (4.00-5.30); Red Cell Distribution Width 15.4 % (11.6-17.2); White Blood Count 5.9 th/mm3 (4.0-11.0)
[2018-04-24 07:27] LABS: Calcium 7.9 mg/dL (8.5-10.1); Carbon Dioxide 26.9 meq/L (21.0-32.0); Magnesium 1.9 mg/dL (1.5-2.5)
[2018-04-24] MEDS: Enoxaparin Inj 40 MG/0.4 ML Syringe SQ SCH (09:16)
[2018-04-24] MEDS ORDERED: levETIRAcetam 500 MG Tablet PO SCH ×3 (09:18→21:00)
[2018-04-24] MEDS: Aspirin 300 MG Supp RECTAL SCH (09:20)
--- NOTE | 2018-04-24 09:26 | P.PNIM ---
Subjective Interval history: Patient says she feels somewhat better than yesterday. She is now able to move her upper and lower extremities, however still feels weak. The numbness and tingling sensation of her face and extremities has also improved. Physical Exam Vital signs: Vital Signs 04/23/18 11:30 04/23/18 11:35 04/23/18 12:35 Temperature 97.7 F Pulse Rate 50 L 52 L 49 L Respiratory Rate 16 16 Blood Pressure 213/108 H 186/83 H Pulse Oximetry 100 100 99 04/23/18 13:34 04/23/18 14:24 04/23/18 16:49 Temperature Pulse Rate 54 L 51 L 45 L Respiratory Rate 16 16 Blood Pressure 174/72 H 141/64 H Pulse Oximetry 100 100 04/23/18 17:28 04/23/18 17:30 04/23/18 20:00 Temperature 96.4 F L 96.2 F L Pulse Rate 52 L 54 L Respiratory Rate 16 20 Blood Pressure 144/62 H 143/62 H Pulse Oximetry 98 98 100 04/23/18 23:39 04/24/18 00:00 04/24/18 00:30 Temperature 96.2 F L Pulse Rate 45 L 52 L 58 L Respiratory Rate 20 Blood Pressure 124/56 L Pulse Oximetry 99 04/24/18 04:00 Temperature 96.3 F L Pulse Rate 52 L Respiratory Rate 20 Blood Pressure 118/55 L Pulse Oximetry 100 Intake & Output 04/23/18 04/24/18 04/24/18 18:59 06:59 18:59 Intake Total 2205 / 2205 0 / 0 Output Total 300 / 300 200 / 200 Balance 1905 / 1905 -200 / -200 Weight 53.5 kg 53.4 kg Intake: IV 2205 / 2205 D5W/Normal Saline Inj 1,000 ML 2000 / 2000 @ 84 mls/hr IV.CONT .[id number] CRUZ Rx#:[id number] Keppra 1000 mg/100 mL Premix 100 / 100 100 ML @ 400 mls/hr IV.SIG Q12H CRUZ Rx#:[id number] Keppra Inj 500 MG In NS Inj 100 105 / 105 ML @ 400 mls/hr IV.SIG Q12H CRUZ Rx#:[id number] Oral 0 / 0 Output: Urine 300 / 300 200 / 200 Other: # Voids 1 Weight On Admission 53.5 kg Narrative: General patient is lying down flat in bed. She is awake and answering my questions appropriately. HEENT extraocular movements are intact, clear oropharyngeal mucosa, no JVD Cardiovascular S1-S2 audible, bradycardic. No chest pain, no shortness of breath Respiratory clear to auscultation bilaterally Abdomen soft, nontender, nondistended, normal bowel sounds Extremities no edema 2+ distal pulses in bilateral upper and lower extremities Neuro patient can move all 4 extremities, sensation is intact bilaterally. The patient is still weak in bilateral upper and bilateral lower extremities however this has improved since yesterday. Cerebellar signs are intact. Results - Labs CBC & Chem 7: 04/24/18 05:48 04/24/18 05:48 Laboratory Results - last 24 hr 04/23/18 04/23/18 04/23/18 11:34 12:20 12:20 CBC w Diff Auto diff final WBC 5.1 RBC 3.38 L Hgb 11.0 L Hct 32.3 L MCV 95.4 MCH 32.6 MCHC 34.2 RDW 15.4 Plt Count 158 MPV 7.8 Neut % (Auto) 78.0 H Lymph % (Auto) 11.2 [place] % (Auto) 4.8 Eos % (Auto) 5.2 H Baso % (Auto) 0.8 Neut # (Auto) 4.0 Lymph # (Auto) 0.6 L [place] # (Auto) 0.2 Eos # (Auto) 0.3 Baso # (Auto) 0.0 WBC Differential . Differential Comment . PT 11.2 INR 1.1 APTT 43.4 H Fibrinogen 246 Sodium Potassium Chloride Carbon Dioxide Anion Gap BUN Creatinine Estimated GFR POC Glucose 74 Random Glucose Calcium Magnesium Total Creatine Kinase Troponin I Beta HCG, Quant Ur Collection Type Urine Color Urine Clarity Urine pH Ur Specific [place] Urine Protein Urine Glucose (UA) Urine Ketones Urine Occult Blood Urine Nitrate Urine Bilirubin Urine Urobilinogen Ur Leukocyte Esterase Ur Microscopic Review Urine Culture Comments Urine Collection Time Urine Opiates Screen Ur Barbiturates Screen Ur Amphetamines Screen U Benzodiazepines Scrn Urine Cocaine Screen U Cannabinoids Screen Blood Type Antibody Screen 04/23/18 04/23/18 04/23/18 12:20 12:20 12:20 CBC w Diff WBC RBC Hgb Hct MCV MCH MCHC RDW Plt Count MPV Neut % (Auto) Lymph % (Auto) [place] % (Auto) Eos % (Auto) Baso % (Auto) Neut # (Auto) Lymph # (Auto) [place] # (Auto) Eos # (Auto) Baso # (Auto) WBC Differential Differential Comment PT INR APTT Fibrinogen Sodium 141 Potassium 3.7 Chloride 107 Carbon Dioxide 26.8 Anion Gap 7 BUN 18 Creatinine 0.92 Estimated GFR 60 L POC Glucose Random Glucose 93 Calcium 8.5 Magnesium Total Creatine Kinase 161 Troponin I Less than 0.02 L Beta HCG, Quant 3 Ur Collection Type Urine Color Urine Clarity Urine pH Ur Specific [place] Urine Protein Urine Glucose (UA) Urine Ketones Urine Occult Blood Urine Nitrate Urine Bilirubin Urine Urobilinogen Ur Leukocyte Esterase Ur Microscopic Review Urine Culture Comments Urine Collection Time Urine Opiates Screen Ur Barbiturates Screen Ur Amphetamines Screen U Benzodiazepines Scrn Urine Cocaine Screen U Cannabinoids Screen Blood Type O Negative Antibody Screen Negative 04/23/18 04/23/18 04/24/18 14:05 14:05 05:48 CBC w Diff Auto diff final WBC 5.9 RBC 3.03 L Hgb 10.2 L Hct 29.2 L MCV 96.3 MCH 33.7 MCHC 35.0 RDW 15.4 Plt Count 132 L MPV 8.7 Neut % (Auto) 76.4 H Lymph % (Auto) 12.0 [place] % (Auto) 7.0 Eos % (Auto) 3.2 Baso % (Auto) 1.4 Neut # (Auto) 4.5 Lymph # (Auto) 0.7 L [place] # (Auto) 0.4 Eos # (Auto) 0.2 Baso # (Auto) 0.1 WBC Differential . Differential Comment . PT INR APTT Fibrinogen Sodium Potassium Chloride Carbon Dioxide Anion Gap BUN Creatinine Estimated GFR POC Glucose Random Glucose Calcium Magnesium Total Creatine Kinase Troponin I Beta HCG, Quant Ur Collection Type Cath Urine Color Yellow Urine Clarity Clear Urine pH 6.0 Ur Specific [place] Less/equal 1.005 Urine Protein Negative Urine Glucose (UA) Negative Urine Ketones Negative Urine Occult Blood Negative Urine Nitrate Negative Urine Bilirubin Negative Urine Urobilinogen 0.2 Ur Leukocyte Esterase Negative Ur Microscopic Review Microscopic reviewed Urine Culture Comments Culture not ind Urine Collection Time 1405 Urine Opiates Screen Neg Ur Barbiturates Screen Neg Ur Amphetamines Screen Neg U Benzodiazepines Scrn Neg Urine Cocaine Screen Neg U Cannabinoids Screen Neg Blood Type Antibody Screen 04/24/18 05:48 CBC w Diff WBC RBC Hgb Hct MCV MCH MCHC RDW Plt Count MPV Neut % (Auto) Lymph % (Auto) [place] % (Auto) Eos % (Auto) Baso % (Auto) Neut # (Auto) Lymph # (Auto) [place] # (Auto) Eos # (Auto) Baso # (Auto) WBC Differential Differential Comment PT INR APTT Fibrinogen Sodium 147 H Potassium 3.0 L Chloride 112 H Carbon Dioxide 26.9 Anion Gap 8 BUN 14 Creatinine 0.80 Estimated GFR 70 L POC Glucose Random Glucose 98 Calcium 7.9 L Magnesium 1.9 Total Creatine Kinase Troponin I Beta HCG, Quant Ur Collection Type Urine Color Urine Clarity Urine pH Ur Specific [place] Urine Protein Urine Glucose (UA) Urine Ketones Urine Occult Blood Urine Nitrate Urine Bilirubin Urine Urobilinogen Ur Leukocyte Esterase Ur Microscopic Review Urine Culture Comments Urine Collection Time Urine Opiates Screen Ur Barbiturates Screen Ur Amphetamines Screen U Benzodiazepines Scrn Urine Cocaine Screen U Cannabinoids Screen Blood Type Antibody Screen - Imaging Impressions Chest X-Ray 04/23/18 11:39 CONCLUSION: No acute cardiopulmonary disease identified. Head CT 04/23/18 11:39 CONCLUSION: Negative CT Head non contrast. Report was called by Dr. Chambers to Dr. Sabillon at 12:00. Head CTA 04/23/18 11:39 CONCLUSION: 1. Brain CTA within normal limits. Report was called by Dr. Chambers to Dr. Barth at 1215. Neck CTA 04/23/18 11:39 CONCLUSION: No evidence of significant carotid stenosis. Assessment and Plan - Plan This patient is a 72-year-old female with a diagnosis of non-Hodgkin's lymphoma. She also has a history of TIAs, seizure disorder. The patient was brought in from the oncology center while she was receiving chemotherapy today. As per documentation the patient went unresponsive however did not lose consciousness. She does have a history of seizure disorder however no seizure- like activity was noted. The patient did have numbness on both sides of her face which is worse on the right as well as bilateral upper and lower extremity numbness and weakness. A stroke alert was called and the patient was sent to our emergency department for evaluation. 1. Bilateral upper and lower extremity weakness concern for acute ischemic CVA. Patient symptoms have improved significantly since yesterday. She still has bilateral upper and lower extremity weakness. The numbness of her face as well as her upper and lower extremities has improved. EEG was ordered by neurology, will follow up with the results. MRI brain ordered, will follow up results. Patient passed swallow evaluation, will be started on a diet. 2D echocardiogram pending. CT head, CTA head and neck did not show any significant acute findings. Physical therapy will evaluate the patient today. Neurology following the patient. I will follow-up with the recommendations. 2. Asymptomatic bradycardia Patient has been having bradycardia on telemetry. Her current heart rate is in the mid 50s however there has been episodes where her heart rate drops to the low 40s. Troponins are negative, EKG shows normal sinus rhythm no acute ST segment or T wave changes. The patient is completely asymptomatic without any complaints. 2. Seizure disorder Patient passed a swallow evaluation, she will be started on p.o. Keppra. 3. Non-Hodgkin's lymphoma Patient can continue to follow-up with Dr. Salas after she is stabilized and discharged. 4. Hypertension Blood pressure is currently under control today. We will continue to monitor her blood pressure and adjust her antihypertensives as needed. 5. History of TIAs Aspirin changed to p.o. today after patient passed a swallow evaluation. Statin started. Lovenox for DVT prophylax.
[2018-04-24] MEDS: levETIRAcetam 500 MG Tablet PO SCH ×2 (10:52→20:08)
--- NOTE | 2018-04-24 12:41 | ECHRPT ---
Indication: CONCLUSIONS The left ventricular systolic function is normal with an estimated ejection fraction in the range of 60-65%. Normal left ventricular size. Wall thickness is normal. No regional wall motion abnormalities are present. Aortic valve sclerosis is present. Mild aortic valve regurgitation. There is trace tricuspid valve regurgitation. The estimated pulmonary arterial pressure is 32.3 mmHg. Trivial pulmonary valve regurgitation. BP: / HR: Rhythm: Sinus MEASUREMENTS (Male / Female) Normal Values Technical Quality:Good 2D ECHO LV Diastolic Diameter PLAX 4.3 cm 4.2 - 5.9 / 3.9 - 5.3 cm LV Systolic Diameter PLAX 2.9 cm IVS Diastolic Thickness 0.7 cm 0.6 - 1.0 / 0.6 - 0.9 cm LVPW Diastolic Thickness 0.7 cm 0.6 - 1.0 / 0.6 - 0.9 cm LV Relative Wall Thickness 0.3 LVOT Diameter 1.7 cm LA Systolic Diameter LX 3.1 cm 3.0 - 4.0 / 2.7 - 3.8 cm LV Ejection Fraction MOD 4C 69.4 % LV Ejection Fraction 4C AL 70.6 % DOPPLER AV Peak Velocity 122.0 cm/s AV Peak Gradient 6.0 mmHg AI Peak Velocity 292.5 cm/s AI Peak Gradient 34.2 mmHg AI Pressure Half Time 1235.0 ms LVOT Peak Velocity 96.7 cm/s LVOT Peak Gradient 3.7 mmHg AV Area Cont Eq pk 1.8 cm MV Area PHT 3.5 cm Mitral E Point Velocity 109.0 cm/s Mitral A Point Velocity 69.1 cm/s Mitral E to A Ratio 1.6 LV E' Lateral Velocity 6.8 cm/s Mitral E to LV E' Lateral Ratio 16.0 LV E' Septal Velocity 5.5 cm/s Mitral E to LV E' Septal Ratio 20.0 TR Peak Velocity 236.0 cm/s TR Peak Gradient 22.3 mmHg Right Atrial Pressure 10.0 mmHg Pulmonary Artery Systolic Pressu 32.3 mmHg Right Ventricular Systolic Press 32.3 mmHg PV Peak Velocity 69.2 cm/s PV Peak Gradient 1.9 mmHg FINDINGS LEFT VENTRICLE The left ventricular systolic function is normal with an estimated ejection fraction in the range of 60-65%. Normal left ventricular size. Wall thickness is normal. No regional wall motion abnormalities are present. RIGHT VENTRICLE Normal right ventricular size and systolic function. LEFT ATRIUM The left atrial size is normal. RIGHT ATRIUM The right atrial size is normal. ATRIAL SEPTUM Normal atrial septal thickness without atrial level shunting by limited color doppler interrogation. AORTA The aortic root and proximal ascending aorta are normal in size on limited imaging. MITRAL VALVE Structurally normal mitral valve. No mitral valve stenosis or regurgitation. AORTIC VALVE Trileaflet aortic valve. Aortic valve sclerosis is present. Mild aortic valve regurgitation. TRICUSPID VALVE Structurally normal tricuspid valve. There is trace tricuspid valve regurgitation. The estimated pulmonary arterial pressure is 32.3 mmHg. PULMONARY VALVE Trivial pulmonary valve regurgitation. VESSELS The inferior vena cava is normal in size. PERICARDIUM No pericardial effusion. Blair Harding MD, FACC (Electronically Signed) Final Date:24 April 2018 12:40
--- NOTE | 2018-04-24 14:28 | ECG ---
Date Performed: 04/24/2018 Time Performed: 09:28:33 PTAGE: 72 years EKG: SINUS BRADYCARDIA BORDERLINE ECG Since the PREVIOUS TRACING , no significant change noted PREVIOUS TRACIN04/23/2018 12.28 DOCTOR: Savanna Cobos Interpretating Date/Time 04/28/2018 09:35:29
--- NOTE | 2018-04-24 16:10 | MR ---
EXAM DATE: 04/24/2018 3:30 PM EST AGE/SEX: 72 years / Female INDICATIONS: TIA. CLINICAL DATA: This is the patient's initial encounter. Patient reports that signs and symptoms have been present for 2 days and indicates a pain score of 0/10. MEDICAL/SURGICAL HISTORY: Cardiovascular disease. Hypertension. Chronic obstructive pulmonary disease. Fusion, thoracic. Cholecystectomy. Port placement. COMPARISON: [facility] [place] W/O CONTRAST, 12/20/2017. . TECHNIQUE: Multiplanar, multisequence examination of the brain was performed without contrast. FINDINGS: Cerebrum: The ventricles are normal for age. No evidence of midline shift, mass lesion, hemorrhage or acute infarction. No extraaxial fluid collections are seen. The pituitary gland and suprasellar cistern are normal in configuration. White Matter: Moderate periventricular white matter changes in a nonspecific fashion. Posterior Fossa: The cerebellum and brainstem are intact. The 4th ventricle is midline. The cerebel lopontine angle is unremarkable. The cerebellar tonsils are normal in position. Diffusion Imaging: No focal areas of restricted diffusion are seen. No evidence of acute infarction . Extracranial: The visualized portions of the orbits and paranasal sinuses are unremarkable. CONCLUSION: 1. Moderate periventricular white matter changes without parenchymal hemorrhage, acute infarction or mass lesion. Electronically signed by: Shin Prasad MD 04/24/2018 4:09 PM EST
--- NOTE | 2018-04-24 17:55 | MG ---
cc: Eric Becker MD EEG RECORD NUMBER: [id number] DESCRIPTION: A 7-9 Hz posterior rhythm 20-50 microvolts, low-amplitude beta in the frontal channels. Good anterior to posterior gradient. Reasonable driving with photic stimulation. Frequent eye movement artifact. She had transient T4, EPOCH 42. Rhythmic sharply contoured theta, EPOCH 76, . Tiny phase reversal at T4, EPOCH 83. Attenuation background slowing with transition to drowsy stage I sleep, vertex waves. Good EEG variability reactivity. Single lead EKG showing sinus rhythm. INTERPRETATION: Mild nonspecific change. Otherwise stable, awake sleep electroencephalogram. Clinical correlation. Eric Becker MD MG/rocael/ll , 05:11 PM , 05:16 PM
[2018-04-24] MEDS ORDERED: Acetaminophen 325 MG Tablet PO PRN (18:10)
[2018-04-24] MEDS: Budesonide-Formoterol 80/4.5 MCG 6.9 GM Inhaler INH SCH (20:09)
--- NOTE | 2018-04-24 22:16 | ECG ---
Date Performed: 04/23/2018 Time Performed: 12:28:31 PTAGE: 72 years EKG: SINUS BRADYCARDIA BORDERLINE ECG Since the PREVIOUS TRACING , no significant change noted PREVIOUS TRACIN12/19/2017 21.32 DOCTOR: Savanna Cobos Interpretating Date/Time 04/28/2018 09:35:20
[2018-04-25] MEDS: Dextrose 5%/NaCl 0.9% Inj 1,000 ML IV.CONT SCH ×2 (01:35→14:55)
[2018-04-25] MEDS: levETIRAcetam 500 MG Tablet PO SCH ×2 (08:56→20:22)
[2018-04-25] MEDS: Enoxaparin Inj 40 MG/0.4 ML Syringe SQ SCH (08:59)
[2018-04-25] MEDS ORDERED: Sertraline 50 MG Tablet PO SCH (09:00)
[2018-04-25] MEDS: Budesonide-Formoterol 80/4.5 MCG 6.9 GM Inhaler INH SCH ×2 (09:00→20:22)
--- NOTE | 2018-04-25 11:30 | P.PNIM ---
Subjective Interval history: Patient is awake and alert. She says she feels stronger than yesterday. She is now able to move both of her upper extremities. She still has tingling sensation in bilateral lower extremities. Physical Exam Vital signs: Vital Signs 04/24/18 11:28 04/24/18 16:00 04/24/18 20:00 Temperature 96.3 F L 97.7 F 96.9 F L Pulse Rate 49 L 47 L 50 L Respiratory Rate 19 21 20 Blood Pressure 119/63 151/67 H 153/70 H Pulse Oximetry 100 96 98 04/25/18 00:00 04/25/18 04:00 04/25/18 08:00 Temperature 97.3 F L 96.5 F L 97.1 F L Pulse Rate 51 L 56 L 58 L Respiratory Rate 20 20 16 Blood Pressure 143/66 H 143/67 H 158/70 H Pulse Oximetry 98 99 95 Intake & Output 04/24/18 04/25/18 04/25/18 18:59 06:59 18:59 Intake Total 1480 / 1480 2480 / 2480 Output Total 600 / 600 Balance 880 / 880 2480 / 2480 Weight 53.6 kg Intake: IV 1000 / 1000 2000 / 2000 D5W/Normal Saline Inj 1,000 ML 1000 / 1000 1000 / 1000 @ 84 mls/hr IV.CONT .[id number] CRUZ Rx#:[id number] NS Inj 1,000 ML @ 70 mls/hr IV. 1000 / 1000 CONT .[id number] CRUZ Rx#: [id number] Oral 480 / 480 480 / 480 Output: Urine 600 / 600 Other: # Voids 1 Date of Last Bowel Movement 04/24/18 Narrative: General patient in no acute distress, still complains of tingling and numbness of bilateral lower extremity's. HEENT extraocular movements are intact, clear oropharyngeal mucosa, no JVD Cardiovascular S1-S2 audible, RRR, no murmurs rubs or gallops Respiratory clear to auscultation bilaterally Abdomen soft, nontender, nondistended, normal bowel sounds Extremities no edema 2+ distal pulses in bilateral upper and lower extremities Neuro patient still has numbness and tingling sensation of bilateral lower extremities however is improving. Her upper extremities have improved motor strength in the tingling sensation has also improved in both of her upper extremities. Results - Labs CBC & Chem 7: 04/24/18 05:48 04/24/18 05:48 - Imaging Impressions Head MRI 04/24/18 06:57 CONCLUSION: 1. Moderate periventricular white matter changes without parenchymal hemorrhage , acute infarction or mass lesion. Assessment and Plan - Plan This patient is a 72-year-old female with a diagnosis of non-Hodgkin's lymphoma. She also has a history of TIAs, seizure disorder. The patient was brought in from the oncology center while she was receiving chemotherapy today. As per documentation the patient went unresponsive however did not lose consciousness. She does have a history of seizure disorder however no seizure- like activity was noted. The patient did have numbness on both sides of her face which is worse on the right as well as bilateral upper and lower extremity numbness and weakness. A stroke alert was called and the patient was sent to our emergency department for evaluation. 1. Bilateral upper and lower extremity weakness concern for acute ischemic CVA. Patient symptoms are improving. She still has some numbness and tingling of bilateral lower extremities. Her upper extremity movement and sensation has improved. She is still having difficulty attempting to stand and ambulate. We will continue physical therapy. The patient states she does not want to go to a rehab center after being discharged and prefers to go home. MRI of the brain is negative for any acute infarct. EEG does not show any specific abnormalities. Neurology following the patient, I will follow-up with the recommendations. Patient passed swallow evaluation, tolerating p.o. diet. CT head and CTA head did not show any significant acute abnormalities. 2D echo did not show any significant abnormalities. Ejection fraction 60%. 2. Asymptomatic bradycardia Patient has been having bradycardia on telemetry. Her current heart rate is in the mid 50s however there has been episodes where her heart rate drops to the low 40s. Troponins are negative, EKG shows normal sinus rhythm no acute ST segment or T wave changes. Patient has been asymptomatic since admission. 2. Seizure disorder Patient passed a swallow evaluation, she will be started on p.o. Keppra. 3. Non-Hodgkin's lymphoma Patient can continue to follow-up with Dr. Salas after she is stabilized and discharged. 4. Hypertension Blood pressure is currently under control today. We will continue to monitor her blood pressure and adjust her antihypertensives as needed. 5. History of TIAs Aspirin changed to p.o. today after patient passed a swallow evaluation. Statin started. Lovenox for DVT prophylax.
--- NOTE | 2018-04-25 12:47 | P.PNNEU ---
Subjective Subjective Comments: Cross cover No cp, no dyspnea, no palacios, no focal weakness, no vision loss Active Medications: Active Medications Acetaminophen (Tylenol) 650 mg PO Q6H PRN PRN Reason: PAIN SCALE 1 TO 10 Last Admin: 04/25/18 09:52 Dose: 650 mg Aspirin (Aspirin Chew) 81 mg PO DAILY [facility] Last Admin: 04/25/18 08:59 Dose: 81 mg Atorvastatin Calcium (Lipitor) 80 mg PO HS [facility] Last Admin: 04/24/18 20:08 Dose: 80 mg Budesonide/Formoterol Fumarate (Symbicort 80/4.5 Mcg Inh) 2 puff INH BID [facility] Last Admin: 04/25/18 09:00 Dose: 2 puff Enoxaparin Sodium (Lovenox Inj) 40 mg SQ DAILY [facility] Last Admin: 04/25/18 08:59 Dose: 40 mg Dextrose/Sodium Chloride (D5w/Normal Saline Inj) 1,000 mls @ 84 mls/hr IV.CONT .[id number] [facility] Last Admin: 04/25/18 01:35 Dose: 84 mls/hr Levetiracetam (Keppra) 1,500 mg PO BID [facility] Last Admin: 04/25/18 08:56 Dose: 1,500 mg Allergies/Adverse Reactions: Allergies Allergy/AdvReac Type Severity Reaction Status Date / Time No Known Allergies Allergy Verified 04/23/18 12:30 Review of Systems All other systems reviewed negative except as stated in HPI Physical Exam Vital signs: Vital Signs 04/24/18 16:00 04/24/18 20:00 04/25/18 00:00 Temperature 97.7 F 96.9 F L 97.3 F L Pulse Rate 47 L 50 L 51 L Respiratory Rate 21 20 20 Blood Pressure 151/67 H 153/70 H 143/66 H Pulse Oximetry 96 98 98 04/25/18 04:00 04/25/18 08:00 04/25/18 12:02 Temperature 96.5 F L 97.1 F L Pulse Rate 56 L 58 L Respiratory Rate 20 16 17 Blood Pressure 143/67 H 158/70 H Pulse Oximetry 99 95 Intake & Output 04/24/18 04/25/18 04/25/18 18:59 06:59 18:59 Intake Total 1480 / 1480 2480 / 2480 Output Total 600 / 600 Balance 880 / 880 2480 / 2480 Weight 53.6 kg Intake: IV 1000 / 1000 2000 / 1999 D5W/Normal Saline Inj 1,000 ML 1000 / 1000 1000 / 1000 @ 84 mls/hr IV.CONT .[id number] [facility] Rx#:[id number] NS Inj 1,000 ML @ 70 mls/hr IV. 1000 / 1000 CONT .[id number] [facility] Rx#: [id number] Oral 480 / 480 480 / 480 Output: Urine 600 / 600 Other: # Voids 1 Date of Last Bowel Movement 04/24/18 Narrative: GENERAL: in NAD, SKIN: Warm and dry. HEAD: Atraumatic. Normocephalic. EYES: Pupils equal and round. No scleral icterus. ENT: No nasal bleeding or discharge. NECK: Trachea midline. No JVD. CARDIOVASCULAR: Regular rate and rhythm. RESPIRATORY: No accessory muscle use. GASTROINTESTINAL: Abdomen soft, non-tender, nondistended. MUSCULOSKELETAL: Extremities without clubbing, cyanosis, or edema. NEUROLOGICAL: Awake alert oriented x3, no aphasia pleasant articulate, extraocular movements intact visual vance full no facial asymmetry tongue midline no pronator drift, reduced light touch pinprick stocking distribution, reflexes symmetric plantarflex her no clonus gait not assessed secondary to fall risk PSYCHIATRIC: Appropriate mood and affect; insight and judgment normal. - Constitutional no acute distress - Routine HEENT Exam Head: Present: normocephalic Eye: Present: EOMI Review/Management - Diagnosis (1) TIA (transient ischemic attack) Code(s): G45.9 - Transient cerebral ischemic attack, unspecified Status: Chronic Current Visit: No (2) Syncope Code(s): R55 - Syncope and collapse Status: Resolved Current Visit: No (3) Hypertensive urgency Code(s): I16.0 - Hypertensive urgency Status: Acute Current Visit: Yes (4) History of lymphoma Code(s): Z85.79 - Personal history of other malignant neoplasms of lymphoid, hematopoietic and related tissues Status: Acute Current Visit: Yes (5) Hx of seizure disorder Code(s): Z86.69 - Personal history of other diseases of the nervous system and sense organs Status: Acute Current Visit: Yes - Review/Management Plan: Etiology of symptoms that include hypertensive encephalopathy with systolic over 200s on presentation. Reaction to chemo medication TIA seizure felt to be lesser likely CT brain carotids negative MRI brain no acute stroke EEG with nonspecific changes would be congruent with a history of underlying epilepsy Recommendation Blood pressure control Aspirin daily. Patient states she had stopped taking it a few days prior to her chemo treatment Continue Keppra We will add gabapentin to help with neuropathic symptoms and can also help secondarily as an anticonvulsant Can be discharged from neurologic standpoint follow-up in the outpatient setting Behavioral modification and risk factor reduction. Weight loss, blood pressure control, blood sugar control, lipid control. Exercise
[2018-04-25] MEDS: Gabapentin 100 MG Capsule PO SCH (17:50)
[2018-04-26] MEDS: Dextrose 5%/NaCl 0.9% Inj 1,000 ML IV.CONT SCH ×2 (05:35→17:47)
[2018-04-26] MEDS: levETIRAcetam 500 MG Tablet PO SCH ×2 (09:05→22:46)
[2018-04-26] MEDS: Gabapentin 100 MG Capsule PO SCH ×3 (09:06→18:13)
[2018-04-26] MEDS: hydroCHLOROthiazide 25 MG Tablet PO SCH (09:06)
[2018-04-26] MEDS: Lisinopril 20 MG Tablet PO SCH (09:06)
[2018-04-26] MEDS: Enoxaparin Inj 40 MG/0.4 ML Syringe SQ SCH (09:07)
--- NOTE | 2018-04-26 09:45 | P.PNIM ---
Subjective Interval history: Patient is laying down in bed. She complains of continued numbness and tingling of bilateral shins to her feet. She is having difficulty ambulating because of her symptoms. Physical Exam Vital signs: Vital Signs 04/25/18 12:00 04/25/18 12:02 04/25/18 16:00 Temperature 97.7 F 97.1 F L Pulse Rate 62 54 L Respiratory Rate 12 17 17 Blood Pressure 132/60 152/69 H Pulse Oximetry 96 100 04/25/18 20:00 04/26/18 00:00 04/26/18 04:00 Temperature 97.3 F L 96.6 F L 96.0 F L Pulse Rate 56 L 56 L 55 L Respiratory Rate 20 20 20 Blood Pressure 123/58 L 136/64 159/67 H Pulse Oximetry 100 99 99 04/26/18 08:00 Temperature 96.5 F L Pulse Rate 55 L Respiratory Rate 20 Blood Pressure 181/77 H Pulse Oximetry 100 Intake & Output 04/25/18 04/26/18 04/26/18 18:59 06:59 18:59 Intake Total 1000 / 1000 1240 / 1240 Output Total 300 / 300 Balance 700 / 700 1240 / 1240 Weight 54 kg Intake: IV 1000 / 1000 1000 / 1000 D5W/Normal Saline Inj 1,000 ML 1000 / 1000 1000 / 1000 @ 84 mls/hr IV.CONT .[id number] [facility] Rx#:[id number] Oral 240 / 240 Output: Urine 300 / 300 Other: # Voids 3 4 Date of Last Bowel Movement 04/24/18 # Bowel Movements 2 Narrative: General patient in no acute distress, still complains of tingling and numbness of bilateral lower extremities. She is having difficulty ambulating. HEENT extraocular movements are intact, clear oropharyngeal mucosa, no JVD Cardiovascular S1-S2 audible, RRR, no murmurs rubs or gallops Respiratory clear to auscultation bilaterally Abdomen soft, nontender, nondistended, normal bowel sounds Extremities no edema 2+ distal pulses in bilateral upper and lower extremities Neuro patient still has numbness and tingling sensation of bilateral lower extremities however has improved since admission. Her upper extremities have improved motor strength in the tingling sensation has also improved in both of her upper extremities. Results - Labs CBC & Chem 7: 04/24/18 05:48 04/24/18 05:48 Assessment and Plan - Plan This patient is a 72-year-old female with a diagnosis of non-Hodgkin's lymphoma. She also has a history of TIAs, seizure disorder. The patient was brought in from the oncology center while she was receiving chemotherapy today. As per documentation the patient went unresponsive however did not lose consciousness. She does have a history of seizure disorder however no seizure- like activity was noted. The patient did have numbness on both sides of her face which is worse on the right as well as bilateral upper and lower extremity numbness and weakness. A stroke alert was called and the patient was sent to our emergency department for evaluation. 1. Bilateral upper and lower extremity weakness possibly reaction to chemotherapy. 2. Seizure disorder Patient symptoms have improved since admission. She still has a significant amount of numbness and tingling of her shins down to her feet bilaterally. This is making it difficult for the patient to stand and ambulate. The patient will be reassessed by physical therapy. As of today she is unsafe discharge home as she currently cannot walk. She may need physical therapy at a half-way facility. Case will be discussed with case management. MRI of the brain is negative for any acute infarct. EEG does not show any specific abnormalities. Neurology following the patient, gabapentin added to the patient's medication regimen. Patient passed swallow evaluation, tolerating p.o. diet. CT head and CTA head did not show any significant acute abnormalities. 2D echo did not show any significant abnormalities. Ejection fraction 60%. 2. Asymptomatic bradycardia Patient is asymptomatic Patient has been having bradycardia on telemetry. Her current heart rate is in the mid 50s however there has been episodes where her heart rate drops to the low 40s. Troponins are negative, EKG shows normal sinus rhythm no acute ST segment or T wave changes. Patient has been asymptomatic since admission. 3. Non-Hodgkin's lymphoma Patient can continue to follow-up with Dr. Salas after she is stabilized and discharged. 4. Hypertension Blood pressure elevated this morning. She was restarted on her home antihypertensives. 5. History of TIAs Continue aspirin. Continue statin. Lovenox for DVT prophylax.
[2018-04-26] MEDS: Budesonide-Formoterol 80/4.5 MCG 6.9 GM Inhaler INH SCH ×2 (09:48→22:46)
[2018-04-27 06:49] LABS: Calcium 8.2 mg/dL (8.5-10.1); Carbon Dioxide 29.2 meq/L (21.0-32.0); Magnesium 1.7 mg/dL (1.5-2.5); Potassium 3.9 meq/L (3.5-5.1)
[2018-04-27] MEDS: Enoxaparin Inj 40 MG/0.4 ML Syringe SQ SCH (08:36)
[2018-04-27] MEDS: levETIRAcetam 500 MG Tablet PO SCH (08:36)
[2018-04-27] MEDS: Gabapentin 100 MG Capsule PO SCH ×2 (08:36→13:03)
[2018-04-27] MEDS: Lisinopril 20 MG Tablet PO SCH (08:36)
[2018-04-27] MEDS: hydroCHLOROthiazide 25 MG Tablet PO SCH (08:37)
[2018-04-27] MEDS: Budesonide-Formoterol 80/4.5 MCG 6.9 GM Inhaler INH SCH (08:37)
[2018-04-27] MEDS: Mag Sulf 1 gm/100 ml Premix 100 ML IV.SIG SCH ×2 (08:37→10:48)
[2018-04-27 08:48] VITALS: RESP 20
--- NOTE | 2018-04-27 14:32 | P.DCO ---
- Physical Therapy Order: Evaluate and treat, Improve ambulation - Home Health Nursing Order: Medical education, Nursing assessment with vital signs - Case Management Consult Case Management Consult-Home Health: Yes - Certification I have seen patient Racheal Odom on 04/27/18. My clinical findings support the need for the requested home health care services because: Deconditioned with increased weakness I certify that my clinical findings support that this patient is homebound because: Unsafe to leave home unassisted
--- NOTE | 2018-04-27 14:32 | P.DS ---
Date of admission: 04/23/18 12:35 Primary care physician: Maxim Chanel MD Brief History from admission: This patient is a 72-year-old female with a diagnosis of non-Hodgkin's lymphoma. She also has a history of TIAs, seizure disorder. The patient was brought in from the oncology center while she was receiving chemotherapy today. As per documentation the patient went unresponsive however did not lose consciousness. She does have a history of seizure disorder however no seizure- like activity was noted. The patient did have numbness on both sides of her face which is worse on the right as well as bilateral upper and lower extremity numbness and weakness. A stroke alert was called and the patient was sent to our emergency department for evaluation. The patient denies any chest pain, no shortness of breath, no abdominal pain, no diarrhea, no fevers or chills. Past medical history non-Hodgkin's lymphoma diagnosed 2-1/2 years ago, the patient follows up with Dr. Salas, hypertension, history of TIAs, coronary artery disease status post four-vessel CABG Past surgical history CABG Family history noncontributory Social history patient denies any history of tobacco, alcohol, or drug use. DS: Medications - Discharge Medications Prescriptions: gabapentin 100 mg PO TID #120 cap DS: Summary Hospital Course: This patient is a 72-year-old female with a diagnosis of non-Hodgkin's lymphoma. She also has a history of TIAs, seizure disorder. The patient was brought in from the oncology center while she was receiving chemotherapy today. As per documentation the patient went unresponsive however did not lose consciousness. She does have a history of seizure disorder however no seizure- like activity was noted. The patient did have numbness on both sides of her face which is worse on the right as well as bilateral upper and lower extremity numbness and weakness. A stroke alert was called and the patient was sent to our emergency department for evaluation. 1. Bilateral upper and lower extremity weakness possibly reaction to chemotherapy. 2. Seizure disorder The patient presents with the symptoms mentioned above. A CT scan of the head was done as well as a CTA of the head and neck which not show any significant abnormalities. MRI of the brain was ordered by neurology which was negative for any acute infarcts. EEG did not show any specific abnormalities. 2D echocardiogram did not show any abnormalities. Ejection fraction 60%. Initially the patient was kept n.p.o. as there was a concern for a stroke. Swallow evaluation was done which the patient passed and is now tolerating p.o. diet without any difficulties. The patient's symptoms were possibly caused due to chemotherapy as the patient presented shortly after receiving chemotherapy. Neurology had started the patient on gabapentin while in-house due to neuropathy as this will also help with her seizure disorder. She can continue to take Keppra which she was taking prior to admission. While in-house the patient had physical therapy and she is able to ambulate with a walker. The patient states she has a walker at home and we advised that she continue to use a walker when ambulating at home. The patient did not want rehab at a shelter facility. She will be discharged home with home health and continue physical therapy. Prescription for gabapentin were given to the patient. 2. Asymptomatic bradycardia Patient is asymptomatic Patient has been having bradycardia on telemetry. Her current heart rate is in the mid 50s however there has been episodes where her heart rate drops to the low 40s. Troponins are negative, EKG shows normal sinus rhythm no acute ST segment or T wave changes. Patient has been asymptomatic since admission. Metoprolol will be stopped on discharge as the patient has a heart rate in the mid 40s while on the medication however was asymptomatic. I recommend that she follow-up with her primary care doctor and her antihypertensives can be adjusted as needed. 3. Non-Hodgkin's lymphoma Patient can continue to follow-up with Dr. Salas after she is stabilized and discharged. She should also be monitored closely if she needs continued chemotherapy given her symptoms during this admission. 4. Hypertension Blood pressure under control with lisinopril and hydrochlorothiazide. She can follow-up with her primary care doctor and her blood pressure medications can be adjusted as needed. 5. History of TIAs Continue aspirin. Continue statin. - Time Spent with Patient Total time spent providing and/or coordinating discharge services: Greater than 30 minutes - Quality: Stroke Last date observed well: 04/23/18 Last time observed well: 10:45 - Quality: VTE Deep Vein Thrombosis/Pulmonary Embolism Present on Admission: No Exam Vital signs: Vital Signs 04/26/18 16:00 04/26/18 20:00 04/27/18 00:00 Temperature 97 F L 97.6 F 95.5 F L Pulse Rate 60 66 66 Respiratory Rate Blood Pressure 131/58 L 145/67 H 149/69 H Pulse Oximetry 98 97 95 04/27/18 04:00 04/27/18 08:00 04/27/18 12:00 Temperature 94.5 F L 96.4 F L 97.5 F L Pulse Rate 68 73 70 Respiratory Rate 18 20 20 Blood Pressure 134/63 159/72 H 121/59 L Pulse Oximetry 94 L 99 97 Intake & Output 04/26/18 04/27/18 04/27/18 18:59 06:59 18:59 Intake Total 1140 / 1140 90 / 90 200 / 200 Output Total 300 / 300 Balance 1140 / 1140 -210 / -210 200 / 200 Weight 58.1 kg Intake: IV 600 / 600 200 / 200 D5W/Normal Saline Inj 1,000 ML 600 / 600 @ 84 mls/hr IV.CONT .[id number] [facility] Rx#:[id number] Magnesium Sulfate 1 gm/D5W 100 200 / 200 ml Premix 100 ML @ 100 mls/hr IV.SIG Q2H [facility] Rx#:[id number] Oral 540 / 540 90 / 90 Output: Urine 300 / 300 Other: # Voids 4 Date of Last Bowel Movement 04/24/18 04/24/18 Narrative: General patient in no acute distress HEENT extraocular movements are intact, clear oropharyngeal mucosa, no JVD Cardiovascular S1-S2 audible, RRR, no murmurs rubs or gallops Respiratory clear to auscultation bilaterally Abdomen soft, nontender, nondistended, normal bowel sounds Extremities no edema 2+ distal pulses in bilateral upper and lower extremities Neuro patient can move all 4 extremities, sensation is intact bilaterally Results Procedures completed during hospitalization: None Labs on day of discharge: Labs from last 24 hours 04/27/18 05:45 Sodium 146 H Potassium 3.9 Chloride 110 H Carbon Dioxide 29.2 Anion Gap 7 BUN 8 Creatinine 0.70 Estimated GFR 82 L Random Glucose 86 Calcium 8.2 L Magnesium 1.7 - Impressions ITS Impressions Chest X-Ray 04/23/18 11:39 CONCLUSION: No acute cardiopulmonary disease identified. Head CT 04/23/18 11:39 CONCLUSION: Negative CT Head non contrast. Report was called by Dr. Chambers to Dr. Sabillon at 12:00. Head CTA 04/23/18 11:39 CONCLUSION: 1. Brain CTA within normal limits. Report was called by Dr. Chambers to Dr. Barth at 1215. Neck CTA 04/23/18 11:39 CONCLUSION: No evidence of significant carotid stenosis. Head MRI 04/24/18 06:57 CONCLUSION: 1. Moderate periventricular white matter changes without parenchymal hemorrhage , acute infarction or mass lesion. Discharge Plan - Discharge Disposition Patient Disposition: /Home Health Service - Discharge Condition Condition: Stable - Discharge Order Discharge Orders: Discharge Order (Routine); Ordered 04/27/18 Ordered By: Landy Alvarez Neurology Clear for Discharge (Routine); Ordered 04/25/18 Ordered By: Eric Becker - Physicians Team Primary Care Provider: Maxim Chanel Attending Provider: Landy Alvarez Other Providers: Iva Conway MD
[2018-04-27] MEDS ORDERED: Mag Sulf 1 gm/100 ml Premix 100 ML IV.SIG SCH (15:00)
[2018-04-27 16:46] VITALS: BP 128/62; PULSE 65; TEMP 97.9; O2SAT 98
== END 2018-04-27 17:40 | disposition home health service (06) ==
LOC: PHED 11:30 → PHEDA 11:30 → PH3 15:00
PROVIDERS: ADMIT Hospitalist; ATTEND Hospitalist
DX: G40.909 Epilepsy, unspecified, not intractable, without status epilepticus; Z79.899 Other long term (current) drug therapy; I25.10 Atherosclerotic heart disease of native coronary artery without angina pectoris; Z79.01 Long term (current) use of anticoagulants; Z86.73 Personal history of transient ischemic attack (TIA), and cerebral infarction without residual deficits; R53.1 Weakness; G47.30 Sleep apnea, unspecified; M41.9 Scoliosis, unspecified; E78.00 Pure hypercholesterolemia, unspecified; R29.818 Other symptoms and signs involving the nervous system; Q21.1 Atrial septal defect; C85.90 Non-Hodgkin lymphoma, unspecified, unspecified site; C82.90 Follicular lymphoma, unspecified, unspecified site; Z79.82 Long term (current) use of aspirin; I10 Essential (primary) hypertension; J44.9 Chronic obstructive pulmonary disease, unspecified; R00.1 Bradycardia, unspecified; F03.90 Unspecified dementia, unspecified severity, without behavioral disturbance, psychotic disturbance, mood disturbance, and anxiety; F41.9 Anxiety disorder, unspecified